=== PATIENT | female | born 1950 | race Caucasian/White ===

== ENCOUNTER 2018-01-14 14:40 | Inpatient (IN) | payer MEDICARE ==
[~2018-01-14] VITALS: Ht 160 cm; Wt 55.8 kg
[2018-01-14] MEDS ORDERED: SODIUM CHLORIDE 0.9% 500ML 500 ML IV STA (15:02)
[2018-01-14] MEDS ORDERED: VANCOMYCIN 1GM/NS 250 ML 250 ML IV SCH (15:15)
[2018-01-14 15:18] LABS: BASOPHILS % 0.1 % (0.0-1.0); EOSINOPHILS % 0.1 % (0.0-6.0); HEMATOCRIT 25.4 % (34.2-44.1); LYMPHOCYTES # (AUTO) 0.6 (1.0-3.2); LYMPHOCYTES % 3.8 % (18.0-39.1); MEAN CORPUSCULAR HEMOGLOBIN 31.8 pg (28-32); MEAN CORPUSCULAR HGB CONC 35.4 g/dL (31-35); MEAN CORPUSCULAR VOLUME 89.8 fL (81-99); MONOCYTES # (AUTO) 1.7 (0.2-0.8); MONOCYTES % 11.3 % (4.4-11.3); NEUTROPHILS # (AUTO) 12.7 (2.1-6.9); NEUTROPHILS % 83.8 % (38.7-80.0); PLATELET COUNT 251 x10e3/uL (140-360); RED BLOOD COUNT 2.83 x10e6/uL (3.6-5.1); RED CELL DISTRIBUTION WIDTH 24.2 % (11.7-14.4)
[2018-01-14 15:22] LABS: INR 1.2; PROTHROMBIN TIME 16.3 seconds (11.9-14.5)
[2018-01-14 15:23] LABS: PARTIAL THROMBOPLASTIN TIME 29.2 seconds (23.8-35.5)
--- NOTE | 2018-01-14 15:30 | NUR ---
PETE FROM LAB CALLED TO REPORT LACTIC ACID 27.3. INFORMED MARIO DAVISON PRIMARY NURSE WELL DR. LAM.
[2018-01-14 15:35] LABS: ALBUMIN 2.9 g/dL (3.5-5.0); ALBUMIN/GLOBULIN RATIO 0.8 (0.8-2.0); ANION GAP 20.7 mmol/L (8-16); CALCIUM 8.2 mg/dL (8.4-10.2); CREATINE KINASE MB 3.5 ng/mL (0-5.0); CREATININE, SERUM 1.27 mg/dL (0.57-1.11)
[2018-01-14 15:42] LABS: POTASSIUM 1.7 mmol/L (3.5-5.1)
--- NOTE | 2018-01-14 15:45 | NUR ---
EVA FROM LAB CALLED TO REPORT K+ 1.7. DR. LAM AND SAMAN, RN PRIMARY NURSE AWARE OF THIS.
[2018-01-14 15:51] LABS: ABG HCO3 27 mmol/L (23-28); ABG PCO2 31 mmHg (41-51); ABG PH 7.55 (7.31-7.41); ABG PO2 131 mmHg (80-105)
[2018-01-14] MEDS ORDERED: POTASSIUM CHLORIDE 20MEQ/100ML 200 ML IV ONE ×3 (16:00→19:30)
--- NOTE | 2018-01-14 16:23 | Diagnostic Imaging Report ---
A single frontal view of the chest. HISTORY: Chest tightness, no pain COMPARISON: None available. DISCUSSION: Portable technique, limits sensitivity of the exam. Overlying monitoring leads and tubes . Tubes/Lines: None Lungs and pleura: The lungs are hyperinflated. Mild bronchiectasis. No evidence of a consolidative pneumonia or pulmonary alveolar edema. No definite pleural effusion or pneumothorax is identified. Heart and mediastinum: The cardiomediastinal silhouette appears unremarkable. Bones: Diffusely decreased mineralization of the osseous structures limits bone detail. No acute displaced fracture. IMPRESSION: Findings compatible with obstructive lung disease, consider COPD. Signed by: Dr. Melvin Contreras D.O., M.M.M. on 01/14/2018 4:19 PM
[2018-01-14 16:34] LABS: CLARITY,URINE CLOUDY (CLEAR); COLOR,URINE YELLOW (YELLOW)
[2018-01-14 16:35] LABS: BILIRUBIN,URINE 2+ (NEGATIVE); KETONES,URINE TRACE (NEGATIVE); LEUKOCYTE ESTERASE ,URINE 2+ (NEGATIVE); NITRITE,URINE POSITIVE (NEGATIVE); PROTEIN,URINE DIPSTICK 1+ (NEGATIVE); URINE UROBILINOGEN 4 mg/dL (0.2 - 1)
--- OUTSIDE RECORDS SUMMARY | 2018-01-14 16:55 | XMS REPORT | Summary of Care ---
Author Organization Unknown Address Unknown Phone Unavailable Encounter [facility](LIS) [id number] Date(s): 07/25/14 - 07/29/14 [facility] [address] [place] [address]- Discharge Disposition: Home Physician Attending: Cezar Contreras MD Physician Admitting: Cezar Contreras MD Vital Signs 1 2 3 Most recent to oldest [Reference Range]: 160.02 cm (07/26/14 2:26 PM) 160.02 cm (07/25/14 8:06 PM) Height 98.0 DegF (07/29/14 11:00 AM) 97.8 DegF (07/29/14 7:00 AM) 98.0 DegF (07/29/14 3:55 AM) Temperature Oral [96.4-99.1 DegF] 143/84 mmHg *HI* (07/29/14 11:00 AM) 179/85 mmHg *HI* (07/29/14 7:00 AM) 173/85 mmHg *HI* (07/29/14 3:55 AM) Blood Pressure [90-140/60-90 mmHg] 18 BRMIN (07/29/14 11:00 AM) 17 BRMIN (07/29/14 7:00 AM) 16 BRMIN (07/29/14 3:55 AM) Respiratory Rate [14-20 BRMIN] 66 bpm (07/29/14 11:00 AM) 68 bpm (07/29/14 7:00 AM) 76 bpm (07/29/14 3:55 AM) Peripheral Pulse Rate [60-100 bpm] 39.091 kg (07/26/14 2:26 PM) 39.091 kg (07/25/14 8:06 PM) Weight 15.27 m2 (07/26/14 2:26 PM) 15.27 m2 (07/25/14 8:06 PM) Body Mass Index Problem List Condition Effective Dates Status Health Status Informant COPD(Confirmed) Active DVT(Confirmed) Active HTN - Active Hypertension(Confirm ed) Current Active smoker(Confirmed) Allergies, Adverse Reactions, Alerts Substance Reaction Severity Status NKDA Active Medications acetaminophen 650 mg, Route: PO, Drug form: TAB, ONCE, Dosing Weight 39.091, kg, Priority: STA T, Start date: 07/25/14 23:47:00, Stop date: 07/25/14 23:47:00 Start Date: 07/25/14 Stop Date: 07/25/14 Status: Completed amLODIPine 5 mg, 1 tab, Route: PO, Drug form: TAB, Daily, Dosing Weight 39.091, kg, Priorit y: STAT, Start date: 07/28/14 14:02:00, Duration: 30 day, Stop date: 08/27/14 9: 00:00 Notes: (Same as: Ernesto) Start Date: 07/28/14 Stop Date: 07/29/14 Status: Discontinued amLODIPine 5 mg, 1 tab, Route: PO, Drug form: TAB, BID, Dosing Weight 39.091, kg, Start judith e: 07/29/14 17:00:00, Duration: 30 day, Stop date: 08/28/14 9:00:00 Notes: (Same as: Ernesto) Start Date: 07/29/14 Stop Date: 07/29/14 Status: Discontinued amLODIPine 5 mg oral tablet 5 mg=1 tab, PO, BID, 0 Refill(s) Start Date: 07/29/14 Status: Ordered aspirin 81 mg tablet, enteric coated 81 mg, 1 tab, Route: PO, Drug form: ECTAB, Daily, Dosing Weight 39.091, kg, Star t date: 07/26/14 13:00:00, Duration: 30 day, Stop date: 08/25/14 9:00:00 Notes: Do not crush or chew.(Same As: Ecotrin) Start Date: 07/26/14 Stop Date: 07/29/14 Status: Discontinued atropine 0.5 mg, 5 mL, Route: IV, Drug form: INJ, ONCE, Dosing Weight 39.091, kg, PRN Bra dycardia, Start date: 07/26/14 19:28:00, symtomatic bradycardia with a HR less t de santiago 44bpm Start Date: 07/26/14 Stop Date: 07/29/14 Status: Discontinued carvedilol 12.5 mg oral tablet 12.5 mg=1 tab, PO, Q12H, 0 Refill(s) Start Date: 07/29/14 Status: Ordered cloNIDine 0.2 mg oral tablet 0.2 mg, 1 tab, Route: PO, Drug form: TAB, BID, Dosing Weight 39.091, kg, Start d ate: 07/26/14 13:00:00, Duration: 30 day, Stop date: 08/25/14 9:00:00 Notes: (Same As: Catapres) Start Date: 07/26/14 Stop Date: 07/29/14 Status: Discontinued Coreg 12.5 mg, 1 tab, Route: PO, Drug form: TAB, Q12H, Dosing Weight 39.091, kg, Start date: 07/28/14 9:00:00, Duration: 30 day, Stop date: 08/26/14 21:00:00 Notes: Give with food. (Same As: Coreg) Start Date: 07/28/14 Stop Date: 07/29/14 Status: Discontinued lisinopril 10 mg, 1 tab, Route: PO, Drug form: TAB, BID, Dosing Weight 39.091, kg, Start da te: 07/29/14 17:00:00, Duration: 30 day, Stop date: 08/28/14 9:00:00 Notes: (Same as: Prinivil, Zestril) Start Date: 07/29/14 Stop Date: 07/29/14 Status: Discontinued lisinopril 10 mg oral tablet 10 mg=1 tab, PO, BID, 0 Refill(s) Start Date: 07/29/14 Status: Ordered Lovenox 40 mg, 0.4 mL, Route: SUB-Q, Drug form: INJ, Daily, Dosing Weight 39.091, kg, St art date: 07/26/14 14:00:00, Stop date: 08/24/14 14:00:00 Notes: (Same as: Lovenox) Start Date: 07/26/14 Stop Date: 07/29/14 Status: Discontinued magnesium sulfate 2 gm, 50 mL, Route: IVPB, Drug form: INJ, ONCE, Dosing Weight 39.091, kg, Total dose=2 gm, Start date: 07/26/14 12:33:00, Duration: 1 doses or times, Stop date: 07/26/14 12:33:00 Start Date: 07/26/14 Stop Date: 07/26/14 Status: Completed magnesium sulfate 2 gm, 50 mL, Route: IVPB, Drug form: INJ, ONCE, Dosing Weight 39.091, kg, Total dose=2 gm, Start date: 07/28/14 8:55:00, Duration: 1 doses or times, Stop date: 07/28/14 8:55:00 Start Date: 07/28/14 Stop Date: 07/28/14 Status: Completed metoprolol tartrate 50 mg, 1 tab, Route: PO, Drug form: TAB, [id number], Dosing Weight 39.091, kg, Star t date: 07/26/14 18:00:00, Duration: 30 day, Stop date: 08/25/14 6:00:00 Notes: (Same as: Lopressor) Start Date: 07/26/14 Stop Date: 07/28/14 Status: Discontinued nitroglycerin 0.4 mg sublingual tablet 0.4 mg, 1 tab, Route: SL, Drug form: TAB, Q5Min, Dosing Weight 39.091, kg, PRN C hest Pain, Start date: 07/26/14 19:28:00, Duration: 30 day, Stop date: 08/25/14 19:27:00 Notes: (Same as:Nitroquick, Nitrostat)"Do Not Crush" Sublingual tablet Start Date: 07/26/14 Stop Date: 07/29/14 Status: Discontinued NS 1,000 mL 1,000 mL, Rate: 75 ml/hr, Infuse over: 13.3 hr, Route: IV, Dosing Weight 39.091 kg, Total Volume: 1,000, Start date: 07/26/14 0:47:00, Stop date: 08/25/14 0:46: 00 Start Date: 07/26/14 Stop Date: 07/26/14 Status: Discontinued potassium chloride 20 mEq, 100 mL, Route: IVPB, Drug form: INJ, Q2H, Dosing Weight 39.091, kg, Tota l dose=40 mEq, Start date: 07/26/14 2:00:00, Duration: 2 doses or times, Stop da te: 07/26/14 4:00:00 Notes: (Same as: KCL) Infuse no faster than 10 mEq/hr if given peripherally. Start Date: 07/26/14 Stop Date: 07/26/14 Status: Voided With Results potassium phosphate + Sodium Chloride 0.9% IV 240 mL 30 mmol, 10 mL, Route: IVPB, ONCE, Dosing Weight 39.091, kg, Start date: 5 13:00:00, Stop date: 07/27/14 13:00:00 Notes: (Same as: K Phosphate.) 1 mMol phoshate has 1.47 mEq potassium Infuse o cat 4 hours Start Date: 07/27/14 Stop Date: 07/27/14 Status: Completed Rocephin 1 gm, Route: IVPB, Drug form: PDR/INJ, ONCE, Dosing Weight 39.091, kg, Priority: STAT, Start date: 07/26/14 0:33:00, Stop date: 07/26/14 0:33:00 Start Date: 07/26/14 Stop Date: 07/26/14 Status: Completed Rocephin + Sodium Chloride 0.9% IV 100 mL 1 gm, Route: IVPB, [id number], Dosing Weight 39.091, kg, Start date: 07/27/14 0:00: 00, Duration: 30 day, Stop date: 08/25/14 0:00:00 Notes: Mix in NS 100ml ADV bag and infuse over 30 Minutes (Same As: Rocephin) Start Date: 07/27/14 Stop Date: 07/29/14 Status: Discontinued Saline Flush 0.9% 10 mL, Route: IVP, Drug Form: INJ, Dosing Weight 39.091, kg, PRN, PRN Line Flush , Start date: 07/25/14 22:00:00, Duration: 30 day, Stop date: 08/24/14 21:59:00 Notes: (Same as: BD Posiflush) Start Date: 07/25/14 Stop Date: 07/29/14 Status: Discontinued Sodium Chloride 0.9% IV 1000 mL 1,000 mL, Rate: 125 ml/hr, Infuse over: 8 hr, Route: IV, Dosing Weight 39.091 kg , Total Volume: 1,000, Priority: STAT, Start date: 07/25/14 22:00:00, Duration: 1 doses or times, Stop date: 07/26/14 5:59:00 Start Date: 07/25/14 Stop Date: 07/25/14 Status: Completed sodium phosphate + Dextrose 5% in Water IV 245 mL 15 mmol, 5 mL, Route: IVPB, PRN, Dosing Weight 39.091, kg, PRN Abnormal Lab Resu lt, Start date: 07/26/14 12:34:00, Duration: 30 day, Stop date: 08/25/14 12:33:0 0 Start Date: 07/26/14 Stop Date: 07/29/14 Status: Discontinued tramadol 50 mg, 1 tab, Route: PO, Drug form: TAB, Q12H, Dosing Weight 39.091, kg, Start d ate: 07/26/14 20:58:00, Stop date: 08/25/14 21:00:00 Notes: Not to exceed 400mg/day. (Same As: Ultram) Start Date: 07/26/14 Stop Date: 07/28/14 Status: Discontinued tramadol 50 mg, 1 tab, Route: PO, Drug form: TAB, Q12H, Dosing Weight 39.091, kg, PRN César n Score 1-3, Start date: 07/26/14 13:09:00, Duration: 30 day, Stop date: 5 13:08:00 Notes: Not to exceed 400mg/day. (Same As: Ultram) Start Date: 07/26/14 Stop Date: 07/26/14 Status: Discontinued tramadol 50 mg oral tablet 50 mg, 1 tab, Route: PO, Drug form: TAB, Q6H, Dosing Weight 39.091, kg, PRN Pain Score 1-3, Start date: 07/28/14 13:39:00, Duration: 30 day, Stop date: 08/27/14 13:38:00 Notes: Not to exceed 400mg/day. (Same As: Ultram) Start Date: 07/28/14 Stop Date: 07/29/14 Status: Discontinued Zofran 4 mg, Route: IVP, Drug form: INJ, ONCE, Dosing Weight 39.091, kg, Start date: 1:39:00, Stop date: 07/26/14 1:39:00 Start Date: 07/26/14 Stop Date: 07/26/14 Status: Completed Results ELECTROLYTES 1 2 3 Most recent to oldest [Reference Range]: 133 mEq/L *LOW* (07/29/14 3:34 AM) 130 mEq/L *LOW* (07/28/14 3:41 AM) 130 mEq/L *LOW* (07/27/14 11:08 AM) Sodium Lvl [135-145 mEq/L] 3.7 mEq/L (07/29/14 3:34 AM) 3.6 mEq/L (07/28/14 3:41 AM) 3.2 mEq/L *LOW* (07/27/14 11:08 AM) Potassium Lvl [3.5-5.1 mEq/L] 92 mEq/L *LOW* (07/29/14 3:34 AM) 92 mEq/L *LOW* (07/28/14 3:41 AM) 90 mEq/L *LOW* (07/27/14 11:08 AM) Chloride Lvl [95-109 mEq/L] 33 mEq/L *HI* (07/29/14 3:34 AM) 32 mEq/L (07/28/14 3:41 AM) 34 mEq/L *HI* (07/27/14 11:08 AM) CO2 [24-32 mEq/L] 11.7 mEq/L (07/29/14 3:34 AM) 9.6 mEq/L *LOW* (07/28/14 3:41 AM) 9.2 mEq/L *LOW* (07/27/14 11:08 AM) AGAP [10.0-20.0 mEq/L] CHEM PANEL 1 2 3 Most recent to oldest [Reference Range]: 0.7 mg/dL (07/29/14 3:34 AM) 0.9 mg/dL (07/28/14 3:41 AM) 1.4 mg/dL (07/27/14 11:08 AM) Creatinine Lvl [0.5-1.4 mg/dL] 92 mL/min/1.73m2 1 *NA* (07/29/14 3:34 AM) 68 mL/min/1.73m2 2 *NA* (07/28/14 3:41 AM) 40 mL/min/1.73m2 3 *NA* (07/27/14 11:08 AM) eGFR 11 mg/dL (07/29/14 3:34 AM) 16 mg/dL (07/28/14 3:41 AM) 18 mg/dL (07/27/14 11:08 AM) BUN [7-22 mg/dL] 25 (07/25/14 11:34 PM) 24 (07/25/14 10:37 PM) B/C Ratio [6-25] 89 mg/dL 4 (07/29/14 3:34 AM) 91 mg/dL 5 (07/28/14 3:41 AM) 84 mg/dL 6 (07/27/14 11:08 AM) Glucose Lvl [70-99 mg/dL] 7.2 g/dL (07/25/14 11:34 PM) 7.9 g/dL (07/25/14 10:37 PM) Total Protein [6.4-8.4 g/dL] 3.8 g/dL (07/25/14 11:34 PM) 4.1 g/dL (07/25/14 10:37 PM) Albumin Lvl [3.5-5.0 g/dL] 3.4 g/dL (07/25/14 11:34 PM) 3.8 g/dL (07/25/14 10:37 PM) Globulin [2.0-4.0 g/dL] 1.1 (07/25/14 11:34 PM) 1.1 (07/25/14 10:37 PM) A/G Ratio [0.7-1.6] 8.4 mg/dL *LOW* (07/29/14 3:34 AM) 7.6 mg/dL *LOW* (07/28/14 3:41 AM) 8.0 mg/dL *LOW* (07/27/14 11:08 AM) Calcium Lvl [8.5-10.5 mg/dL] 2.5 mg/dL (07/28/14 3:41 AM) 1.1 mg/dL 7 *CRIT* (07/27/14 11:08 AM) 1.6 mg/dL *LOW* (07/26/14 4:04 AM) Phosphorus [2.5-4.5 mg/dL] 1.5 mg/dL *LOW* (07/28/14 3:41 AM) 2.0 mg/dL (07/27/14 11:08 AM) 1.5 mg/dL *LOW* (07/26/14 4:04 AM) Magnesium Lvl [1.8-2.4 mg/dL] 27 unit/L (07/25/14 11:34 PM) 30 unit/L (07/25/14 10:37 PM) ALT [0-65 unit/L] 36 unit/L (07/25/14 11:34 PM) 41 unit/L *HI* (07/25/14 10:37 PM) AST [0-37 unit/L] 118 unit/L (07/25/14 11:34 PM) 133 unit/L (07/25/14 10:37 PM) Alk Phos [39-136 unit/L] 0.4 mg/dL (07/25/14 11:34 PM) 0.5 mg/dL (07/25/14 10:37 PM) Bili Total [0.2-1.3 mg/dL] 283 unit/L (07/25/14 10:37 PM) Lipase Lvl [73-393 unit/L] 1Result Comment: The eGFR is calculated using the CKD-EPI formula. In most young, healthy individuals the eGFR will be >90 mL/min/1.73m2. The eGFR declines with age. An eGFR of 60-89 may be normal in some populations, particularly the elderly, for whom the CKD-EPI formula has not been extensively validated. Use of the eGFR is not recommended in the following populations: Individuals with unstable creatinine concentrations, including patients and those with serious co-morbid conditions. Patients with extremes in muscle mass or diet. The data above are obtained from the National Kidney Disease Education Program ( NKDEP) which additionally recommends that when the eGFR is used in patients with extremes of body mass index for purposes of drug dosing, the eGFR should be mul tiplied by the estimated BMI. 2Result Comment: The eGFR is calculated using the CKD-EPI formula. In most young, healthy individuals the eGFR will be >90 mL/min/1.73m2. The eGFR declines with age. An eGFR of 60-89 may be normal in some populations, particularly the elderly, for whom the CKD-EPI formula has not been extensively validated. Use of the eGFR is not recommended in the following populations: Individuals with unstable creatinine concentrations, including patients and those with serious co-morbid conditions. Patients with extremes in muscle mass or diet. The data above are obtained from the National Kidney Disease Education Program ( NKDEP) which additionally recommends that when the eGFR is used in patients with extremes of body mass index for purposes of drug dosing, the eGFR should be mul tiplied by the estimated BMI. 3Result Comment: The eGFR is calculated using the CKD-EPI formula. In most young, healthy individuals the eGFR will be >90 mL/min/1.73m2. The eGFR declines with age. An eGFR of 60-89 may be normal in some populations, particularly the elderly, for whom the CKD-EPI formula has not been extensively validated. Use of the eGFR is not recommended in the following populations: Individuals with unstable creatinine concentrations, including patients and those with serious co-morbid conditions. Patients with extremes in muscle mass or diet. The data above are obtained from the National Kidney Disease Education Program ( NKDEP) which additionally recommends that when the eGFR is used in patients with extremes of body mass index for purposes of drug dosing, the eGFR should be mul tiplied by the estimated BMI. 4Interpretive Data: Adult reference range values reflect the clinical guidelines of the [place] [employer]. 5Interpretive Data: Adult reference range values reflect the clinical guidelines of the [place] [employer]. 6Interpretive Data: Adult reference range values reflect the clinical guidelines of the [place] [employer]. 7Result Comment: Critical Result(s) called to Jose Goldstein at 07/27/2014 12:40 by DANIELA. Read back OK. CARDIAC ENZYMES 1 2 3 Most recent to oldest [Reference Range]: 55 unit/L (07/25/14 10:37 PM) Total CK [12-191 unit/L] 1.5 ng/mL (07/25/14 10:37 PM) CK MB [0.5-3.6 ng/mL] 2.7 *HI* (07/25/14 10:37 PM) CK MB Index [0.0-2.5] <0.02 ng/mL (07/25/14 10:37 PM) Troponin-I [0.00-0.40 ng/mL] 152 pg/mL 8 *HI* (07/25/14 11:34 PM) BNP [<=100 pg/mL] 8Interpretive Data: Elevated results are in line with increasing severity of congestive heart failure. Minor elevations between 100 and 300 may be seen with Myocardial Ischemia, Sodium retaining drugs, and compensated/treated heart failure. THYROID PANEL 1 2 3 Most recent to oldest [Reference Range]: 0.890 uIU/mL (07/25/14 10:37 PM) TSH [0.360-3.740 uIU/mL] TOXICOLOGY 1 2 3 Most recent to oldest [Reference Range]: 0.1 ng/mL *LOW* (07/25/14 10:37 PM) Digoxin Lvl [0.8-2.0 ng/mL] URINE CHEM 1 2 3 Most recent to oldest [Reference Range]: 38.9 mg/dL 9 *NA* (07/26/14 12:39 AM) U Creatinine 26 mEq/L 10 *NA* (07/26/14 12:39 AM) U Sodium 9Interpretive Data: No established reference ranges. 10Interpretive Data: No established reference ranges. URINE AND STOOL 1 2 3 Most recent to oldest [Reference Range]: Marked *ABN* (07/25/14 10:37 PM) UA Turbidity [Clear] Yellow *NA* (07/25/14 10:37 PM) UA Color [Yellow] 5.0 (07/25/14 10:37 PM) UA pH [5.0-8.0] 1.006 (07/25/14 10:37 PM) UA Spec Grav [<=1.030] 150 mg/dL *ABN* (07/25/14 10:37 PM) UA Glucose [Negative mg/dL] Negative (07/25/14 10:37 PM) UA Blood [Negative] Negative mg/dL *NA* (07/25/14 10:37 PM) UA Ketones [Negative mg/dL] Negative mg/dL (07/25/14 10:37 PM) UA Protein [Negative mg/dL] <=1.0 mg/dL *NA* (07/25/14 10:37 PM) UA Urobilinogen [0.1-1.0 mg/dL] Negative *NA* (07/25/14 10:37 PM) UA Bili [Negative] Trace *ABN* (07/25/14 10:37 PM) UA Leuk Est [Negative] Negative (07/25/14 10:37 PM) UA Nitrite [Negative] 6 /HPF *HI* (07/25/14 10:37 PM) UA WBC [0-5 /HPF] 2 /HPF (07/25/14 10:37 PM) UA RBC [0-2 /HPF] Occasional /HPF *NA* (07/25/14 10:37 PM) UA Bacteria [None Seen /HPF] None Seen *NA* (07/25/14 10:37 PM) UA Sq Epi 2 /LPF (07/25/14 10:37 PM) UA Hyal Cast [0-2 /LPF] HEMATOLOGY 1 2 3 Most recent to oldest [Reference Range]: 7.4 K/CMM (07/25/14 11:34 PM) WBC [3.7-10.4 K/CMM] 4.42 M/CMM (07/25/14 11:34 PM) RBC [4.20-5.40 M/CMM] 15.8 g/dL (07/25/14 11:34 PM) Hgb [12.0-16.0 g/dL] 45.3 % (07/25/14 11:34 PM) Hct [36.0-48.0 %] 102.6 fL *HI* (07/25/14 11:34 PM) MCV [80.0-98.0 fL] 35.8 pg *HI* (07/25/14 11:34 PM) MCH [27.0-31.0 pg] 34.9 g/dL (07/25/14 11:34 PM) MCHC [32.0-36.0 g/dL] 13.8 % (07/25/14 11:34 PM) RDW [11.5-14.5 %] 236 K/CMM (07/25/14 11:34 PM) Platelet [133-450 K/CMM] 7.8 fL (07/25/14 11:34 PM) MPV [7.4-10.4 fL] 68.6 % (07/25/14 11:34 PM) Segs [45.0-75.0 %] 18.8 % *LOW* (07/25/14 11:34 PM) Lymphocytes [20.0-40.0 %] 11.2 % (07/25/14 11:34 PM) Monocytes [2.0-12.0 %] 0.9 % (07/25/14 11:34 PM) Eosinophils [0.0-4.0 %] 0.5 % (07/25/14 11:34 PM) Basophils [0.0-1.0 %] 5.1 K/CMM (07/25/14 11:34 PM) Segs-Bands # [1.5-8.1 K/CMM] 1.4 K/CMM (07/25/14 11:34 PM) Lymphocytes # [1.0-5.5 K/CMM] 0.8 K/CMM (07/25/14 11:34 PM) Monocytes # [0.0-0.8 K/CMM] 0.1 K/CMM (07/25/14 11:34 PM) Eosinophils # [0.0-0.5 K/CMM] 1+ *ABN* (07/25/14 11:34 PM) Macrocyte [None Seen] 12.3 seconds (07/25/14 11:34 PM) PT [12.0-14.7 seconds] 0.92 11 (07/25/14 11:34 PM) INR [0.85-1.17] 24.7 seconds 12 (07/25/14 11:34 PM) PTT [22.9-35.8 seconds] 11Interpretive Data: RECOMMENDED RANGES FOR PROTIME INR: 2.0-3.0 for most medical and surgical thromboembolic states. 2.5-3.5 for artificial heart valves and recurrent embolism. INR SHOULD BE USED ONLY FOR PATIENTS ON STABLE ANTICOAGULANT THERAPY. 12Interpretive Data: Heparin Therapeutic Range: 57 - 92 Seconds Immunizations No data available for this section Procedures Procedure Date Related Diagnosis Body Site Hysterectomy Social History Social History Type Response Alcohol Never Smoking Status Current every day smoker; Type: Cigarettes; Number of years: 40; Total pack years: 0.5; Exposure to Tobacco Smoke None; Cigarette Smoking Last 365 Days Yes; Reg Smoking Cessation Counseling Yes Assessment and Plan Extracted from: Title: Clinical Document Author: Wilberto Kong MD Date: 07/29/14 Progress Note - Daily [facility] Completed: Jul, 11:48 by Wilberto Kong MD RM: 307 - 1D, SE [id number], YULIYA [id number] (: 1950) F Attending: Cezar Contreras MDPhone: Service: Pulmonary Service Reason for Admission: FAILURE TO THRIVE, HYPONATREMIA, HYPOKALEMIA, UTI, CAD Working DRG: Signs & symptoms w/o [facility] [place] Code status: None Specified=FULL CODECurrent diet: Isolation: None Documented Allergies: NKDA SUBJECTIVE She feels better and wants to go home No SOB No CP No edema OBJECTIVE Gen: NAD, resting comfortably Heent: PERRLA, EOMI, NC/AT, MMM, OP clear Neck: NO JVD Chest: CTAB, good air entry CVS: RRR Abd: Soft, bs+, nt, nd+ Ext: No edema : No messina catheter Neuro: A+O x3 24hr Labs 07/29 0334 Glucose Lvl89 BUN11 Creatinine Lvl0.7 Sodium Rdj528 L Potassium Lvl3.7 Chloride Lvl92 L CO233 H AGAP11.7 Calcium Lvl8.4 L eGFR92 Messina still necessary (Yes/No): Line still necessary (Yes/No): VitalsTmp(F)[id number] 07/29 07:[id number]--- 07/29 03:5598.692895/8516------ 07/28 23:5398.805015/7614------ 07/28 19:4198.566281/9214------ 07/28 16:0097.679830/[id number]--- 24 Hr Tmax: 98.8F (37.11c) at 07/28 19:41Vital Signs are the last 5 in the past 48 hours. DateWt(kg)Wt(lb)Ht(cm)Ht(in)Method 07/26 39.09 86.85880.02 63.00Measured 07/25 (initial) 39.09 86.00Estimated 07/25160.02 63.00Stated I&ORecordInOutBal 4hr Tot 0 0 0 1224hr Tot 150 0 150 Medications (11) Active Scheduled Meds (6): 07/29/14 amLODIPine 5 mg PO BID 07/26/14 aspirin (aspirin 81 mg tablet, enteric coated) 81 mg PO Daily 07/28/14 carvedilol (Coreg) 12.5 mg PO Q12H 07/27/14 cefTRIAXone + Sodium Chloride 0.9% IV 100 mL (Rocephin + Sodium Chloride 0.9% IV 100 mL) 1 gm IVPB [id number] 200 ml/hr 07/26/14 cloNIDine (cloNIDine 0.2 mg oral tablet) 0.2 mg PO BID 07/26/14 enoxaparin (Lovenox) 40 mg SUB-Q Daily Unscheduled Meds: None PRN Meds (4): 07/26/14 nitroglycerin (nitroglycerin 0.4 mg sublingual tablet) 0.4 mg SL Q5Min 07/25/14 sodium chloride (Saline Flush 0.9%) 10 mL IVP PRN 07/26/14 sodium phosphate + Dextrose 5% in Water IV 245 mL 15 mmol IVPB PRN 62.5 ml/hr 07/28/14 tramadol (tramadol 50 mg oral tablet) 50 mg PO Q6H One Time Meds (1): 07/28/14 (Completed) magnesium sulfate 2 gm IVPB ONCE 25 ml/hr Continuous Infusions: None ASSESSMENT & EXAM HYponatremia 2/2 HCTZ and mostly YUSEF YUSEF HTN Plan: Add hctz to allergies Add lisinopril Ok to d/c if Bps stable
--- OUTSIDE RECORDS SUMMARY | 2018-01-14 16:55 | XMS REPORT | Summary of Care ---
Author Organization Unknown Address Unknown Phone Unavailable Encounter [facility](LIS) [id number] Date(s): 05/28/14 - 06/01/14 [facility] [address] [place] [address]- [phone] Discharge Disposition: Home Physician Attending: Cezar Contreras MD Physician Admitting: Cezar Contreras MD Vital Signs 1 2 3 Most recent to oldest [Reference Range]: 160 cm (05/29/14 10:00 PM) 160.02 cm (05/28/14 11:08 PM) 160.02 cm (05/28/14 4:25 PM) Height 98.3 DegF (06/01/14 11:44 AM) 98.2 DegF (06/01/14 7:35 AM) 98.2 DegF (06/01/14 4:00 AM) Temperature Oral [96.4-99.1 DegF] 113/68 mmHg (06/01/14 11:44 AM) 166/79 mmHg *HI* (06/01/14 7:35 AM) 143/78 mmHg *HI* (06/01/14 4:00 AM) Blood Pressure [90-140/60-90 mmHg] 18 BRMIN (06/01/14 11:44 AM) 18 BRMIN (06/01/14 7:35 AM) 19 BRMIN (06/01/14 4:00 AM) Respiratory Rate [14-20 BRMIN] 78 bpm (06/01/14 11:44 AM) 74 bpm (06/01/14 7:35 AM) 74 bpm (06/01/14 4:00 AM) Peripheral Pulse Rate [60-100 bpm] 42.9 kg (05/29/14 10:00 PM) 39.091 kg (05/28/14 11:08 PM) 39.091 kg (05/28/14 4:25 PM) Weight 16.76 m2 (05/29/14 10:00 PM) 15.27 m2 (05/28/14 11:08 PM) 15.27 m2 (05/28/14 4:25 PM) Body Mass Index Problem List Condition Effective Dates Status Health Status Informant COPD(Confirmed) Active DVT(Confirmed) Active HTN - Active Hypertension(Confirm ed) Current Active smoker(Confirmed) Allergies, Adverse Reactions, Alerts Substance Reaction Severity Status NKDA Active Medications Ambien 5 mg, Route: PO, Bedtime, Dosing Weight 39.091, kg, PRN Insomnia, Start date: 0:21:00, Duration: 30 day, Stop date: 06/28/14 0:20:00 Start Date: 05/29/14 Stop Date: 05/29/14 Status: Deleted aspirin 325 mg tablet, enteric coated 325 mg, 1 tab, Route: PO, Drug form: ECTAB, Daily, Dosing Weight 39.091, kg, Sta rt date: 05/29/14 9:00:00, Duration: 30 day, Stop date: 06/27/14 9:00:00 Notes: (Do Not Crush) Do not crush or chew. Start Date: 05/29/14 Stop Date: 05/29/14 Status: Discontinued aspirin 81 mg tablet, enteric coated 81 mg, 1 tab, Route: PO, Drug form: ECTAB, Daily, Dosing Weight 39.091, kg, Star t date: 05/30/14 9:00:00, Duration: 30 day, Stop date: 06/28/14 9:00:00 Notes: Do not crush or chew.(Same As: Ecotrin) Start Date: 05/30/14 Stop Date: 06/01/14 Status: Discontinued aspirin 81 mg tablet, enteric coated 81 mg=1 tab, PO, Daily, 0 Refill(s) Start Date: 06/01/14 Status: Ordered atropine 0.5 mg, 5 mL, Route: IVP, Drug form: INJ, PRN, PRN Bradycardia, Start date: 05/17 06/30 17:41:00, Duration: 30 day, Stop date: 06/30/14 17:40:00 Start Date: 05/31/14 Stop Date: 06/01/14 Status: Discontinued azithromycin 500 mg, 250 mL, Route: IVPB, Drug form: PDR/INJ, ONCE, Dosing Weight 39.091, kg, Priority: STAT, Start date: 05/28/14 20:19:00, Stop date: 05/28/14 20:19:00 Notes: Same as: Zithromax Start Date: 05/28/14 Stop Date: 05/28/14 Status: Completed carvedilol 25 mg, 2 tab, Route: PO, Drug form: TAB, Q12H, Dosing Weight 39.091, kg, Start d ate: 05/29/14 9:00:00, Duration: 30 day, Stop date: 06/27/14 21:00:00 Notes: Give with food. (Same As: Coreg) Start Date: 05/29/14 Stop Date: 06/01/14 Status: Discontinued carvedilol 12.5 mg oral tablet 25 mg=2 tab, PO, Q12H, 0 Refill(s) Start Date: 06/01/14 Status: Ordered cefTRIAXone + Sodium Chloride 0.9% IV 100 mL 1 gm, Route: IVPB, ONCE, Dosing Weight 39.091, kg, Priority: STAT, Start date: 0 05/28/14 19:08:00, Stop date: 05/28/14 19:08:00 Notes: (Same As: Rocephin).Use with 100ml NS mini-bag PLUS and infuse over 30 mi n MEDICATION WASTE Product Size: 1000 mgProduct Wasted: ___ mg Start Date: 05/28/14 Stop Date: 05/28/14 Status: Completed cloNIDine 0.1 mg, 1 tab, Route: PO, Drug form: TAB, Q6H, Dosing Weight 39.091, kg, PRN Hyp ertension, Start date: 05/28/14 21:40:00, Duration: 30 day, Stop date: 06/27/14 21:39:00 Notes: (Same As: Catapres) Start Date: 05/28/14 Stop Date: 05/29/14 Status: Discontinued cloNIDine 0.1 mg, 1 tab, Route: PO, Drug form: TAB, Q8H, Dosing Weight 42.9, kg, Start judith e: 05/31/14 0:00:00, Duration: 30 day, Stop date: 06/29/14 16:00:00 Notes: (Same As: Randell) Start Date: 05/31/14 Stop Date: 05/31/14 Status: Discontinued cloNIDine 0.1 mg, 1 tab, Route: PO, Drug form: TAB, Q6H, Dosing Weight 42.9, kg, Priority: NOW, Start date: 05/31/14 6:26:00, Duration: 30 day, Stop date: 06/30/14 6:00:00 Notes: (Same As: Awildaaprroddy) Start Date: 05/31/14 Stop Date: 05/31/14 Status: Discontinued cloNIDine 0.1 mg oral tablet 0.1 mg, Route: PO, Drug form: TAB, ONCE, Dosing Weight 39.091, kg, Priority: STA T, Start date: 05/28/14 17:52:00, Stop date: 05/28/14 17:52:00 Start Date: 05/28/14 Stop Date: 05/28/14 Status: Completed cloNIDine 0.1 mg oral tablet 0.1 mg, 1 tab, Route: PO, Drug form: TAB, BID, Dosing Weight 42.9, kg, Start judith e: 05/30/14 17:00:00, Duration: 30 day, Stop date: 06/29/14 9:00:00 Notes: (Same As: Randell) Start Date: 05/30/14 Stop Date: 05/30/14 Status: Canceled cloNIDine 0.1 mg oral tablet 0.2 mg, 2 tab, Route: PO, Drug form: TAB, QID, Dosing Weight 39.091, kg, Start d ate: 05/29/14 12:00:00, Stop date: 06/28/14 6:00:00 Notes: (Same As: Awildaaprroddy) Start Date: 05/29/14 Stop Date: 05/30/14 Status: Discontinued cloNIDine 0.2 mg oral tablet 0.2 mg, PO, BID, # 60 tab, 0 Refill(s) Start Date: 06/01/14 Status: Ordered cloNIDine 0.3 mg oral tablet 0.3 mg, 1 tab, Route: PO, Drug form: TAB, Q12H, Dosing Weight 39.091, kg, Start date: 05/29/14 9:00:00, Duration: 30 day, Stop date: 06/27/14 21:00:00 Notes: (Same As: Catapres) Start Date: 05/29/14 Stop Date: 05/29/14 Status: Canceled cloNIDine 0.3 mg oral tablet 0.3 mg, 1 tab, Route: PO, Drug form: TAB, BID, Dosing Weight 42.9, kg, Priority: NOW, Start date: 05/31/14 9:58:00, Duration: 30 day, Stop date: 06/30/14 9:00:00 Notes: (Same As: Catapres) Start Date: 05/31/14 Stop Date: 06/01/14 Status: Discontinued digoxin 500 microgram, 2 tab, Route: PO, Drug form: TAB, ONCE, Dosing Weight 42.9, kg, P riority: NOW, Start date: 05/30/14 16:43:00, Stop date: 05/30/14 16:43:00 Notes: Take on an Empty Stomach (Same as: Lanoxin) Start Date: 05/30/14 Stop Date: 05/30/14 Status: Completed diltiazem 12 hour extended release 180 mg, 3 cap, Route: PO, Drug form: ERCAP, Q12H, Dosing Weight 42.9, kg, Start date: 05/30/14 21:00:00, Stop date: 06/29/14 9:00:00 Notes: (Same as: Cardizem SR) Before meals. DO NOT CRUSH. Give twice daily. Start Date: 05/30/14 Stop Date: 06/01/14 Status: Discontinued hydrALAZINE 50 mg, 1 tab, Route: PO, Drug form: TAB, TID, Dosing Weight 39.091, kg, Start da te: 05/29/14 17:00:00, Duration: 30 day, Stop date: 06/28/14 13:00:00 Notes: (Same as: Apresoline) May interfere w/enteral feedings Take With Food Start Date: 05/29/14 Stop Date: 05/30/14 Status: Discontinued hydrALAZINE 10 mg oral tablet 10 mg, 1 tab, Route: PO, Drug form: TAB, Q6H, Dosing Weight 39.091, kg, Start da te: 05/29/14 0:00:00, Duration: 30 day, Stop date: 06/27/14 18:00:00 Notes: (Same as: Apresoline) May interfere w/enteral feedings.Take With Food Start Date: 05/29/14 Stop Date: 05/29/14 Status: Discontinued hydrALAZINE 25 mg oral tablet 25 mg, 1 tab, Route: PO, Drug form: TAB, BID, Dosing Weight 42.9, kg, Start date : 05/30/14 17:00:00, Duration: 30 day, Stop date: 06/29/14 9:00:00 Notes: (Same as: Apresoline) May interfere w/enteral feedings Take With Food. Start Date: 05/30/14 Stop Date: 05/30/14 Status: Canceled hydrochlorothiazide 25 mg, 1 tab, Route: PO, Drug form: TAB, Daily, Dosing Weight 42.9, kg, Start da te: 05/31/14 9:00:00, Duration: 30 day, Stop date: 06/29/14 9:00:00 Notes: (Same as: Hydrodiuril) With food. Start Date: 05/31/14 Stop Date: 06/01/14 Status: Discontinued hydrochlorothiazide 25 mg oral tablet 25 mg=1 tab, PO, Daily, # 30 tab, 0 Refill(s) Start Date: 06/01/14 Status: Ordered labetalol 20 mg, 4 mL, Route: IVP, Drug form: INJ, ONCE, Dosing Weight 39.091, kg, Priorit y: STAT, Start date: 05/28/14 23:21:00, Stop date: 05/28/14 23:21:00 Notes: (Same as: Normodyne, Trandate)Push over 2 minutes Give bolus over 2-3 mi nutes. Start Date: 05/28/14 Stop Date: 05/28/14 Status: Completed labetalol 40 mg, Route: IVP, Drug form: INJ, ONCE, Dosing Weight 39.091, kg, Priority: STA T, Start date: 05/28/14 17:52:00, Stop date: 05/28/14 17:52:00 Start Date: 05/28/14 Stop Date: 05/28/14 Status: Completed labetalol 20 mg, Route: IVP, ONCE, Dosing Weight 39.091, kg, Priority: STAT, Start date: 0 05/28/14 16:47:00, Stop date: 05/28/14 16:47:00 Start Date: 05/28/14 Stop Date: 05/28/14 Status: Completed lisinopril 20 mg, Route: PO, ONCE, Dosing Weight 39.091, kg, Priority: STAT, Start date: 17:52:00, Stop date: 05/28/14 17:52:00 Start Date: 05/28/14 Stop Date: 05/28/14 Status: Completed losartan 50 mg, 1 tab, Route: PO, Drug form: TAB, Q12H, Dosing Weight 42.9, kg, Start judith e: 05/30/14 21:00:00, Duration: 30 day, Stop date: 06/29/14 9:00:00 Notes: (Same as: Scooter) Start Date: 05/30/14 Stop Date: 06/01/14 Status: Discontinued losartan 50 mg, 1 tab, Route: PO, Drug form: TAB, BID, Dosing Weight 39.091, kg, Start da te: 05/29/14 9:00:00, Duration: 30 day, Stop date: 06/27/14 21:00:00 Notes: (Same as: Scooter) Start Date: 05/29/14 Stop Date: 05/30/14 Status: Discontinued Lovenox 40 mg, 0.4 mL, Route: SUB-Q, Drug form: INJ, [id number], Dosing Weight 39.091, kg, Start date: 05/29/14 21:00:00, Duration: 30 day, Stop date: 06/27/14 21:00:00 Notes: (Same as: Lovenox) Start Date: 05/29/14 Stop Date: 06/01/14 Status: Discontinued magnesium oxide base 500 mg oral tablet 500 mg, 2 tab, Route: PO, Drug form: TAB, BID, Dosing Weight 42.9, kg, Start judith e: 06/01/14 17:00:00, Duration: 1 day, Stop date: 06/02/14 9:00:00 Start Date: 06/01/14 Stop Date: 06/01/14 Status: Canceled magnesium sulfate 2 gm, 50 mL, Route: IVPB, Drug form: INJ, Q2H, Dosing Weight 42.9, kg, Total dos e=4 gm, Start date: 05/30/14 9:15:00, Duration: 2 doses or times, Stop date: 11:30:00 Start Date: 05/30/14 Stop Date: 05/30/14 Status: Completed magnesium sulfate 2 gm, 50 mL, Route: IVPB, Drug form: INJ, Q2H, Dosing Weight 42.9, kg, Total dos e=4 gm, Start date: 06/01/14 8:00:00, Duration: 2 doses or times, Stop date: 10:00:00 Start Date: 06/01/14 Stop Date: 06/01/14 Status: Completed magnesium sulfate 2 gm in Water 50 ml 2 gm, 50 mL, Route: IVPB, Drug form: INJ, ONCE, Dosing Weight 42.9, kg, Start da te: 05/30/14 6:08:00, Duration: 2 hr, Stop date: 05/30/14 6:08:00 Start Date: 05/30/14 Stop Date: 05/30/14 Status: Deleted magnesium sulfate 2 gm in Water 50 ml + Dextrose 5% in Water IV 96 mL 2 gm, 4 mL, Route: IVPB, Drug form: INJ, ONCE, Dosing Weight 42.9, kg, Start judith e: 05/30/14 6:14:00, Duration: 2 hr, Stop date: 05/30/14 6:14:00 Notes: (Same as: MgSO4) MEDICATION WASTE Product Size: 1000 mgProduct W asted: ___ mg Start Date: 05/30/14 Stop Date: 05/30/14 Status: Completed magnesium sulfate 6gm in NS 100ml 2 gm, Route: IVPB, ONCE, Dosing Weight 42.9, kg, Start date: 05/30/14 6:07:00, S top date: 05/30/14 6:07:00 Start Date: 05/30/14 Stop Date: 05/30/14 Status: Discontinued morphine Sulfate 2 mg, 1 mL, Route: IVP, Drug form: INJ, Q4H, Dosing Weight 39.091, kg, PRN Pain Score 7-10, Start date: 05/29/14 18:28:00, Duration: 30 day, Stop date: 06/28/14 18:27:00 Notes: (Same as:MORPhine Sulfate) Start Date: 05/29/14 Stop Date: 06/01/14 Status: Discontinued Nifedical XL 60 mg, 1 tab, Route: PO, Drug form: ERTAB, Q24H, Dosing Weight 39.091, kg, Prior ity: NOW, Start date: 05/29/14 13:05:00, Duration: 30 day, Stop date: 06/27/14 1 3:05:00 Notes: (Same as:Procardia XL) DO NOT CRUSH/ CHEW TAB ..SWALLOW WHOLE; "Avoid gr apefruit and grapefruit juice" Start Date: 05/29/14 Stop Date: 05/29/14 Status: Discontinued nitroglycerin 0.4 mg sublingual tablet 0.4 mg, 1 tab, Route: SL, Drug form: TAB, Q5Min, PRN Chest Pain, Start date: 17:41:00, Duration: 30 day, Stop date: 06/30/14 17:40:00 Notes: (Same as:Nitroquick, Nitrostat)"Do Not Crush" Sublingual tablet Start Date: 05/31/14 Stop Date: 06/01/14 Status: Discontinued potassium chloride 40 mEq, 2 tab, Route: PO, Drug form: ERTAB, ONCE, Dosing Weight 42.9, kg, Start date: 05/31/14 6:28:00, Stop date: 05/31/14 6:28:00 Notes: (Same as: K-Dur 20)"Do Not Crush" With food and full glass of water Start Date: 05/31/14 Stop Date: 05/31/14 Status: Completed potassium chloride 20 mEq, 1 tab, Route: PO, Drug form: ERTAB, Q6H, Dosing Weight 39.091, kg, Start date: 05/29/14 0:26:00, Duration: 4 doses or times, Stop date: 05/29/14 18:00:00 Notes: (Same as: K-Dur 20)"Do Not Crush" With food and full glass of water Start Date: 05/29/14 Stop Date: 05/29/14 Status: Completed Proventil HFA 90 mcg/inh inhalation aerosol with adapter 2 puff, INHALATION, Q4H, PRN for wheezing Start Date: 05/28/14 Stop Date: 06/01/14 Status: Discontinued Reglan 10 mg, 2 mL, Route: IVP, Drug form: INJ, ONCE, Dosing Weight 39.091, kg, Priorit y: STAT, Start date: 05/28/14 20:43:00, Stop date: 05/28/14 20:43:00 Notes: (Same as: Reglan) Start Date: 05/28/14 Stop Date: 05/28/14 Status: Completed Restoril 15 mg, 1 cap, Route: PO, Drug form: CAP, Bedtime, PRN Insomnia, Start date: 05/17 04/30 0:24:00, Duration: 30 day, Stop date: 06/28/14 0:23:00 Notes: (Same As: Restoril) Start Date: 05/29/14 Stop Date: 06/01/14 Status: Discontinued Saline Flush 0.9% 10 ml, Route: IVP, Drug Form: INJ, Dosing Weight 39.091, kg, PRN, PRN Line Flush , Start date: 05/28/14 21:40:00, Duration: 30 day, Stop date: 06/27/14 21:39:00 Notes: (Same as: BD Posiflush) Start Date: 05/28/14 Stop Date: 06/01/14 Status: Discontinued Saline Flush 0.9% 10 ml, Route: IVP, Drug Form: INJ, Dosing Weight 39.091, kg, Q12H, Start date: 0 05/29/14 9:00:00, Duration: 30 day, Stop date: 06/27/14 21:00:00 Notes: (Same as: BD Posiflush) Start Date: 05/29/14 Stop Date: 06/01/14 Status: Discontinued Saline Flush 0.9% 10 mL, Route: IVP, Drug Form: INJ, Dosing Weight 39.091, kg, PRN, PRN Line Flush , Start date: 05/28/14 16:47:00, Duration: 30 day, Stop date: 06/27/14 16:46:00 Notes: Same as: BD Posiflush Sterile Start Date: 05/28/14 Stop Date: 05/31/14 Status: Discontinued Sodium Chloride 0.9% IV 1,000 mL 1,000 mL, Rate: 75 ml/hr, Infuse over: 13.3 hr, Route: IV, Dosing Weight 39.091 kg, Total Volume: 1,000, Start date: 05/28/14 20:48:00, Duration: 30 day, Stop d ate: 06/27/14 20:47:00 Start Date: 05/28/14 Stop Date: 05/31/14 Status: Discontinued Tylenol 650 mg, 2 tab, Route: PO, Drug form: TAB, ONCE, Dosing Weight 39.091, kg, Priori ty: STAT, Start date: 05/28/14 20:43:00, Stop date: 05/28/14 20:43:00 Notes: Do not exceed 4 gm/day. (Same as: Tylenol) Start Date: 05/28/14 Stop Date: 05/28/14 Status: Completed Vasotec 2.5 mg, 2 mL, Route: IVP, Drug form: INJ, Q4H, Dosing Weight 42.9, kg, PRN Other -See Comment, Start date: 05/31/14 6:20:00, Duration: 30 day, Stop date: 6:19:00, SBP >170 Notes: (Same as: Vasotec-IV) Start Date: 05/31/14 Stop Date: 06/01/14 Status: Discontinued Vasotec 2.5 mg, 2 mL, Route: IV, Drug form: INJ, Q4H, Dosing Weight 39.091, kg, Start da te: 05/29/14 12:00:00, Duration: 30 day, Stop date: 06/28/14 8:00:00 Notes: (Same as: Vasotec-IV) Start Date: 05/29/14 Stop Date: 05/30/14 Status: Discontinued Vasotec 2.5 mg, Route: IVP, ONCE, Dosing Weight 39.091, kg, Start date: 05/29/14 10:16:0 0, Stop date: 05/29/14 10:16:00 Start Date: 05/29/14 Stop Date: 05/29/14 Status: Completed verapamil 5 mg, 2 mL, Route: IVP, Drug form: INJ, Q4H, Dosing Weight 39.091, kg, Priority: NOW, Start date: 05/29/14 19:59:00, Duration: 30 day, Stop date: 06/28/14 16:00 :00 Notes: (Same As: Faiza Staley) "Avoid grapefruit and grapefruit juice" Start Date: 05/29/14 Stop Date: 05/30/14 Status: Discontinued verapamil 80 mg, 1 tab, Route: PO, Drug form: TAB, TID, Dosing Weight 42.9, kg, Priority: NOW, Start date: 05/30/14 16:42:00, Duration: 30 day, Stop date: 06/29/14 9:00:0 0 Notes: (Same As: Faiza Staley) "Avoid grapefruit and grapefruit juice" Start Date: 05/30/14 Stop Date: 05/30/14 Status: Discontinued warfarin 2.5 mg oral tablet 2.5 mg=1 tab, PO, QPM Start Date: 05/28/14 Stop Date: 06/01/14 Status: Discontinued Zofran 4 mg, Route: IVP, Drug form: INJ, ONCE, Dosing Weight 39.091, kg, Priority: STAT , Start date: 05/28/14 18:24:00, Stop date: 05/28/14 18:24:00 Start Date: 05/28/14 Stop Date: 05/28/14 Status: Discontinued Zofran 4 mg, Route: IVP, Drug form: INJ, ONCE, Dosing Weight 39.091, kg, Priority: STAT , Start date: 05/28/14 18:23:00, Stop date: 05/28/14 18:23:00 Start Date: 05/28/14 Stop Date: 05/28/14 Status: Completed Results ELECTROLYTES 1 2 3 Most recent to oldest [Reference Range]: 140 mEq/L (05/31/14 5:09 AM) 140 mEq/L (05/30/14 4:28 AM) 139 mEq/L (05/29/14 5:40 AM) Sodium Lvl [135-145 mEq/L] 3.5 mEq/L (05/31/14 5:09 AM) 4.1 mEq/L (05/30/14 4:28 AM) 3.5 mEq/L (05/29/14 5:40 AM) Potassium Lvl [3.5-5.1 mEq/L] 104 mEq/L (05/31/14 5:09 AM) 103 mEq/L (05/30/14 4:28 AM) 100 mEq/L (05/29/14 5:40 AM) Chloride Lvl [95-109 mEq/L] 31 mEq/L (05/31/14 5:09 AM) 28 mEq/L (05/30/14 4:28 AM) 28 mEq/L (05/29/14 5:40 AM) CO2 [24-32 mEq/L] 8.5 mEq/L *LOW* (05/31/14 5:09 AM) 13.1 mEq/L (05/30/14 4:28 AM) 14.5 mEq/L (05/29/14 5:40 AM) AGAP [10.0-20.0 mEq/L] CHEM PANEL 1 2 3 Most recent to oldest [Reference Range]: 0.8 mg/dL (05/31/14 5:09 AM) 0.8 mg/dL (05/30/14 4:28 AM) 1.0 mg/dL (05/29/14 5:40 AM) Creatinine Lvl [0.5-1.4 mg/dL] 79 mL/min/1.73m2 1 *NA* (05/31/14 5:09 AM) 79 mL/min/1.73m2 2 *NA* (05/30/14 4:28 AM) 60 mL/min/1.73m2 3 *NA* (05/29/14 5:40 AM) eGFR 8 mg/dL (05/31/14 5:09 AM) 11 mg/dL (05/30/14 4:28 AM) 14 mg/dL (05/29/14 5:40 AM) BUN [7-22 mg/dL] 14 (05/30/14 4:28 AM) 12 (05/28/14 4:51 PM) B/C Ratio [6-25] 90 mg/dL 4 (05/31/14 5:09 AM) 95 mg/dL 5 (05/30/14 4:28 AM) 72 mg/dL 6 (05/29/14 5:40 AM) Glucose Lvl [70-99 mg/dL] 5.9 g/dL *LOW* (05/30/14 4:28 AM) 7.5 g/dL (05/28/14 4:51 PM) Total Protein [6.4-8.4 g/dL] 3.0 g/dL *LOW* (05/30/14 4:28 AM) 3.6 g/dL (05/28/14 4:51 PM) Albumin Lvl [3.5-5.0 g/dL] 2.9 g/dL (05/30/14 4:28 AM) 3.9 g/dL (05/28/14 4:51 PM) Globulin [2.0-4.0 g/dL] 1.0 (05/30/14 4:28 AM) 0.9 (05/28/14 4:51 PM) A/G Ratio [0.7-1.6] 7.5 mg/dL *LOW* (05/31/14 5:09 AM) 7.4 mg/dL *LOW* (05/30/14 4:28 AM) 8.0 mg/dL *LOW* (05/29/14 5:40 AM) Calcium Lvl [8.5-10.5 mg/dL] 1.6 mg/dL *LOW* (06/01/14 3:46 AM) 2.0 mg/dL (05/31/14 5:09 AM) 2.0 mg/dL (05/30/14 10:52 PM) Magnesium Lvl [1.8-2.4 mg/dL] 27 unit/L (05/30/14 4:28 AM) 41 unit/L (05/28/14 4:51 PM) ALT [0-65 unit/L] 33 unit/L (05/30/14 4:28 AM) 76 unit/L *HI* (05/28/14 4:51 PM) AST [0-37 unit/L] 104 unit/L (05/30/14 4:28 AM) 129 unit/L (05/28/14 4:51 PM) Alk Phos [39-136 unit/L] 0.9 mg/dL (05/30/14 4:28 AM) 0.3 mg/dL (05/28/14 4:51 PM) Bili Total [0.2-1.3 mg/dL] 297 unit/L (05/28/14 4:51 PM) Lipase Lvl [73-393 unit/L] 3.2 mMol/L *HI* (05/28/14 7:26 PM) Lactic Acid Lvl [0.5-2.2 mMol/L] 1Result Comment: The eGFR is calculated using [...] values reflect the clinical guidelines of the [employer]. 5Interpretive Data: Adult reference range values reflect the clinical guidelines of the [employer] [employer]. 6Interpretive Data: Adult reference range values reflect the clinical guidelines of the [place] [employer]. CARDIAC ENZYMES 1 2 3 Most recent to oldest [Reference Range]: 61 unit/L (05/30/14 4:28 AM) 70 unit/L (05/28/14 4:51 PM) Total CK [12-191 unit/L] 1.8 ng/mL (05/30/14 4:28 AM) 1.1 ng/mL (05/28/14 4:51 PM) CK MB [0.5-3.6 ng/mL] 3.0 *HI* (05/30/14 4:28 AM) 1.6 (05/28/14 4:51 PM) CK MB Index [0.0-2.5] 0.02 ng/mL (05/30/14 4:28 AM) 0.02 ng/mL (05/28/14 4:51 PM) Troponin-I [0.00-0.40 ng/mL] 233 pg/mL 7 *HI* (05/30/14 4:28 AM) 683 pg/mL 8 *HI* (05/28/14 4:51 PM) BNP [<=100 pg/mL] 7Interpretive Data: Elevated results are in line with increasing severity of congestive heart failure. Minor elevations between 100 and 300 may be seen with Myocardial Ischemia, Sodium retaining drugs, and compensated/treated heart failure. 8Interpretive Data: Elevated results are in line with increasing severity of congestive heart failure. Minor elevations between 100 and 300 may be seen with Myocardial Ischemia, Sodium retaining drugs, and compensated/treated heart failure. LIPIDS 1 2 3 Most recent to oldest [Reference Range]: 1.73 *LOW* (05/30/14 4:28 AM) CHD Risk [3.90-5.80] 175 mg/dL (05/30/14 4:28 AM) Chol [<=199 mg/dL] 91 mg/dL (05/30/14 4:28 AM) Trig [<=149 mg/dL] 101 mg/dL (05/30/14 4:28 AM) HDL [>=61 mg/dL] 56 mg/dL (05/30/14 4:28 AM) LDL (Calculated) [<=99 mg/dL] 18 *NA* (05/30/14 4:28 AM) VLDL THYROID PANEL 1 2 3 Most recent to oldest [Reference Range]: 1.870 uIU/mL (05/31/14 10:50 AM) 3.050 uIU/mL (05/30/14 4:28 AM) TSH [0.360-3.740 uIU/mL] ENDOCRINOLOGY 1 2 3 Most recent to oldest [Reference Range]: 13.9 ug/dl 9 (05/31/14 10:50 AM) Cortisol [3.0-23.0 ug/dl] 9Interpretive Data: CORD BLOOD: 5 - 17 ug/dL PREMATURE INFANTS: 26-28 weeks, day 4 1 - 11 ug/dL 31-35 weeks, day 4 2.5 - 9.1 ug/dL FULL TERM INFANTS: 3 days 1.7 - 14 ug/dL 1-7 days 2 - 11 ug/dL 1-12 months 2.8 - 23 ug/dL CHILDREN (1 - 16 years) 3 - 21 ug/dL ADULT RANGE: 8AM 6.0 - 23.0 ug/dL 4PM 3.0 - 16.0 ug/dL URINE AND STOOL 1 2 3 Most recent to oldest [Reference Range]: Clear (05/28/14 5:40 PM) UA Turbidity [Clear] Ltyellow *NA* (05/28/14 5:40 PM) UA Color 7.0 (05/28/14 5:40 PM) UA pH [5.0-8.0] 1.009 (05/28/14 5:40 PM) UA Spec Grav [<=1.030] 50 mg/dL *ABN* (05/28/14 5:40 PM) UA Glucose [Negative mg/dL] Small *ABN* (05/28/14 5:40 PM) UA Blood [Negative] Negative mg/dL *NA* (05/28/14 5:40 PM) UA Ketones [Negative mg/dL] 100 mg/dL *ABN* (05/28/14 5:40 PM) UA Protein [Negative mg/dL] <=1.0 mg/dL *NA* (05/28/14 5:40 PM) UA Urobilinogen [0.1-1.0 mg/dL] Negative *NA* (05/28/14 5:40 PM) UA Bili [Negative] Negative (05/28/14 5:40 PM) UA Leuk Est [Negative] Positive *ABN* (05/28/14 5:40 PM) UA Nitrite [Negative] 4 /HPF (05/28/14 5:40 PM) UA WBC [0-5 /HPF] 2 /HPF (05/28/14 5:40 PM) UA RBC [0-2 /HPF] Many /HPF *ABN* (05/28/14 5:40 PM) UA Bacteria [None Seen /HPF] Occasional /LPF *NA* (05/28/14 5:40 PM) UA Sq Epi [Few /LPF] HEMATOLOGY 1 2 3 Most recent to oldest [Reference Range]: 5.0 K/CMM (05/31/14 5:09 AM) 6.1 K/CMM (05/30/14 4:28 AM) 6.8 K/CMM (05/28/14 4:51 PM) WBC [3.7-10.4 K/CMM] 3.83 M/CMM *LOW* (05/31/14 5:09 AM) 4.04 M/CMM *LOW* (05/30/14 4:28 AM) 4.21 M/CMM (05/28/14 4:51 PM) RBC [4.20-5.40 M/CMM] 13.8 g/dL (05/31/14 5:09 AM) 14.5 g/dL (05/30/14 4:28 AM) 15.2 g/dL (05/28/14 4:51 PM) Hgb [12.0-16.0 g/dL] 41.9 % (05/31/14 5:09 AM) 43.2 % (05/30/14 4:28 AM) 45.6 % (05/28/14 4:51 PM) Hct [36.0-48.0 %] 109.4 fL *HI* (05/31/14 5:09 AM) 107.0 fL *HI* (05/30/14 4:28 AM) 108.2 fL *HI* (05/28/14 4:51 PM) MCV [80.0-98.0 fL] 35.9 pg *HI* (05/31/14 5:09 AM) 36.0 pg *HI* (05/30/14 4:28 AM) 36.1 pg *HI* (05/28/14 4:51 PM) MCH [27.0-31.0 pg] 32.8 g/dL (05/31/14 5:09 AM) 33.6 g/dL (05/30/14 4:28 AM) 33.4 g/dL (05/28/14 4:51 PM) MCHC [32.0-36.0 g/dL] 15.4 % *HI* (05/31/14 5:09 AM) 15.4 % *HI* (05/30/14 4:28 AM) 15.8 % *HI* (05/28/14 4:51 PM) RDW [11.5-14.5 %] 130 K/CMM *LOW* (05/31/14:09 AM) 148 K/CMM (05/30/14 4:28 AM) 174 K/CMM (05/28/14 4:51 PM) Platelet [133-450 K/CMM] 9.2 fL (05/31/14 5:09 AM) 9.1 fL (05/30/14 4:28 AM) 9.2 fL (05/28/14 4:51 PM) MPV [7.4-10.4 fL] 62.3 % (05/31/14 5:09 AM) 66.6 % (05/30/14 4:28 AM) 64.0 % (05/28/14 4:51 PM) Segs [45.0-75.0 %] 23.1 % (05/31/14 5:09 AM) 21.4 % (05/30/14 4:28 AM) 25.4 % (05/28/14 4:51 PM) Lymphocytes [20.0-40.0 %] 10.2 % (05/31/14 5:09 AM) 10.2 % (05/30/14 4:28 AM) 8.4 % (05/28/14 4:51 PM) Monocytes [2.0-12.0 %] 3.8 % (05/31/14 5:09 AM) 1.3 % (05/30/14 4:28 AM) 1.7 % (05/28/14 4:51 PM) Eosinophils [0.0-4.0 %] 0.6 % (05/31/14 5:09 AM) 0.5 % (05/30/14 4:28 AM) 0.5 % (05/28/14 4:51 PM) Basophils [0.0-1.0 %] 3.1 K/CMM (05/31/14 5:09 AM) 4.1 K/CMM (05/30/14 4:28 AM) 4.4 K/CMM (05/28/14 4:51 PM) Segs-Bands # [1.5-8.1 K/CMM] 1.2 K/CMM (05/31/14 5:09 AM) 1.3 K/CMM (05/30/14 4:28 AM) 1.7 K/CMM (05/28/14 4:51 PM) Lymphocytes # [1.0-5.5 K/CMM] 0.5 K/CMM (05/31/14 5:09 AM) 0.6 K/CMM (05/30/14 4:28 AM) 0.6 K/CMM (05/28/14 4:51 PM) Monocytes # [0.0-0.8 K/CMM] 0.2 K/CMM (05/31/14 5:09 AM) 0.1 K/CMM (05/30/14 4:28 AM) 0.1 K/CMM (05/28/14 4:51 PM) Eosinophils # [0.0-0.5 K/CMM] See Note (05/31/14 5:09 AM) RBC Morph 3+ *NA* (05/31/14 5:09 AM) 2+ *ABN* (4/14/15 4:28 AM) 2+ *ABN* (05/28/14 4:51 PM) Macrocyte [None Seen] Normal (05/31/14 5:09 AM) Plt Morph 17.2 seconds *HI* (05/28/14 11:34 PM) PT [12.0-14.7 seconds] 1.38 10 *HI* (05/28/14 11:34 PM) INR [0.85-1.17] 27.5 seconds 11 (05/28/14 11:34 PM) PTT [22.9-35.8 seconds] 10Interpretive Data: RECOMMENDED RANGES FOR PROTIME INR: 2.0-3.0 for most medical and surgical thromboembolic states. 2.5-3.5 for artificial heart valves and recurrent embolism. INR SHOULD BE USED ONLY FOR PATIENTS ON STABLE ANTICOAGULANT THERAPY. 11Interpretive Data: Heparin Therapeutic Range: 57 - 92 Seconds Immunizations No data available for this section Procedures No data available for this section Social History Social History Type Response Smoking Status Current every day smoker; Type: Cigarettes; Number of years: 40; Total pack years: 0.5; Exposure to Tobacco Smoke None; Cigarette Smoking Last 365 Days Yes; Reg Smoking Cessation Counseling Yes Assessment and Plan Extracted from: Title: Clinical Document Author: Georges Treviño MD Date: 06/01/14 Progress Note Nephrology [facility] SUBJECTIVE Patient feeling better, asymptomatic today OBJECTIVE Vital Signs (last 24 hrs) Last Charted Minimum Maximum Temp98.3 (JUN 01 11:44)98.1 (JUN 01 00:00)98.5 (MAY 31 20:00) Heart Rate78 (JUN 01 11:44)64 (JUN 01 00:00)78 (JUN 01 11:44) Resp Rate 18 (JUN 01 11:44)15 (MAY 31 14:00)19 (JUN 01 04:00) UKQ088 (JUN 01 11:44)104 (MAY 31 14:00)H 166 (JUN 01 07:35) DBP68 (JUN 01 11:44)60 (MAY 31 15:00)81 (MAY 31 20:00) Input/Output RecordInOutBal 04/1624hr Tot 111 0 111 04/1524hr Tot 22 563 -931 Scheduled Meds (9):aspirin (aspirin 81 mg tablet, enteric coated), carvedilol, cloNIDine (cloNIDine 0.3 mg oral tablet), diltiazem (diltiazem 12 hour extended release), enoxaparin (Lovenox), hydrochlorothiazide, losartan, magnesium oxide (magnesium oxide base 500 mg oral tablet), sodium chloride (Saline Flush 0.9%) Unscheduled Meds: None PRN Meds (6):atropine, enalapril (Vasotec), morphine Sulfate, nitroglycerin (nitroglycerin 0.4 mg sublingual tablet), sodium chloride (Saline Flush 0.9%), temazepam (Restoril) One Time Meds (1):(Completed) potassium chloride Continuous Infusions: None Physical Exam: Gen: NAD, AAOx3 HEENT: MMM, anicteric Neck: supple, no JVD CVS: RRR no m/r/g Lungs: CTA bilaterally, no rales or rhonchi Abd: soft, nontender, nondistended Extremities: no clubbing/cyanosis or edema bilateral LE or upper extremities Skin: no rash or petechiae Labs (Last four charted values) WBC 5.0(MAY 31)6.1(MAY 30)6.8(MAY 28) Hgb 13.8(MAY 31)14.5(MAY 30)15.2(MAY 28) Hct 41.9(MAY 31)43.2(MAY 30)45.6(MAY 12) Plt L 130(MAY 15)148(MAY 14)174(MAY 12) Na 140(MAY 31)140(MAY 14)139(MAY 13)143(MAY 12) K 3.5(MAY 15)4.1(MAY 14)3.5(MAY 13)L 3.2(MAY 12) CO2 31(MAY 15)28(MAY 14)28(MAY 13)32(MAY 12) Cl 104(MAY 15)103(MAY 14)100(MAY 13)103(MAY 12) Cr 0.8(MAY 15)0.8(MAY 14)1.0(MAY 29)1.1(MAY 12) BUN 8(MAY 15)11(MAY 14)14(MAY 13)13(MAY 12) Glucose Random 90(MAY 15)95(MAY 14)72(MAY 13)92(MAY 12) Mg L 1.6(MAY 16)2.0(MAY 31)2.0(MAY 30)C 0.8(MAY 30) Ca L 7.5(MAY 31)L 7.4(MAY 30)L 8.0(MAY 29)L 8.4(MAY 28) PT H 17.2(MAY 28) INR H 1.38(MAY 28) PTT 27.5(MAY 28) Troponin 0.02(MAY 30)0.02(MAY 28) CK MB 1.8(MAY 30)1.1(MAY 28) Total CK 61(MAY 30)70(MAY 28) IMPRESSION: 1. Accelerated HTN 2. Hypomagnesemia 3. UTI PLAN: 1. BP better today with current antihypertensives. Secondary hypertension workup pending. 2. Replace magnesium 3. Renal US done although renal doppler ordered. Nevertheless, unremarkable study and BP better now.
--- OUTSIDE RECORDS SUMMARY | 2018-01-14 16:55 | XMS REPORT | Continuity of Care Document ---
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 Longer Active 04/29/2016 [facility] aspirin 81 mg tablet, enteric coated 81 mg, 1 tab, Route: PO, Drug form: ECTAB, Daily, Dosing Weight 40.909, kg, Start date: 04/29/16 9:00:00 CDT, Duration: 30 day, Stop date: 05/28/16 9:00:00 CDTNotes: Do not crush or chew. (Same As: Ecotrin) No Longer Active 04/29/2016 [facility] Eliquis 5 mg, 1 tab, Route: PO, Drug form: TAB, BID, Dosing Weight 40.909, kg, Start date: 04/29/16 9:00:00 CDT, Duration: 30 day, Stop date: 05/28/16 17:00:00 CDTNotes: Same as: Eliquis Inactive 04/29/2016 [facility] potassium chloride 40 mEq, 2 tab, Route: PO, Drug form: ERTAB, Q4H, Dosing Weight 40.909, kg, Start date: 04/29/16 8:00:00 CDT, Duration: 2 doses or times, Stop date: 04/29/16 12:00:00 CDTNotes: (Same as: K- Dur 20) "Do Not Crush" With food and full glass of water Inactive 04/29/2016 [facility] metoprolol tartrate 100 mg, 1 tab, Route: PO, Drug form: ERTAB, Q8H, Dosing Weight 40.909, kg, Start date: 04/29/16 8:00:00 CDT, Duration: 30 day, Stop date: 05/29/16 0:00:00 CDTNotes: (Same as: Toprol XL) May split tab, but do not crush. No Longer Active 04/29/2016 [facility] albuterol 2 puff, Route: INHALER, Drug Form: AERO/A, Q4H, PRN Wheezing, Start date: 04/29/16 3:37:00 CDT, Duration: 30 day, Stop date: 05/29/16 3:36:00 CDTNotes: Albuterol 90 microgram/inh 8gm HFA WASTE: Aerosol - Return to Pharmacy Same as: Ventolin, Proventil No Longer Active 04/29/2016 [facility] Cipro 400 mg, 200 mL, Route: IVPB, Drug form: INJ, [id number], Dosing Weight 40.909, kg, Start date: 04/29/16 3:00:00 CDT, Duration: 30 day, Stop date: 05/28/16 11:30:00 CDTNotes: Do not refrigerate No Longer Active 04/29/2016 [facility] Flagyl 500 mg, 100 mL, Route: IVPB, Drug form: INJ, [id number], Dosing Weight 40.909, kg, Start date: 04/29/16 3:00:00 CDT, Duration: 30 day, Stop date: 05/28/16 16:00:00 CDTNotes: (Same as: Flagyl) Avoid alcohol. No Longer Active 04/29/2016 [facility] 200 ACTUAT Albuterol 0.09 MG/ACTUAT Metered Dose Inhaler [ProAir HFA] 1 puff, Route: PO, Drug Form: AERO/A, Dosing Weight 40.909, kg, Q4H, PRN as needed for wheezing, Start date: 04/29/16 2:50:00 CDT, Duration: 30 day, Stop date: 05/29/16 2:49:00 CDTNotes: Albuterol 90 microgram/inh 8gm HFA WASTE: Aerosol - Return to Pharmacy Same as: Ventolin, Proventil Inactive 04/29/2016 [facility] Magnesium Sulfate 2 gm, 50 mL, Route: IVPB, Drug form: INJ, ONCE, Dosing Weight 40.909, kg, Total dose=2 gm, Start date: 04/29/16 2:42:00 CDT, Duration: 1 doses or times, Stop date: 04/29/16 2:42:00 CDTNotes: WASTE: F/P - Sink; E - Municipal Trash Bin Inactive 04/29/2016 [facility] Sodium Chloride 0.154 MEQ/ML Injectable Solution 1,000 mL, Rate: 75 ml/hr, Infuse over: 13.3 hr, Route: IV, Dosing Weight 40.909 kg, Total Volume: 1,000, Start date: 04/29/16 2:42:00 CDT, Duration: 30 day, Stop date: 05/29/16 2:41:00 CDT Inactive 04/29/2016 [facility] Saline Flush 0.9% 10 ml, Route: IVP, Drug Form: INJ, Dosing Weight 40.909, kg, PRN, PRN Line Flush, Start date: 04/29/16 2:42:00 CDT, Duration: 30 day, Stop date: 05/29/16 2:41:00 CDTNotes: (Same as: BD Posiflush) No Longer Active 04/29/2016 [facility] Ondansetron 4 mg, 2 mL, Route: IVP, Drug form: INJ, Q6H, Dosing Weight 40.909, kg, PRN Nausea & Vomiting, Start date: 04/29/16 2:42:00 CDT, Duration: 30 day, Stop date: 05/29/16 2:41:00 CDTNotes: (Same as: Zofran) MEDICATION WASTE Product Size: 4 mg Product Wasted: ___ mg No Longer Active 04/29/2016 [facility] Morphine 2 mg, 0.5 mL, Route: IVP, Drug form: SOLN, Q4H, Dosing Weight 40.909, kg, PRN Pain Score 7-10, Start date: 04/29/16 2:42:00 CDT, Duration: 30 day, Stop date: 05/29/16 2:41:00 CDTNotes: (Same as:MORPhine Sulfate) No Longer Active 04/29/2016 [facility] Acetaminophen 325 mg, 1 tab, Route: PO, Drug form: TAB, Q4H, Dosing Weight 40.909, kg, PRN Pain 1-3/Temp > 100.4 F, Start date: 04/29/16 2:42:00 CDT, Duration: 30 day, Stop date: 05/29/16 2:41:00 CDTNotes: Do not exceed 4 gm/day. (Same as: Tylenol) No Longer Active 04/29/2016 [facility] Morphine 1 mg, 0.25 mL, Route: IV, Drug form: SOLN, ONCE, Dosing Weight 40.909, kg, Start date: 04/29/16 2:04:00 CDT, Stop date: 04/29/16 2:04:00 CDTNotes: (Same as:MORPhine Sulfate) Inactive 04/29/2016 [facility] metoprolol tartrate 50 mg, 1 tab, Route: PO, Drug form: TAB, ONCE, Dosing Weight 40.909, kg, Start date: 04/28/16 23:55:00 CDT, Stop date: 04/28/16 23:55:00 CDTNotes: (Same as: Lopressor) No Longer Active 04/29/2016 [facility] Cipro 400 mg, 200 mL, Route: IVPB, Drug form: INJ, ONCE, Dosing Weight 40.909, kg, Priority: STAT, Start date: 04/28/16 23:26:00 CDT, Stop date: 04/28/16 23:26:00 CDTNotes: Do not refrigerate Inactive 04/29/2016 [facility] Flagyl 500 mg, 100 mL, Route: IVPB, Drug form: INJ, ONCE, Dosing Weight 40.909, kg, Priority: STAT, Start date: 04/28/16 23:25:00 CDT, Stop date: 04/28/16 23:25:00 CDTNotes: (Same as: Flagyl) Avoid alcohol. Inactive 04/29/2016 [facility] Magnesium Sulfate 1 gm, 100 mL, Route: IV, Drug form: INJ, ONCE, Dosing Weight 40.909, kg, Priority: STAT, Start date: 04/28/16 21:40:00 CDT, Stop date: 04/28/16 21:40:00 CDTNotes: WASTE: F/P - Sink; E - Municipal Tra sh Bin Inactive 04/29/2016 [facility] Eliquis 5 mg, 2 tab, Route: PO, Drug form: TAB, ONCE, Dosing Weight 40.909, kg, Start date: 04/28/16 20:41:00 CDT, Stop date: 04/28/16 20:41:00 CDTNotes: Same as: Eliquis Inactive 04/29/2016 [facility] Saline Flush 0.9% 10 mL, Route: IVP, Drug Form: INJ, Dosing Weight 40.909, kg, PRN, PRN Line Flush, Start date: 04/28/16 14:29:00 CDT, Duration: 30 day, Stop date: 05/28/16 14:28:00 CDTNotes: (Same as: BD Posiflush) No Longer Active 04/28/2016 [facility] Sodium Chloride 0.154 MEQ/ML Injectable Solution 1,000 mL, 2,000 ml/hr, Infuse Over: 30 minutes, Route: IV, 1,000, Drug form: INJ, ONCE, Priority: STAT, Dosing Weight 40.909 kg, Start date: 04/28/16 14:29:00 CDT, Duration: 1 doses or times, Stop date: 04/28/16 14:29:00 CDT Inactive 04/28/2016 [facility] apixaban 5 MG Oral Tablet [Eliquis] 5 mg=1 tab, PO, BID, has dvt and PE and will need nursing home therapy., # 60 tab, 0 Refill(s), Pharmacy: [facility]/pharmacy #[id number] Active 04/17/2016 [facility] Acetaminophen 300 MG / Codeine Phosphate 60 MG Oral Tablet [Tylenol with Codeine #4] 1 tab, PO, Q4H, PRN Pain, X 7 day, # 42 tab, 0 Refill(s) Active 04/17/2016 [facility] Ciprofloxacin 500 MG Oral Tablet [Cipro] 500 mg=1 tab, PO, Q12H, X 10 day, # 20 tab, 0 Refill(s), Pharmacy: [facility]/pharmacy #[id number] Active 04/17/2016 [facility] Rocephin 1 gm, Route: IV, Q24H, Dosing Weight 40.3, kg, Start date: 04/15/16 9:00:00 [employer]OCIATE BROKER, Duration: 30 day, Stop date: 05/14/16 9:00:00 CDTNotes: (Same As: Rocephin). Use with 100 mL NS and infuse over 30 min MEDICATION WASTE Product Size: 1000 mg Product Wasted: ___ mg No Longer Active 04/15/2016 [facility] Streptococcus pneumoniae serotype 1 capsular antigen diphtheria [id number] protein conjugate vaccine / Streptococcus pneumoniae serotype 14 capsular antigen diphtheria [id number] protein conjugate vaccine / Streptococcus pneumoniae serotype 18C capsular antigen d 0.5 mL, Route: IM, Daily, Start date: 04/14/16 9:00:00 [employer]OCIATE BR[employer]ER, Duration: 1 doses or times, Stop date: 04/14/16 9:00:00 [employer]OC[employer]ATE BR[employer]ER No Longer Active 04/14/2016 [facility] Lisinopril 40 mg, 2 tab, Route: PO, Drug form: TAB, Daily, Dosing Weight 40.3, kg, Start date: 04/14/16 9:00:00 [employer]OCIATE BR[employer]ER, Duration: 30 day, Stop date: 05/13/16 9:00:00 CDTNotes: (Same as: Prinivil, Zestril) No Longer Active 04/14/2016 [facility] aspirin 81 mg tablet, enteric coated 81 mg, 1 tab, Route: PO, Drug form: ECTAB, Daily, Dosing Weight 40.3, kg, Start date: 04/14/16 9:00:00 [employer]OCIATE BR[employer]ER, Duration: 30 day, Stop date: 05/13/16 9:00:00 CDTNotes: Do not crush or chew. (Same As: Ecotrin) No Longer Active 04/14/2016 [facility] Magnesium Sulfate 2 gm, 50 mL, Route: IVPB, Drug form: INJ, ONCE, Dosing Weight 40.3, kg, Total dose=2 gm, Start date: 04/14/16 8:00:00 [employer]OCIATE BR[employer]ER, Duration: 1 doses or times, Stop date: 04/14/16 8:00:00 CSTNotes: WASTE: F/P - Sink; E - Municipal Trash Bin Inactive 04/14/2016 [facility] Eliquis 5 mg, 1 tab, Route: PO, Drug form: TAB, BID, Dosing Weight 40.3, kg, Start date: 04/13/16 22:43:00 ASSOCIATE BR[employer]ER, Duration: 30 day, Stop date: 05/13/16 21:00:00 CDTNotes: Same as: Eliquis No Longer Active 04/14/2016 [facility] Rocephin 1 gm, Route: IVPB, [id number], Dosing Weight 40.3, kg, Start date: 04/13/16 21:00:00 ASSOCIATE BR[employer]ER, Duration: 30 day, Stop date: 05/12/16 21:00:00 CDTNotes: (Same As: Rocephin). Use with 100 mL NS and infuse over 30 min MEDICATION WASTE Product Size: 1000 mg Product Wasted: ___ mg No Longer Active 04/14/2016 [facility] Metronidazole 500 mg, 100 mL, Route: IVPB, Drug form: INJ, [id number], Dosing Weight 40.909, kg, Priority: Routine, Start date: 04/13/16 21:00:00 ASSOCIATE BR[employer]ER, Duration: 30 day, Stop date: 05/13/16 13:00:00 CDTNotes: (Same as: Flagyl) Avoid alcohol. No Longer Active 04/14/2016 [facility] Lopressor 50 mg, 1 tab, Route: PO, Drug form: TAB, Q12H, Dosing Weight 40.3, kg, Start date: 04/13/16 21:00:00 ASSOCIATE BR[employer]ER, Duration: 30 day, Stop date: 05/13/16 9:00:00 CDTNotes: (Same as: Lopressor) No Longer Active 04/14/2016 [facility] Saline Flush 0.9% 10 ml, Route: IVP, Drug Form: INJ, Dosing Weight 40.3, kg, PRN, PRN Line Flush, Start date: 04/13/16 20:25:00 ASSOCIATE BR[employer]ER, Duration: 30 day, Stop date: 05/13/16 21:24:00 CDTNotes: (Same as: BD Posiflush) No Longer Active 04/14/2016 [facility] Sodium Chloride 0.154 MEQ/ML Injectable Solution 1,000 mL, Rate: 50 ml/hr, Infuse over: 20 hr, Route: IV, Dosing Weight 40.3 kg, Total Volume: 1,000, Start date: 04/13/16 20:25:00 ASSOCIATE BR[employer]ER, Duration: 30 day, Stop date: 05/13/16 20:24:00 CDT No Longer Active 04/14/2016 [facility] Acetaminophen 325 MG / Hydrocodone Bitartrate 5 MG Oral Tablet 2 tab, Route: PO, Drug Form: TAB, Dosing Weight 40.3, kg, Q4H, PRN Pain Score 7-10, Start date: 04/13/16 20:25:00 [employer]OCIATE BR[employer]ER, Duration: 30 day, Stop date: 05/13/16 20:24:00 CDTNotes: (Same as: [place] 325/5) Do not exceed 4gm/day of acetaminophen. No Longer Active 04/14/2016 [facility] Morphine 2 mg, 1 mL, Route: IVP, Drug form: INJ, Q4H, Dosing Weight 40.3, kg, PRN Pain Score 7-10, Start date: 04/13/16 20:25:00 ASSOCIATE BROKER, Stop date: 05/13/16 20:24:00 CDTNotes: (Same as:MORPhine Sulfate) No Longer Active 04/14/2016 [facility] Ondansetron 4 mg, 2 mL, Route: IVP, Drug form: INJ, Q6H, Dosing Weight 40.3, kg, PRN Nausea & Vomiting, Start date: 04/13/16 20:25:00 ASSOCIATE BROKER, Duration: 30 day, Stop date: 05/13/16 20:24:00 CDTNotes: (Same as: Osbaldo) MEDICATION WASTE Product Size: 4 mg Product Wasted: ___ mg No Longer Active 04/14/2016 [facility] Albuterol 0.833 MG/ML / Ipratropium [place] 0.167 MG/ML Inhalant Solution 3 mL, Route: NEB, Drug Form: SOLN, Dosing Weight 40.909, kg, Q6H, STAT, Start date: 04/13/16 20:20:00 ASSOCIATE BROKER, Duration: 30 day, Stop date: 05/13/16 18:00:00 CDTNotes: (Same as: Duoneb) No Longer Active 04/14/2016 [facility] metoprolol 100 mg oral tablet, extended release 100 mg=1 tab, PO, TID, 0 Refill(s) Active 04/14/2016 [facility] Ciprofloxacin 400 mg, 200 mL, Route: IVPB, Drug form: INJ, ONCE, Dosing Weight 40.909, kg, Priority: STAT, Start date: 04/13/16 19:32:00 ASSOCIATE BROKER, Stop date: 04/13/16 19:32:00 CSTNotes: Do not refrigerate Inactive 04/14/2016 [facility] Acetaminophen 650 mg, 2 tab, Route: PO, Drug form: TAB, ONCE, Dosing Weight 40.909, kg, Priority: STAT, Start date: 04/13/16 19:31:00 ASSOCIATE BROKER, Stop date: 04/13/16 19:31:00 CSTNotes: Do not exceed 4 gm/day. (Same as: Tylenol) Inactive 04/14/2016 [facility] Metronidazole 500 mg, 100 mL, Route: IVPB, Drug form: INJ, ONCE, Dosing Weight 40.909, kg, Priority: STAT, Start date: 04/13/16 19:31:00 ASSOCIATE BROKER, Stop date: 04/13/16 19:31:00 CSTNotes: (Same as: Flagyl) Avoid alcohol. Inactive 04/14/2016 [facility] methylPREDNISolone SODium SUCCinate 125 mg, 2 mL, Route: IVP, Drug form: INJ, ONCE, Dosing Weight 40.909, kg, Priority: STAT, Start date: 04/13/16 17:55:00 ASSOCIATE BROKER, Stop date: 04/13/16 17:55:00 CSTNotes: (Same as:Solu-MEDROL, A-Methapred) Inactive 04/13/2016 [facility] Albuterol 0.833 MG/ML / Ipratropium [place] 0.167 MG/ML Inhalant Solution 9 mL, Route: NEB, Drug Form: SOLN, Dosing Weight 40.909, kg, ONCE, STAT, Start date: 04/13/16 15:51:00 ASSOCIATE BROKER, Stop date: 04/13/16 15:51:00 CSTNotes: (Same as: Duoneb) Inactive 04/13/2016 [facility] Albuterol 0.833 MG/ML / Ipratropium [place] 0.167 MG/ML Inhalant Solution 3 mL, Route: NEB, Drug Form: SOLN, Dosing Weight 40.909, kg, RQID, STAT, Start date: 04/13/16 15:21:00 ASSOCIATE BROKER, Duration: 30 day, Stop date: 05/13/16 15:00:00 CDTNotes: (Same as: Duoneb) Inactive 04/13/2016 [facility] Eliquis 5 mg, 1 tab, Route: PO, Drug form: TAB, Q12H, Dosing Weight 43.324, kg, Start date: 03/04/16 21:00:00 ASSOCIATE BROKER, Duration: 30 day, Stop date: 04/03/16 9:00:00 CSTNotes: Same as: Eliquis Inactive 03/05/2016 [facility] metoprolol tartrate 100 mg, 2 tab, Route: PO, Drug form: TAB, Q8H, Dosing Weight 43.324, kg, Start date: 03/04/16 16:00:00 ASSOCIATE BROKER, Duration: 30 day, Stop date: 04/03/16 8:00:00 CSTNotes: (Same as: Lopressor) Inactive 03/04/2016 [facility] Cephalexin 500 MG Oral Capsule [Keflex] 500 mg=1 cap, PO, BID, X 7 day, # 14 cap, 0 Refill(s) Active 03/04/2016 [facility] Silver Sulfadiazine 10 MG/ML Topical Cream [Silvadene] 1 appl, TOP, BID, # 30 gm, 0 Refill(s) Active 03/04/2016 [facility] apixaban 5 MG Oral Tablet [Eliquis] 5 mg=1 tab, PO, BID, has dvt and PE and will need nursing home therapy., # 60 tab, 0 Refill(s) Active 03/04/2016 [facility] metoprolol tartrate 75 mg, 3 tab, Route: PO, Drug form: TAB, Q8H, Dosing Weight 43.324, kg, Start date: 03/03/16 16:00:00 ASSOCIATE BROKER, Duration: 30 day, Stop date: 04/02/16 8:00:00 CSTNotes: (Same as: Lopressor) No Longer Active 03/03/2016 [facility] Zinc Sulfate 220 mg, 1 cap, Route: PO, Drug form: CAP, Daily, Dosing Weight 43.324, kg, 14 days, Start date: 03/02/16 9:00:00 ASSOCIATE BROKER, Stop date: 03/15/16 9:00:00 CSTNotes: (Zinc sulfate capsule) - 220 mg Zinc sulfat e=50 mg elemental zinc Same as Zinc Sulfate No Longer Active 03/02/2016 [facility] Vitamin C 500 mg, 1 tab, Route: PO, Drug form: TAB, BID, Dosing Weight 43.324, kg, 14 days, Start date: 03/01/16 17:00:00 ASSOCIATE BROKER, Stop date: 03/15/16 9:00:00 CSTNotes: (Same as: Vitamin C) No Longer Active 03/01/2016 [facility] metoprolol tartrate 50 mg, 1 tab, Route: PO, Drug form: TAB, Q8H, Dosing Weight 43.324, kg, Start date: 03/01/16 17:00:00 ASSOCIATE BROKER, Duration: 30 day, Stop date: 03/31/16 16:00:00 CSTNotes: (Same as: Lopressor) Inactive 03/01/2016 [facility] potassium chloride 40 mEq, 2 tab, Route: PO, Drug form: ERTAB, ONCE, Dosing Weight 43.324, kg, Start date: 03/01/16 13:34:00 ASSOCIATE BROKER, Stop date: 03/01/16 13:34:00 CSTNotes: (Same as: K-Dur 20) "Do Not Crush" With food and full glass of water Inactive 03/01/2016 [facility] Lisinopril 10 mg, 0.5 tab, Route: PO, Drug form: TAB, Daily, Dosing Weight 43.324, kg, Start date: 03/01/16 9:00:00 ASSOCIATE BROKER, Duration: 30 day, Stop date: 03/30/16 9:00:00 CSTNotes: (Same as: Prinivil, Zestril) No Longer Active 03/01/2016 [facility] metoprolol tartrate 50 mg, 1 tab, Route: PO, Drug form: TAB, Q8H, Dosing Weight 43.324, kg, Priority: NOW, Start date: 03/01/16 5:46:00 ASSOCIATE BROKER, Duration: 30 day, Stop date: 03/31/16 0:00:00 CSTNotes: (Same as: Lopressor) No Longer Active 03/01/2016 [facility] Rocephin 1 gm, Route: IVPB, [id number], Dosing Weight 43.324, kg, Start date: 02/28/16 18:00:00 ASSOCIATE BROKER, Duration: 30 day, Stop date: 03/28/16 18:00:00 CSTNotes: (Same As: Rocephin). Use with 100 mL NS and infuse over 30 min MEDICATION WASTE Product Size: 1000 mg Product Wasted: ___ mg No Longer Active 02/29/2016 [facility] Silver Sulfadiazine 10 MG/ML Topical Cream [Silvadene] 1 appl, Route: TOP, BID, Drug form: CRM, right side scalp, Start date: 02/28/16 17:00:00 ASSOCIATE BROKER, Duration: 30 day, Stop date: 03/29/16 9:00:00 CSTNotes: (Same as: Silvadene) WASTE: F/P - Black; E - Municipal Trash Bin No Longer Active 02/28/2016 [facility] Santyl 1 appl, Route: TOP, Daily, Drug form: OINT, Start date: 02/28/16 13:00:00 ASSOCIATE BROKER, Duration: 30 day, Stop date: 03/29/16 9:00:00 CSTNotes: (Same As: Santyl) No Longer Active 02/28/2016 [facility] Lisinopril 10 mg, 2 tab, Route: PO, Drug form: TAB, Daily, Dosing Weight 43.324, kg, Start date: 02/28/16 9:00:00 ASSOCIATE BROKER, Duration: 30 day, Stop date: 03/28/16 9:00:00 CSTNotes: (Same as: Prinivil, Zestril) No Longer Active 02/28/2016 [facility] metoprolol extended release 25 mg, Route: PO, Drug form: ERTAB, Daily, Start date: 02/28/16 9:00:00 ASSOCIATE BROKER, Duration: 30 day, Stop date: 03/28/16 9:00:00 ASSOCIATE BROKER Inactive 02/28/2016 [facility] aspirin 81 mg tablet, enteric coated 81 mg, 1 tab, Route: PO, Drug form: ECTAB, Daily, Dosing Weight 43.324, kg, Start date: 02/28/16 9:00:00 ASSOCIATE BROKER, Duration: 30 day, Stop date: 03/28/16 9:00:00 CSTNotes: Do not crush or chew. (Same As: Ecotrin) No Longer Active 02/28/2016 [facility] Protonix 40 mg, 1 tab, Route: PO, Drug form: ECTAB, Daily, Dosing Weight 43.324, kg, Patient is NPO, Start date: 02/28/16 9:00:00 ASSOCIATE BROKER, Stop date: 03/28/16 9:00:00 CSTNotes: Tablet should not be chewed or crushed. (Same as: Protonix) No Longer Active 02/28/2016 [facility] Streptococcus pneumoniae serotype 1 capsular antigen diphtheria [id number] protein conjugate vaccine / Streptococcus pneumoniae serotype 14 capsular antigen diphtheria [id number] protein conjugate vaccine / Streptococcus pneumoniae serotype 18C capsular antigen d 0.5 mL, Route: IM, Drug Form: INJ, Daily, Start date: 02/28/16 9:00:00 ASSOCIATE BROKER, Duration: 1 doses or times, Stop date: 02/28/16 9:00:00 CSTNotes: Lightly roll vial (DO NOT SHAKE) before administration. (Same as: Prevnar 13) Inactive 02/28/2016 [facility] 200 ACTUAT Albuterol 0.09 MG/ACTUAT Metered Dose Inhaler Route: PO, Drug Form: AERO/A, Dosing Weight 43.324, kg, Q4H, PRN as needed for wheezing, Start date: 02/28/16 1:49:00 ASSOCIATE BROKER, Duration: 30 day, Stop date: 03/29/16 1:48:00 CSTNotes: Albuterol 90 microgram/inh 8gm HFA WASTE: Aerosol - Return to Pharmacy Same as: [facility] No Longer Active 02/28/2016 [facility] metoprolol tartrate 50 mg, 1 tab, Route: PO, Drug form: TAB, Q12H, Dosing Weight 43.324, kg, Priority: STAT, Start date: 02/27/16 23:49:00 ASSOCIATE BROKER, Duration: 30 day, Stop date: 03/28/16 21:00:00 CSTNotes: (Same as: Lopressor) No Longer Active 02/28/2016 [facility] Lovenox 40 mg, 0.4 mL, Route: SUB-Q, Drug form: INJ, [id number], Dosing Weight 43.324, kg, Priority: STAT, Start date: 02/27/16 23:47:00 ASSOCIATE BROKER, Duration: 30 day, Stop date: 03/28/16 11:47:00 CSTNotes: (Same as: Lovenox) No Longer Active 02/28/2016 [facility] lisinopril 20 mg oral tablet 40 mg=2 tab, PO, Daily, # 30 tab, 0 Refill(s) Active 02/28/2016 [facility] ProAir HFA 1 - 2 puffs, PO, Q4H, PRN Wheezing / cough / shortness of breath, # 1 ea, 0 Refill(s) Active 02/28/2016 [facility] metoprolol tartrate 100 mg, PO, BID, 0 Refill(s) Active 02/28/2016 [facility] Morphine 2 mg, 1 mL, Route: IVP, Drug form: INJ, Q4H, Dosing Weight 40.909, kg, PRN Pain Score 7-10, Start date: 02/27/16 20:34:00 ASSOCIATE BROKER, Duration: 30 day, Stop date: 03/28/16 20:33:00 CSTNotes: (Same as:MORPhine Sulfate) No Longer Active 02/28/2016 [facility] Acetaminophen 650 mg, 2 tab, Route: PO, Drug form: TAB, Q4H, Dosing Weight 40.909, kg, PRN Pain 1-3/Temp > 100.4 F, Start date: 02/27/16 20:34:00 ASSOCIATE BROKER, Duration: 30 day, Stop date: 03/28/16 20:33:00 CSTNotes: Do not exceed 4 gm/day. (Same as: Tylenol) No Longer Active 02/28/2016 [facility] Lasix 20 mg, 2 mL, Route: IV, Drug form: INJ, ONCE, Dosing Weight 40.909, kg, Start date: 02/27/16 19:16:00 ASSOCIATE BROKER, Stop date: 02/27/16 19:16:00 CSTNotes: (Same as: Lasix) MEDICATION WASTE Product Size: 40 mg Product Wasted: ___ mg Inactive 02/28/2016 [facility] Ceftriaxone 1 gm, Route: IV, ONCE, Dosing Weight 40.909, kg, Start date: 02/27/16 18:42:00 [employer], Stop date: 02/27/16 18:42:00 CSTNotes: (Same As: Rocephin). Use with 100 mL NS and infuse over 30 min MEDICATION WASTE Product Size: 1000 mg Product Wasted: ___ mg Inactive 02/28/2016 [facility] Aspirin 324 mg, Route: CHEW, Drug form: CHEWTAB, ONCE, Dosing Weight 40.909, kg, Priority: STAT, Start date: 02/27/16 18:18:00 [employer], Stop date: 02/27/16 18:18:00 [employer] Inactive 02/28/2016 [facility] tramadol hydrochloride 50 MG Oral Tablet 50 mg, Route: PO, Drug form: TAB, ONCE, Dosing Weight 40.909, kg, Priority: STAT, Start date: 02/27/16 17:58:00 [employer], Stop date: 02/27/16 17:58:00 [employer] Inactive 02/27/2016 [facility] Albuterol 0.833 MG/ML / Ipratropium [place] 0.167 MG/ML Inhalant Solution [DuoNeb] 3 ml, Route: NEB, Drug Form: SOLN, Dosing Weight 40.909, kg, ONCE, STAT, Start date: 02/27/16 15:30:00 [employer], Stop date: 02/27/16 15:30:00 CSTNotes: (Same as: Duoneb) Inactive 02/27/2016 [facility] Albuterol 0.83 MG/ML Inhalant Solution 2.49 mg, 3 mL, Route: NEB, Drug form: SOLN, ONCE, Dosing Weight 40.909, kg, Priority: STAT, Start date: 02/27/16 15:30:00 [employer], Stop date: 02/27/16 15:30:00 CSTNotes: SEE RT DOCUMENTATION (Same as: Proventil) Inactive 02/27/2016 [facility] Saline Flush 0.9% 10 mL, Route: IVP, Drug Form: INJ, Dosing Weight 40.909, kg, PRN, PRN Line Flush, Start date: 02/27/16 13:30:00 [employer], Duration: 30 day, Stop date: 03/28/16 13:29:00 CSTNotes: (Same as: BD Posiflush) Inactive 02/27/2016 [facility] Prednisone 60 mg, 3 tab, Route: PO, Drug form: TAB, ONCE, Dosing Weight 40.909, kg, Priority: STAT, Start date: 02/17/16 2:56:00 [employer], Stop date: 02/17/16 2:56:00 CSTNotes: Take with food. Inactive 02/17/2016 [facility] Morphine 4 mg, Route: IVP, ONCE, Dosing Weight 40.909, kg, Priority: STAT, Start date: 02/17/16 2:29:00 [employer]ATE [employer]ER, Stop date: 02/17/16 2:29:00 [employer]ATE [employer]ER Inactive 02/17/2016 [facility] Sodium Chloride 0.154 MEQ/ML Injectable Solution 1,000 mL, 1,000 ml/hr, Infuse Over: 1 hr, Route: IV, ONCE, Priority: STAT, Dosing Weight 40.909 kg, Start date: 02/17/16 1:17:00 [employer]IATE BR[employer]ER, Duration: 1 doses or times, Stop date: 02/17/16 1:17:00 [employer]ATE [employer]ER Inactive 02/17/2016 [facility] tramadol hydrochloride 50 MG Oral Tablet 50 mg=1 tab, PO, Q4H, PRN as needed for pain, X 7 day, # 24 tab, 0 Refill(s) Active 02/17/2016 [facility] Bacitracin 0.5 UNT/MG / Neomycin 0.0035 MG/MG / Polymyxin B 10 UNT/MG / Pramoxine hydrochloride 0.01 MG/MG Topical Ointment [Neosporin Plus Maximum Strength] 1 appl, TOP, BID, X 10 day, # 15 gm, 0 Refill(s) Active 02/17/2016 [facility] Ondansetron 4 mg, Route: IVP, Drug form: INJ, ONCE, Dosing Weight 40.909, kg, Priority: STAT, Start date: 02/16/16 22:53:00 [employer], Stop date: 02/16/16 22:53:00 [employer]ATE [employer]ER Inactive 02/17/2016 [facility] Morphine 4 mg, Route: IVP, ONCE, Dosing Weight 40.909, kg, Priority: STAT, Start date: 02/16/16 22:53:00 [employer]ATE BR[employer]ER, Stop date: 02/16/16 22:53:00 [employer]ER Inactive 02/17/2016 [facility] Albuterol 0.833 MG/ML / Ipratropium Bartlett 0.167 MG/ML Inhalant Solution 9 mL, Route: NEB, Drug Form: SOLN, Dosing Weight 40.909, kg, ONCE, STAT, Start date: 02/16/16 21:19:00 [employer]ATE [employer], Stop date: 02/16/16 21:19:00 CSTNotes: (Same as: Eb) Inactive 02/17/2016 [facility] tramadol hydrochloride 50 MG Oral Tablet [Ultram] 50 mg=1 tab, PO, Q4H, PRN pain, X 3 day, # 20 tab, 0 Refill(s) Active 10/16/2014 [facility] Morphine 2 mg, Route: IVP, Drug form: INJ, ONCE, Dosing Weight 40.909, kg, Priority: STAT, Start date: 10/16/14 16:40:00, Stop date: 10/16/14 16:40:00 Inactive 10/16/2014 [facility] Aspirin 325 mg, Route: PO, Drug form: TAB, ONCE, Dosing Weight 40.909, kg, Priority: STAT, Start date: 10/16/14 15:50:00, Stop date: 10/16/14 15:50:00 Inactive 10/16/2014 [facility] Magnesium Sulfate 2 gm, 50 mL, Route: IV, Drug form: INJ, ONCE, Dosing Weight 40.909, kg, Priority: STAT, Start date: 10/16/14 15:47:00, Stop date: 10/16/14 15:47:00 Inactive 10/16/2014 [facility] Saline Flush 0.9% 10 mL, Route: IVP, Drug Form: INJ, Dosing Weight 40.909, kg, PRN, PRN Line Flush, Start date: 10/16/14 15:41:00, Duration: 30 day, Stop date: 11/15/14 15:40:00Notes: (Same as: BD Posiflush) No Longer Active 10/16/2014 [facility] Sodium Chloride 0.154 MEQ/ML Injectable Solution 1,000 mL, 1000 ml/hr, Infuse Over: 1 hr, Route: IV, 1,000, Drug form: INJ, ONCE, Priority: STAT, Dosing Weight 40.909 kg, Start date: 10/16/14 15:41:00, Duration: 1 doses or times, Stop date: 10/16/14 15:41:00 Inactive 10/16/2014 [facility] Amlodipine 5 mg, 1 tab, Route: PO, Drug form: TAB, BID, Dosing Weight 39.091, kg, Start date: 07/29/14 17:00:00, Duration: 30 day, Stop date: 08/28/14 9:00:00Notes: (Same as: Norvasc) Inactive 07/29/2014 [facility] Lisinopril 10 mg, 1 tab, Route: PO, Drug form: TAB, BID, Dosing Weight 39.091, kg, Start date: 07/29/14 17:00:00, Duration: 30 day, Stop date: 08/28/14 9:00:00Notes: (Same as: Prinivil, Zestril) Inactive 07/29/2014 [facility] carvedilol 12.5 mg oral tablet 12.5 mg=1 tab, PO, Q12H, 0 Refill(s) Active 07/29/2014 [facility] amLODIPine 5 mg oral tablet 5 mg=1 tab, PO, BID, 0 Refill(s) Active 07/29/2014 [facility] lisinopril 10 mg oral tablet 10 mg=1 tab, PO, BID, 0 Refill(s) Active 07/29/2014 [facility] Amlodipine 5 mg, 1 tab, Route: PO, Drug form: TAB, Daily, Dosing Weight 39.091, kg, Priority: STAT, Start date: 07/28/14 14:02:00, Duration: 30 day, Stop date: 08/27/14 9:00:00Notes: (Same as: Norvasc) No Longer Active 07/28/2014 [facility] tramadol hydrochloride 50 MG Oral Tablet 50 mg, 1 tab, Route: PO, Drug form: TAB, Q6H, Dosing Weight 39.091, kg, PRN Pain Score 1-3, Start date: 07/28/14 13:39:00, Duration: 30 day, Stop date: 08/27/14 13:38:00Notes: Not to exceed 400mg/day. (Same As: Ultram) No Longer Active 07/28/2014 [facility] Coreg 12.5 mg, 1 tab, Route: PO, Drug form: TAB, Q12H, Dosing Weight 39.091, kg, Start date: 07/28/14 9:00:00, Duration: 30 day, Stop date: 08/26/14 21:00:00Notes: Give with food. (Same As: Coreg) No Longer Active 07/28/2014 [facility] Magnesium Sulfate 2 gm, 50 mL, Route: IVPB, Drug form: INJ, ONCE, Dosing Weight 39.091, kg, Total dose=2 gm, Start date: 07/28/14 8:55:00, Duration: 1 doses or times, Stop date: 07/28/14 8:55:00 Inactive 07/28/2014 [facility] potassium phosphate + Sodium Chloride 0.9% IV 240 mL 30 mmol, 10 mL, Route: IVPB, ONCE, Dosing Weight 39.091, kg, Start date: 07/27/14 13:00:00, Stop date: 07/27/14 13:00:00Notes: (Same as: K Phosphate.) 1 mMol phoshate has 1.47 mEq potassium Infuse over 4 hours Inactive 07/27/2014 [facility] Rocephin 1 gm, Route: IVPB, [id number], Dosing Weight 39.091, kg, Start date: 07/27/14 0:00:00, Duration: 30 day, Stop date: 08/25/14 0:00:00Notes: Mix in NS 100ml ADV bag and infuse over 30 Minutes (Same As: R ocephin) No Longer Active 07/27/2014 [facility] Tramadol 50 mg, 1 tab, Route: PO, Drug form: TAB, Q12H, Dosing Weight 39.091, kg, Start date: 07/26/14 20:58:00, Stop date: 08/25/14 21:00:00Notes: Not to exceed 400mg/day. (Same As: Ultram) No Longer Active 07/27/2014 [facility] Nitroglycerin 0.4 MG Sublingual Tablet 0.4 mg, 1 tab, Route: SL, Drug form: TAB, Q5Min, Dosing Weight 39.091, kg, PRN Chest Pain, Start date: 07/26/14 19:28:00, Duration: 30 day, Stop date: 08/25/14 19:27:00Notes: (Same as:Nitroquick, Nitrostat) "Do Not Crush" Sublingual tablet No Longer Active 07/27/2014 [facility] Atropine 0.5 mg, 5 mL, Route: IV, Drug form: INJ, ONCE, Dosing Weight 39.091, kg, PRN Bradycardia, Start date: 07/26/14 19:28:00, symtomatic bradycardia with a HR less than 44bpm No Longer Active 07/27/2014 [facility] metoprolol tartrate 50 mg, 1 tab, Route: PO, Drug form: TAB, [id number], Dosing Weight 39.091, kg, Start date: 07/26/14 18:00:00, Duration: 30 day, Stop date: 08/25/14 6:00:00Notes: (Same as: Lopressor) No Longer Active 07/26/2014 [facility] Lovenox 40 mg, 0.4 mL, Route: SUB-Q, Drug form: INJ, Daily, Dosing Weight 39.091, kg, Start date: 07/26/14 14:00:00, Stop date: 08/24/14 14:00:00Notes: (Same as: Lovenox) No Longer Active 07/26/2014 [facility] Tramadol 50 mg, 1 tab, Route: PO, Drug form: TAB, Q12H, Dosing Weight 39.091, kg, PRN Pain Score 1-3, Start date: 07/26/14 13:09:00, Duration: 30 day, Stop date: 08/25/14 13:08:00Notes: Not to exceed 400mg/day. (Same As: Ultram) Inactive 07/26/2014 [facility] Clonidine Hydrochloride 0.2 MG Oral Tablet 0.2 mg, 1 tab, Route: PO, Drug form: TAB, BID, Dosing Weight 39.091, kg, Start date: 07/26/14 13:00:00, Duration: 30 day, Stop date: 08/25/14 9:00:00Notes: (Same As: Catapres) No Longer Active 07/26/2014 [facility] Aspirin 81 MG Enteric Coated Tablet 81 mg, 1 tab, Route: PO, Drug form: ECTAB, Daily, Dosing Weight 39.091, kg, Start date: 07/26/14 13:00:00, Duration: 30 day, Stop date: 08/25/14 9:00:00Notes: Do not crush or chew. (Same As: Ecotrin) No Longer Active 07/26/2014 [facility] sodium phosphate + Dextrose 5% in Water IV 245 mL 15 mmol, 5 mL, Route: IVPB, PRN, Dosing Weight 39.091, kg, PRN Abnormal Lab Result, Start date: 07/26/14 12:34:00, Duration: 30 day, Stop date: 08/25/14 12:33:00 No Longer Active 07/26/2014 [facility] Magnesium Sulfate 2 gm, 50 mL, Route: IVPB, Drug form: INJ, ONCE, Dosing Weight 39.091, kg, Total dose=2 gm, Start date: 07/26/14 12:33:00, Duration: 1 doses or times, Stop date: 07/26/14 12:33:00 Inactive 07/26/2014 [facility] potassium chloride 20 mEq, 100 mL, Route: IVPB, Drug form: INJ, Q2H, Dosing Weight 39.091, kg, Total dose=40 mEq, Start date: 07/26/14 2:00:00, Duration: 2 doses or times, Stop date: 07/26/14 4:00:00Notes: (Same as: KCL) Infuse no faster than 10 mEq/hr if given peripherally. Inactive 07/26/2014 [facility] Zofran 4 mg, Route: IVP, Drug form: INJ, ONCE, Dosing Weight 39.091, kg, Start date: 07/26/14 1:39:00, Stop date: 07/26/14 1:39:00 Inactive 07/26/2014 [facility] NS 1,000 mL 1,000 mL, Rate: 75 ml/hr, Infuse over: 13.3 hr, Route: IV, Dosing Weight 39.091 kg, Total Volume: 1,000, Start date: 07/26/14 0:47:00, Stop date: 08/25/14 0:46:00 Inactive 07/26/2014 [facility] Rocephin 1 gm, Route: IVPB, Drug form: PDR/INJ, ONCE, Dosing Weight 39.091, kg, Priority: STAT, Start date: 07/26/14 0:33:00, Stop date: 07/26/14 0:33:00 Inactive 07/26/2014 [facility] Acetaminophen 650 mg, Route: PO, Drug form: TAB, ONCE, Dosing Weight 39.091, kg, Priority: STAT, Start date: 07/25/14 23:47:00, Stop date: 07/25/14 23:47:00 Inactive 07/26/2014 [facility] Sodium Chloride 0.154 MEQ/ML Injectable Solution 1,000 mL, Rate: 125 ml/hr, Infuse over: 8 hr, Route: IV, Dosing Weight 39.091 kg, Total Volume: 1,000, Priority: STAT, Start date: 07/25/14 22:00:00, Duration: 1 doses or times, Stop date: 07/26/14 5:59:00 Inactive 07/26/2014 [facility] Saline Flush 0.9% 10 mL, Route: IVP, Drug Form: INJ, Dosing Weight 39.091, kg, PRN, PRN Line Flush, Start date: 07/25/14 22:00:00, Duration: 30 day, Stop date: 08/24/14 21:59:00Notes: (Same as: BD Posiflush) No Longer Active 07/26/2014 [facility] Magnesium Oxide 500 MG Oral Tablet 500 mg, 2 tab, Route: PO, Drug form: TAB, BID, Dosing Weight 42.9, kg, Start date: 06/01/14 17:00:00, Duration: 1 day, Stop date: 06/02/14 9:00:00 Inactive 06/01/2014 [facility] Hydrochlorothiazide 25 MG Oral Tablet 25 mg=1 tab, PO, Daily, # 30 tab, 0 Refill(s) Active 06/01/2014 [facility] Clonidine Hydrochloride 0.2 MG Oral Tablet 0.2 mg, PO, BID, # 60 tab, 0 Refill(s) Active 06/01/2014 [facility] carvedilol 12.5 mg oral tablet 25 mg=2 tab, PO, Q12H, 0 Refill(s) Active 06/01/2014 [facility] Aspirin 81 MG Enteric Coated Tablet 81 mg=1 tab, PO, Daily, 0 Refill(s) Active 06/01/2014 [facility] Magnesium Sulfate 2 gm, 50 mL, Route: IVPB, Drug form: INJ, Q2H, Dosing Weight 42.9, kg, Total dose=4 gm, Start date: 06/01/14 8:00:00, Duration: 2 doses or times, Stop date: 06/01/14 10:00:00 Inactive 06/01/2014 [facility] nitroglycerin 0.4 mg sublingual tablet 0.4 mg, 1 tab, Route: SL, Drug form: TAB, Q5Min, PRN Chest Pain, Start date: 05/31/14 17:41:00, Duration: 30 day, Stop date: 06/30/14 17:40:00Notes: (Same as:Nitroquick, Nitrostat) "Do Not Crush" Sublingual tablet No Longer Active 05/31/2014 [facility] atropine 0.5 mg, 5 mL, Route: IVP, Drug form: INJ, PRN, PRN Bradycardia, Start date: 05/31/14 17:41:00, Duration: 30 day, Stop date: 06/30/14 17:40:00 No Longer Active 05/31/2014 [facility] Clonidine Hydrochloride 0.3 MG Oral Tablet 0.3 mg, 1 tab, Route: PO, Drug form: TAB, BID, Dosing Weight 42.9, kg, Priority: NOW, Start date: 05/31/14 9:58:00, Duration: 30 day, Stop date: 06/30/14 9:00:00Notes: (Same As: Catapres) No Longer Active 05/31/2014 [facility] Hydrochlorothiazide 25 mg, 1 tab, Route: PO, Drug form: TAB, Daily, Dosing Weight 42.9, kg, Start date: 05/31/14 9:00:00, Duration: 30 day, Stop date: 06/29/14 9:00:00Notes: (Same as: Hydrodiuril) With food. No Longer Active 05/31/2014 [facility] potassium chloride 40 mEq, 2 tab, Route: PO, Drug form: ERTAB, ONCE, Dosing Weight 42.9, kg, Start date: 05/31/14 6:28:00, Stop date: 05/31/14 6:28:00Notes: (Same as: K-Dur 20) "Do Not Crush" With food and full glass of water Inactive 05/31/2014 [facility] Clonidine 0.1 mg, 1 tab, Route: PO, Drug form: TAB, Q6H, Dosing Weight 42.9, kg, Priority: NOW, Start date: 05/31/14 6:26:00, Duration: 30 day, Stop date: 06/30/14 6:00:00Notes: (Same As: Catapres) Inactive 05/31/2014 [facility] Vasotec 2.5 mg, 2 mL, Route: IVP, Drug form: INJ, Q4H, Dosing Weight 42.9, kg, PRN Other -See Comment, Start date: 05/31/14 6:20:00, Duration: 30 day, Stop date: 06/30/14 6:19:00, SBP >170Notes: (Same as: Vasotec- IV) No Longer Active 05/31/2014 [facility] Clonidine 0.1 mg, 1 tab, Route: PO, Drug form: TAB, Q8H, Dosing Weight 42.9, kg, Start date: 05/31/14 0:00:00, Duration: 30 day, Stop date: 06/29/14 16:00:00Notes: (Same As: Catapres) Inactive 05/31/2014 [facility] Losartan 50 mg, 1 tab, Route: PO, Drug form: TAB, Q12H, Dosing Weight 42.9, kg, Start date: 05/30/14 21:00:00, Duration: 30 day, Stop date: 06/29/14 9:00:00Notes: (Same as: Cozaar) No Longer Active 05/31/2014 [facility] diltiazem 12 hour extended release 180 mg, 3 cap, Route: PO, Drug form: ERCAP, Q12H, Dosing Weight 42.9, kg, Start date: 05/30/14 21:00:00, Stop date: 06/29/14 9:00:00Notes: (Same as: Cardizem SR) Before meals. DO NOT CRUSH. Give twice daily. No Longer Active 05/31/2014 [facility] Hydralazine Hydrochloride 25 MG Oral Tablet 25 mg, 1 tab, Route: PO, Drug form: TAB, BID, Dosing Weight 42.9, kg, Start date: 05/30/14 17:00:00, Duration: 30 day, Stop date: 06/29/14 9:00:00Notes: (Same as: Apresoline) May interfere w/enteral feedings Take With Food. Inactive 05/30/2014 [facility] Clonidine Hydrochloride 0.1 MG Oral Tablet 0.1 mg, 1 tab, Route: PO, Drug form: TAB, BID, Dosing Weight 42.9, kg, Start date: 05/30/14 17:00:00, Duration: 30 day, Stop date: 06/29/14 9:00:00Notes: (Same As: Catapres) Inactive 05/30/2014 [facility] Digoxin 500 microgram, 2 tab, Route: PO, Drug form: TAB, ONCE, Dosing Weight 42.9, kg, Priority: NOW, Start date: 05/30/14 16:43:00, Stop date: 05/30/14 16:43:00Notes: Take on an Empty Stomach (Same as: Lanoxin) Inactive 05/30/2014 [facility] Verapamil 80 mg, 1 tab, Route: PO, Drug form: TAB, TID, Dosing Weight 42.9, kg, Priority: NOW, Start date: 05/30/14 16:42:00, Duration: 30 day, Stop date: 06/29/14 9:00:00Notes: (Same As: Faiza Staley) "Avoid grapefruit and grapefruit juice" Inactive 05/30/2014 [facility] Magnesium Sulfate 2 gm, 50 mL, Route: IVPB, Drug form: INJ, Q2H, Dosing Weight 42.9, kg, Total dose=4 gm, Start date: 05/30/14 9:15:00, Duration: 2 doses or times, Stop date: 05/30/14 11:30:00 Inactive 05/30/2014 [facility] Aspirin 81 MG Enteric Coated Tablet 81 mg, 1 tab, Route: PO, Drug form: ECTAB, Daily, Dosing Weight 39.091, kg, Start date: 05/30/14 9:00:00, Duration: 30 day, Stop date: 06/28/14 9:00:00Notes: Do not crush or chew. (Same As: Ecotrin) No Longer Active 05/30/2014 [facility] magnesium sulfate 2 gm in Water 50 ml + Dextrose 5% in Water IV 96 mL 2 gm, 4 mL, Route: IVPB, Drug form: INJ, ONCE, Dosing Weight 42.9, kg, Start date: 05/30/14 6:14:00, Duration: 2 hr, Stop date: 05/30/14 6:14:00Notes: (Same as: MgSO4) MEDICATION WASTE Product Size: 1000 mg Product Wasted: ___ mg Inactive 05/30/2014 [facility] Magnesium Sulfate 2 gm, 50 mL, Route: IVPB, Drug form: INJ, ONCE, Dosing Weight 42.9, kg, Start date: 05/30/14 6:08:00, Duration: 2 hr, Stop date: 05/30/14 6:08:00 Inactive 05/30/2014 [facility] magnesium sulfate 6gm in NS 100ml 2 gm, Route: IVPB, ONCE, Dosing Weight 42.9, kg, Start date: 05/30/14 6:07:00, Stop date: 05/30/14 6:07:00 Inactive 05/30/2014 [facility] Lovenox 40 mg, 0.4 mL, Route: SUB-Q, Drug form: INJ, [id number], Dosing Weight 39.091, kg, Start date: 05/29/14 21:00:00, Duration: 30 day, Stop date: 06/27/14 21:00:00Notes: (Same as: Lovenox) No Longer Active 05/30/2014 [facility] Verapamil 5 mg, 2 mL, Route: IVP, Drug form: INJ, Q4H, Dosing Weight 39.091, kg, Priority: NOW, Start date: 05/29/14 19:59:00, Duration: 30 day, Stop date: 06/28/14 16:00:00Notes: (Same As: Calan, Isoptin) "Avoid grapefruit and grapefruit juice" No Longer Active 05/30/2014 [facility] Morphine 2 mg, 1 mL, Route: IVP, Drug form: INJ, Q4H, Dosing Weight 39.091, kg, PRN Pain Score 7-10, Start date: 05/29/14 18:28:00, Duration: 30 day, Stop date: 06/28/14 18:27:00Notes: (Same as:MORPhine Sulfate) No Longer Active 05/29/2014 [facility] Hydralazine 50 mg, 1 tab, Route: PO, Drug form: TAB, TID, Dosing Weight 39.091, kg, Start date: 05/29/14 17:00:00, Duration: 30 day, Stop date: 06/28/14 13:00:00Notes: (Same as: Apresoline) May interfere w/enteral feedings Take With Food No Longer Active 05/29/2014 [facility] Nifedical XL 60 mg, 1 tab, Route: PO, Drug form: ERTAB, Q24H, Dosing Weight 39.091, kg, Priority: NOW, Start date: 05/29/14 13:05:00, Duration: 30 day, Stop date: 06/27/14 13:05:00Notes: (Same as:Procardia XL) DO NOT CRUSH/ CHEW TAB ..SWALLOW WHOLE; "Avoid grapefruit and grapefruit juice" Inactive 05/29/2014 [facility] Clonidine Hydrochloride 0.1 MG Oral Tablet 0.2 mg, 2 tab, Route: PO, Drug form: TAB, QID, Dosing Weight 39.091, kg, Start date: 05/29/14 12:00:00, Stop date: 06/28/14 6:00:00Notes: (Same As: Catapres) No Longer Active 05/29/2014 [facility] Vasotec 2.5 mg, 2 mL, Route: IV, Drug form: INJ, Q4H, Dosing Weight 39.091, kg, Start date: 05/29/14 12:00:00, Duration: 30 day, Stop date: 06/28/14 8:00:00Notes: (Same as: Vasotec-IV) No Longer Active 05/29/2014 [facility] Vasotec 2.5 mg, Route: IVP, ONCE, Dosing Weight 39.091, kg, Start date: 05/29/14 10:16:00, Stop date: 05/29/14 10:16:00 Inactive 05/29/2014 [facility] Clonidine Hydrochloride 0.3 MG Oral Tablet 0.3 mg, 1 tab, Route: PO, Drug form: TAB, Q12H, Dosing Weight 39.091, kg, Start date: 05/29/14 9:00:00, Duration: 30 day, Stop date: 06/27/14 21:00:00Notes: (Same As: Catapres) Inactive 05/29/2014 [facility] Aspirin 325 MG Enteric Coated Tablet 325 mg, 1 tab, Route: PO, Drug form: ECTAB, Daily, Dosing Weight 39.091, kg, Start date: 05/29/14 9:00:00, Duration: 30 day, Stop date: 06/27/14 9:00:00Notes: (Do Not Crush) Do not crush or chew. Inactive 05/29/2014 [facility] Saline Flush 0.9% 10 ml, Route: IVP, Drug Form: INJ, Dosing Weight 39.091, kg, Q12H, Start date: 05/29/14 9:00:00, Duration: 30 day, Stop date: 06/27/14 21:00:00Notes: (Same as: BD Posiflush) No Longer Active 05/29/2014 [facility] Losartan 50 mg, 1 tab, Route: PO, Drug form: TAB, BID, Dosing Weight 39.091, kg, Start date: 05/29/14 9:00:00, Duration: 30 day, Stop date: 06/27/14 21:00:00Notes: (Same as: Cozaar) No Longer Active 05/29/2014 [facility] carvedilol 25 mg, 2 tab, Route: PO, Drug form: TAB, Q12H, Dosing Weight 39.091, kg, Start date: 05/29/14 9:00:00, Duration: 30 day, Stop date: 06/27/14 21:00:00Notes: Give with food. (Same As: Coreg) No Longer Active 05/29/2014 [facility] potassium chloride 20 mEq, 1 tab, Route: PO, Drug form: ERTAB, Q6H, Dosing Weight 39.091, kg, Start date: 05/29/14 0:26:00, Duration: 4 doses or times, Stop date: 05/29/14 18:00:00Notes: (Same as: K-Dur 20) "Do Not Crush" With food and full glass of water Inactive 05/29/2014 [facility] Restoril 15 mg, 1 cap, Route: PO, Drug form: CAP, Bedtime, PRN Insomnia, Start date: 05/29/14 0:24:00, Duration: 30 day, Stop date: 06/28/14 0:23:00Notes: (Same As: Restoril) No Longer Active 05/29/2014 [facility] Ambien 5 mg, Route: PO, Bedtime, Dosing Weight 39.091, kg, PRN Insomnia, Start date: 05/29/14 0:21:00, Duration: 30 day, Stop date: 06/28/14 0:20:00 Inactive 05/29/2014 [facility] Hydralazine Hydrochloride 10 MG Oral Tablet 10 mg, 1 tab, Route: PO, Drug form: TAB, Q6H, Dosing Weight 39.091, kg, Start date: 05/29/14 0:00:00, Duration: 30 day, Stop date: 06/27/14 18:00:00Notes: (Same as: Apresoline) May interfere w/enteral feedings. Take With Food Inactive 05/29/2014 [facility] Labetalol 20 mg, 4 mL, Route: IVP, Drug form: INJ, ONCE, Dosing Weight 39.091, kg, Priority: STAT, Start date: 05/28/14 23:21:00, Stop date: 05/28/14 23:21:00Notes: (Same as: Normodyne, Trandate) Push over 2 minutes Give bolus over 2-3 minutes. Inactive 05/29/2014 [facility] Clonidine 0.1 mg, 1 tab, Route: PO, Drug form: TAB, Q6H, Dosing Weight 39.091, kg, PRN Hypertension, Start date: 05/28/14 21:40:00, Duration: 30 day, Stop date: 06/27/14 21:39:00Notes: (Same As: Catapres) No Longer Active 05/29/2014 [facility] Saline Flush 0.9% 10 ml, Route: IVP, Drug Form: INJ, Dosing Weight 39.091, kg, PRN, PRN Line Flush, Start date: 05/28/14 21:40:00, Duration: 30 day, Stop date: 06/27/14 21:39:00Notes: (Same as: BD Posiflush) No Longer Active 05/29/2014 [facility] warfarin 2.5 mg oral tablet 2.5 mg=1 tab, PO, QPM No Longer Active 05/29/2014 [facility] 200 ACTUAT Albuterol 0.09 MG/ACTUAT Metered Dose Inhaler [Proventil] 2 puff, INHALATION, Q4H, PRN for wheezing No Longer Active 05/29/2014 [facility] Sodium Chloride 0.154 MEQ/ML Injectable Solution 1,000 mL, Rate: 75 ml/hr, Infuse over: 13.3 hr, Route: IV, Dosing Weight 39.091 kg, Total Volume: 1,000, Start date: 05/28/14 20:48:00, Duration: 30 day, Stop date: 06/27/14 20:47:00 No Longer Active 05/29/2014 [facility] Tylenol 650 mg, 2 tab, Route: PO, Drug form: TAB, ONCE, Dosing Weight 39.091, kg, Priority: STAT, Start date: 05/28/14 20:43:00, Stop date: 05/28/14 20:43:00Notes: Do not exceed 4 gm/day. (Same as: Tylenol) Inactive 05/29/2014 [facility] Reglan 10 mg, 2 mL, Route: IVP, Drug form: INJ, ONCE, Dosing Weight 39.091, kg, Priority: STAT, Start date: 05/28/14 20:43:00, Stop date: 05/28/14 20:43:00Notes: (Same as: Reglan) Inactive 05/29/2014 [facility] Azithromycin 500 mg, 250 mL, Route: IVPB, Drug form: PDR/INJ, ONCE, Dosing Weight 39.091, kg, Priority: STAT, Start date: 05/28/14 20:19:00, Stop date: 05/28/14 20:19:00Notes: Same as: Zithromax Inactive 05/29/2014 [facility] Ceftriaxone 1 gm, Route: IVPB, ONCE, Dosing Weight 39.091, kg, Priority: STAT, Start date: 05/28/14 19:08:00, Stop date: 05/28/14 19:08:00Notes: (Same As: Rocephin). Use with 100ml NS mini-bag PLUS and infuse over 30 min MEDICATION WASTE Product Size: 1000 mg Product Wasted: ___ mg Inactive 05/29/2014 [facility] Zofran 4 mg, Route: IVP, Drug form: INJ, ONCE, Dosing Weight 39.091, kg, Priority: STAT, Start date: 05/28/14 18:24:00, Stop date: 05/28/14 18:24:00 Inactive 05/28/2014 [facility] Zofran 4 mg, Route: IVP, Drug form: INJ, ONCE, Dosing Weight 39.091, kg, Priority: STAT, Start date: 05/28/14 18:23:00, Stop date: 05/28/14 18:23:00 Inactive 05/28/2014 [facility] Lisinopril 20 mg, Route: PO, ONCE, Dosing Weight 39.091, kg, Priority: STAT, Start date: 05/28/14 17:52:00, Stop date: 05/28/14 17:52:00 Inactive 05/28/2014 [facility] Clonidine Hydrochloride 0.1 MG Oral Tablet 0.1 mg, Route: PO, Drug form: TAB, ONCE, Dosing Weight 39.091, kg, Priority: STAT, Start date: 05/28/14 17:52:00, Stop date: 05/28/14 17:52:00 Inactive 05/28/2014 [facility] Labetalol 40 mg, Route: IVP, Drug form: INJ, ONCE, Dosing Weight 39.091, kg, Priority: STAT, Start date: 05/28/14 17:52:00, Stop date: 05/28/14 17:52:00 Inactive 05/28/2014 [facility] Labetalol 20 mg, Route: IVP, ONCE, Dosing Weight 39.091, kg, Priority: STAT, Start date: 05/28/14 16:47:00, Stop date: 05/28/14 16:47:00 Inactive 05/28/2014 [facility] Saline Flush 0.9% 10 mL, Route: IVP, Drug Form: INJ, Dosing Weight 39.091, kg, PRN, PRN Line Flush, Start date: 05/28/14 16:47:00, Duration: 30 day, Stop date: 06/27/14 16:46:00Notes: Same as: BD Posiflush Sterile No Longer Active 05/28/2014 [facility] Allergies, Adverse Reactions, Alerts Substance Category Reaction Severity Reaction type Status Date Reported Comments Source Immunizations Immunization Date Given Site Status Last Updated Comments Source pneumococcal 23-valent vaccine 07/28/2016 Left deltoid completed Bao [facility] pneumococcal 13-valent vaccine 02/28/2016 Left deltoid completed Angie [facility] diphtheria/pertussis, acel/tetanus adult 02/17/2016 Right Deltoid completed Ben [facility] Results Order Name Results Value Reference Range Date Interpretation Comments Source Chest Pulmonary Embolism CTA Chest Pulmonary Embolism CTA Patient Name: YULIYA BEAUCHAMP : 1950; Age: 66 years y/o Female MR: [id number] Study: Chest Pulmonary Embolism CTA 10/20/2017 9:46 AM CDT Ordering Physician: Neeraj Mcmillan MD Comparison: None CT Radiation Dose DLP 215 mGy-cm Clinical Indication: - sob, tachycardia; Multiple computerized axial tomograms of the chest at 2 mm slice thickness were obtained during administration of 100 cc Omnipaque 350 IV contrast administration with the field of view centered on the pulmonary arterial tree. 3-D volume rendering reconstruction images of the pulmonary arterial tree were obtained.Subsequently, standard computed tomography scan of the chest with 5 mm slice thickness was obtained with IV contrast administration.Sagittal and coronal 2-D reconstruction images were obtained. There is no pulmonary embolus noted. The caliber of the thoracic aorta is normal. There is no thoracic aortic dissection. Vascular calcification at the carotid bifurcations bilaterally. Vascular calcification at the great vessels, thoracic aorta and coronary arteries. Physiologic fluid at the mediastinal pericardial recesses. Mild cardiomegaly. No pericardial fluid collection. No mediastinal or hilar adenopathy. Nonspecific, nonenlarged hilar lymph nodes are present bilaterally. There is air noted within the esophageal lumen which may indicate esophageal dysmotility. Bilateral small pleural fluid collections. Passive atelectasis is noted at the lower lobes subjacent to the pleural fluid collections. Centrilobular emphysema is present bilaterally. Dependent volume loss at the dorsal right upper lobe and the dorsal lingula is noted. No acute pulmonary parenchymal infiltrate is noted. Accentuation of the cervicothoracic kyphosis is noted. Thoracic vertebral body heights are maintained. Mild thoracic spondylosis. Diffuse fatty infiltration of the visualized liver. Reflux of contrast from the right heart into the intrahepatic IVC is noted. IMPRESSION: 1. No acute pulmonary embolus is noted. 2. Bilateral small pleural fluid collections with passive atelectasis noted at the lower lobes subjacent to the pleural fluid collections. 3. Mild cardiomegaly with coronary artery calcifications. There is reflux of contrast from the right heart into the intrahepatic IVC suggesting chronic right heart failure. 4. Centrilobular emphysema. 5. Diffuse fatty infiltration of the liver. SL: [id number] 10/20/2017 - - Read by: Diogo Zamora MD Dictated Date/time: 10/20/17 11:25 Electronically Signed by: Diogo Zamora MD 10/20/17 11:37 FINAL REPORT [facility] Chest 1view DX Chest 1view DX CHEST RADIOGRAPH SINGLE VIEW INDICATION: Shortness of breath COMPARISON: Chest radiograph 03/17/2017 IMPRESSION: Cardiac silhouette is grossly normal in size. There is mild pulmonary vascular congestion and mild interstitial pulmonary edema. There is mild left pleural effusion. The right lung is grossly clear. No pneumothorax is visible. SL:16 10/20/2017 - - Read by: Priyank Garcia MD Dictated Date/time: 10/20/17 05:55 Electronically Signed by: Priyank Garcia MD 10/20/17 05:55 FINAL REPORT [facility] CHEM PANEL eGFR 89 mL/min/1.73m2 03/25/2017 Result Comment: The eGFR is calculated using the [...] from the National Kidney Disease Education Program (NKDEP) which additionally recommends that when the eGFR is used in patients with extremes of body mass index for purposes of drug dosing, the eGFR should be multiplied by the estimated BMI. [facility] CHEM PANEL Sodium Lvl 139 meq/L 135 - 145 03/25/2017 [facility] CHEM PANEL Creatinine Lvl 0.71 mg/dL 0.50 - 1.40 03/25/2017 [facility] CHEM PANEL Chloride Lvl 101 meq/L 95 - 109 03/25/2017 [facility] CHEM PANEL Potassium Lvl 3.3 meq/L 3.5 - 5.1 03/25/2017 [facility] CHEM PANEL CO2 31 meq/L 24 - 32 03/25/2017 [facility] CHEM PANEL Calcium Lvl 8.1 mg/dL 8.5 - 10.5 03/25/2017 [facility] CHEM PANEL Glucose Lvl 74 mg/dL 70 - 99 03/25/2017 [facility] CHEM PANEL BUN 12 mg/dL 7 - 22 03/25/2017 [facility] CHEM PANEL AGAP 10.3 meq/L 10.0 - 20.0 03/25/2017 [facility] HEMATOLOGY PT 15.5 s 12.0 - 14.7 03/25/2017 [facility] HEMATOLOGY INR 1.22 0.85 - 1.17 03/25/2017 [facility] HEMATOLOGY Hgb 11.5 g/dL 12.0 - 16.0 03/25/2017 [facility] RBC 3.69 M/CMM 4.20 - 5.40 03/25/2017 [facility] WBC 10.6 K/CMM 3.7 - 10.4 03/25/2017 [facility] Hct 34.2 % 36.0 - 48.0 03/25/2017 [facility] MCH 31.1 pg 27.0 - 31.0 03/25/2017 [facility] MCV 92.7 fL 80.0 - 98.0 03/25/2017 [facility] RDW 17.2 % 11.5 - 14.5 03/25/2017 [facility] MCHC 33.6 g/dL 32.0 - 36.0 03/25/2017 [facility] MPV 9.2 fL 7.4 - 10.4 03/25/2017 [facility] Platelet 238 K/CMM 133 - 450 03/25/2017 [facility] AGAP 9.2 meq/L 10.0 - 20.0 03/24/2017 [facility] eGFR 91 mL/min/1.73m2 03/24/2017 Result Comment: The eGFR is calculated using the [...] from the National Kidney Disease Education Program (NKDEP) which additionally recommends that when the eGFR is used in patients with extremes of body mass index for purposes of drug dosing, the eGFR should be multiplied by the estimated BMI. [facility] ELECTROLYTES BUN 13 mg/dL 7 - 22 03/24/2017 [facility] ELECTROLYTES Creatinine Lvl 0.69 mg/dL 0.50 - 1.40 03/24/2017 [facility] ELECTROLYTES Sodium Lvl 139 meq/L 135 - 145 03/24/2017 [facility] ELECTROLYTES Potassium Lvl 3.2 meq/L 3.5 - 5.1 03/24/2017 [facility] ELECTROLYTES Chloride Lvl 102 meq/L 95 - 109 03/24/2017 [facility] ELECTROLYTES Calcium Lvl 7.9 mg/dL 8.5 - 10.5 03/24/2017 [facility] ELECTROLYTES CO2 31 meq/L 24 - 32 03/24/2017 [facility] Glucose Lvl 61 mg/dL 70 - 99 03/24/2017 [facility] MPV 9.6 fL 7.4 - 10.4 03/24/2017 [facility] Hgb 11.1 g/dL 12.0 - 16.0 03/24/2017 [facility] RBC 3.58 M/CMM 4.20 - 5.40 03/24/2017 [facility] Hct 33.3 % 36.0 - 48.0 03/24/2017 [facility] MCV 93.0 fL 80.0 - 98.0 03/24/2017 [facility] WBC 7.6 K/CMM 3.7 - 10.4 03/24/2017 [facility] Platelet 212 K/CMM 133 - 450 03/24/2017 [facility] MCHC 33.4 g/dL 32.0 - 36.0 03/24/2017 [facility] RDW 17.7 % 11.5 - 14.5 03/24/2017 [facility] MCH 31.0 pg 27.0 - 31.0 03/24/2017 [facility] INR 1.17 0.85 - 1.17 03/24/2017 [facility] PT 15.0 s 12.0 - 14.7 03/24/2017 [facility] INR 1.02 0.85 - 1.17 03/23/2017 [facility] PT 13.4 s 12.0 - 14.7 03/23/2017 [facility] ELECTROLYTES CO2 30 meq/L 24 - 32 03/22/2017 [facility] ELECTROLYTES Chloride Lvl 101 meq/L 95 - 109 03/22/2017 [facility] ELECTROLYTES AGAP 12.7 meq/L 10.0 - 20.0 03/22/2017 [facility] ELECTROLYTES Calcium Lvl 7.5 mg/dL 8.5 - 10.5 03/22/2017 [facility] ELECTROLYTES eGFR 91 mL/min/1.73m2 03/22/2017 Result Comment: The eGFR is calculated using the [...] from the National Kidney Disease Education Program (NKDEP) which additionally recommends that when the eGFR is used in patients with extremes of body mass index for purposes of drug dosing, the eGFR should be multiplied by the estimated BMI. [facility] ELECTROLYTES Creatinine Lvl 0.69 mg/dL 0.50 - 1.40 03/22/2017 [facility] ELECTROLYTES Potassium Lvl 3.7 meq/L 3.5 - 5.1 03/22/2017 [facility] ELECTROLYTES BUN 12 mg/dL 7 - 22 03/22/2017 [facility] ELECTROLYTES Sodium Lvl 140 meq/L 135 - 145 03/22/2017 [facility] ELECTROLYTES Glucose Lvl 104 mg/dL 70 - 99 03/22/2017 [facility] MCH 31.0 pg 27.0 - 31.0 03/22/2017 [facility] MCHC 33.4 g/dL 32.0 - 36.0 03/22/2017 [facility] RDW 17.1 % 11.5 - 14.5 03/22/2017 [facility] Platelet 191 K/CMM 133 - 450 03/22/2017 [facility] MPV 9.0 fL 7.4 - 10.4 03/22/2017 [facility] Hct 34.3 % 36.0 - 48.0 03/22/2017 [facility] MCV 92.6 fL 80.0 - 98.0 03/22/2017 [facility] WBC 7.5 K/CMM 3.7 - 10.4 03/22/2017 [facility] RBC 3.71 M/CMM 4.20 - 5.40 03/22/2017 [facility] Hgb 11.5 g/dL 12.0 - 16.0 03/22/2017 [facility] Lymphocytes 14.9 % 20.0 - 40.0 03/22/2017 [facility] Segs-Bands # 5.4 K/CMM 1.5 - 8.1 03/22/2017 [facility] HEMATOLOGY Eosinophils 0.1 % 0.0 - 4.0 03/22/2017 [facility] Monocytes 12.5 % 2.0 - 12.0 03/22/2017 [facility] Basophils 0.1 % 0.0 - 1.0 03/22/2017 [facility] Monocytes # 0.9 K/CMM 0.0 - 0.8 03/22/2017 [facility] Lymphocytes # 1.1 K/CMM 1.0 - 5.5 03/22/2017 [facility] HEMATOLOGY Segs 72.4 % 45.0 - 75.0 03/22/2017 [facility] ANEMIA STUDY Vitamin B12 Lvl 495 pg/mL 254 - 1320 03/21/2017 [facility] ANEMIA STUDY Folate Lvl 22.0 ng/mL >=3.0 ng/mL 03/21/2017 [facility] ANEMIA STUDY Ferritin Lvl 30 ng/mL 5 - 204 03/21/2017 [facility] ANEMIA STUDY % Satur Fe 8 % 12 - 57 03/21/2017 [facility] ANEMIA STUDY UIBC 383 ug/dl 110 - 370 03/21/2017 [facility] ANEMIA STUDY Iron 32 ug/dl 30 - 160 03/21/2017 [facility] ANEMIA STUDY TIBC 415 ug/dl 228 - 428 03/21/2017 [facility] HEMATOLOGY Retic Auto 2.7 % 0.5 - 1.5 03/20/2017 [facility] URINE AND STOOL Occult Bld Stl Positive *ABN* (03/19/17 3:23 PM) Negative 03/19/2017 [facility] BLOOD BANK RESULTS RBC product Product available 2 (03/19/17 6:29 AM) 03/19/2017 Result Comment: 03/19/2017 07:51 [id number] notified ALYSIA MARTIN that blood is ready for pick out hand [facility] BLOOD BANK RESULTS Antibody Scrn Negative (03/18/17 1:10 PM) 03/18/2017 [facility] BLOOD BANK RESULTS ABO/Rh A POS 03/18/2017 [facility] BLOOD BANK RESULTS FFP product Product available 1 (03/18/17 12:52 PM) 03/18/2017 Result Comment: 03/18/2017 14:30 [id number] notified lindsay martin [facility] CARDIAC ENZYMES BNP 283 pg/mL <=100 pg/mL 03/18/2017 [facility] CARDIAC ENZYMES Troponin-I null 0.00 - 0.40 03/18/2017 [facility] CARDIAC ENZYMES CK MB null 0.5 - 3.6 03/18/2017 [facility] CARDIAC ENZYMES Total CK 55 unit/L 12 - 191 03/18/2017 [facility] CARDIAC ENZYMES CK MB Index null 0.0 - 2.5 03/18/2017 [facility] CHEM PANEL Globulin 4.3 g/dL 2.7 - 4.2 03/18/2017 [facility] CHEM PANEL A/G Ratio 0.7 0.7 - 1.6 03/18/2017 [facility] CHEM PANEL Total Protein 7.2 g/dL 6.4 - 8.4 03/18/2017 [facility] CHEM PANEL B/C Ratio 18 6 - 25 03/18/2017 [facility] CHEM PANEL Bili Total 0.2 mg/dL 0.2 - 1.3 03/18/2017 [facility] CHEM PANEL AST 87 unit/L 0 - 37 03/18/2017 [facility] CHEM PANEL Alk Phos 127 unit/L 39 - 136 03/18/2017 [facility] CHEM PANEL Albumin Lvl 2.9 g/dL 3.5 - 5.0 03/18/2017 [facility] CHEM PANEL ALT 36 unit/L 0 - 65 03/18/2017 [facility] HEMATOLOGY Eosinophils 2.1 % 0.0 - 4.0 03/18/2017 [facility] HEMATOLOGY Monocytes 10.7 % 2.0 - 12.0 03/18/2017 [facility] HEMATOLOGY Lymphocytes 21.7 % 20.0 - 40.0 03/18/2017 [facility] HEMATOLOGY Segs 65.0 % 45.0 - 75.0 03/18/2017 [facility] Segs-Bands # 4.1 K/CMM 1.5 - 8.1 03/18/2017 [facility] HEMATOLOGY Basophils 0.5 % 0.0 - 1.0 03/18/2017 [facility] HEMATOLOGY Eosinophils # 0.1 K/CMM 0.0 - 0.5 03/18/2017 [facility] HEMATOLOGY Monocytes # 0.7 K/CMM 0.0 - 0.8 03/18/2017 [facility] Lymphocytes # 1.4 K/CMM 1.0 - 5.5 03/18/2017 [facility] Chest 2 views DX Chest 2 views DX Clinical Indication: Chest pain.. Comparison: 07/27/[address] from 04/29/2016 FINDINGS: PA and lateral views of the chest have been provided. Slightly limited exam secondary to positioning. Well expanded lungs are clear. Heart size is normal. Central pulmonary vasculature appears normal. Aorta is ectatic. Ovoid hyperdense region in the AP window not confirmed on the lateral view, possibly related to aortic tortuosity accentuated by positioning. No effusion. No pneumothorax. No radiographically apparent acute osseous abnormality. IMPRESSION: 1. No radiographically apparent acute cardiopulmonary process. SL: [id number] 03/17/2017 - - Read by: Ange Cisneros MD Dictated Date/time: 03/17/17 20:15 Electronically Signed by: Ange Cisneros MD 03/17/17 20:18 FINAL REPORT [facility] Ankle 3 views DX Ankle 3 views DX Portable right ankle radiographs 3 views INDICATION: Fall one week ago. Pain. COMPARISON: None IMPRESSION: There is a mildly displaced oblique fracture through the distal fibula. The ankle mortise is intact. No other fracture is evident. Small ankle joint effusion. Mild soft tissue swelling along lateral aspect of ankle. Mild to moderate degenerative changes. SL: MICHAEL 09/01/2016 - - Read by: Virginia Orellana MD Dictated Date/time: 09/01/16 03:51 Electronically Signed by: Virginia Orellana MD 09/01/16 03:56 FINAL REPORT [facility] Tibia fibula series DX Tibia fibula series DX Portable tibia and fibula 2 views INDICATION: Pain after fall one week ago COMPARISON: 10/16/2014 IMPRESSION: Mildly displaced oblique fracture through the distal fibula. No other fracture is evident. Mild soft tissue swelling along lateral aspect of the ankle. SL: MICHAEL 09/01/2016 - - Read by: Virginia Orellana MD Dictated Date/time: 09/01/16 03:56 Electronically Signed by: Virginia Orellana MD 09/01/16 04:00 FINAL REPORT [facility] HEMATOLOGY INR 2.99 0.85 - 1.17 07/28/2016 [facility] HEMATOLOGY PT 31.5 s 12.0 - 14.7 07/28/2016 [facility] CARDIAC ENZYMES Total CK 36 unit/L 12 - 191 07/28/2016 [facility] CARDIAC ENZYMES Troponin-I null 0.00 - 0.40 07/28/2016 [facility] ELECTROLYTES AGAP 10.0 meq/L 10.0 - 20.0 07/28/2016 [facility] ELECTROLYTES eGFR 79 mL/min/1.73m2 07/28/2016 Result Comment: The eGFR is calculated using the [...] from the National Kidney Disease Education Program (NKDEP) which additionally recommends that when the eGFR is used in patients with extremes of body mass index for purposes of drug dosing, the eGFR should be multiplied by the estimated BMI. [facility] ELECTROLYTES Calcium Lvl 8.7 mg/dL 8.5 - 10.5 07/28/2016 [facility] ELECTROLYTES CO2 31 meq/L 24 - 32 07/28/2016 [facility] ELECTROLYTES BUN 28 mg/dL 7 - 22 07/28/2016 [facility] ELECTROLYTES Creatinine Lvl 0.79 mg/dL 0.50 - 1.40 07/28/2016 [facility] ELECTROLYTES Chloride Lvl 103 meq/L 95 - 109 07/28/2016 [facility] ELECTROLYTES Sodium Lvl 140 meq/L 135 - 145 07/28/2016 [facility] ELECTROLYTES Potassium Lvl 4.0 meq/L 3.5 - 5.1 07/28/2016 [facility] ELECTROLYTES Glucose Lvl 93 mg/dL 70 - 99 07/28/2016 [facility] Monocytes 15.8 % 2.0 - 12.0 07/28/2016 [facility] Lymphocytes 21.1 % 20.0 - 40.0 07/28/2016 [facility] HEMATOLOGY Segs 58.9 % 45.0 - 75.0 07/28/2016 [facility] Segs-Bands # 4.7 K/CMM 1.5 - 8.1 07/28/2016 [facility] Monocytes # 1.3 K/CMM 0.0 - 0.8 07/28/2016 [facility] Basophils 0.4 % 0.0 - 1.0 07/28/2016 [facility] HEMATOLOGY Eosinophils 3.8 % 0.0 - 4.0 07/28/2016 [facility] Lymphocytes # 1.7 K/CMM 1.0 - 5.5 07/28/2016 [facility] Eosinophils # 0.3 K/CMM 0.0 - 0.5 07/28/2016 [facility] MPV 7.1 fL 7.4 - 10.4 07/28/2016 [facility] RBC 3.56 M/CMM 4.20 - 5.40 07/28/2016 [facility] Hct 32.4 % 36.0 - 48.0 07/28/2016 [facility] WBC 8.0 K/CMM 3.7 - 10.4 07/28/2016 [facility] Hgb 10.8 g/dL 12.0 - 16.0 07/28/2016 [facility] MCV 91.1 fL 80.0 - 98.0 07/28/2016 [facility] RDW 20.7 % 11.5 - 14.5 07/28/2016 [facility] MCHC 33.2 g/dL 32.0 - 36.0 07/28/2016 [facility] MCH 30.2 pg 27.0 - 31.0 07/28/2016 [facility] Platelet 244 K/CMM 133 - 450 07/28/2016 [facility] INR 3.36 0.85 - 1.17 07/28/2016 [facility] PT 34.5 s 12.0 - 14.7 07/28/2016 [facility] CARDIAC ENZYMES Troponin-I null 0.00 - 0.40 07/28/2016 [facility] CARDIAC ENZYMES Total CK 42 unit/L - 07/28/2016 [facility] CARDIAC ENZYMES CK MB Index 2.5 0.0 - 2.5 07/27/2016 [facility] CARDIAC ENZYMES BNP 406 pg/mL <=100 pg/mL 07/27/2016 [facility] CARDIAC ENZYMES Troponin-I null 0.00 - 0.40 07/27/2016 [facility] CARDIAC ENZYMES CK MB 1.3 ng/mL 0.5 - 3.6 07/27/2016 [facility] CARDIAC ENZYMES Total CK 52 unit/L - 07/27/2016 [facility] CHEM PANEL eGFR 70 mL/min/1.73m2 07/27/2016 Result Comment: The eGFR is calculated using the [...] from the National Kidney Disease Education Program (NKDEP) which additionally recommends that when the eGFR is used in patients with extremes of body mass index for purposes of drug dosing, the eGFR should be multiplied by the estimated BMI. [facility] CHEM PANEL Globulin 4.2 g/dL 2.7 - 4.2 07/27/2016 [facility] CHEM PANEL A/G Ratio 0.8 0.7 - 1.6 07/27/2016 [facility] CHEM PANEL Bili Total 0.3 mg/dL 0.2 - 1.3 07/27/2016 [facility] CHEM PANEL Alk Phos 111 unit/L 39 - 136 07/27/2016 [facility] CHEM PANEL B/C Ratio 30 6 - 25 07/27/2016 [facility] CHEM PANEL AGAP 7.7 meq/L 10.0 - 20.0 07/27/2016 [facility] CHEM PANEL AST 16 unit/L 0 - 37 07/27/2016 [facility] CHEM PANEL Total Protein 7.7 g/dL 6.4 - 8.4 07/27/2016 [facility] CHEM PANEL ALT 12 unit/L 0 - 65 07/27/2016 [facility] CHEM PANEL Albumin Lvl 3.5 g/dL 3.5 - 5.0 07/27/2016 [facility] CHEM PANEL CO2 31 meq/L 24 - 32 07/27/2016 [facility] CHEM PANEL Chloride Lvl 105 meq/L 95 - 109 07/27/2016 [facility] CHEM PANEL Potassium Lvl 3.7 meq/L 3.5 - 5.1 07/27/2016 [facility] CHEM PANEL BUN 26 mg/dL 7 - 22 07/27/2016 [facility] CHEM PANEL Glucose Lvl 90 mg/dL 70 - 99 07/27/2016 [facility] CHEM PANEL Calcium Lvl 8.9 mg/dL 8.5 - 10.5 07/27/2016 [facility] CHEM PANEL Sodium Lvl 140 meq/L 135 - 145 07/27/2016 [facility] CHEM PANEL Creatinine Lvl 0.87 mg/dL 0.50 - 1.40 07/27/2016 [facility] HEMATOLOGY Monocytes 9.8 % 2.0 - 12.0 07/27/2016 [facility] HEMATOLOGY Eosinophils 3.5 % 0.0 - 4.0 07/27/2016 [facility] HEMATOLOGY Lymphocytes # 2.0 K/CMM 1.0 - 5.5 07/27/2016 [facility] HEMATOLOGY Segs-Bands # 5.2 K/CMM 1.5 - 8.1 07/27/2016 [facility] HEMATOLOGY Basophils 1.0 % 0.0 - 1.0 07/27/2016 [facility] HEMATOLOGY Eosinophils # 0.3 K/CMM 0.0 - 0.5 07/27/2016 [facility] Monocytes # 0.8 K/CMM 0.0 - 0.8 07/27/2016 [facility] Basophils # 0.1 K/CMM 0.0 - 0.2 07/27/2016 [facility] Segs 62.1 % 45.0 - 75.0 07/27/2016 [facility] Lymphocytes 23.6 % 20.0 - 40.0 07/27/2016 [facility] MPV 7.9 fL 7.4 - 10.4 07/27/2016 [facility] RDW 21.0 % 11.5 - 14.5 07/27/2016 [facility] Platelet 290 K/CMM 133 - 450 07/27/2016 [facility] MCH 30.2 pg 27.0 - 31.0 07/27/2016 [facility] MCHC 32.8 g/dL 32.0 - 36.0 07/27/2016 [facility] WBC 8.4 K/CMM 3.7 - 10.4 07/27/2016 [facility] RBC 3.98 M/CMM 4.20 - 5.40 07/27/2016 [facility] Hgb 12.0 g/dL 12.0 - 16.0 07/27/2016 [facility] Hct 36.6 % 36.0 - 48.0 07/27/2016 [facility] MCV 91.9 fL 80.0 - 98.0 07/27/2016 [facility] Chest 1view DX Chest 1view DX Portable chest: The cardiomediastinal silhouette and pulmonary vasculature are within normal limits. The lungs and pleural spaces are clear. There are no acute osseous abnormalities. There is no significant change compared to 05/02/2016. IMPRESSION: No acute radiographic abnormality in the chest. SL DLAWRENCE- 07/27/2016 - - Read by: Asad Grimes MD Dictated Date/time: 07/27/16 14:30 Electronically Signed by: Asad Grimes MD 07/27/16 14:30 FINAL REPORT [facility] Chest 1view DX Chest 1view DX Patient Name: YULIYA BEAUCHAMP : 1950; Age: 65 years y/o Female MR: [id number] Study: Chest 1view DX 05/02/2016 3:47 PM CDT Ordering Physician: Clinical Indication: PICC Line Placement - STAT portable Chest X-ray post successful insertion. Indication: Correct Line Placement.; Comparison: 04/30/2015 1 view chest Right arm PICC terminates at the SVC. Lungs are hyperinflated, without new or acute infiltrate. There is no pleural effusion or pneumothorax. Heart size normal. IMPRESSION: PICC line satisfactory. Appearance of the chest is otherwise unchanged from prior study of 04/29/2016. SL: PB-ANGELO 05/02/2016 - - Read by: Figueroa Frank MD Dictated Date/time: 05/02/16 16:19 Electronically Signed by: Figueroa Frank MD 05/02/16 16:20 FINAL REPORT [facility] HEMATOLOGY PT 15.8 s 12.0 - 14.7 05/02/2016 [facility] HEMATOLOGY INR 1.23 0.85 - 1.17 05/02/2016 [facility] HEMATOLOGY PT 16.2 s 12.0 - 14.7 05/02/2016 [facility] HEMATOLOGY INR 1.27 0.85 - 1.17 05/02/2016 [facility] HEMATOLOGY INR 1.16 0.85 - 1.17 04/30/2016 [facility] HEMATOLOGY PT 15.0 s 12.0 - 14.7 04/30/2016 [facility] ELECTROLYTES AGAP 12.5 meq/L 10.0 - 20.0 04/30/2016 [facility] ELECTROLYTES eGFR 96 mL/min/1.73m2 04/30/2016 Result Comment: The eGFR is calculated using the [...] from the National Kidney Disease Education Program (NKDEP) which additionally recommends that when the eGFR is used in patients with extremes of body mass index for purposes of drug dosing, the eGFR should be multiplied by the estimated BMI. [facility] ELECTROLYTES Glucose Lvl 85 mg/dL 70 - 99 04/30/2016 [facility] ELECTROLYTES Chloride Lvl 101 meq/L 95 - 109 04/30/2016 [facility] ELECTROLYTES CO2 26 meq/L 24 - 32 04/30/2016 [facility] ELECTROLYTES Calcium Lvl 7.8 mg/dL 8.5 - 10.5 04/30/2016 [facility] ELECTROLYTES Potassium Lvl 3.5 meq/L 3.5 - 5.1 04/30/2016 [facility] ELECTROLYTES Creatinine Lvl 0.60 mg/dL 0.50 - 1.40 04/30/2016 [facility] ELECTROLYTES Sodium Lvl 136 meq/L 135 - 145 04/30/2016 [facility] ELECTROLYTES BUN 3 mg/dL 7 - 22 04/30/2016 [facility] HEMATOLOGY Platelet 284 K/CMM 133 - 450 04/30/2016 [facility] MCHC 32.7 g/dL 32.0 - 36.0 04/30/2016 [facility] HEMATOLOGY RDW 16.0 % 11.5 - 14.5 04/30/2016 [facility] MCH 31.1 pg 27.0 - 31.0 04/30/2016 [facility] HEMATOLOGY Hct 34.9 % 36.0 - 48.0 04/30/2016 [facility] MCV 95.0 fL 80.0 - 98.0 04/30/2016 [facility] HEMATOLOGY MPV 8.0 fL 7.4 - 10.4 04/30/2016 [facility] HEMATOLOGY WBC 5.8 K/CMM 3.7 - 10.4 04/30/2016 [facility] HEMATOLOGY RBC 3.68 M/CMM 4.20 - 5.40 04/30/2016 [facility] Hgb 11.4 g/dL 12.0 - 16.0 04/30/2016 [facility] Lymphocytes 18.2 % 20.0 - 40.0 04/30/2016 [facility] HEMATOLOGY Monocytes 9.1 % 2.0 - 12.0 04/30/2016 [facility] HEMATOLOGY Eosinophils 3.9 % 0.0 - 4.0 04/30/2016 [facility] HEMATOLOGY Basophils 0.9 % 0.0 - 1.0 04/30/2016 [facility] HEMATOLOGY Segs 67.9 % 45.0 - 75.0 04/30/2016 [facility] HEMATOLOGY Segs-Bands # 3.9 K/CMM 1.5 - 8.1 04/30/2016 [facility] HEMATOLOGY Monocytes # 0.5 K/CMM 0.0 - 0.8 04/30/2016 [facility] HEMATOLOGY Basophils # 0.1 K/CMM 0.0 - 0.2 04/30/2016 [facility] HEMATOLOGY Lymphocytes # 1.0 K/CMM 1.0 - 5.5 04/30/2016 [facility] HEMATOLOGY Eosinophils # 0.2 K/CMM 0.0 - 0.5 04/30/2016 [facility] Chest Pulmonary Embolism CTA Chest Pulmonary Embolism CTA Clinical Indication: Shortness of Breath; chest pain Comparison: Chest CT 02/29/2016 TECHNIQUE: Sequential trans-axial images were obtained thru the chest and upper abdomen after administration of iodinated contrast. Coronal and sagittal reconstructions were obtained. 100 cc of Omnipaque 350 was used for the exam. Postprocessing 3-D reformations of the pulmonary arteries were created and interpreted. Dose: HOD=689 mGy-cm FINDINGS: LUNG PARENCHYMA AND PLEURA: A few patchy groundglass opacities in the right middle lobe. Emphysematous changes of the lungs. There are no lung nodules. There is no significant interstitial lung disease. There are no pleural effusions. There is no pneumothorax. AIRWAY: The central airway is normal. MEDIASTINUM: No significant mediastinal lymphadenopathy. HEART: There is no evidence of RV strain. The cardiac chambers are otherwise unremarkable. There is no pericardial effusion. VASCULAR STRUCTURES: There are no segmental pulmonary emboli noted. The main pulmonary artery diameter is normal. The great vessels are unremarkable. The thoracic aorta is is free of aneurysm or dissection.. The superior vena cava is unremarkable. MUSCULOSKELETAL: No acute osseous abnormalities. VISUALIZED UPPER ABDOMEN: No acute abnormalities of the visualized upper abdomen. Multifocal irregular enhancement in the right lobe the liver. Nonspecific mild bilateral perinephric stranding. Gastric wall appears thickened, which may be due to underdistention. IMPRESSION: 1. No new pulmonary emboli. The multiple bilateral emboli seen on the CT 02/29/2016 have nearly completely resolved. No evidence of right heart strain 2. Emphysematous changes of the lungs. A few patchy right middle lobe groundglass opacities are nonspecific but may be due to pneumonia or pneumonitis. 3. Patchy nonmass-like arterial enhancement in the right lobe the liver, not seen on CT abdomen and pelvis 04/13/2016 and likely due to variations in vascular perfusion. SL: ROSA 04/29/2016 - - Read by: Asad Woods MD Dictated Date/time: 04/29/16 17:43 Electronically Signed by: Asad Woods MD 04/29/16 17:52 FINAL REPORT [facility] MCHC 33.4 g/dL 32.0 - 36.0 04/29/2016 [facility] MCH 31.1 pg 27.0 - 31.0 04/29/2016 [facility] Hgb 10.7 g/dL 12.0 - 16.0 04/29/2016 [facility] Hct 32.0 % 36.0 - 48.0 04/29/2016 [facility] MPV 8.0 fL 7.4 - 10.4 04/29/2016 [facility] Platelet 291 K/CMM 133 - 450 04/29/2016 [facility] RDW 15.8 % 11.5 - 14.5 04/29/2016 [facility] WBC 6.5 K/CMM 3.7 - 10.4 04/29/2016 [facility] RBC 3.44 M/CMM 4.20 - 5.40 04/29/2016 [facility] MCV 93.1 fL 80.0 - 98.0 04/29/2016 [facility] Eosinophils # 0.1 K/CMM 0.0 - 0.5 04/29/2016 [facility] Monocytes # 0.5 K/CMM 0.0 - 0.8 04/29/2016 [facility] Monocytes 7.2 % 2.0 - 12.0 04/29/2016 [facility] Eosinophils 1.1 % 0.0 - 4.0 04/29/2016 [facility] Segs-Bands # 5.2 K/CMM 1.5 - 8.1 04/29/2016 [facility] Basophils 0.7 % 0.0 - 1.0 04/29/2016 [facility] Lymphocytes # 0.7 K/CMM 1.0 - 5.5 04/29/2016 [facility] Segs 79.5 % 45.0 - 75.0 04/29/2016 [facility] Lymphocytes 11.5 % 20.0 - 40.0 04/29/2016 [facility] Chest 1view DX Chest 1view DX Patient Name: YULIYA BEAUCHAMP : 1950; Age: 65 years Female MR: [id number] Study: Chest 1view DX Order Time: 04/29/2016 11:21 AM CDT CLINICAL INDICATION: Abnormal chest sounds COMPARISON: Chest radiograph on 04/13/2016 FINDINGS: Lines: None. Lungs: Hyperinflated lungs compatible with emphysema. No focal consolidation, effusion, or pneumothorax. Mediastinum: The cardiac silhouette is within normal limits of size. Midline trachea. Bones and soft tissues: No acute abnormalities. IMPRESSION: No acute cardiopulmonary abnormalities. SL: [id number] 04/29/2016 - - Read by: Khushbu Simon MD Dictated Date/time: 04/29/16 11:44 Electronically Signed by: Khushbu Simon MD 04/29/16 11:45 FINAL REPORT [facility] CARDIAC ENZYMES BNP 686 pg/mL <=100 pg/mL 04/29/2016 [facility] CARDIAC ENZYMES Troponin-I null 0.00 - 0.40 04/29/2016 [facility] CARDIAC ENZYMES Total CK 29 unit/L 12 - 191 04/29/2016 [facility] CHEM PANEL BUN 5 mg/dL 7 - 22 04/29/2016 [facility] CHEM PANEL Glucose Lvl 60 mg/dL 70 - 99 04/29/2016 [facility] CHEM PANEL Sodium Lvl 135 meq/L 135 - 145 04/29/2016 [facility] CHEM PANEL Creatinine Lvl 0.40 mg/dL 0.50 - 1.40 04/29/2016 [facility] CHEM PANEL Potassium Lvl 2.9 meq/L 3.5 - 5.1 04/29/2016 Result Comment: Critical Result(s) called to danika stover at 04/29/2016 06:54 by lila. Read back OK. [facility] CHEM PANEL Chloride Lvl 97 meq/L 95 - 109 04/29/2016 [facility] CHEM PANEL AGAP 16.9 meq/L 10.0 - 20.0 04/29/2016 [facility] CHEM PANEL ALT 12 unit/L 0 - 65 04/29/2016 [facility] CHEM PANEL CO2 24 meq/L 24 - 32 04/29/2016 [facility] CHEM PANEL B/C Ratio 12 6 - 25 04/29/2016 [facility] CHEM PANEL Calcium Lvl 7.5 mg/dL 8.5 - 10.5 04/29/2016 [facility] CHEM PANEL Alk Phos 115 unit/L 39 - 136 04/29/2016 [facility] CHEM PANEL AST 28 unit/L 0 - 37 04/29/2016 [facility] CHEM PANEL Bili Total 0.5 mg/dL 0.2 - 1.3 04/29/2016 [facility] CHEM PANEL Albumin Lvl 2.6 g/dL 3.5 - 5.0 04/29/2016 [facility] CHEM PANEL Total Protein 5.7 g/dL 6.4 - 8.4 04/29/2016 [facility] CHEM PANEL A/G Ratio 0.8 0.7 - 1.6 04/29/2016 [facility] CHEM PANEL Globulin 3.1 g/dL 2.7 - 4.2 04/29/2016 [facility] CHEM PANEL eGFR 110 mL/min/1.73m2 04/29/2016 Result Comment: The eGFR is calculated using the [...] from the National Kidney Disease Education Program (NKDEP) which additionally recommends that when the eGFR is used in patients with extremes of body mass index for purposes of drug dosing, the eGFR should be multiplied by the estimated BMI. [facility] CHEM PANEL Magnesium Lvl 2.3 mg/dL 1.8 - 2.4 04/29/2016 [facility] CHEM PANEL Phosphorus 2.6 mg/dL 2.5 - 4.5 04/29/2016 [facility] HEMATOLOGY PTT 30.7 s 22.9 - 35.8 04/29/2016 [facility] MOLECULAR DIAGNOSTIC C difficile DNA Negative (04/29/16 1:05 AM) Negative 04/29/2016 [facility] URINE AND STOOL UA Urobilinogen <=1.0 mg/dL 0.1 - 1.0 04/29/2016 [facility] URINE AND STOOL UA Sq Epi None Seen 04/29/2016 [facility] URINE AND STOOL UA Blood Small *ABN* (04/28/16 9:45 PM) Negative 04/29/2016 [facility] URINE AND STOOL UA Bili Negative *NA* (04/28/16 9:45 PM) Negative 04/29/2016 [facility] URINE AND STOOL UA Nitrite Positive *ABN* (04/28/16 9:45 PM) Negative 04/29/2016 [facility] URINE AND STOOL UA Leuk Est Large *ABN* (04/28/16 9:45 PM) Negative 04/29/2016 [facility] URINE AND STOOL UA Ketones 20 mg/dL Negative mg/dL 04/29/2016 [facility] URINE AND STOOL UA RBC 1 /HPF 0 - 2 04/29/2016 [facility] URINE AND STOOL UA WBC 175 /HPF 0 - 5 04/29/2016 [facility] URINE AND STOOL UA Hyal Cast 1 /LPF 0 - 2 04/29/2016 [facility] URINE AND STOOL UA Bacteria Many /HPF None Seen /HPF 04/29/2016 [facility] URINE AND STOOL UA Color Yellow *NA* (04/28/16 9:45 PM) Yellow 04/29/2016 [facility] URINE AND STOOL UA pH 6.0 5.0 - 8.0 04/29/2016 [facility] URINE AND STOOL UA Spec Grav 1.010 <=1.030 04/29/2016 [facility] URINE AND STOOL UA Glucose Negative mg/dL Negative mg/dL 04/29/2016 [facility] URINE AND STOOL UA Protein Negative mg/dL Negative mg/dL 04/29/2016 [facility] URINE AND STOOL UA Turbidity Marked *ABN* (04/28/16 9:45 PM) Clear 04/29/2016 [facility] CHEM PANEL Lipase Lvl 368 unit/L 73 - 393 04/28/2016 [facility] CHEM PANEL Magnesium Lvl 1.0 mg/dL 1.8 - 2.4 04/28/2016 Result Comment: Critical Result(s) called to Nena Sanderson at 04/28/2016 18:27 by melania. Read back OK. [facility] CHEM PANEL A/G Ratio 0.8 0.7 - 1.6 04/28/2016 [facility] CHEM PANEL Globulin 3.8 g/dL 2.7 - 4.2 04/28/2016 [facility] CHEM PANEL B/C Ratio 8 6 - 25 04/28/2016 [facility] CHEM PANEL AGAP 15.5 meq/L 10.0 - 20.0 04/28/2016 [facility] CHEM PANEL eGFR 100 mL/min/1.73m2 04/28/2016 Result Comment: The eGFR is calculated using the [...] from the National Kidney Disease Education Program (NKDEP) which additionally recommends that when the eGFR is used in patients with extremes of body mass index for purposes of drug dosing, the eGFR should be multiplied by the estimated BMI. [facility] CHEM PANEL CO2 25 meq/L 24 - 32 04/28/2016 [facility] CHEM PANEL Calcium Lvl 8.0 mg/dL 8.5 - 10.5 04/28/2016 [facility] CHEM PANEL Total Protein 6.9 g/dL 6.4 - 8.4 04/28/2016 [facility] CHEM PANEL Albumin Lvl 3.1 g/dL 3.5 - 5.0 04/28/2016 [facility] CHEM PANEL BUN 4 mg/dL 7 - 22 04/28/2016 [facility] CHEM PANEL Creatinine Lvl 0.53 mg/dL 0.50 - 1.40 04/28/2016 [facility] CHEM PANEL Sodium Lvl 130 meq/L 135 - 145 04/28/2016 [facility] CHEM PANEL Potassium Lvl 3.5 meq/L 3.5 - 5.1 04/28/2016 [facility] CHEM PANEL Glucose Lvl 71 mg/dL 70 - 99 04/28/2016 [facility] CHEM PANEL Bili Total 0.6 mg/dL 0.2 - 1.3 04/28/2016 [facility] CHEM PANEL ALT 19 unit/L 0 - 65 04/28/2016 [facility] CHEM PANEL AST 43 unit/L 0 - 37 04/28/2016 [facility] CHEM PANEL Alk Phos 140 unit/L 39 - 136 04/28/2016 [facility] CHEM PANEL Chloride Lvl 93 meq/L 95 - 109 04/28/2016 [facility] HEMATOLOGY Monocytes # 0.6 K/CMM 0.0 - 0.8 04/28/2016 [facility] HEMATOLOGY Basophils # 0.1 K/CMM 0.0 - 0.2 04/28/2016 [facility] HEMATOLOGY Eosinophils # 0.1 K/CMM 0.0 - 0.5 04/28/2016 [facility] HEMATOLOGY Eosinophils 1.0 % 0.0 - 4.0 04/28/2016 [facility] HEMATOLOGY Basophils 0.8 % 0.0 - 1.0 04/28/2016 [facility] Lymphocytes # 1.7 K/CMM 1.0 - 5.5 04/28/2016 [facility] Segs-Bands # 10.0 K/CMM 1.5 - 8.1 04/28/2016 [facility] Segs 79.7 % 45.0 - 75.0 04/28/2016 [facility] Lymphocytes 13.6 % 20.0 - 40.0 04/28/2016 [facility] Monocytes 4.9 % 2.0 - 12.0 04/28/2016 [facility] PTT 24.2 s 22.9 - 35.8 04/28/2016 [facility] MCHC 32.7 g/dL 32.0 - 36.0 04/28/2016 [facility] MCH 30.6 pg 27.0 - 31.0 04/28/2016 [facility] MPV 7.9 fL 7.4 - 10.4 04/28/2016 [facility] Platelet 363 K/CMM 133 - 450 04/28/2016 [facility] RDW 16.0 % 11.5 - 14.5 04/28/2016 [facility] Hgb 12.1 g/dL 12.0 - 16.0 04/28/2016 [facility] WBC 12.5 K/CMM 3.7 - 10.4 04/28/2016 [facility] RBC 3.94 M/CMM 4.20 - 5.40 04/28/2016 [facility] MCV 93.6 fL 80.0 - 98.0 04/28/2016 [facility] Hct 36.9 % 36.0 - 48.0 04/28/2016 [facility] Hct 32.8 % 36.0 - 48.0 04/14/2016 [facility] Hgb 10.9 g/dL 12.0 - 16.0 04/14/2016 [facility] MOLECULAR DIAGNOSTIC C difficile DNA Negative (04/14/16 10:38 AM) Negative 04/14/2016 [facility] Hct 34.2 % 36.0 - 48.0 04/14/2016 [facility] Hgb 11.4 g/dL 12.0 - 16.0 04/14/2016 [facility] CARDIAC ENZYMES Troponin-I null 0.00 - 0.40 04/14/2016 [facility] CHEM PANEL eGFR 93 mL/min/1.73m2 04/14/2016 Result Comment: The eGFR is calculated using the [...] from the National Kidney Disease Education Program (NKDEP) which additionally recommends that when the eGFR is used in patients with extremes of body mass index for purposes of drug dosing, the eGFR should be multiplied by the estimated BMI. [facility] CHEM PANEL B/C Ratio 12 6 - 25 04/14/2016 [facility] CHEM PANEL Total Protein 6.7 g/dL 6.4 - 8.4 04/14/2016 [facility] CHEM PANEL Calcium Lvl 8.0 mg/dL 8.5 - 10.5 04/14/2016 [facility] CHEM PANEL Creatinine Lvl 0.67 mg/dL 0.50 - 1.40 04/14/2016 [facility] CHEM PANEL Sodium Lvl 128 meq/L 135 - 145 04/14/2016 [facility] CHEM PANEL Chloride Lvl 88 meq/L 95 - 109 04/14/2016 [facility] CHEM PANEL CO2 28 meq/L 24 - 32 04/14/2016 [facility] CHEM PANEL Potassium Lvl 3.9 meq/L 3.5 - 5.1 04/14/2016 [facility] CHEM PANEL AGAP 15.9 meq/L 10.0 - 20.0 04/14/2016 [facility] CHEM PANEL Glucose Lvl 140 mg/dL 70 - 99 04/14/2016 [facility] CHEM PANEL BUN 8 mg/dL 7 - 22 04/14/2016 [facility] CHEM PANEL AST 22 unit/L 0 - 37 04/14/2016 [facility] CHEM PANEL Alk Phos 113 unit/L 39 - 136 04/14/2016 [facility] CHEM PANEL Bili Total 0.5 mg/dL 0.2 - 1.3 04/14/2016 [facility] CHEM PANEL Albumin Lvl 2.9 g/dL 3.5 - 5.0 04/14/2016 [facility] CHEM PANEL ALT 10 unit/L 0 - 65 04/14/2016 [facility] CHEM PANEL Globulin 3.8 g/dL 2.7 - 4.2 04/14/2016 [facility] CHEM PANEL A/G Ratio 0.8 0.7 - 1.6 04/14/2016 [facility] CHEM PANEL Magnesium Lvl 1.0 mg/dL 1.8 - 2.4 04/14/2016 Result Comment: Critical Result(s) called to Faiza cotton 04/14/2016 07:01 byHA. Read back OK. [facility] CHEM PANEL Phosphorus 3.5 mg/dL 2.5 - 4.5 04/14/2016 [facility] HEMATOLOGY Lymphocytes # 0.3 K/CMM 1.0 - 5.5 04/14/2016 [facility] HEMATOLOGY Segs 89.1 % 45.0 - 75.0 04/14/2016 [facility] Lymphocytes 9.6 % 20.0 - 40.0 04/14/2016 [facility] HEMATOLOGY Monocytes 1.3 % 2.0 - 12.0 04/14/2016 [facility] HEMATOLOGY Segs-Bands # 2.8 K/CMM 1.5 - 8.1 04/14/2016 [facility] HEMATOLOGY Hct 34.6 % 36.0 - 48.0 04/14/2016 [facility] HEMATOLOGY RBC 3.67 M/CMM 4.20 - 5.40 04/14/2016 [facility] HEMATOLOGY MCV 94.4 fL 80.0 - 98.0 04/14/2016 [facility] HEMATOLOGY Hgb 11.4 g/dL 12.0 - 16.0 04/14/2016 [facility] MCH 31.2 pg 27.0 - 31.0 04/14/2016 [facility] MCHC 33.1 g/dL 32.0 - 36.0 04/14/2016 [facility] HEMATOLOGY RDW 15.2 % 11.5 - 14.5 04/14/2016 [facility] HEMATOLOGY MPV 8.6 fL 7.4 - 10.4 04/14/2016 [facility] HEMATOLOGY Platelet 271 K/CMM 133 - 450 04/14/2016 [facility] HEMATOLOGY WBC 3.2 K/CMM 3.7 - 10.4 04/14/2016 [facility] CARDIAC ENZYMES Troponin-I null 0.00 - 0.40 04/14/2016 [facility] HEMATOLOGY INR 1.06 0.85 - 1.17 04/14/2016 [facility] HEMATOLOGY PT 14.0 s 12.0 - 14.7 04/14/2016 [facility] Ext Lower Venous Doppler Bilat US Ext Lower Venous Doppler Bilat US Patient Name: YULIYA BEAUCHAMP : 1950; Age: 65 years y/o Female MR: [id number] Study: Ext Lower Venous Doppler Bilat US 04/13/2016 10:36 PM [facility] Ordering Physician: Rochelle Hammond MD Comparison: None Clinical Indication: Bilateral lower extremity pain; There is good augmentation, compression and respiratory phasicity of the deep venous structures of the lower extremities bilaterally. IMPRESSION: No deep venous thrombosis noted at the lower extremities bilaterally. SL: [id number] 04/14/2016 - - Read by: Diogo Zamora MD Dictated Date/time: 04/14/16 04:43 Electronically Signed by: Diogo Zamora MD 04/14/16 04:43 FINAL REPORT [facility] URINE AND STOOL UA Mucus Few /LPF None Seen /LPF 04/13/2016 [facility] URINE AND STOOL UA Bacteria Many /HPF None Seen /HPF 04/13/2016 [facility] URINE AND STOOL UA WBC 31 /HPF 0 - 5 04/13/2016 [facility] URINE AND STOOL UA Leuk Est Moderate *ABN* (04/13/16 4:18 PM) Negative 04/13/2016 [facility] URINE AND STOOL UA Nitrite Positive *ABN* (04/13/16 4:18 PM) Negative 04/13/2016 [facility] URINE AND STOOL UA Blood Small *ABN* (04/13/16 4:18 PM) Negative 04/13/2016 [facility] URINE AND STOOL UA Bili Negative *NA* (04/13/16 4:18 PM) Negative 04/13/2016 [facility] URINE AND STOOL UA Ketones Trace mg/dL Negative mg/dL 04/13/2016 [facility] URINE AND STOOL UA Protein Negative mg/dL Negative mg/dL 04/13/2016 [facility] URINE AND STOOL UA Glucose Negative mg/dL Negative mg/dL 04/13/2016 [facility] URINE AND STOOL UA pH 6.0 5.0 - 8.0 04/13/2016 [facility] URINE AND STOOL UA Spec Grav 1.010 <=1.030 04/13/2016 [facility] URINE AND STOOL UA Turbidity Slight *ABN* (04/13/16 4:18 PM) Clear 04/13/2016 [facility] URINE AND STOOL UA Color Yellow *NA* (04/13/16 4:18 PM) Yellow 04/13/2016 [facility] URINE AND STOOL UA Sq Epi None Seen 04/13/2016 [facility] URINE AND STOOL UA Urobilinogen <=1.0 mg/dL 0.1 - 1.0 04/13/2016 [facility] URINE AND STOOL UA Hyal Cast 4 /LPF 0 - 2 04/13/2016 [facility] URINE AND STOOL UA RBC 1 /HPF 0 - 2 04/13/2016 [facility] CARDIAC ENZYMES Troponin-I null 0.00 - 0.40 04/13/2016 [facility] CHEM PANEL Lactic Acid Lvl 1.2 mMol/L 0.5 - 2.2 04/13/2016 [facility] CHEM PANEL Lipase Lvl 241 unit/L 73 - 393 04/13/2016 [facility] CHEM PANEL eGFR 93 mL/min/1.73m2 04/13/2016 Result Comment: The eGFR is calculated using the [...] from the National Kidney Disease Education Program (NKDEP) which additionally recommends that when the eGFR is used in patients with extremes of body mass index for purposes of drug dosing, the eGFR should be multiplied by the estimated BMI. [facility] CHEM PANEL ALT 12 unit/L 0 - 65 04/13/2016 [facility] CHEM PANEL Albumin Lvl 3.2 g/dL 3.5 - 5.0 04/13/2016 [facility] CHEM PANEL AST 37 unit/L 0 - 37 04/13/2016 [facility] CHEM PANEL Bili Total 0.5 mg/dL 0.2 - 1.3 04/13/2016 [facility] CHEM PANEL Alk Phos 133 unit/L 39 - 136 04/13/2016 [facility] CHEM PANEL Potassium Lvl 3.8 meq/L 3.5 - 5.1 04/13/2016 [facility] CHEM PANEL Sodium Lvl 125 meq/L 135 - 145 04/13/2016 [facility] CHEM PANEL CO2 27 meq/L 24 - 32 04/13/2016 [facility] CHEM PANEL Chloride Lvl 87 meq/L 95 - 109 04/13/2016 [facility] CHEM PANEL Calcium Lvl 8.6 mg/dL 8.5 - 10.5 04/13/2016 [facility] CHEM PANEL Total Protein 7.5 g/dL 6.4 - 8.4 04/13/2016 [facility] CHEM PANEL Creatinine Lvl 0.67 mg/dL 0.50 - 1.40 04/13/2016 [facility] CHEM PANEL Glucose Lvl 87 mg/dL 70 - 99 04/13/2016 [facility] CHEM PANEL BUN 5 mg/dL 7 - 22 04/13/2016 [facility] CHEM PANEL AGAP 14.8 meq/L 10.0 - 20.0 04/13/2016 [facility] CHEM PANEL A/G Ratio 0.7 0.7 - 1.6 04/13/2016 [facility] CHEM PANEL Globulin 4.3 g/dL 2.7 - 4.2 04/13/2016 [facility] CHEM PANEL B/C Ratio 7 6 - 25 04/13/2016 [facility] HEMATOLOGY Monocytes # 0.5 K/CMM 0.0 - 0.8 04/13/2016 [facility] HEMATOLOGY Lymphocytes # 1.2 K/CMM 1.0 - 5.5 04/13/2016 [facility] HEMATOLOGY Segs-Bands # 5.3 K/CMM 1.5 - 8.1 04/13/2016 [facility] HEMATOLOGY Basophils 0.5 % 0.0 - 1.0 04/13/2016 [facility] HEMATOLOGY Eosinophils 0.6 % 0.0 - 4.0 04/13/2016 [facility] HEMATOLOGY Monocytes 7.1 % 2.0 - 12.0 04/13/2016 [facility] HEMATOLOGY Lymphocytes 16.7 % 20.0 - 40.0 04/13/2016 [facility] HEMATOLOGY Segs 75.1 % 45.0 - 75.0 04/13/2016 [facility] HEMATOLOGY WBC 7.0 K/CMM 3.7 - 10.4 04/13/2016 [facility] HEMATOLOGY RBC 4.08 M/CMM 4.20 - 5.40 04/13/2016 [facility] HEMATOLOGY MCV 94.7 fL 80.0 - 98.0 04/13/2016 [facility] HEMATOLOGY MCHC 32.7 g/dL 32.0 - 36.0 04/13/2016 [facility] HEMATOLOGY MCH 31.0 pg 27.0 - 31.0 04/13/2016 [facility] MPV 8.5 fL 7.4 - 10.4 04/13/2016 [facility] Platelet 304 K/CMM 133 - 450 04/13/2016 [facility] RDW 15.3 % 11.5 - 14.5 04/13/2016 [facility] ED Abdomen/Pelvis IV contrast only CT ED Abdomen/Pelvis IV contrast only CT Patient Name: YULIYA BEAUCHAMP : 1950; Age: 65 years y/o Female MR: [id number] Study: ED Abdomen/Pelvis IV contrast only CT 04/13/2016 3:45 PM [facility] Ordering Physician:Zia Thompson DO Clinical Indication: Nausea and diarrhea for 3 to 4 days; patient also reporting palpitations, denies CP \\T\\ SOB Comparison: 05/28/[address] scan of the abdomen and pelvis TECHNIQUE: Helical imaging was performed from the diaphragms through the symphysis with multiplanar reformations obtained. IV CONTRAST: 100 cc Omnipaque GI CONTRAST: None DOSE: Total DLP 529.56 mGy-cm FINDINGS: SOLID ORGANS: Stable mild dilatation of several left intrahepatic biliary radicles. No abnormalities identified in the liver, spleen, gallbladder, extrahepatic biliary system, pancreas, kidneys, or adrenal glands. PERITONEUM AND RETROPERITONEUM: No free intraperitoneal fluid or air. No adenopathy. The aorta is normal in caliber. BOWEL: Diverticula scattered throughout the colon and most pronounced in the sigmoid region. Eccentric thickening of the sanchez of the rectum. Generalized gaseous distention of large and small bowel without dilatation. Normal appendix. PELVIS: Absent uterus. No bladder abnormalities. 4.6 x 6.5 x 8.5 cm (AP by transverse by height) well marginated collection of greater than water attenuation immediately beneath the anterior abdominal wall in the right hemipelvis. Its sanchez are mildly thickened and exhibit some enhancement. LOWER CHEST: There is now a subpleural tubular opacity containing some air bronchograms in the inferior aspect of the right middle lobe, and there is some reticulation of the adjacent parenchyma. MUSCULOSKELETAL AND SOFT TISSUE: Degenerative changes in the spine. There is thickening and infiltration of the posterior midline soft tissues at the level of the distal sacrum and coccyx. There is a thin defect in the posterior cortex of the distal sacrum without callus formation. IMPRESSION: 1. 8.5 cm maximal diameter complex collection immediately beneath the anterior abdominal wall in the right pelvis most suspicious for liquefying hematoma. Abscess would be the major differential consideration. 2. Colonic diverticulosis. 3. Eccentric rectal wall thickening most consistent with a nonspecific colitis. 4. Stable mild intrahepatic biliary dilatation. 5. Focal right middle lobe changes most likely postinfectious or postinflammatory in nature. 6. Focal soft tissue changes in the posterior midline of the pelvis suspicious for a healing or healed decubitus ulcer. 7. Subtle defect in the posterior cortex of the distal sacrum suspicious for fracture. SL: [id number] 04/13/2016 - - Read by: Patric Mora MD Dictated Date/time: 04/13/16 18:01 Electronically Signed by: Patric Mora MD 04/13/16 18:23 FINAL REPORT [facility] Chest 1view DX Chest 1view DX EXAM: Chest 1view DX DATE: 04/13/2016 3:21 PM [facility] INDICATION: Chest pain COMPARISON: 02/27/2016. IMPRESSION: Stable cardiac silhouette and mediastinum. Atherosclerotic thoracic aorta. The lungs are hyperexpanded and emphysematous. Small calcified granuloma is present within the right lower lobe. No focal consolidation, significant pleural effusion or pneumothorax. SL: [id number] 04/13/2016 - - Read by: Marcos Ren MD Dictated Date/time: 04/13/16 16:29 Electronically Signed by: Marcos Ren MD 04/13/16 16:30 FINAL REPORT [facility] Hct 39.2 % 36.0 - 48.0 03/04/2016 [facility] MCV 102.9 fL 80.0 - 98.0 03/04/2016 [facility] MCH 35.2 pg 27.0 - 31.0 03/04/2016 [facility] MCHC 34.2 g/dL 32.0 - 36.0 03/04/2016 [facility] RDW 13.9 % 11.5 - 14.5 03/04/2016 [facility] WBC 4.8 K/CMM 3.7 - 10.4 03/04/2016 [facility] Hgb 13.4 g/dL 12.0 - 16.0 03/04/2016 [facility] RBC 3.81 M/CMM 4.20 - 5.40 03/04/2016 [facility] HEMATOLOGY Platelet 255 K/CMM 133 - 450 03/04/2016 [facility] MPV 8.8 fL 7.4 - 10.4 03/04/2016 [facility] Eosinophils 2.3 % 0.0 - 4.0 03/04/2016 [facility] Lymphocytes 15.0 % 20.0 - 40.0 03/04/2016 [facility] Monocytes 22.1 % 2.0 - 12.0 03/04/2016 [facility] Basophils 0.6 % 0.0 - 1.0 03/04/2016 [facility] Plt Morph Normal (03/04/16 4:51 AM) 03/04/2016 [facility] Segs 60.0 % 45.0 - 75.0 03/04/2016 [facility] Macrocyte 1+ *ABN* (03/04/16 4:51 AM) None Seen 03/04/2016 [facility] Monocytes # 1.1 K/CMM 0.0 - 0.8 03/04/2016 [facility] Lymphocytes # 0.7 K/CMM 1.0 - 5.5 03/04/2016 [facility] Segs-Bands # 2.9 K/CMM 1.5 - 8.1 03/04/2016 [facility] Eosinophils # 0.1 K/CMM 0.0 - 0.5 03/04/2016 [facility] MCV 104.1 fL 80.0 - 98.0 03/03/2016 [facility] MCH 34.9 pg 27.0 - 31.0 03/03/2016 [facility] Platelet 192 K/CMM 133 - 450 03/03/2016 [facility] RDW 13.9 % 11.5 - 14.5 03/03/2016 [facility] MCHC 33.6 g/dL 32.0 - 36.0 03/03/2016 [facility] WBC 5.0 K/CMM 3.7 - 10.4 03/03/2016 [facility] Hct 38.3 % 36.0 - 48.0 03/03/2016 [facility] Hgb 12.8 g/dL 12.0 - 16.0 03/03/2016 [facility] RBC 3.67 M/CMM 4.20 - 5.40 03/03/2016 [facility] MPV 9.3 fL 7.4 - 10.4 03/03/2016 [facility] HEMATOLOGY Segs 60.8 % 45.0 - 75.0 03/03/2016 [facility] Lymphocytes 14.8 % 20.0 - 40.0 03/03/2016 [facility] Basophils 0.5 % 0.0 - 1.0 03/03/2016 [facility] Segs-Bands # 3.1 K/CMM 1.5 - 8.1 03/03/2016 [facility] Lymphocytes # 0.7 K/CMM 1.0 - 5.5 03/03/2016 [facility] Macrocyte 2+ *ABN* (03/03/16 4:25 AM) None Seen 03/03/2016 [facility] Monocytes # 1.1 K/CMM 0.0 - 0.8 03/03/2016 [facility] Eosinophils # 0.1 K/CMM 0.0 - 0.5 03/03/2016 [facility] Monocytes 21.1 % 2.0 - 12.0 03/03/2016 [facility] Eosinophils 2.8 % 0.0 - 4.0 03/03/2016 [facility] CHEM PANEL Glucose Lvl 90 mg/dL 70 - 99 03/02/2016 [facility] CHEM PANEL Potassium Lvl 4.5 meq/L 3.5 - 5.1 03/02/2016 [facility] CHEM PANEL Chloride Lvl 92 meq/L 95 - 109 03/02/2016 [facility] CHEM PANEL Creatinine Lvl 0.50 mg/dL 0.50 - 1.40 03/02/2016 [facility] CHEM PANEL Sodium Lvl 134 meq/L 135 - 145 03/02/2016 [facility] CHEM PANEL BUN 6 mg/dL 7 - 22 03/02/2016 [facility] CHEM PANEL Alk Phos 128 unit/L 39 - 136 03/02/2016 [facility] CHEM PANEL AST 73 unit/L 0 - 37 03/02/2016 [facility] CHEM PANEL Bili Total 0.3 mg/dL 0.2 - 1.3 03/02/2016 [facility] CHEM PANEL eGFR 102 mL/min/1.73m2 03/02/2016 Result Comment: The eGFR is calculated using the [...] from the National Kidney Disease Education Program (NKDEP) which additionally recommends that when the eGFR is used in patients with extremes of body mass index for purposes of drug dosing, the eGFR should be multiplied by the estimated BMI. [facility] CHEM PANEL B/C Ratio 12 6 - 25 03/02/2016 [facility] CHEM PANEL AGAP 13.5 meq/L 10.0 - 20.0 03/02/2016 [facility] CHEM PANEL CO2 33 meq/L 24 - 32 03/02/2016 [facility] CHEM PANEL Total Protein 5.7 g/dL 6.4 - 8.4 03/02/2016 [facility] CHEM PANEL Calcium Lvl 7.4 mg/dL 8.5 - 10.5 03/02/2016 [facility] CHEM PANEL ALT 44 unit/L 0 - 65 03/02/2016 [facility] CHEM PANEL Albumin Lvl 2.0 g/dL 3.5 - 5.0 03/02/2016 [facility] CHEM PANEL Globulin 3.7 g/dL 2.7 - 4.2 03/02/2016 [facility] CHEM PANEL A/G Ratio 0.5 0.7 - 1.6 03/02/2016 [facility] Platelet 138 K/CMM 133 - 450 03/02/2016 [facility] MPV 9.1 fL 7.4 - 10.4 03/02/2016 [facility] MCHC 32.9 g/dL 32.0 - 36.0 03/02/2016 [facility] RDW 14.2 % 11.5 - 14.5 03/02/2016 [facility] MCV 106.2 fL 80.0 - 98.0 03/02/2016 [facility] MCH 35.0 pg 27.0 - 31.0 03/02/2016 [facility] Hct 42.7 % 36.0 - 48.0 03/02/2016 [facility] RBC 4.02 M/CMM 4.20 - 5.40 03/02/2016 [facility] Hgb 14.1 g/dL 12.0 - 16.0 03/02/2016 [facility] WBC 5.5 K/CMM 3.7 - 10.4 03/02/2016 [facility] HEMATOLOGY Macrocyte 2+ *ABN* (03/02/16 5:51 AM) None Seen 03/02/2016 [facility] HEMATOLOGY Basophils 0.5 % 0.0 - 1.0 03/02/2016 [facility] HEMATOLOGY Eosinophils # 0.1 K/CMM 0.0 - 0.5 03/02/2016 [facility] HEMATOLOGY Lymphocytes # 0.7 K/CMM 1.0 - 5.5 03/02/2016 [facility] HEMATOLOGY Segs-Bands # 3.5 K/CMM 1.5 - 8.1 03/02/2016 [facility] HEMATOLOGY Monocytes # 1.1 K/CMM 0.0 - 0.8 03/02/2016 [facility] HEMATOLOGY Eosinophils 2.4 % 0.0 - 4.0 03/02/2016 [facility] HEMATOLOGY Lymphocytes 13.7 % 20.0 - 40.0 03/02/2016 [facility] HEMATOLOGY Segs 63.9 % 45.0 - 75.0 03/02/2016 [facility] HEMATOLOGY Monocytes 19.5 % 2.0 - 12.0 03/02/2016 [facility] HEMATOLOGY Plt Morph Normal (03/02/16 5:51 AM) 03/02/2016 [facility] CHEM PANEL Calcium Lvl 7.4 mg/dL 8.5 - 10.5 03/01/2016 [facility] CHEM PANEL Total Protein 5.6 g/dL 6.4 - 8.4 03/01/2016 [facility] CHEM PANEL Alk Phos 129 unit/L 39 - 136 03/01/2016 [facility] CHEM PANEL Albumin Lvl 2.2 g/dL 3.5 - 5.0 03/01/2016 [facility] CHEM PANEL AST 77 unit/L 0 - 37 03/01/2016 [facility] CHEM PANEL ALT 46 unit/L 0 - 65 03/01/2016 [facility] CHEM PANEL AGAP 14.2 meq/L 10.0 - 20.0 03/01/2016 [facility] CHEM PANEL Bili Total 0.2 mg/dL 0.2 - 1.3 03/01/2016 [facility] CHEM PANEL B/C Ratio 11 6 - 25 03/01/2016 [facility] CHEM PANEL A/G Ratio 0.6 0.7 - 1.6 03/01/2016 [facility] CHEM PANEL Globulin 3.4 g/dL 2.7 - 4.2 03/01/2016 [facility] CHEM PANEL eGFR 98 mL/min/1.73m2 03/01/2016 Result Comment: The eGFR is calculated using the [...] from the National Kidney Disease Education Program (NKDEP) which additionally recommends that when the eGFR is used in patients with extremes of body mass index for purposes of drug dosing, the eGFR should be multiplied by the estimated BMI. [facility] CHEM PANEL Glucose Lvl 91 mg/dL 70 - 99 03/01/2016 [facility] CHEM PANEL BUN 6 mg/dL 7 - 22 03/01/2016 [facility] CHEM PANEL Creatinine Lvl 0.56 mg/dL 0.50 - 1.40 03/01/2016 [facility] CHEM PANEL Chloride Lvl 91 meq/L 95 - 109 03/01/2016 [facility] CHEM PANEL CO2 34 meq/L 24 - 32 03/01/2016 [facility] CHEM PANEL Sodium Lvl 136 meq/L 135 - 145 03/01/2016 [facility] CHEM PANEL Potassium Lvl 3.2 meq/L 3.5 - 5.1 03/01/2016 [facility] ANEMIA STUDY Vitamin B12 Lvl 897 pg/mL 254 - 1320 02/29/2016 [facility] HEMATOLOGY Fibrinogen Lvl 313 mg/dL 230 - 510 02/29/2016 [facility] IMMUNOLOGY LAURA Negative (02/29/16 4:50 PM) Negative 02/29/2016 [facility] Chest CTA Chest CTA CTA PULMONARY ARTERIES: HISTORY: Deep vein thrombosis, chest pain and shortness of breath. TECHNIQUE: Multislice helical images targeted to the pulmonary arteries were done during IV contrast bolus. This was followed by a complete study of the chest with IV contrast. 3-D volume rendered images of the pulmonary arteries were done. ANGIOGRAPHIC FINDINGS: There is a nonocclusive embolus at the right pulmonary artery bifurcation extending into the right lower lobe and upper lobe pulmonary arteries. There is another small nonocclusive embolus in the basilar segmental branches in the right lower lobe. There is a small embolus in the medial basilar segmental branch of the left lower lobe without other definite left pulmonary emboli. The central pulmonary arteries are normal caliber. The main pulmonary artery measures 2.7 cm in diameter. No significant right heart chamber enlargement is seen. The ascending aorta measures 3.3 cm in diameter. There are no other significant pulmonary or systemic vascular abnormalities. NON-ANGIOGRAPHIC FINDINGS: There is mild subsegmental atelectasis with a small effusion in the left posterior costophrenic angle. There are no other significant pulmonary or pleural abnormalities. There is no mediastinal mass or significant lymph node enlargement. IMPRESSION: 1. Bilateral pulmonary emboli. 2. Mild left basilar subsegmental atelectasis and effusion. ADDENDUM: Findings were communicated to Dr. Lau via [employer]. [id number] 02/29/2016 - - Read by: Asad Grimes MD Dictated Date/time: 02/29/16 11:07 Electronically Signed by: Asad Grimes MD 02/29/16 11:19 FINAL REPORT [facility] CHEM PANEL eGFR 99 mL/min/1.73m2 02/29/2016 Result Comment: The eGFR is calculated using the [...] from the National Kidney Disease Education Program (NKDEP) which additionally recommends that when the eGFR is used in patients with extremes of body mass index for purposes of drug dosing, the eGFR should be multiplied by the estimated BMI. [facility] CHEM PANEL Albumin Lvl 2.2 g/dL 3.5 - 5.0 02/29/2016 [facility] CHEM PANEL Alk Phos 132 unit/L 39 - 136 02/29/2016 [facility] CHEM PANEL Bili Total 0.4 mg/dL 0.2 - 1.3 02/29/2016 [facility] CHEM PANEL AST 89 unit/L 0 - 37 02/29/2016 [facility] CHEM PANEL ALT 47 unit/L 0 - 65 02/29/2016 [facility] CHEM PANEL A/G Ratio 0.7 0.7 - 1.6 02/29/2016 [facility] CHEM PANEL Globulin 3.1 g/dL 2.7 - 4.2 02/29/2016 [facility] CHEM PANEL Creatinine Lvl 0.54 mg/dL 0.50 - 1.40 02/29/2016 [facility] CHEM PANEL Potassium Lvl 3.4 meq/L 3.5 - 5.1 02/29/2016 [facility] CHEM PANEL BUN 6 mg/dL 7 - 22 02/29/2016 [facility] CHEM PANEL Sodium Lvl 135 meq/L 135 - 145 02/29/2016 [facility] CHEM PANEL Chloride Lvl 91 meq/L 95 - 109 02/29/2016 [facility] CHEM PANEL CO2 30 meq/L 24 - 32 02/29/2016 [facility] CHEM PANEL AGAP 17.4 meq/L 10.0 - 20.0 02/29/2016 [facility] CHEM PANEL Calcium Lvl 7.2 mg/dL 8.5 - 10.5 02/29/2016 [facility] CHEM PANEL B/C Ratio 11 6 - 25 02/29/2016 [facility] CHEM PANEL Total Protein 5.3 g/dL 6.4 - 8.4 02/29/2016 [facility] CHEM PANEL Glucose Lvl 75 mg/dL 70 - 99 02/29/2016 [facility] IMMUNOLOGY Prealbumin 5.6 mg/dL 18.0 - 45.0 02/29/2016 [facility] LIPIDS VLDL 18 02/29/2016 [facility] LIPIDS Chol 134 mg/dL <=199 mg/dL 02/29/2016 [facility] LIPIDS Trig 91 mg/dL <=149 mg/dL 02/29/2016 [facility] LIPIDS CHD Risk 1.65 3.90 - 5.80 02/29/2016 [facility] LIPIDS HDL 81 mg/dL >=61 mg/dL 02/29/2016 [facility] LIPIDS LDL (Calculated) 35 mg/dL <=99 mg/dL 02/29/2016 [facility] CARDIAC ENZYMES CK MB 4.5 ng/mL 0.5 - 3.6 02/28/2016 [facility] CARDIAC ENZYMES CK MB Index 2.7 0.0 - 2.5 02/28/2016 [facility] CARDIAC ENZYMES Total CK 165 unit/L 12 - 191 02/28/2016 [facility] CARDIAC ENZYMES Troponin-I 0.88 ng/mL 0.00 - 0.40 02/28/2016 Result Comment: Critical Result(s) called to melissa nieves at 02/28/2016 05:29 by tl. Read back OK. [facility] CARDIAC ENZYMES CK MB Index 2.7 0.0 - 2.5 02/28/2016 [facility] CARDIAC ENZYMES CK MB 6.0 ng/mL 0.5 - 3.6 02/28/2016 [facility] CARDIAC ENZYMES Total CK 224 unit/L 12 - 191 02/28/2016 [facility] CARDIAC ENZYMES Troponin-I 1.20 ng/mL 0.00 - 0.40 02/28/2016 Result Comment: Critical Result(s) called to Lucy Sherwood at 02/27/2016 22:33 by jonathan. Read back OK. [facility] URINE AND STOOL UA Sq Epi None Seen 02/28/2016 [facility] URINE AND STOOL UA Urobilinogen <=1.0 mg/dL 0.1 - 1.0 02/28/2016 [facility] URINE AND STOOL UA Bacteria Many /HPF None Seen /HPF 02/28/2016 [facility] URINE AND STOOL UA Blood Moderate *ABN* (02/27/16 6:01 PM) Negative 02/28/2016 [facility] URINE AND STOOL UA Nitrite Positive *ABN* (02/27/16 6:01 PM) Negative 02/28/2016 [facility] URINE AND STOOL UA Leuk Est Large *ABN* (02/27/16 6:01 PM) Negative 02/28/2016 [facility] URINE AND STOOL UA WBC null 0 - 5 02/28/2016 [facility] URINE AND STOOL UA Glucose Negative mg/dL Negative mg/dL 02/28/2016 [facility] URINE AND STOOL UA Ketones Trace mg/dL Negative mg/dL 02/28/2016 [facility] URINE AND STOOL UA RBC 6 /HPF 0 - 2 02/28/2016 [facility] URINE AND STOOL UA Color Yellow *NA* (02/27/16 6:01 PM) Yellow 02/28/2016 [facility] URINE AND STOOL UA Turbidity Marked *ABN* (02/27/16 6:01 PM) Clear 02/28/2016 [facility] URINE AND STOOL UA Spec Grav 1.006 <=1.030 02/28/2016 [facility] URINE AND STOOL UA Bili Negative *NA* (02/27/16 6:01 PM) Negative 02/28/2016 [facility] URINE AND STOOL UA pH 5.0 5.0 - 8.0 02/28/2016 [facility] URINE AND STOOL UA Protein Negative mg/dL Negative mg/dL 02/28/2016 [facility] Ext Lower Venous Doppler Bilat US Ext Lower Venous Doppler Bilat US Study: Ext Lower Venous Doppler Bilat US 02/27/2016 8:18 PM [facility] Ordering Physician: Mis Berg MD Clinical Indication: Pain, Limb Comparison: None TECHNIQUE: Sonographic evaluation of the bilateral lower extremity veins is performed using high resolution B-mode imaging, along with pulse and color Doppler imaging. FINDINGS: The right common femoral vein Normal, spontaneous, phasic flow with normal augmentation and compression is identified in the right common femoral vein. Thrombus is present in the proximal, mid and distal portions of the right superficial femoral vein and in the right popliteal vein. Thrombus is present in the left common femoral vein, common femoral/greater saphenous vein junction, proximal mid and distal portions of the greater saphenous vein, proximal and distal superficial femoral vein and left popliteal vein. The midportion of the left superficial femoral vein is compressible. Thrombus within the left common femoral vein is nearly occlusive. There is probably incompletely occlusive thrombus in the left profunda femoris vein. Tibioperoneal trunks are patent bilaterally. Bilateral lower extremity soft tissue edema is seen. IMPRESSION: There is extensive thrombus throughout the veins of the lower extremities bilaterally, more extensive on the left than the right as described. Please see above for further details. There is bilateral lower extremity soft tissue edema. Findings have been communicated by telephone to Dr. Justice Lau at 11:22 PM on 02/27/2016. SL: [id number] 02/27/2016 - - Read by: Almaz Benjamin MD Dictated Date/time: 02/27/16 22:59 Electronically Signed by: Almaz Benjamin MD 02/27/16 23:23 FINAL REPORT [facility] CARDIAC ENZYMES Troponin-I 0.10 ng/mL 0.00 - 0.40 02/27/2016 [facility] CARDIAC ENZYMES BNP 186 pg/mL <=100 pg/mL 02/27/2016 [facility] CARDIAC ENZYMES Total CK 296 unit/L 12 - 191 02/27/2016 [facility] CARDIAC ENZYMES CK MB 5.2 ng/mL 0.5 - 3.6 02/27/2016 [facility] CARDIAC ENZYMES CK MB Index 1.8 0.0 - 2.5 02/27/2016 [facility] Chest 1view DX Chest 1view DX Patient Name: YULIYA BEAUCHAMP : 1950; Age: 65 years Female MR: [id number] Study: Chest 1view DX Order Time: 02/27/2016 1:30 PM [facility] CLINICAL INDICATION: Chest pain ADDITIONAL HISTORY: None COMPARISON: Chest radiograph on 02/16/2016 FINDINGS: Lines: None. Lungs: Hyperinflated lungs. No focal consolidation, effusion, or pneumothorax. Mediastinum: The cardiac silhouette is mildly enlarged. Patient is rotated to the left. Bones and soft tissues: Unremarkable. IMPRESSION: No acute cardiopulmonary abnormalities. SL: [id number] 02/27/2016 - - Read by: Khushbu Simon MD Dictated Date/time: 02/27/16 14:33 Electronically Signed by: Khushbu Simon MD 02/27/16 14:33 FINAL REPORT [facility] CARDIAC ENZYMES Total CK 45 unit/L 12 - 191 02/17/2016 [facility] CHEM PANEL A/G Ratio 0.7 0.7 - 1.6 02/17/2016 [facility] CHEM PANEL Globulin 4.2 g/dL 2.7 - 4.2 02/17/2016 [facility] CHEM PANEL B/C Ratio 5 6 - 25 02/17/2016 [facility] CHEM PANEL AGAP 17.5 meq/L 10.0 - 20.0 02/17/2016 [facility] PANEL eGFR 80 mL/min/1.73m2 02/17/2016 Result Comment: The eGFR is calculated using the [...] from the National Kidney Disease Education Program (NKDEP) which additionally recommends that when the eGFR is used in patients with extremes of body mass index for purposes of drug dosing, the eGFR should be multiplied by the estimated BMI. [facility] CHEM PANEL Glucose Lvl 96 mg/dL 70 - 99 02/17/2016 [facility] CHEM PANEL Albumin Lvl 2.8 g/dL 3.5 - 5.0 02/17/2016 [facility] CHEM PANEL Total Protein 7.0 g/dL 6.4 - 8.4 02/17/2016 [facility] CHEM PANEL Creatinine Lvl 0.78 mg/dL 0.50 - 1.40 02/17/2016 [facility] CHEM PANEL BUN 4 mg/dL 7 - 22 02/17/2016 [facility] CHEM PANEL Chloride Lvl 96 meq/L 95 - 109 02/17/2016 [facility] CHEM PANEL CO2 26 meq/L 24 - 32 02/17/2016 [facility] CHEM PANEL Calcium Lvl 8.0 mg/dL 8.5 - 10.5 02/17/2016 [facility] CHEM PANEL Potassium Lvl 3.5 meq/L 3.5 - 5.1 02/17/2016 [facility] CHEM PANEL Sodium Lvl 136 meq/L 135 - 145 02/17/2016 [facility] CHEM PANEL AST 62 unit/L 0 - 37 02/17/2016 [facility] CHEM PANEL Bili Total 0.4 mg/dL 0.2 - 1.3 02/17/2016 [facility] CHEM PANEL ALT 41 unit/L 0 - 65 02/17/2016 [facility] CHEM PANEL Alk Phos 195 unit/L 39 - 136 02/17/2016 [facility] HEMATOLOGY PTT 25.8 s 22.9 - 35.8 02/17/2016 [facility] HEMATOLOGY PT 14.1 s 12.0 - 14.7 02/17/2016 [facility] HEMATOLOGY INR 1.07 0.85 - 1.17 02/17/2016 [facility] HEMATOLOGY MPV 8.6 fL 7.4 - 10.4 02/17/2016 [facility] HEMATOLOGY Hgb 14.5 g/dL 12.0 - 16.0 02/17/2016 [facility] HEMATOLOGY Hct 43.2 % 36.0 - 48.0 02/17/2016 [facility] HEMATOLOGY WBC 7.6 K/CMM 3.7 - 10.4 02/17/2016 [facility] HEMATOLOGY RBC 4.08 M/CMM 4.20 - 5.40 02/17/2016 [facility] HEMATOLOGY RDW 13.7 % 11.5 - 14.5 02/17/2016 [facility] HEMATOLOGY Platelet 182 K/CMM 133 - 450 02/17/2016 [facility] HEMATOLOGY MCHC 33.5 g/dL 32.0 - 36.0 02/17/2016 [facility] MCV 105.9 fL 80.0 - 98.0 02/17/2016 [facility] MCH 35.5 pg 27.0 - 31.0 02/17/2016 [facility] Segs-Bands # 5.0 K/CMM 1.5 - 8.1 02/17/2016 [facility] Monocytes # 0.8 K/CMM 0.0 - 0.8 02/17/2016 [facility] Lymphocytes # 1.7 K/CMM 1.0 - 5.5 02/17/2016 [facility] Basophils # 0.1 K/CMM 0.0 - 0.2 02/17/2016 [facility] Eosinophils # 0.1 K/CMM 0.0 - 0.5 02/17/2016 [facility] Macrocyte 2+ *ABN* (02/16/16 9:38 PM) None Seen 02/17/2016 [facility] Segs 65.3 % 45.0 - 75.0 02/17/2016 [facility] Lymphocytes 22.8 % 20.0 - 40.0 02/17/2016 [facility] Monocytes 10.3 % 2.0 - 12.0 02/17/2016 [facility] Basophils 0.7 % 0.0 - 1.0 02/17/2016 [facility] Eosinophils 0.9 % 0.0 - 4.0 02/17/2016 [facility] Chest 1view DX Chest 1view DX EXAM: XR CHEST 1 VIEW DATE: 02/16/2016 9:19 PM [facility] INDICATION: Chest pain. COMPARISON: 10/16/2014. TECHNIQUE: A single AP view of the chest was obtained. FINDINGS: The lungs are hyperinflated and emphysematous, with a few scattered areas of scarring visualized. No focal consolidation or pneumothorax is identified. The cardiomediastinal silhouette is within normal limits. There is atherosclerotic calcification of the aortic arch. The costophrenic recesses are sharp and without effusion. No acute osseous abnormality is identified. IMPRESSION: Emphysematous changes without evidence for acute cardiopulmonary abnormality. SL: [id number] 02/16/2016 - - Read by: Jay Guthrie MD Dictated Date/time: 02/16/16 21:42 Electronically Signed by: Jay Guthrie MD 02/16/16 21:43 FINAL REPORT [facility] URINE AND STOOL UA Urobilinogen <=1.0 mg/dL 0.1 - 1.0 10/16/2014 [facility] URINE AND STOOL UA Color Ltyellow 10/16/2014 [facility] URINE AND STOOL UA Sq Epi Occasional /LPF Few /LPF 10/16/2014 [facility] URINE AND STOOL UA RBC null 0 - 2 10/16/2014 [facility] URINE AND STOOL UA Hyal Cast 7 /LPF 0 - 2 10/16/2014 [facility] URINE AND STOOL UA Protein Negative mg/dL Negative mg/dL 10/16/2014 [facility] URINE AND STOOL UA Leuk Est Negative (10/16/14 4:31 PM) Negative 10/16/2014 [facility] URINE AND STOOL UA WBC null 0 - 5 10/16/2014 [facility] URINE AND STOOL UA Nitrite Negative (10/16/14 4:31 PM) Negative 10/16/2014 [facility] URINE AND STOOL UA Glucose 150 mg/dL Negative mg/dL 10/16/2014 [facility] URINE AND STOOL UA Bili Negative *NA* (10/16/14 4:31 PM) Negative 10/16/2014 [facility] URINE AND STOOL UA Ketones Trace mg/dL Negative mg/dL 10/16/2014 [facility] URINE AND STOOL UA Blood Small *ABN* (10/16/14 4:31 PM) Negative 10/16/2014 [facility] URINE AND STOOL UA Spec Grav 1.008 <=1.030 10/16/2014 [facility] URINE AND STOOL UA Turbidity Clear (10/16/14 4:31 PM) Clear 10/16/2014 [facility] URINE AND STOOL UA pH 6.0 5.0 - 8.0 10/16/2014 [facility] CARDIAC ENZYMES Total CK 60 unit/L 12 - 191 10/16/2014 [facility] CARDIAC ENZYMES CK MB 0.8 ng/mL 0.5 - 3.6 10/16/2014 [facility] CARDIAC ENZYMES BNP 148 pg/mL <=100 pg/mL 10/16/2014 [facility] CARDIAC ENZYMES Troponin-I null 0.00 - 0.40 10/16/2014 [facility] CARDIAC ENZYMES CK MB Index 1.3 0.0 - 2.5 10/16/2014 [facility] CHEM PANEL eGFR 68 mL/min/1.73m2 10/16/2014 Result Comment: The eGFR is calculated using the [...] from the National Kidney Disease Education Program (NKDEP) which additionally recommends that when the eGFR is used in patients with extremes of body mass index for purposes of drug dosing, the eGFR should be multiplied by the estimated BMI. [facility] CHEM PANEL Bili Total 0.7 mg/dL 0.2 - 1.3 10/16/2014 [facility] CHEM PANEL Alk Phos 182 unit/L 39 - 136 10/16/2014 [facility] CHEM PANEL ALT 112 unit/L 0 - 65 10/16/2014 [facility] CHEM PANEL AST 337 unit/L 0 - 37 10/16/2014 [facility] CHEM PANEL Total Protein 7.3 g/dL 6.4 - 8.4 10/16/2014 [facility] CHEM PANEL Calcium Lvl 8.4 mg/dL 8.5 - 10.5 10/16/2014 [facility] CHEM PANEL Albumin Lvl 3.4 g/dL 3.5 - 5.0 10/16/2014 [facility] CHEM PANEL Glucose Lvl 249 mg/dL 70 - 99 10/16/2014 [facility] CHEM PANEL BUN 18 mg/dL 7 - 22 10/16/2014 [facility] CHEM PANEL Creatinine Lvl 0.9 mg/dL 0.5 - 1.4 10/16/2014 [facility] CHEM PANEL CO2 26 meq/L 24 - 32 10/16/2014 [facility] CHEM PANEL Chloride Lvl 96 meq/L 95 - 109 10/16/2014 [facility] CHEM PANEL Potassium Lvl 3.7 meq/L 3.5 - 5.1 10/16/2014 [facility] CHEM PANEL Sodium Lvl 133 meq/L 135 - 145 10/16/2014 [facility] CHEM PANEL A/G Ratio 0.9 0.7 - 1.6 10/16/2014 [facility] CHEM PANEL AGAP 14.7 meq/L 10.0 - 20.0 10/16/2014 [facility] CHEM PANEL Globulin 3.9 g/dL 2.0 - 4.0 10/16/2014 [facility] CHEM PANEL B/C Ratio 20 6 - 25 10/16/2014 [facility] CHEM PANEL Phosphorus 3.5 mg/dL 2.5 - 4.5 10/16/2014 [facility] CHEM PANEL Lipase Lvl 468 unit/L 73 - 393 10/16/2014 [facility] CHEM PANEL Amylase Lvl 31 unit/L 25 - 115 10/16/2014 [facility] CHEM PANEL Magnesium Lvl 1.1 mg/dL 1.8 - 2.4 10/16/2014 [facility] HEMATOLOGY WBC 5.4 K/CMM 3.7 - 10.4 10/16/2014 [facility] HEMATOLOGY MCV 108.5 fL 80.0 - 98.0 10/16/2014 [facility] Hct 52.5 % 36.0 - 48.0 10/16/2014 [facility] Hgb 17.2 g/dL 12.0 - 16.0 10/16/2014 [facility] RBC 4.84 M/CMM 4.20 - 5.40 10/16/2014 [facility] RDW 15.6 % 11.5 - 14.5 10/16/2014 [facility] MCHC 32.7 g/dL 32.0 - 36.0 10/16/2014 [facility] MPV 10.0 fL 7.4 - 10.4 10/16/2014 [facility] Platelet 135 K/CMM 133 - 450 10/16/2014 [facility] MCH 35.5 pg 27.0 - 31.0 10/16/2014 [facility] Macrocyte 2+ *ABN* (10/16/14 2:24 PM) None Seen 10/16/2014 [facility] Monocytes # 0.4 K/CMM 0.0 - 0.8 10/16/2014 [facility] Monocytes 6.7 % 2.0 - 12.0 10/16/2014 [facility] HEMATOLOGY Eosinophils 0.5 % 0.0 - 4.0 10/16/2014 [facility] Lymphocytes 12.4 % 20.0 - 40.0 10/16/2014 [facility] HEMATOLOGY Segs 80.3 % 45.0 - 75.0 10/16/2014 [facility] Basophils 0.1 % 0.0 - 1.0 10/16/2014 [facility] Segs-Bands # 4.3 K/CMM 1.5 - 8.1 10/16/2014 [facility] Lymphocytes # 0.7 K/CMM 1.0 - 5.5 10/16/2014 [facility] HEMATOLOGY PTT 36.2 s 22.9 - 35.8 10/16/2014 [facility] HEMATOLOGY PT 23.9 s 12.0 - 14.7 10/16/2014 [facility] HEMATOLOGY INR 2.10 0.85 - 1.17 10/16/2014 [facility] Gallbladder US Gallbladder US GALLBLADDER ULTRASOUND CLINICAL INDICATION: Abnormal liver function tests COMPARISON: None DISCUSSION: The liver is normal in in size and echogenicity. No focal hepatic masses are seen. There is nonspecific mild diffuse gallbladder wall thickening. A 2 mm gallbladder polyp is noted. No cholelithiasis is visible. There is no pericholecystic fluid. There is no intrahepatic biliary dilatation. The common duct is normal in caliber and measures 3 mm in diameter. The pancreas is insufficiently visualized for comment. The right kidney measures 9.0 cm in length. There is normal renal cortical echogenicity and no hydronephrosis, mass, or shadowing calculi. No free fluid is seen. IMPRESSION: 1. Unremarkable sonographic appearance of the liver. 2. Mild nonspecific diffuse gallbladder wall thickening and a small gallbladder polyp. Six month follow-up gallbladder ultrasound may be beneficial to demonstrate stability. SL: 16 10/16/2014 - - Read by: Priyank Garcia MD Dictated Date/time: 10/16/14 18:03 Electronically Signed by: Priyank Garcia MD 10/16/14 18:06 FINAL REPORT [facility] Tibia fibula series DX Tibia fibula series DX Right tib-fib series 2 views FINDINGS: There is no evidence for fracture or dislocation. Mild soft tissue swelling is visualized in the lower third of the right leg. The visualized bones demonstrate normal radiodensity. SL:13 10/16/2014 - - Read by: Bacilio Meza MD Dictated Date/time: 10/16/14 16:13 Electronically Signed by: Bacilio Meza MD 10/16/14 16:15 FINAL REPORT [facility] Chest 1view DX Chest 1view DX Chest one view: COMPARISON: 07/25/2014 FINDINGS: Limited AP portable study. Pulmonary hyperinflation suggesting emphysema. Linear scarring left midlung zone, unchanged. No consolidation or any significant effusion. Stable cardiomediastinum. Prominent aortic arch calcification. No significant bony abnormality is noted. IMPRESSION: Mild to moderate emphysema. No acute abnormality noted. SL:13 10/16/2014 - - Read by: Bacilio Meza MD Dictated Date/time: 10/16/14 16:11 Electronically Signed by: Bacilio Meza MD 10/16/14 16:13 FINAL REPORT [facility] ELECTROLYTES Potassium Lvl 3.7 meq/L 3.5 - 5.1 07/29/2014 [facility] ELECTROLYTES Chloride Lvl 92 meq/L 95 - 109 07/29/2014 [facility] ELECTROLYTES Sodium Lvl 133 meq/L 135 - 145 07/29/2014 [facility] ELECTROLYTES eGFR 92 mL/min/1.73m2 07/29/2014 1Result Comment: The eGFR is calculated using [...] from the National Kidney Disease Education Program (NKDEP) which additionally recommends that when the eGFR is used in patients with extremes of body mass index for purposes of drug dosing, the eGFR should be multiplied by the estimated BMI. [facility] ELECTROLYTES Creatinine Lvl 0.7 mg/dL 0.5 - 1.4 07/29/2014 [facility] ELECTROLYTES CO2 33 meq/L 24 - 32 07/29/2014 [facility] ELECTROLYTES Glucose Lvl 89 mg/dL 70 - 99 07/29/2014 4Interpretive Data: Adult reference range values reflect the clinical guidelines of the [employer]. [facility] ELECTROLYTES BUN 11 mg/dL 7 - 22 07/29/2014 [facility] ELECTROLYTES Calcium Lvl 8.4 mg/dL 8.5 - 10.5 07/29/2014 [facility] ELECTROLYTES AGAP 11.7 meq/L 10.0 - 20.0 07/29/2014 [facility] CHEM PANEL Phosphorus 2.5 mg/dL 2.5 - 4.5 07/28/2014 [facility] CHEM PANEL Magnesium Lvl 1.5 mg/dL 1.8 - 2.4 07/28/2014 [facility] ELECTROLYTES Sodium Lvl 130 meq/L 135 - 145 07/28/2014 [facility] ELECTROLYTES Potassium Lvl 3.6 meq/L 3.5 - 5.1 07/28/2014 [facility] ELECTROLYTES Chloride Lvl 92 meq/L 95 - 109 07/28/2014 [facility] ELECTROLYTES eGFR 68 mL/min/1.73m2 07/28/2014 2Result Comment: The eGFR is calculated using [...] from the National Kidney Disease Education Program (NKDEP) which additionally recommends that when the eGFR is used in patients with extremes of body mass index for purposes of drug dosing, the eGFR should be multiplied by the estimated BMI. [facility] ELECTROLYTES Glucose Lvl 91 mg/dL 70 - 99 07/28/2014 5Interpretive Data: Adult reference range values reflect the clinical guidelines of the [employer]. [facility] ELECTROLYTES CO2 32 meq/L 24 - 32 07/28/2014 [facility] ELECTROLYTES Creatinine Lvl 0.9 mg/dL 0.5 - 1.4 07/28/2014 [facility] ELECTROLYTES BUN 16 mg/dL 7 - 07/28/2014 [facility] ELECTROLYTES Calcium Lvl 7.6 mg/dL 8.5 - 10.5 07/28/2014 [facility] ELECTROLYTES AGAP 9.6 meq/L 10.0 - 20.0 07/28/2014 [facility] CHEM PANEL Phosphorus 1.1 mg/dL 2.5 - 4.5 07/27/2014 7Result Comment: Critical Result(s) called to Jose Goldstein at 07/27/2014 12:40 by DANIELA. Read back OK. [facility] CHEM PANEL Magnesium Lvl 2.0 mg/dL 1.8 - 2.4 07/27/2014 [facility] ELECTROLYTES AGAP 9.2 meq/L 10.0 - 20.0 07/27/2014 [facility] ELECTROLYTES BUN 18 mg/dL 7 - 07/27/2014 [facility] ELECTROLYTES CO2 34 meq/L 24 - 07/27/2014 [facility] ELECTROLYTES eGFR 40 mL/min/1.73m2 07/27/2014 3Result Comment: The eGFR is calculated using [...] from the National Kidney Disease Education Program (NKDEP) which additionally recommends that when the eGFR is used in patients with extremes of body mass index for purposes of drug dosing, the eGFR should be multiplied by the estimated BMI. [facility] ELECTROLYTES Sodium Lvl 130 meq/L 135 - 145 07/27/2014 [facility] ELECTROLYTES Potassium Lvl 3.2 meq/L 3.5 - 5.1 07/27/2014 [facility] ELECTROLYTES Chloride Lvl 90 meq/L 95 - 109 07/27/2014 [facility] ELECTROLYTES Calcium Lvl 8.0 mg/dL 8.5 - 10.5 07/27/2014 [facility] ELECTROLYTES Creatinine Lvl 1.4 mg/dL 0.5 - 1.4 07/27/2014 [facility] ELECTROLYTES Glucose Lvl 84 mg/dL 70 - 99 07/27/2014 6Interpretive Data: Adult reference range values reflect the clinical guidelines of the [employer]. [facility] CHEM PANEL Phosphorus 1.6 mg/dL 2.5 - 4.5 07/26/2014 [facility] CHEM PANEL Magnesium Lvl 1.5 mg/dL 1.8 - 2.4 07/26/2014 [facility] URINE CHEM U Creatinine 38.9 mg/dL 07/26/2014 9Interpretive Data: No established reference ranges. [facility] URINE CHEM U Sodium 26 meq/L 07/26/2014 10Interpretive Data: No established reference ranges. [facility] CARDIAC ENZYMES BNP 152 pg/mL <=100 pg/mL 07/26/2014 8Interpretive Data: Elevated results are in line with increasing severity of congestive heart failure. Minor elevations between 100 and 300 may be seen with Myocardial Ischemia, Sodium retaining drugs, and compensated/treated heart failure. [facility] CHEM PANEL Globulin 3.4 g/dL 2.0 - 4.0 07/26/2014 [facility] CHEM PANEL Bili Total 0.4 mg/dL 0.2 - 1.3 07/26/2014 [facility] CHEM PANEL Alk Phos 118 unit/L 39 - 136 07/26/2014 [facility] CHEM PANEL A/G Ratio 1.1 0.7 - 1.6 07/26/2014 [facility] CHEM PANEL B/C Ratio 25 6 - 25 07/26/2014 [facility] CHEM PANEL AST 36 unit/L 0 - 37 07/26/2014 [facility] CHEM PANEL Albumin Lvl 3.8 g/dL 3.5 - 5.0 07/26/2014 [facility] CHEM PANEL ALT 27 unit/L 0 - 65 07/26/2014 [facility] CHEM PANEL Total Protein 7.2 g/dL 6.4 - 8.4 07/26/2014 [facility] HEMATOLOGY PTT 24.7 s 22.9 - 35.8 07/26/2014 12Interpretive Data: Heparin Therapeutic Range: 57 - 92 Seconds [facility] HEMATOLOGY PT 12.3 s 12.0 - 14.7 07/26/2014 [facility] INR 0.92 0.85 - 1.17 07/26/2014 11Interpretive Data: RECOMMENDED RANGES FOR PROTIME INR: 2.0-3.0 for most medical and surgical thromboembolic states. 2.5-3.5 for artificial heart valves and recurrent embolism. INR SHOULD BE USED ONLY FOR PATIENTS ON STABLE ANTICOAGULANT THERAPY. [facility] Macrocyte 1+ *ABN* (07/25/14 11:34 PM) None Seen 07/26/2014 [facility] HEMATOLOGY Monocytes # 0.8 K/CMM 0.0 - 0.8 07/26/2014 [facility] HEMATOLOGY Eosinophils # 0.1 K/CMM 0.0 - 0.5 07/26/2014 [facility] HEMATOLOGY Lymphocytes # 1.4 K/CMM 1.0 - 5.5 07/26/2014 [facility] HEMATOLOGY Segs-Bands # 5.1 K/CMM 1.5 - 8.1 07/26/2014 [facility] HEMATOLOGY Basophils 0.5 % 0.0 - 1.0 07/26/2014 [facility] HEMATOLOGY Eosinophils 0.9 % 0.0 - 4.0 07/26/2014 [facility] HEMATOLOGY Monocytes 11.2 % 2.0 - 12.0 07/26/2014 [facility] HEMATOLOGY Segs 68.6 % 45.0 - 75.0 07/26/2014 [facility] HEMATOLOGY Lymphocytes 18.8 % 20.0 - 40.0 07/26/2014 [facility] HEMATOLOGY MPV 7.8 fL 7.4 - 10.4 07/26/2014 [facility] HEMATOLOGY Platelet 236 K/CMM 133 - 450 07/26/2014 [facility] HEMATOLOGY RDW 13.8 % 11.5 - 14.5 07/26/2014 [facility] HEMATOLOGY MCH 35.8 pg 27.0 - 31.0 07/26/2014 [facility] HEMATOLOGY MCHC 34.9 g/dL 32.0 - 36.0 07/26/2014 [facility] HEMATOLOGY MCV 102.6 fL 80.0 - 98.0 07/26/2014 [facility] HEMATOLOGY Hct 45.3 % 36.0 - 48.0 07/26/2014 [facility] HEMATOLOGY RBC 4.42 M/CMM 4.20 - 5.40 07/26/2014 [facility] HEMATOLOGY Hgb 15.8 g/dL 12.0 - 16.0 07/26/2014 [facility] WBC 7.4 K/CMM 3.7 - 10.4 07/26/2014 [facility] CARDIAC ENZYMES Total CK 55 unit/L 12 - 191 07/26/2014 [facility] CARDIAC ENZYMES CK MB 1.5 ng/mL 0.5 - 3.6 07/26/2014 [facility] CARDIAC ENZYMES Troponin-I null 0.00 - 0.40 07/26/2014 [facility] CARDIAC ENZYMES CK MB Index 2.7 0.0 - 2.5 07/26/2014 [facility] CHEM PANEL Lipase Lvl 283 unit/L 73 - 393 07/26/2014 [facility] CHEM PANEL Bili Total 0.5 mg/dL 0.2 - 1.3 07/26/2014 [facility] CHEM PANEL Alk Phos 133 unit/L 39 - 136 07/26/2014 [facility] CHEM PANEL AST 41 unit/L 0 - 37 07/26/2014 [facility] CHEM PANEL B/C Ratio 24 6 - 25 07/26/2014 [facility] CHEM PANEL A/G Ratio 1.1 0.7 - 1.6 07/26/2014 [facility] CHEM PANEL Globulin 3.8 g/dL 2.0 - 4.0 07/26/2014 [facility] CHEM PANEL ALT 30 unit/L 0 - 65 07/26/2014 [facility] CHEM PANEL Albumin Lvl 4.1 g/dL 3.5 - 5.0 07/26/2014 [facility] CHEM PANEL Total Protein 7.9 g/dL 6.4 - 8.4 07/26/2014 [facility] THYROID PANEL TSH 0.890 uIU/mL 0.360 - 3.740 07/26/2014 [facility] TOXICOLOGY Digoxin Lvl 0.1 ng/mL 0.8 - 2.0 07/26/2014 [facility] URINE AND STOOL UA Urobilinogen <=1.0 mg/dL 0.1 - 1.0 07/26/2014 [facility] URINE AND STOOL UA Nitrite Negative (07/25/14 10:37 PM) Negative 07/26/2014 [facility] URINE AND STOOL UA Blood Negative (07/25/14 10:37 PM) Negative 07/26/2014 [facility] URINE AND STOOL UA Leuk Est Trace *ABN* (07/25/14 10:37 PM) Negative 07/26/2014 [facility] URINE AND STOOL UA Bili Negative *NA* (07/25/14 10:37 PM) Negative 07/26/2014 [facility] URINE AND STOOL UA Ketones Negative mg/dL Negative mg/dL 07/26/2014 [facility] URINE AND STOOL UA Glucose 150 mg/dL Negative mg/dL 07/26/2014 [facility] URINE AND STOOL UA pH 5.0 5.0 - 8.0 07/26/2014 [facility] URINE AND STOOL UA Protein Negative mg/dL Negative mg/dL 07/26/2014 [facility] URINE AND STOOL UA WBC 6 /HPF 0 - 5 07/26/2014 [facility] URINE AND STOOL UA Bacteria Occasional /HPF None Seen /HPF 07/26/2014 [facility] URINE AND STOOL UA RBC 2 /HPF 0 - 2 07/26/2014 [facility] URINE AND STOOL UA Hyal Cast 2 /LPF 0 - 2 07/26/2014 [facility] URINE AND STOOL UA Turbidity Marked *ABN* (07/25/14 10:37 PM) Clear 07/26/2014 [facility] URINE AND STOOL UA Spec Grav 1.006 <=1.030 07/26/2014 [facility] URINE AND STOOL UA Sq Epi None Seen 07/26/2014 [facility] URINE AND STOOL UA Color Yellow *NA* (07/25/14 10:37 PM) Yellow 07/26/2014 [facility] CHEM PANEL Magnesium Lvl 1.6 mg/dL 1.8 - 2.4 06/01/2014 [facility] ENDOCRINOLOGY Cortisol 13.9 ug/dl 3.0 - 23.0 05/31/2014 9Interpretive Data: CORD BLOOD: 5 - 17 [...] 23.0 ug/dL 4PM 3.0 - 16.0 ug/dL [facility] THYROID PANEL TSH 1.870 uIU/mL 0.360 - 3.740 05/31/2014 [facility] CHEM PANEL eGFR 79 mL/min/1.73m2 05/31/2014 1Result Comment: The eGFR is calculated using [...] from the National Kidney Disease Education Program (NKDEP) which additionally recommends that when the eGFR is used in patients with extremes of body mass index for purposes of drug dosing, the eGFR should be multiplied by the estimated BMI. [facility] CHEM PANEL Chloride Lvl 104 meq/L 95 - 109 05/31/2014 [facility] CHEM PANEL Calcium Lvl 7.5 mg/dL 8.5 - 10.5 05/31/2014 [facility] CHEM PANEL CO2 31 meq/L 24 - 32 05/31/2014 [facility] CHEM PANEL BUN 8 mg/dL 7 - 22 05/31/2014 [facility] CHEM PANEL Glucose Lvl 90 mg/dL 70 - 99 05/31/2014 4Interpretive Data: Adult reference range values reflect the clinical guidelines of the [employer]. [facility] CHEM PANEL Sodium Lvl 140 meq/L 135 - 145 05/31/2014 [facility] CHEM PANEL Creatinine Lvl 0.8 mg/dL 0.5 - 1.4 05/31/2014 [facility] CHEM PANEL Potassium Lvl 3.5 meq/L 3.5 - 5.1 05/31/2014 [facility] CHEM PANEL AGAP 8.5 meq/L 10.0 - 20.0 05/31/2014 [facility] CHEM PANEL Magnesium Lvl 2.0 mg/dL 1.8 - 2.4 05/31/2014 [facility] HEMATOLOGY Plt Morph Normal (05/31/14 5:09 AM) 05/31/2014 [facility] RBC Morph See Note (05/31/14 5:09 AM) 05/31/2014 [facility] Lymphocytes # 1.2 K/CMM 1.0 - 5.5 05/31/2014 [facility] Monocytes # 0.5 K/CMM 0.0 - 0.8 05/31/2014 [facility] Eosinophils # 0.2 K/CMM 0.0 - 0.5 05/31/2014 [facility] Eosinophils 3.8 % 0.0 - 4.0 05/31/2014 [facility] Basophils 0.6 % 0.0 - 1.0 05/31/2014 [facility] Segs-Bands # 3.1 K/CMM 1.5 - 8.1 05/31/2014 [facility] Monocytes 10.2 % 2.0 - 12.0 05/31/2014 [facility] Lymphocytes 23.1 % 20.0 - 40.0 05/31/2014 [facility] Segs 62.3 % 45.0 - 75.0 05/31/2014 [facility] Macrocyte 3+ *NA* (05/31/14 5:09 AM) None Seen 05/31/2014 [facility] MCHC 32.8 g/dL 32.0 - 36.0 05/31/2014 [facility] MCH 35.9 pg 27.0 - 31.0 05/31/2014 [facility] WBC 5.0 K/CMM 3.7 - 10.4 05/31/2014 [facility] Hct 41.9 % 36.0 - 48.0 05/31/2014 [facility] Hgb 13.8 g/dL 12.0 - 16.0 05/31/2014 [facility] RBC 3.83 M/CMM 4.20 - 5.40 05/31/2014 [facility] MCV 109.4 fL 80.0 - 98.0 05/31/2014 [facility] HEMATOLOGY MPV 9.2 fL 7.4 - 10.4 05/31/2014 [facility] HEMATOLOGY Platelet 130 K/CMM 133 - 450 05/31/2014 [facility] HEMATOLOGY RDW 15.4 % 11.5 - 14.5 05/31/2014 [facility] CHEM PANEL Magnesium Lvl 2.0 mg/dL 1.8 - 2.4 05/31/2014 [facility] CARDIAC ENZYMES BNP 233 pg/mL <=100 pg/mL 05/30/2014 7Interpretive Data: Elevated results are in line with increasing severity of congestive heart failure. Minor elevations between 100 and 300 may be seen with Myocardial Ischemia, Sodium retaining drugs, and compensated/treated heart failure. [facility] CARDIAC ENZYMES Troponin-I 0.02 ng/mL 0.00 - 0.40 05/30/2014 [facility] CARDIAC ENZYMES CK MB 1.8 ng/mL 0.5 - 3.6 05/30/2014 [facility] CARDIAC ENZYMES Total CK 61 unit/L 12 - 191 05/30/2014 [facility] CARDIAC ENZYMES CK MB Index 3.0 0.0 - 2.5 05/30/2014 [facility] CHEM PANEL Total Protein 5.9 g/dL 6.4 - 8.4 05/30/2014 [facility] CHEM PANEL B/C Ratio 14 6 - 25 05/30/2014 [facility] CHEM PANEL Calcium Lvl 7.4 mg/dL 8.5 - 10.5 05/30/2014 [facility] CHEM PANEL AGAP 13.1 meq/L 10.0 - 20.0 05/30/2014 [facility] CHEM PANEL A/G Ratio 1.0 0.7 - 1.6 05/30/2014 [facility] CHEM PANEL CO2 28 meq/L 24 - 32 05/30/2014 [facility] CHEM PANEL Globulin 2.9 g/dL 2.0 - 4.0 05/30/2014 [facility] CHEM PANEL Albumin Lvl 3.0 g/dL 3.5 - 5.0 05/30/2014 [facility] CHEM PANEL Creatinine Lvl 0.8 mg/dL 0.5 - 1.4 05/30/2014 [facility] CHEM PANEL BUN 11 mg/dL 7 - 22 05/30/2014 [facility] CHEM PANEL Glucose Lvl 95 mg/dL 70 - 99 05/30/2014 5Interpretive Data: Adult reference range values reflect the clinical guidelines of the [employer]. [facility] CHEM PANEL Bili Total 0.9 mg/dL 0.2 - 1.3 05/30/2014 [facility] CHEM PANEL Alk Phos 104 unit/L 39 - 136 05/30/2014 [facility] CHEM PANEL AST 33 unit/L 0 - 37 05/30/2014 [facility] CHEM PANEL ALT 27 unit/L 0 - 65 05/30/2014 [facility] CHEM PANEL Sodium Lvl 140 meq/L 135 - 145 05/30/2014 [facility] CHEM PANEL Potassium Lvl 4.1 meq/L 3.5 - 5.1 05/30/2014 [facility] CHEM PANEL Chloride Lvl 103 meq/L 95 - 109 05/30/2014 [facility] CHEM PANEL eGFR 79 mL/min/1.73m2 05/30/2014 2Result Comment: The eGFR is calculated using [...] from the National Kidney Disease Education Program (NKDEP) which additionally recommends that when the eGFR is used in patients with extremes of body mass index for purposes of drug dosing, the eGFR should be multiplied by the estimated BMI. [facility] Platelet 148 K/CMM 133 - 450 05/30/2014 [facility] HEMATOLOGY MPV 9.1 fL 7.4 - 10.4 05/30/2014 [facility] MCHC 33.6 g/dL 32.0 - 36.0 05/30/2014 [facility] MCH 36.0 pg 27.0 - 31.0 05/30/2014 [facility] RDW 15.4 % 11.5 - 14.5 05/30/2014 [facility] MCV 107.0 fL 80.0 - 98.0 05/30/2014 [facility] WBC 6.1 K/CMM 3.7 - 10.4 05/30/2014 [facility] RBC 4.04 M/CMM 4.20 - 5.40 05/30/2014 [facility] Hct 43.2 % 36.0 - 48.0 05/30/2014 [facility] HEMATOLOGY Hgb 14.5 g/dL 12.0 - 16.0 05/30/2014 [facility] HEMATOLOGY Monocytes 10.2 % 2.0 - 12.0 05/30/2014 [facility] HEMATOLOGY Eosinophils 1.3 % 0.0 - 4.0 05/30/2014 [facility] HEMATOLOGY Lymphocytes 21.4 % 20.0 - 40.0 05/30/2014 [facility] HEMATOLOGY Segs 66.6 % 45.0 - 75.0 05/30/2014 [facility] HEMATOLOGY Segs-Bands # 4.1 K/CMM 1.5 - 8.1 05/30/2014 [facility] HEMATOLOGY Lymphocytes # 1.3 K/CMM 1.0 - 5.5 05/30/2014 [facility] HEMATOLOGY Basophils 0.5 % 0.0 - 1.0 05/30/2014 [facility] Eosinophils # 0.1 K/CMM 0.0 - 0.5 05/30/2014 [facility] Macrocyte 2+ *ABN* (05/30/14 4:28 AM) None Seen 05/30/2014 [facility] Monocytes # 0.6 K/CMM 0.0 - 0.8 05/30/2014 [facility] LIPIDS VLDL 18 05/30/2014 [facility] LIPIDS LDL (Calculated) 56 mg/dL <=99 mg/dL 05/30/2014 [facility] LIPIDS HDL 101 mg/dL >=61 mg/dL 05/30/2014 [facility] LIPIDS CHD Risk 1.73 3.90 - 5.80 05/30/2014 [facility] LIPIDS Trig 91 mg/dL <=149 mg/dL 05/30/2014 [facility] LIPIDS Chol 175 mg/dL <=199 mg/dL 05/30/2014 [facility] THYROID PANEL TSH 3.050 uIU/mL 0.360 - 3.740 05/30/2014 [facility] ELECTROLYTES Chloride Lvl 100 meq/L 95 - 109 05/29/2014 [facility] ELECTROLYTES Potassium Lvl 3.5 meq/L 3.5 - 5.1 05/29/2014 [facility] ELECTROLYTES Sodium Lvl 139 meq/L 135 - 145 05/29/2014 [facility] ELECTROLYTES eGFR 60 mL/min/1.73m2 05/29/2014 3Result Comment: The eGFR is calculated using [...] from the National Kid[employer] Education Program (NKDEP) which additionally recommends that when the eGFR is used in patients with extremes of body mass index for purposes of drug dosing, the eGFR should be multiplied by the estimated BMI. [facility] ELECTROLYTES Calcium Lvl 8.0 mg/dL 8.5 - 10.5 05/29/2014 [facility] ELECTROLYTES AGAP 14.5 meq/L 10.0 - 20.0 05/29/2014 [facility] ELECTROLYTES Glucose Lvl 72 mg/dL 70 - 99 05/29/2014 6Interpretive Data: Adult reference range values reflect the clinical guidelines of the [employer]. [facility] ELECTROLYTES BUN 14 mg/dL 7 - 22 05/29/2014 [facility] ELECTROLYTES Creatinine Lvl 1.0 mg/dL 0.5 - 1.4 05/29/2014 [facility] ELECTROLYTES CO2 28 meq/L 24 - 32 05/29/2014 [facility] HEMATOLOGY PTT 27.5 s 22.9 - 35.8 05/29/2014 11Interpretive Data: Heparin Therapeutic Range: 57 - 92 Seconds [facility] HEMATOLOGY PT 17.2 s 12.0 - 14.7 05/29/2014 [facility] HEMATOLOGY INR 1.38 0.85 - 1.17 05/29/2014 10Interpretive Data: RECOMMENDED RANGES FOR PROTIME INR: 2.0-3.0 for most medical and surgical thromboembolic states. 2.5-3.5 for artificial heart valves and recurrent embolism. INR SHOULD BE USED ONLY FOR PATIENTS ON STABLE ANTICOAGULANT THERAPY. [facility] CHEM PANEL Lactic Acid Lvl 3.2 mMol/L 0.5 - 2.2 05/29/2014 [facility] URINE AND STOOL UA Urobilinogen <=1.0 mg/dL 0.1 - 1.0 05/28/2014 [facility] URINE AND STOOL UA Color Ltyellow 05/28/2014 [facility] URINE AND STOOL UA Bacteria Many /HPF None Seen /HPF 05/28/2014 [facility] URINE AND STOOL UA Sq Epi Occasional /LPF Few /LPF 05/28/2014 [facility] URINE AND STOOL UA Leuk Est Negative (05/28/14 5:40 PM) Negative 05/28/2014 [facility] URINE AND STOOL UA RBC 2 /HPF 0 - 2 05/28/2014 [facility] URINE AND STOOL UA WBC 4 /HPF 0 - 5 05/28/2014 [facility] URINE AND STOOL UA Spec Grav 1.009 <=1.030 05/28/2014 [facility] URINE AND STOOL UA Turbidity Clear (05/28/14 5:40 PM) Clear 05/28/2014 [facility] URINE AND STOOL UA Protein 100 mg/dL Negative mg/dL 05/28/2014 [facility] URINE AND STOOL UA pH 7.0 5.0 - 8.0 05/28/2014 [facility] URINE AND STOOL UA Nitrite Positive *ABN* (05/28/14 5:40 PM) Negative 05/28/2014 [facility] URINE AND STOOL UA Blood Small *ABN* (05/28/14 5:40 PM) Negative 05/28/2014 [facility] URINE AND STOOL UA Glucose 50 mg/dL Negative mg/dL 05/28/2014 [facility] URINE AND STOOL UA Bili Negative *NA* (05/28/14 5:40 PM) Negative 05/28/2014 [facility] URINE AND STOOL UA Ketones Negative mg/dL Negative mg/dL 05/28/2014 [facility] CARDIAC ENZYMES BNP 683 pg/mL <=100 pg/mL 05/28/2014 8Interpretive Data: Elevated results are in line with increasing severity of congestive heart failure. Minor elevations between 100 and 300 may be seen with Myocardial Ischemia, Sodium retaining drugs, and compensated/treated heart failure. [facility] CARDIAC ENZYMES CK MB 1.1 ng/mL 0.5 - 3.6 05/28/2014 [facility] CARDIAC ENZYMES Troponin-I 0.02 ng/mL 0.00 - 0.40 05/28/2014 [facility] CARDIAC ENZYMES Total CK 70 unit/L 12 - 191 05/28/2014 [facility] CARDIAC ENZYMES CK MB Index 1.6 0.0 - 2.5 05/28/2014 [facility] CHEM PANEL Lipase Lvl 297 unit/L 73 - 393 05/28/2014 [facility] CHEM PANEL AST 76 unit/L 0 - 37 05/28/2014 [facility] CHEM PANEL Albumin Lvl 3.6 g/dL 3.5 - 5.0 05/28/2014 [facility] CHEM PANEL ALT 41 unit/L 0 - 65 05/28/2014 [facility] CHEM PANEL Globulin 3.9 g/dL 2.0 - 4.0 05/28/2014 [facility] CHEM PANEL B/C Ratio 12 6 - 25 05/28/2014 [facility] CHEM PANEL Alk Phos 129 unit/L 39 - 136 05/28/2014 [facility] CHEM PANEL Bili Total 0.3 mg/dL 0.2 - 1.3 05/28/2014 [facility] CHEM PANEL A/G Ratio 0.9 0.7 - 1.6 05/28/2014 [facility] CHEM PANEL Total Protein 7.5 g/dL 6.4 - 8.4 05/28/2014 [facility] HEMATOLOGY MPV 9.2 fL 7.4 - 10.4 05/28/2014 [facility] RDW 15.8 % 11.5 - 14.5 05/28/2014 [facility] Platelet 174 K/CMM 133 - 450 05/28/2014 [facility] MCH 36.1 pg 27.0 - 31.0 05/28/2014 [facility] MCHC 33.4 g/dL 32.0 - 36.0 05/28/2014 [facility] RBC 4.21 M/CMM 4.20 - 5.40 05/28/2014 [facility] Hgb 15.2 g/dL 12.0 - 16.0 05/28/2014 [facility] WBC 6.8 K/CMM 3.7 - 10.4 05/28/2014 [facility] MCV 108.2 fL 80.0 - 98.0 05/28/2014 [facility] Hct 45.6 % 36.0 - 48.0 05/28/2014 [facility] Macrocyte 2+ *ABN* (05/28/14 4:51 PM) None Seen 05/28/2014 [facility] Eosinophils # 0.1 K/CMM 0.0 - 0.5 05/28/2014 [facility] Eosinophils 1.7 % 0.0 - 4.0 05/28/2014 [facility] Monocytes 8.4 % 2.0 - 12.0 05/28/2014 [facility] Lymphocytes 25.4 % 20.0 - 40.0 05/28/2014 [facility] HEMATOLOGY Segs 64.0 % 45.0 - 75.0 05/28/2014 [facility] HEMATOLOGY Monocytes # 0.6 K/CMM 0.0 - 0.8 05/28/2014 [facility] HEMATOLOGY Basophils 0.5 % 0.0 - 1.0 05/28/2014 [facility] HEMATOLOGY Segs-Bands # 4.4 K/CMM 1.5 - 8.1 05/28/2014 [facility] HEMATOLOGY Lymphocytes # 1.7 K/CMM 1.0 - 5.5 05/28/2014 [facility] Vital Signs Vital Sign Value Date Comments Source Temperature Oral (F) 98.6 F 03/25/2017 [facility] Systolic (mm Hg) 154 03/25/2017 [facility] Diastolic (mm Hg) 81 03/25/2017 [facility] Heart Rate 68 03/25/2017 [facility] Respitory Rate 18 03/25/2017 [facility] Systolic (mm Hg) 137 03/25/2017 [facility] Diastolic (mm Hg) 69 03/25/2017 [facility] Heart Rate 67 03/25/2017 [facility] Respitory Rate 16 03/25/2017 [facility] Heart Rate 68 03/25/2017 [facility] Respitory Rate 16 03/25/2017 [facility] Systolic (mm Hg) 160 03/25/2017 [facility] Diastolic (mm Hg) 82 03/25/2017 [facility] Temperature Oral (F) 98.5 F 03/24/2017 [facility] Temperature Oral (F) 98.6 F 03/24/2017 [facility] Height 160.02 cm 03/18/2017 [facility] Weight 44.773 03/18/2017 [facility] BMI Calculated 17.49 03/18/2017 [facility] Weight 40.909 03/18/2017 [facility] Height 160.02 cm 03/18/2017 [facility] BMI Calculated 15.98 03/18/2017 [facility] Systolic (mm Hg) 140 09/01/2016 [facility] Diastolic (mm Hg) 78 09/01/2016 [facility] Respitory Rate 16 09/01/2016 [facility] Temperature Oral (F) 98.1 F 09/01/2016 [facility] Systolic (mm Hg) 145 09/01/2016 [facility] Diastolic (mm Hg) 81 09/01/2016 [facility] Respitory Rate 16 09/01/2016 [facility] Temperature Oral (F) 98.3 F 09/01/2016 [facility] Temperature Oral (F) 98.2 F 09/01/2016 [facility] Respitory Rate 17 09/01/2016 [facility] Systolic (mm Hg) 148 09/01/2016 [facility] Diastolic (mm Hg) 80 09/01/2016 [facility] BMI Calculated 15.98 09/01/2016 [facility] Weight 40.909 09/01/2016 [facility] Height 160.02 cm 09/01/2016 [facility] Heart Rate 87 09/01/2016 [facility] Temperature Oral (F) 98.2 F 07/28/2016 [facility] Heart Rate 78 07/28/2016 [facility] Systolic (mm Hg) 148 07/28/2016 [facility] Diastolic (mm Hg) 84 07/28/2016 [facility] Respitory Rate 17 07/28/2016 [facility] Systolic (mm Hg) 154 07/28/2016 [facility] Diastolic (mm Hg) 83 07/28/2016 [facility] Temperature Oral (F) 98.7 F 07/28/2016 [facility] Heart Rate 81 07/28/2016 [facility] Respitory Rate 17 07/28/2016 [facility] Temperature Oral (F) 98.5 F 07/28/2016 [facility] Systolic (mm Hg) 125 07/28/2016 [facility] Diastolic (mm Hg) 63 07/28/2016 [facility] Respitory Rate 18 07/28/2016 [facility] Heart Rate 77 07/28/2016 [facility] Height 160.02 cm 07/27/2016 [facility] BMI Calculated 15.98 07/27/2016 [facility] Weight 40.909 07/27/2016 [facility] Respitory Rate 16 05/02/2016 [facility] Systolic (mm Hg) 145 05/02/2016 [facility] Diastolic (mm Hg) 85 05/02/2016 [facility] Temperature Oral (F) 98.2 F 05/02/2016 [facility] Heart Rate 78 05/02/2016 [facility] Temperature Oral (F) 98.2 F 05/02/2016 [facility] Heart Rate 74 05/02/2016 [facility] Respitory Rate 16 05/02/2016 [facility] Systolic (mm Hg) 152 05/02/2016 [facility] Diastolic (mm Hg) 87 05/02/2016 [facility] Heart Rate 71 05/02/2016 [facility] Respitory Rate 16 05/02/2016 [facility] Systolic (mm Hg) 152 05/02/2016 [facility] Diastolic (mm Hg) 91 05/02/2016 [facility] Temperature Oral (F) 98.9 F 05/02/2016 [facility] Weight 39.631 05/01/2016 [facility] BMI Calculated 15.98 04/29/2016 [facility] Weight 40.909 04/29/2016 [facility] Height 160.02 cm 04/29/2016 [facility] Weight 40.909 04/28/2016 [facility] Height 160.02 cm 04/28/2016 [facility] BMI Calculated 15.98 04/28/2016 [facility] Systolic (mm Hg) 173 04/17/2016 [facility] Diastolic (mm Hg) 93 04/17/2016 [facility] Heart Rate 103 04/17/2016 [facility] Respitory Rate 16 04/17/2016 [facility] Temperature Oral (F) 98.2 F 04/17/2016 [facility] Temperature Oral (F) 98.1 F 04/17/2016 [facility] Systolic (mm Hg) 160 04/17/2016 [facility] Diastolic (mm Hg) 94 04/17/2016 [facility] Respitory Rate 16 04/17/2016 [facility] Heart Rate 111 04/17/2016 [facility] Systolic (mm Hg) 164 04/17/2016 [facility] Diastolic (mm Hg) 91 04/17/2016 [facility] Heart Rate 111 04/17/2016 [facility] Temperature Oral (F) 98.3 F 04/17/2016 [facility] Respitory Rate 16 04/17/2016 [facility] Height 160.02 cm 04/14/2016 [facility] Weight 40.3 04/14/2016 [facility] BMI Calculated 15.74 04/14/2016 [facility] Weight 40.909 04/13/2016 [facility] Heart Rate 99 03/04/2016 [facility] Temperature Oral (F) 98.1 F 03/04/2016 [facility] Systolic (mm Hg) 150 03/04/2016 [facility] Diastolic (mm Hg) 97 03/04/2016 [facility] Heart Rate 99 03/04/2016 [facility] Systolic (mm Hg) 150 03/04/2016 [facility] Diastolic (mm Hg) 97 03/04/2016 [facility] Temperature Oral (F) 98.1 F 03/04/2016 [facility] Respitory Rate 12 03/04/2016 [facility] Systolic (mm Hg) 159 03/04/2016 [facility] Diastolic (mm Hg) 88 03/04/2016 [facility] Temperature Oral (F) 98.7 F 03/04/2016 [facility] Heart Rate 107 03/04/2016 [facility] Respitory Rate 16 03/04/2016 [facility] Respitory Rate 16 03/04/2016 [facility] Weight 43.324 02/28/2016 [facility] Height 160.02 cm 02/28/2016 [facility] BMI Calculated 16.92 02/28/2016 [facility] BMI Calculated 15.98 02/27/2016 [facility] Height 160.02 cm 02/27/2016 [facility] Weight 40.909 02/27/2016 [facility] Respitory Rate 18 02/17/2016 [facility] Systolic (mm Hg) 151 02/17/2016 [facility] Diastolic (mm Hg) 95 02/17/2016 [facility] Respitory Rate 18 02/17/2016 [facility] Systolic (mm Hg) 141 02/17/2016 [facility] Diastolic (mm Hg) 91 02/17/2016 [facility] Systolic (mm Hg) 159 02/17/2016 [facility] Diastolic (mm Hg) 105 02/17/2016 [facility] Respitory Rate 17 02/17/2016 [facility] Temperature Oral (F) 98.6 F 02/17/2016 [facility] Heart Rate 114 02/17/2016 [facility] Temperature Oral (F) 98.6 F 02/17/2016 [facility] Height 160.02 cm 02/17/2016 [facility] BMI Calculated 15.98 02/17/2016 [facility] Weight 40.909 02/17/2016 [facility] Respitory Rate 18 10/17/2014 [facility] Temperature Oral (F) 98.2 F 10/17/2014 [facility] Heart Rate 81 10/17/2014 [facility] Systolic (mm Hg) 155 10/17/2014 [facility] Diastolic (mm Hg) 78 10/17/2014 [facility] Temperature Oral (F) 98.3 F 10/16/2014 [facility] Heart Rate 89 10/16/2014 [facility] Respitory Rate 19 10/16/2014 [facility] Systolic (mm Hg) 168 10/16/2014 [facility] Diastolic (mm Hg) 85 10/16/2014 [facility] Temperature Oral (F) 98.1 F 10/16/2014 [facility] Systolic (mm Hg) 160 10/16/2014 [facility] Diastolic (mm Hg) 90 10/16/2014 [facility] Respitory Rate 17 10/16/2014 [facility] Heart Rate 89 10/16/2014 [facility] Height 160.02 cm 10/16/2014 [facility] Weight 40.909 10/16/2014 [facility] BMI Calculated 15.98 10/16/2014 [facility] Temperature Oral (F) 98.0 F 07/29/2014 [facility] Respitory Rate 18 07/29/2014 [facility] Systolic (mm Hg) 143 07/29/2014 [facility] Diastolic (mm Hg) 84 07/29/2014 [facility] Heart Rate 66 07/29/2014 [facility] Systolic (mm Hg) 179 07/29/2014 [facility] Diastolic (mm Hg) 85 07/29/2014 [facility] Respitory Rate 17 07/29/2014 [facility] Temperature Oral (F) 97.8 F 07/29/2014 [facility] Heart Rate 68 07/29/2014 [facility] Respitory Rate 16 07/29/2014 [facility] Heart Rate 76 07/29/2014 [facility] Systolic (mm Hg) 173 07/29/2014 [facility] Diastolic (mm Hg) 85 07/29/2014 [facility] Temperature Oral (F) 98.0 F 07/29/2014 [facility] Height 160.02 cm 07/26/2014 [facility] BMI Calculated 15.27 07/26/2014 [facility] Weight 39.091 07/26/2014 [facility] BMI Calculated 15.27 07/26/2014 [facility] Weight 39.091 07/26/2014 [facility] Height 160.02 cm 07/26/2014 [facility] Temperature Oral (F) 98.3 F 06/01/2014 [facility] Systolic (mm Hg) 113 06/01/2014 [facility] Diastolic (mm Hg) 68 06/01/2014 [facility] Heart Rate 78 06/01/2014 [facility] Respitory Rate 18 06/01/2014 [facility] Temperature Oral (F) 98.2 F 06/01/2014 [facility] Systolic (mm Hg) 166 06/01/2014 [facility] Diastolic (mm Hg) 79 06/01/2014 [facility] Heart Rate 74 06/01/2014 [facility] Respitory Rate 18 06/01/2014 [facility] Respitory Rate 19 06/01/2014 [facility] Systolic (mm Hg) 143 06/01/2014 [facility] Diastolic (mm Hg) 78 06/01/2014 [facility] Temperature Oral (F) 98.2 F 06/01/2014 [facility] Heart Rate 74 06/01/2014 [facility] BMI Calculated 16.76 05/30/2014 [facility] Weight 42.9 05/30/2014 [facility] Height 160 cm 05/30/2014 [facility] BMI Calculated 15.27 05/29/2014 [facility] Weight 39.091 05/29/2014 [facility] Height 160.02 cm 05/29/2014 [facility] BMI Calculated 15.27 05/28/2014 [facility] Weight 39.091 05/28/2014 [facility] Height 160.02 cm 05/28/2014 [facility] Encounters Location Location Details Encounter Type Encounter Number Reason For Visit Attending Provider ADM Date DC Date Status Source [facility] Inpatient [id number] Cezar Contreras 05/28/2014 06/01/2014 [facility] Inpatient [id number] Cezar Cadethar 07/26/2014 07/29/2014 [facility] [id number] Mis Spencerowole 10/16/2014 10/17/2014 [facility] Emergency [id number] Liu Clancysuf 02/17/2016 02/17/2016 [facility] Inpatient [id number] Justice Lau 02/27/2016 03/04/2016 [facility] Inpatient [id number] Ryne Cristian 04/13/2016 04/17/2016 [facility] Inpatient [id number] Ryne Cristian 04/28/2016 05/02/2016 [facility] Observation [id number] Adnan Jonathan 07/27/2016 07/28/2016 [facility] Emergency [id number] Bran Pradhan 09/01/2016 09/01/2016 [facility] Inpatient [id number] Amir Ghebranious 03/18/2017 03/25/2017 [facility] Procedures Procedure Code Date Perfomer Comments Source Hysterectomy [id number] [facility] Tonsillectomy [id number] [facility]
[2018-01-14 16:56] LABS: BACTERIA,URINE MANY /HPF; EPITHELIAL CELLS,URINE RARE /LPF; WBC,URINE (MAN) >50 /HPF (0-5)
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
--- OUTSIDE RECORDS SUMMARY | 2018-01-14 16:56 | XMS REPORT | Summary of Care ---
Author Author [facility] Organization [facility] Address Unknown Phone Unavailable Encounter [facility](LIS) [id number] Date(s): 04/28/16 - 05/02/16 [facility] [address] [place] [address]- Discharge Disposition: Group Home Facility Attending Physician: Ryne Foster MD Admitting Physician: Ryne Foster MD Vital Signs 1 2 3 Most recent to oldest [Reference Range]: 160.02 cm (04/29/16 1:18 AM) 160.02 cm (04/28/16 2:21 PM) Height 45.114 kg (05/02/16 6:38 AM) 45.5 kg (05/02/16 4:17 AM) 40.114 kg (05/01/16 6:38 AM) Current Weight 98.2 DegF (05/02/16 4:00 PM) 98.2 DegF (05/02/16 12:00 PM) 98.9 DegF (05/02/16 8:00 AM) Temperature Oral [96.4-99.1 DegF] 145/85 mmHg *HI* (05/02/16 4:00 PM) 152/87 mmHg *HI* (05/02/16 12:00 PM) 152/91 mmHg *HI* (05/02/16 8:00 AM) Blood Pressure [90-140/60-90 mmHg] 16 BRMIN (05/02/16 4:00 PM) 16 BRMIN (05/02/16 12:00 PM) 16 BRMIN (05/02/16 8:00 AM) Respiratory Rate [14-20 BRMIN] 78 bpm (05/02/16 4:00 PM) 74 bpm (05/02/16 12:00 PM) 71 bpm (05/02/16 8:00 AM) Peripheral Pulse Rate [60-100 bpm] 39.631 kg (05/01/16 5:42 PM) 40.909 kg (04/29/16 1:18 AM) 40.909 kg (04/28/16 2:21 PM) Weight 15.98 m2 (04/29/16 1:18 AM) 15.98 m2 (04/28/16 2:21 PM) Body Mass Index Problem List Condition Effective Dates Status Health Status Informant COPD(Confirmed) Active DVT(Confirmed) Active Escherichia 04/28/16 Active coli(Confirmed)1, 2 HTN - Active Hypertension(Confirm ed) Asthma(Confirmed) Resolved Current Active smoker(Confirmed) 1urine 04/28/2016 2Problem added by Discern Expert. Allergies, Adverse Reactions, Alerts Substance Reaction Severity Status NKDA Active Medications acetaminophen 325 mg, 1 tab, Route: PO, Drug form: TAB, Q4H, Dosing Weight 40.909, kg, PRN César n 1-3/Temp > 100.4 F, Start date: 04/29/16 2:42:00 CDT, Duration: 30 day, Stop date: 05/29/16 2:41:00 CDT Notes: Do not exceed 4 gm/day. (Same as: Tylenol) Start Date: 04/29/16 Stop Date: 05/02/16 Status: Discontinued acetaminophen 325 mg oral tablet 325 mg=1 tab, PO, Q4H, PRN Pain 1-3/Temp > 100.4 F, 0 Refill(s) Start Date: 05/02/16 Status: Ordered albuterol 2 puff, Route: INHALER, Drug Form: AERO/A, Q4H, PRN Wheezing, Start date: 3:37:00 CDT, Duration: 30 day, Stop date: 05/29/16 3:36:00 CDT Notes: Albuterol 90 microgram/inh 8gm HFAWASTE: Aerosol - Return to Pharmacy [facility] as: Princess Landis Start Date: 04/29/16 Stop Date: 05/02/16 Status: Discontinued aspirin 81 mg tablet, enteric coated 81 mg, 1 tab, Route: PO, Drug form: ECTAB, Daily, Dosing Weight 40.909, kg, Star t date: 04/29/16 9:00:00 CDT, Duration: 30 day, Stop date: 05/28/16 9:00:00 CDT Notes: Do not crush or chew.(Same As: Ecotrin) Start Date: 04/29/16 Stop Date: 05/02/16 Status: Discontinued atropine 0.5 mg, 5 mL, Route: IVP, Drug form: INJ, ONCE, Dosing Weight 40.909, kg, PRN Br adycardia, symptomatic bradycardia; HR less than 40/minute, Start date: 05/01/16 2:24:00 CDT Start Date: 05/01/16 Stop Date: 05/02/16 Status: Discontinued Cipro 400 mg, 200 mL, Route: IVPB, Drug form: INJ, ONCE, Dosing Weight 40.909, kg, Laura ority: STAT, Start date: 04/28/16 23:26:00 CDT, Stop date: 04/28/16 23:26:00 CDT Notes: Do not refrigerate Start Date: 04/28/16 Stop Date: 04/28/16 Status: Completed Cipro 400 mg, 200 mL, Route: IVPB, Drug form: INJ, [id number], Dosing Weight 40.909, kg, Start date: 04/29/16 3:00:00 CDT, Duration: 30 day, Stop date: 05/28/16 11:30:00 CDT Notes: Do not refrigerate Start Date: 04/29/16 Stop Date: 05/01/16 Status: Discontinued cloNIDine 0.1 mg oral tablet 0.1 mg, 1 tab, Route: PO, Drug form: TAB, TID, Dosing Weight 40.909, kg, PRN Hyp ertension, Start date: 04/30/16 10:20:00 CDT, Duration: 30 day, Stop date: 05/30 10:19:00 CDT Notes: (Same As: Catapres) Start Date: 04/30/16 Stop Date: 04/30/16 Status: Discontinued Coumadin 5 mg, 1 tab, Route: PO, Drug form: TAB, Q5PM, Dosing Weight 40.909, kg, start to kwon, Start date: 04/30/16 17:00:00 CDT, Duration: 1 doses or times, Stop date : 04/30/16 17:00:00 CDT Notes: Nurse to ensure documentation of patient education per anticoagulation po licy.Avoid large intake of vitamin-K containing foods diet.WASTE: F/P - P Waste Black; E - P Waste Black(Same As: Coumadin) Start Date: 04/30/16 Stop Date: 04/30/16 Status: Completed Coumadin 5 mg, 1 tab, Route: PO, Drug form: TAB, Q5PM, Dosing Weight 39.631, kg, Start da te: 05/01/16 19:45:00 CDT, Duration: 5 day, Stop date: 05/06/16 17:00:00 CDT Notes: Nurse to ensure documentation of patient education per anticoagulation po licy.Avoid large intake of vitamin-K containing foods diet.WASTE: F/P - P Waste Black; E - P Waste Black(Same As: Coumadin) Start Date: 05/01/16 Stop Date: 05/02/16 Status: Discontinued Eliquis 5 mg, 1 tab, Route: PO, Drug form: TAB, BID, Dosing Weight 40.909, kg, Start judith e: 04/29/16 9:00:00 CDT, Duration: 30 day, Stop date: 05/28/16 17:00:00 CDT Notes: Same as: Eliquis Start Date: 04/29/16 Stop Date: 04/29/16 Status: Discontinued Eliquis 5 mg, 2 tab, Route: PO, Drug form: TAB, ONCE, Dosing Weight 40.909, kg, Start da te: 04/28/16 20:41:00 CDT, Stop date: 04/28/16 20:41:00 CDT Notes: Same as: Eliquis Start Date: 04/28/16 Stop Date: 04/28/16 Status: Completed enoxaparin 40 mg/0.4 mL subcutaneous solution 40 mg=0.4 mL, SUB-Q, [id number], 0 Refill(s) Start Date: 05/02/16 Status: Ordered Flagyl 500 mg, 100 mL, Route: IVPB, Drug form: INJ, ONCE, Dosing Weight 40.909, kg, Laura ority: STAT, Start date: 04/28/16 23:25:00 CDT, Stop date: 04/28/16 23:25:00 CDT Notes: (Same as: Flagyl) Avoid alcohol. Start Date: 04/28/16 Stop Date: 04/28/16 Status: Completed Flagyl 500 mg, 100 mL, Route: IVPB, Drug form: INJ, [id number], Dosing Weight 40.909, kg, S tart date: 04/29/16 3:00:00 CDT, Duration: 30 day, Stop date: 05/28/16 16:00:00 CDT Notes: (Same as: Flagyl) Avoid alcohol. Start Date: 04/29/16 Stop Date: 05/02/16 Status: Discontinued hydrALAZINE 10 mg, 0.5 mL, Route: IVP, Drug form: INJ, Q6H, Dosing Weight 40.909, kg, PRN Ot her -See Comment, Start date: 04/30/16 16:24:00 CDT, Duration: 30 day, Stop date : 05/30/16 16:23:00 CDT, give if SBP greater than 170mmg Notes: (Same as: Apresoline)Push over 5 minutes Start Date: 04/30/16 Stop Date: 05/02/16 Status: Discontinued Lasix 20 mg oral tablet 20 mg, 1 tab, Route: PO, Drug form: TAB, Daily, Dosing Weight 40.909, kg, Start date: 05/01/16 9:00:00 CDT, Duration: 30 day, Stop date: 05/30/16 9:00:00 CDT Notes: (Same as: Lasix) May cause GI upset. Give with food or milk. Start Date: 05/01/16 Stop Date: 05/02/16 Status: Discontinued Lasix 20 mg oral tablet 20 mg=1 tab, PO, Daily, 0 Refill(s) Start Date: 05/02/16 Status: Ordered lisinopril 40 mg, 2 tab, Route: PO, Drug form: TAB, Daily, Dosing Weight 40.909, kg, Start date: 04/29/16 9:00:00 CDT, Duration: 30 day, Stop date: 05/28/16 9:00:00 CDT Notes: (Same as: Prinivil, Zestril) Start Date: 04/29/16 Stop Date: 05/02/16 Status: Discontinued Lovenox 40 mg, 0.4 mL, Route: SUB-Q, Drug form: INJ, [id number], Dosing Weight 40.909, kg, Start date: 04/30/16 11:30:00 CDT, Duration: 30 day, Stop date: 05/29/16 23:30: 00 CDT Notes: (Same as: Lovenox) wanted 1mg/kg per RN Start Date: 04/30/16 Stop Date: 05/02/16 Status: Discontinued magnesium sulfate 1 gm, 100 mL, Route: IV, Drug form: INJ, ONCE, Dosing Weight 40.909, kg, Priorit y: STAT, Start date: 04/28/16 21:40:00 CDT, Stop date: 04/28/16 21:40:00 CDT Notes: WASTE: F/P - Sink; E - Municipal Trash Bin Start Date: 04/28/16 Stop Date: 04/28/16 Status: Completed magnesium sulfate 2 gm, 50 mL, Route: IVPB, Drug form: INJ, ONCE, Dosing Weight 40.909, kg, Total dose=2 gm, Start date: 04/29/16 2:42:00 CDT, Duration: 1 doses or times, Stop da te: 04/29/16 2:42:00 CDT Notes: WASTE: F/P - Sink; E - Municipal Trash Bin Start Date: 04/29/16 Stop Date: 04/29/16 Status: Completed meropenem + sodium chloride 0.9% INJ 100 mL 500 mg, Route: IVPB, ABXQ8H, Dosing Weight 40.909, kg, CrCL=10 -25 ml/min, Exte nded infusion, infuse over 3 hours, Start date: 05/01/16 15:00:00 CDT, Duration: 30 day, Stop date: 05/31/16 9:00:00 CDT Notes: Same as Merrem MEDICATION WASTE Product Size: 500 mgProduct Wast ed: ___ mg Start Date: 05/01/16 Stop Date: 05/02/16 Status: Discontinued metoprolol tartrate 100 mg, 1 tab, Route: PO, Drug form: ERTAB, Q8H, Dosing Weight 40.909, kg, Start date: 04/29/16 8:00:00 CDT, Duration: 30 day, Stop date: 05/29/16 0:00:00 CDT Notes: (Same as: Toprol XL) May split tab, but do not crush. Start Date: 04/29/16 Stop Date: 05/02/16 Status: Discontinued metoprolol tartrate 50 mg, 1 tab, Route: PO, Drug form: TAB, ONCE, Dosing Weight 40.909, kg, Start d ate: 04/28/16 23:55:00 CDT, Stop date: 04/28/16 23:55:00 CDT Notes: (Same as: Lopressor) Start Date: 04/28/16 Stop Date: 04/29/16 Status: Completed morphine Sulfate 1 mg, 0.25 mL, Route: IV, Drug form: SOLN, ONCE, Dosing Weight 40.909, kg, Start date: 04/29/16 2:04:00 CDT, Stop date: 04/29/16 2:04:00 CDT Notes: (Same as:MORPhine Sulfate) Start Date: 04/29/16 Stop Date: 04/29/16 Status: Completed morphine Sulfate 2 mg, 0.5 mL, Route: IVP, Drug form: SOLN, Q4H, Dosing Weight 40.909, kg, PRN Pa in Score 7-10, Start date: 04/29/16 2:42:00 CDT, Duration: 30 day, Stop date: 2:41:00 CDT Notes: (Same as:MORPhine Sulfate) Start Date: 04/29/16 Stop Date: 04/30/16 Status: Discontinued nitroglycerin 0.4 mg sublingual tablet 0.4 mg, 1 tab, Route: SL, Drug form: TAB, Q5Min, Dosing Weight 40.909, kg, PRN a s needed for chest pain, Repeat Q5 minutes for total of 3 doses, Start date: 2:24:00 CDT, Duration: 30 day, Stop date: 05/31/16 2:23:00 CDT Notes: (Same as:Nitroquick, Nitrostat)"Do Not Crush" Sublingual tablet Start Date: 05/01/16 Stop Date: 05/02/16 Status: Discontinued Norvasc 5 mg, 1 tab, Route: PO, Drug form: TAB, Daily, Dosing Weight 40.909, kg, Start d ate: 05/01/16 9:00:00 CDT, Duration: 30 day, Stop date: 05/30/16 9:00:00 CDT Notes: (Same as: Ernesto) Start Date: 05/01/16 Stop Date: 05/01/16 Status: Discontinued ondansetron 4 mg, 2 mL, Route: IVP, Drug form: INJ, Q6H, Dosing Weight 40.909, kg, PRN Nause a & Vomiting, Start date: 04/29/16 2:42:00 CDT, Duration: 30 day, Stop date: 05/29/16 2:41:00 CDT Notes: (Same as: Osbaldo) MEDICATION WASTE Product Size: 4 mgProduct Was aurelia: ___ mg Start Date: 04/29/16 Stop Date: 05/02/16 Status: Discontinued potassium chloride 40 mEq, 2 tab, Route: PO, Drug form: ERTAB, Q4H, Dosing Weight 40.909, kg, Start date: 04/29/16 8:00:00 CDT, Duration: 2 doses or times, Stop date: 04/29/16 12: 00:00 CDT Notes: (Same as: Milad-Daphnie 20)"Do Not Crush" With food and full glass of water Start Date: 04/29/16 Stop Date: 04/29/16 Status: Completed ProAir HFA 90 mcg/inh inhalation aerosol with adapter 1 puff, Route: PO, Drug Form: AERO/A, Dosing Weight 40.909, kg, Q4H, PRN as need ed for wheezing, Start date: 04/29/16 2:50:00 CDT, Duration: 30 day, Stop date: 05/29/16 2:49:00 CDT Notes: Albuterol 90 microgram/inh 8gm HFAWASTE: Aerosol - Return to Pharmacy [facility] as: Princess Landis Start Date: 04/29/16 Stop Date: 04/29/16 Status: Deleted Saline Flush 0.9% 10 ml, Route: IVP, Drug Form: INJ, Dosing Weight 40.909, kg, PRN, PRN Line Flush , Start date: 04/29/16 2:42:00 CDT, Duration: 30 day, Stop date: 05/29/16 2:41:0 0 CDT Notes: (Same as: BD Posiflush) Start Date: 04/29/16 Stop Date: 05/02/16 Status: Discontinued Saline Flush 0.9% 10 mL, Route: IVP, Drug Form: INJ, Dosing Weight 40.909, kg, PRN, PRN Line Flush , Start date: 04/28/16 14:29:00 CDT, Duration: 30 day, Stop date: 05/28/16 14:28 :00 CDT Notes: (Same as: BD Posiflush) Start Date: 04/28/16 Stop Date: 05/01/16 Status: Discontinued Sodium Chloride 0.9% (Bolus) IV 1,000 mL, 2,000 ml/hr, Infuse Over: 30 minutes, Route: IV, 1,000, Drug form: INJ , ONCE, Priority: STAT, Dosing Weight 40.909 kg, Start date: 04/28/16 14:29:00 C DT, Duration: 1 doses or times, Stop date: 04/28/16 14:29:00 CDT Start Date: 04/28/16 Stop Date: 04/28/16 Status: Completed sodium chloride 0.9% 1000 ml INJ 1,000 mL 1,000 mL, Rate: 75 ml/hr, Infuse over: 13.3 hr, Route: IV, Dosing Weight 40.909 kg, Total Volume: 1,000, Start date: 04/29/16 2:42:00 CDT, Duration: 30 day, Sto p date: 05/29/16 2:41:00 CDT Start Date: 04/29/16 Stop Date: 04/29/16 Status: Discontinued Tylenol with Codeine #4 oral tablet 1 tab, Route: PO, Drug Form: TAB, Dosing Weight 40.909, kg, Q6H, PRN Pain Score 4-6, Start date: 04/30/16 11:00:00 CDT, Duration: 30 day, Stop date: 05/30/16 10 :59:00 CDT Notes: Do not exceed 4gm/day of acetaminophen. (Same as: Tylenol with Codeine # 4) Start Date: 04/30/16 Stop Date: 05/02/16 Status: Discontinued Tylenol with Codeine #4 oral tablet 1 tab, PO, Q6H, PRN Pain Score 4-6, 0 Refill(s) Start Date: 05/02/16 Status: Ordered warfarin 5 mg oral tablet 5 mg=1 tab, PO, Q5PM, 0 Refill(s) Start Date: 05/02/16 Status: Ordered zolpidem 5 mg, 1 tab, Route: PO, Drug form: TAB, Bedtime, Dosing Weight 40.909, kg, PRN I nsomnia, Start date: 04/29/16 23:49:00 CDT, Duration: 30 day, Stop date: 7 23:48:00 CDT Notes: (Same As: Jatin) Start Date: 04/29/16 Stop Date: 05/02/16 Status: Discontinued zolpidem 5 mg=1 tab, PO, Bedtime, PRN Insomnia, 0 Refill(s) Start Date: 05/02/16 Status: Ordered Results ELECTROLYTES 1 2 3 Most recent to oldest [Reference Range]: 136 mEq/L (04/30/16 6:24 AM) 135 mEq/L (04/29/16 5:53 AM) 130 mEq/L *LOW* (04/28/16 5:23 PM) Sodium Lvl [135-145 mEq/L] 3.5 mEq/L (04/30/16 6:24 AM) 2.9 mEq/L 1 *CRIT* (04/29/16 5:53 AM) 3.5 mEq/L (04/28/16 5:23 PM) Potassium Lvl [3.5-5.1 mEq/L] 101 mEq/L (04/30/16 6:24 AM) 97 mEq/L (04/29/16 5:53 AM) 93 mEq/L *LOW* (04/28/16 5:23 PM) Chloride Lvl [95-109 mEq/L] 26 mEq/L (04/30/16 6:24 AM) 24 mEq/L (04/29/16 5:53 AM) 25 mEq/L (04/28/16 5:23 PM) CO2 [24-32 mEq/L] 12.5 mEq/L (04/30/16 6:24 AM) 16.9 mEq/L (04/29/16 5:53 AM) 15.5 mEq/L (04/28/16 5:23 PM) AGAP [10.0-20.0 mEq/L] 1Result Comment: Critical Result(s) called to danika stover at 04/29/2016 06:54 by lila. Read back OK. CHEM PANEL 1 2 3 Most recent to oldest [Reference Range]: 0.60 mg/dL (04/30/16 6:24 AM) 0.40 mg/dL *LOW* (04/29/16 5:53 AM) 0.53 mg/dL (04/28/16 5:23 PM) Creatinine Lvl [0.50-1.40 mg/dL] 96 mL/min/1.73m2 1 *NA* (04/30/16 6:24 AM) 110 mL/min/1.73m2 2 *NA* (04/29/16 5:53 AM) 100 mL/min/1.73m2 3 *NA* (04/28/16 5:23 PM) eGFR 3 mg/dL *LOW* (04/30/16 6:24 AM) 5 mg/dL *LOW* (04/29/16 5:53 AM) 4 mg/dL *LOW* (04/28/16 5:23 PM) BUN [7-22 mg/dL] 12 (04/29/16 5:53 AM) 8 (04/28/16 5:23 PM) B/C Ratio [6-25] 85 mg/dL (04/30/16 6:24 AM) 60 mg/dL *LOW* (04/29/16 5:53 AM) 71 mg/dL (04/28/16 5:23 PM) Glucose Lvl [70-99 mg/dL] 5.7 g/dL *LOW* (04/29/16 5:53 AM) 6.9 g/dL (04/28/16 5:23 PM) Total Protein [6.4-8.4 g/dL] 2.6 g/dL *LOW* (04/29/16 5:53 AM) 3.1 g/dL *LOW* (04/28/16 5:23 PM) Albumin Lvl [3.5-5.0 g/dL] 3.1 g/dL (04/29/16 5:53 AM) 3.8 g/dL (04/28/16 5:23 PM) Globulin [2.7-4.2 g/dL] 0.8 (04/29/16 5:53 AM) 0.8 (04/28/16 5:23 PM) A/G Ratio [0.7-1.6] 7.8 mg/dL *LOW* (04/30/16 6:24 AM) 7.5 mg/dL *LOW* (04/29/16 5:53 AM) 8.0 mg/dL *LOW* (04/28/16:23 PM) Calcium Lvl [8.5-10.5 mg/dL] 2.6 mg/dL (04/29/16 5:53 AM) Phosphorus [2.5-4.5 mg/dL] 2.3 mg/dL (04/29/16 5:53 AM) 1.0 mg/dL 4 *CRIT* (04/28/16:23 PM) Magnesium Lvl [1.8-2.4 mg/dL] 12 unit/L (04/29/16 5:53 AM) 19 unit/L (04/28/16 5:23 PM) ALT [0-65 unit/L] 28 unit/L (04/29/16 5:53 AM) 43 unit/L *HI* (04/28/16 5:23 PM) AST [0-37 unit/L] 115 unit/L (04/29/16 5:53 AM) 140 unit/L *HI* (04/28/16:23 PM) Alk Phos [39-136 unit/L] 0.5 mg/dL (04/29/16 5:53 AM) 0.6 mg/dL (04/28/16 5:23 PM) Bili Total [0.2-1.3 mg/dL] 368 unit/L (04/28/16 5:23 PM) Lipase Lvl [73-393 unit/L] 1Result Comment: [...] be mul tiplied by the estimated BMI. 4Result Comment: Critical Result(s) called to Nena Sanderson at 04/28/2016 18:27 by melania. Read back OK. CARDIAC ENZYMES 1 2 3 Most recent to oldest [Reference Range]: 29 unit/L (04/29/16 5:53 AM) Total CK [12-191 unit/L] <0.02 ng/mL (04/29/16 5:53 AM) Troponin-I [0.00-0.40 ng/mL] 686 pg/mL *HI* (04/29/16 5:53 AM) BNP [<=100 pg/mL] URINE AND STOOL 1 2 3 Most recent to oldest [Reference Range]: Marked *ABN* (04/28/16 9:45 PM) UA Turbidity [Clear] Yellow *NA* (04/28/16 9:45 PM) UA Color [Yellow] 6.0 (04/28/16 9:45 PM) UA pH [5.0-8.0] 1.010 (04/28/16 9:45 PM) UA Spec Grav [<=1.030] Negative mg/dL *NA* (04/28/16 9:45 PM) UA Glucose [Negative mg/dL] Small *ABN* (04/28/16 9:45 PM) UA Blood [Negative] 20 mg/dL *ABN* (04/28/16 9:45 PM) UA Ketones [Negative mg/dL] Negative mg/dL (04/28/16 9:45 PM) UA Protein [Negative mg/dL] <=1.0 mg/dL *NA* (04/28/16 9:45 PM) UA Urobilinogen [0.1-1.0 mg/dL] Negative *NA* (04/28/16 9:45 PM) UA Bili [Negative] Large *ABN* (04/28/16 9:45 PM) UA Leuk Est [Negative] Positive *ABN* (04/28/16 9:45 PM) UA Nitrite [Negative] 175 /HPF *HI* (04/28/16 9:45 PM) UA WBC [0-5 /HPF] 1 /HPF (04/28/16 9:45 PM) UA RBC [0-2 /HPF] Many /HPF *ABN* (04/28/16 9:45 PM) UA Bacteria [None Seen /HPF] None Seen *NA* (04/28/16 9:45 PM) UA Sq Epi 1 /LPF (04/28/16 9:45 PM) UA Hyal Cast [0-2 /LPF] HEMATOLOGY 1 2 3 Most recent to oldest [Reference Range]: 5.8 K/CMM (04/30/16 6:24 AM) 6.5 K/CMM (04/29/16 11:16 AM) 12.5 K/CMM *HI* (04/28/16 5:23 PM) WBC [3.7-10.4 K/CMM] 3.68 M/CMM *LOW* (04/30/16 6:24 AM) 3.44 M/CMM *LOW* (04/29/16 11:16 AM) 3.94 M/CMM *LOW* (04/28/16 5:23 PM) RBC [4.20-5.40 M/CMM] 11.4 g/dL *LOW* (04/30/16 6:24 AM) 10.7 g/dL *LOW* (04/29/16 11:16 AM) 12.1 g/dL (04/28/16 5:23 PM) Hgb [12.0-16.0 g/dL] 34.9 % *LOW* (04/30/16 6:24 AM) 32.0 % *LOW* (04/29/16 11:16 AM) 36.9 % (04/28/16 5:23 PM) Hct [36.0-48.0 %] 95.0 fL (04/30/16 6:24 AM) 93.1 fL (04/29/16 11:16 AM) 93.6 fL (04/28/16 5:23 PM) MCV [80.0-98.0 fL] 31.1 pg *HI* (04/30/16 6:24 AM) 31.1 pg *HI* (04/29/16 11:16 AM) 30.6 pg (04/28/16 5:23 PM) MCH [27.0-31.0 pg] 32.7 g/dL (04/30/16 6:24 AM) 33.4 g/dL (04/29/16 11:16 AM) 32.7 g/dL (04/28/16 5:23 PM) MCHC [32.0-36.0 g/dL] 16.0 % *HI* (04/30/16 6:24 AM) 15.8 % *HI* (04/29/16 11:16 AM) 16.0 % *HI* (04/28/16 5:23 PM) RDW [11.5-14.5 %] 284 K/CMM (04/30/16 6:24 AM) 291 K/CMM (04/29/16 11:16 AM) 363 K/CMM (04/28/16 5:23 PM) Platelet [133-450 K/CMM] 8.0 fL (04/30/16 6:24 AM) 8.0 fL (04/29/16 11:16 AM) 7.9 fL (04/28/16 5:23 PM) MPV [7.4-10.4 fL] 67.9 % (04/30/16 6:24 AM) 79.5 % *HI* (04/29/16 11:16 AM) 79.7 % *HI* (04/28/16 5:23 PM) Segs [45.0-75.0 %] 18.2 % *LOW* (04/30/16 6:24 AM) 11.5 % *LOW* (04/29/16 11:16 AM) 13.6 % *LOW* (04/28/16 5:23 PM) Lymphocytes [20.0-40.0 %] 9.1 % (04/30/16 6:24 AM) 7.2 % (04/29/16 11:16 AM) 4.9 % (04/28/16 5:23 PM) Monocytes [2.0-12.0 %] 3.9 % (04/30/16 6:24 AM) 1.1 % (04/29/16 11:16 AM) 1.0 % (04/28/16 5:23 PM) Eosinophils [0.0-4.0 %] 0.9 % (04/30/16 6:24 AM) 0.7 % (04/29/16 11:16 AM) 0.8 % (04/28/16 5:23 PM) Basophils [0.0-1.0 %] 3.9 K/CMM (04/30/16 6:24 AM) 5.2 K/CMM (04/29/16 11:16 AM) 10.0 K/CMM *HI* (04/28/16 5:23 PM) Segs-Bands # [1.5-8.1 K/CMM] 1.0 K/CMM (04/30/16 6:24 AM) 0.7 K/CMM *LOW* (04/29/16 11:16 AM) 1.7 K/CMM (04/28/16 5:23 PM) Lymphocytes # [1.0-5.5 K/CMM] 0.5 K/CMM (04/30/16 6:24 AM) 0.5 K/CMM (04/29/16 11:16 AM) 0.6 K/CMM (04/28/16 5:23 PM) Monocytes # [0.0-0.8 K/CMM] 0.2 K/CMM (04/30/16 6:24 AM) 0.1 K/CMM (04/29/16 11:16 AM) 0.1 K/CMM (04/28/16 5:23 PM) Eosinophils # [0.0-0.5 K/CMM] 0.1 K/CMM (04/30/16 6:24 AM) 0.1 K/CMM (04/28/16 5:23 PM) Basophils # [0.0-0.2 K/CMM] 15.8 seconds *HI* (05/02/16 4:54 AM) 16.2 seconds *HI* (05/01/16 7:01 PM) 15.0 seconds *HI* (04/30/16 10:00 AM) PT [12.0-14.7 seconds] 1.23 *HI* (05/02/16 4:54 AM) 1.27 *HI* (05/01/16 7:01 PM) 1.16 (04/30/16 10:00 AM) INR [0.85-1.17] 30.7 seconds (04/29/16 5:53 AM) 24.2 seconds (04/28/16 5:23 PM) PTT [22.9-35.8 seconds] MOLECULAR DIAGNOSTIC 1 2 3 Most recent to oldest [Reference Range]: Negative (04/29/16 1:05 AM) C difficile DNA [Negative] Immunizations Given and Recorded Vaccine Date Status Refusal Reason diphtheria/pertussis, acel/tetanus adult 02/16/16 Given pneumococcal 13-valent vaccine 02/28/16 Given Procedures Procedure Date Related Diagnosis Body Site Hysterectomy Social History Social History Type Response Alcohol Never Smoking Status Current every day smoker; Type: Cigarettes; Tobacco use per day: 15; Number of years: 40; Total pack years: 0.5; Ready to change: No; Exposure to Tobacco Smoke None; Cigarette Smoking Last 365 Days Yes; Reg Smoking Cessation Counseling Yes Assessment and Plan Extracted from: Title: Clinical Document Author: Neeraj Mcmillan MD Date: 05/02/16 Progress Note Cardiology [facility] Impression: Shortness of breath Chronic diastolic heart failure, G1DD history of bilateral PEs not on Eliquis due to insurance reasons. PE nearly resolved on repeat CT COPD hypertension asthma Diarrhea Plan: Cont current cardiac medications going to her facility today euvolemic anticoagulation per the primary will sign off, please call with questions Subjective: Patient seen and examined. no cp or sob. resitng in bed Objective: Telemetry VitalsTmp(F)[id number] 05/02 12:[id number]--- 05/02 08:[id number]--- 05/02 04:[id number]--- 05/01 23:[id number]--- 05/01 20:[id number]--- 24 Hr Tmax: 98.9F (37.17c) at 05/02 08:00Vital Signs are the last 5 in the past 48 hours. Gen: Alert, no apparent distress Neck: No carotid bruits, No JVD Lungs: mild decreased breath sounds b/l Heart: Regular, normal s1 s2, no murmurs Abd: Soft, nt, nd, +bs Ext: no edema Neuro: No focal deficits Skin: warm, moist Labs (Last four charted values) WBC 5.8(APR 30)6.5(APR 29)H 12.5(APR 28) Hgb L 11.4(APR 30)L 10.7(APR 29)12.1(APR 28) Hct L 34.9(APR 30)L 32.0(APR 29)36.9(APR 28) Plt 284(APR 30)291(APR 29)363(APR 28) Na 136(APR 30)135(APR 29)L 130(APR 28) K 3.5(APR 30)C 2.9(APR 29)3.5(APR 28) CO2 26(APR 30)24(APR 29)25(APR 28) Cl 101(APR 15)97(APR 29)L 93(APR 28) Cr 0.60(APR 30)L 0.40(APR 29)0.53(APR 28) BUN L 3(APR 30)L 5(APR 29)L 4(APR 28) Glucose Random 85(APR 30)L 60(APR 14)71(APR 28) Mg 2.3(APR 29)C 1.0(APR 28) Phos 2.6(APR 29) Ca L 7.8(APR 30)L 7.5(APR 29)L 8.0(APR 28) PT H 15.8(MAY 02)H 16.2(MAY 01)H 15.0(APR 30)H 15.2(APR 30) INR H 1.23(MAY 02)H 1.27(MAY 01)1.16(APR 30)H 1.18(APR 30) PTT 30.7(APR 29)24.2(APR 28) Troponin <0.02(APR 29) Total CK 29(APR 29) Scheduled Meds (8): 04/29/16 aspirin (aspirin 81 mg tablet, enteric coated) 81 mg PO Daily 04/30/16 enoxaparin (Lovenox) 40 mg SUB-Q [id number] 05/01/16 furosemide (Lasix 20 mg oral tablet) 20 mg PO Daily 04/29/16 lisinopril 40 mg PO Daily 05/01/16 meropenem + sodium chloride 0.9% INJ 100 mL 500 mg IVPB ABXQ8H 33.33 ml/hr 04/29/16 metoprolol (metoprolol tartrate) 100 mg PO Q8H 04/29/16 metroNIDAZOLE (Flagyl) 500 mg IVPB ABXQ8H 200 ml/hr 05/01/16 warfarin (Coumadin) 5 mg PO Q5PM Continuous Infusions: None Extracted from: Title: Clinical Document Author: Neeraj Mcmillan MD Date: 04/29/16 [facility] Initial Cardiology Consultation Note Reason for Consult: sob, history of pe, anticoagulation recommendations Chief Complaint: Diarrhea HPI: 65-year-old female with history of bilateral PEs not on Eliquis due to insurance reasons, COPD, hypertension, asthma, frequent UTIs, who presents to the hospital with 4 day history of fever, chills, and watery diarrhea. Her BNP in the ER was in the 600s,. She had an echocardiogram done recently in February 2016. She was found to be hyponatremic in the ER and started on IV fluids due to possible dehydration from her diarrhea. Her hyponatremia is improved to 135. In regards to her anticoagulation, she had a lower extremity Doppler in late March which did not show any DVT. She was continued on Eliquis at that time. Pulmonary was consulted to see her at that time for shortness of breath. Shortness of breath was likely due to COPD and the possibility of some pulmonary embolism bilaterally. That is why pulmonary continued the anticoagulation. When she was initially diagnosed with her PE in February, she was discharged to [facility]. She continued to get Eliquis at that facility. However when she got discharged from this in the facility, she did not take the medication anymore because of cost issues. When she was seen again here in late March, she was discharged on a lower dose of Eliquis. She has not taken the medication because of cost issues. The patient does have a cough and some shortness of breath. REVIEW OF SYSTEMS: CONSTITUTIONAL: No fever. No chills. No dizziness. No weakness. EYES: No pain, erythema, or discharge. No blurring of vision. EAR, NOSE AND THROAT: No sore throat, URI symptoms. No epistaxis. No tinnitus. CARDIOVASCULAR: No chest pain. No palpitations. No lower extremity edema. RESPIRATORY: + shortness of breath, + cough, no pain with respiration, or pleuritic chest pain. No hemoptysis. No dyspnea. No paroxysmal nocturnal dyspnea. GASTROINTESTINAL: Normal appetite. No nausea, vomiting, + diarrhea. No pain. No bloating. No melena. GENITOURINARY: No frequency, urgency, nocturia. No hematuria or dysuria. MUSCULOSKELETAL: No arthralgias or myalgias. INTEGUMENTARY: No swelling. No bruising. No contusions. No abrasions. No lymphangitis. NEUROLOGIC: No headache. No neck pain. No numbness or tingling of the extremities. No weakness. PSYCHIATRIC: No confusion. METABOLIC: No fatigue. No weakness. No history of thyroid, diabetes or adrenal problems. HEMATOLOGICAL: No bleeding. No petechiae. No bruising. ALLERGY: No asthma. No urticaria. PAST MEDICAL HISTORY: Asthma PAST SURGICAL HISTORY: Hysterectomy FAMILY HISTORY: Father: Lymphoma Mother: Heart failure Sister: Heart attack; Stroke SOCIAL HISTORY: No tobacco, alcohol, or drug abuse MEDICATIONS: See inpatient medications below Allergies: NKDA VitalsTmp(F)[id number] 04/29 [id number]--- 04/29 [id number]--- 04/29 06:[id number]--- 04/29 [id number]--- 04/29 00:07----[id number]--- 24 Hr Tmax: 98.7F (37.06c) at 04/28 19:26Vital Signs are the last 5 in the past 48 hours. Gen: Alert, no apparent distress Neck: No carotid bruits, No JVD Lungs: Decreased breath sounds bilaterally Heart: Regular, normal s1 s2, no murmurs Abd: Soft, nt, nd, +bs Ext: 1+ edema Neuro: No focal deficits Skin: warm, moist Labs (Last four charted values) WBC H 12.5(APR 28) Hgb 12.1(APR 28) Hct 36.9(APR 28) Plt 363(APR 28) Na 135(APR 29)L 130(APR 28) K C 2.9(APR 29)3.5(APR 28) CO2 24(APR 29)25(APR 28) Cl 97(APR 29)L 93(APR 28) Cr L 0.40(APR 29)0.53(APR 28) BUN L 5(APR 29)L 4(APR 28) Glucose Random L 60(APR 29)71(APR 28) Mg 2.3(APR 29)C 1.0(APR 28) Phos 2.6(APR 29) Ca L 7.5(APR 29)L 8.0(APR 28) PT H 16.5(APR 29)13.0(APR 28) INR H 1.31(APR 29)0.96(APR 28) PTT 30.7(APR 29)24.2(APR 28) Troponin <0.02(APR 29) Total CK 29(APR 29) Impression: Shortness of breath Chronic diastolic heart failure history of bilateral PEs not on Eliquis due to insurance reasons COPD hypertension asthma Plan: The patient is currently being treated in hospital for diarrhea. However she does have complaints of shortness of breath and cough. As result, I will also order a chest x-ray. In addition I will get a CT PE to see if there is any pulmonary embolism. If there is no PE on the CT, she will not likely to be on any blood thinners. She had a a Doppler performed in late March which did not show any lower extremity DVT. In regards to her diarrhea, she was started on IV fluids because she was hyponatremic which was thought to be due to dehydration. Her sodium is improved and I would stop the IV fluids now. She no longer has any episodes of diarrhea and she does have some edema in her lower extremities. Continue aspirin, lisinopril, and metoprolol. This plan was explained in detail to the patient. The patient is in agreement with the plan. Over 55 minutes was spent in care of this patient. Continuous Infusions (1): 04/29/16 sodium chloride 0.9% 1000 ml INJ 1,000 mL 1,000 mL 75 ml/hr Scheduled Meds (7): 04/29/16 apixaban (Eliquis) 5 mg PO BID 04/29/16 aspirin (aspirin 81 mg tablet, enteric coated) 81 mg PO Daily 04/29/16 ciprofloxacin (Cipro) 400 mg IVPB [id number] 200 ml/hr 04/29/16 lisinopril 40 mg PO Daily 04/29/16 metoprolol (metoprolol tartrate) 100 mg PO Q8H 04/29/16 metroNIDAZOLE (Flagyl) 500 mg IVPB [id number] 200 ml/hr 04/29/16 potassium chloride 40 mEq PO Q4H Extracted from: Title: Clinical Document Author: Meet Lees MD Date: 04/29/16 full h&p dictated #[id number]
--- OUTSIDE RECORDS SUMMARY | 2018-01-14 16:56 | XMS REPORT | Summary of Care ---
Author Author [facility] Organization [facility] Address Unknown Phone Unavailable Encounter AMAURI Lovett(LIS) [id number] Date(s): 10/16/14 - 10/16/14 [facility] [address] [place] [address]- Discharge Diagnosis: Generalized weakness Discharge Diagnosis: Gallbladder sludge Discharge Diagnosis: Elevated liver enzymes Discharge Diagnosis: Lower extremity pain Discharge Disposition: Home Attending Physician: Mis Berg MD Vital Signs 1 2 3 Most recent to oldest [Reference Range]: 160.02 cm (10/16/14 12:59 PM) Height 1 2 3 Most recent to oldest [Reference Range]: 98.2 DegF (10/16/14 7:00 PM) 98.3 DegF (10/16/14 6:46 PM) 98.1 DegF (10/16/14 4:37 PM) Temperature Oral [96.4-99.1 DegF] 1 2 3 Most recent to oldest [Reference Range]: 155/78 mmHg *HI* (10/16/14 7:00 PM) 168/85 mmHg *HI* (10/16/14 6:46 PM) 160/90 mmHg *HI* (10/16/14 4:37 PM) Blood Pressure [90-140/60-90 mmHg] 1 2 3 Most recent to oldest [Reference Range]: 18 BRMIN (10/16/14 7:00 PM) 19 BRMIN (10/16/14 6:46 PM) 17 BRMIN (10/16/14 4:37 PM) Respiratory Rate [14-20 BRMIN] 1 2 3 Most recent to oldest [Reference Range]: 81 bpm (10/16/14 7:00 PM) 89 bpm (10/16/14 6:46 PM) 89 bpm (10/16/14 4:37 PM) Peripheral Pulse Rate [60-100 bpm] 1 2 3 Most recent to oldest [Reference Range]: 40.909 kg (10/16/14 12:59 PM) Weight 1 2 3 Most recent to oldest [Reference Range]: 15.98 m2 (10/16/14 12:59 PM) Body Mass Index Problem List Condition Effective Dates Status Health Status Informant COPD(Confirmed) Active DVT(Confirmed) Active HTN - Active Hypertension(Confirm ed) Current Active smoker(Confirmed) Allergies, Adverse Reactions, Alerts Substance Reaction Severity Status NKDA Active Medications aspirin 325 mg, Route: PO, Drug form: TAB, ONCE, Dosing Weight 40.909, kg, Priority: STA T, Start date: 10/16/14 15:50:00, Stop date: 10/16/14 15:50:00 Start Date: 10/16/14 Stop Date: 10/16/14 Status: Discontinued magnesium sulfate 2 gm, 50 mL, Route: IV, Drug form: INJ, ONCE, Dosing Weight 40.909, kg, Priority : STAT, Start date: 10/16/14 15:47:00, Stop date: 10/16/14 15:47:00 Start Date: 10/16/14 Stop Date: 10/16/14 Status: Completed morphine Sulfate 2 mg, Route: IVP, Drug form: INJ, ONCE, Dosing Weight 40.909, kg, Priority: STAT , Start date: 10/16/14 16:40:00, Stop date: 10/16/14 16:40:00 Start Date: 10/16/14 Stop Date: 10/16/14 Status: Completed Saline Flush 0.9% 10 mL, Route: IVP, Drug Form: INJ, Dosing Weight 40.909, kg, PRN, PRN Line Flush , Start date: 10/16/14 15:41:00, Duration: 30 day, Stop date: 11/15/14 15:40:00 Notes: (Same as: BD Posiflush) Start Date: 10/16/14 Stop Date: 10/17/14 Status: Discontinued Sodium Chloride 0.9% (Bolus) IV 1,000 mL, 1000 ml/hr, Infuse Over: 1 hr, Route: IV, 1,000, Drug form: INJ, ONCE, Priority: STAT, Dosing Weight 40.909 kg, Start date: 10/16/14 15:41:00, Mendeztio n: 1 doses or times, Stop date: 10/16/14 15:41:00 Start Date: 10/16/14 Stop Date: 10/16/14 Status: Completed Ultram 50 mg oral tablet 50 mg=1 tab, PO, Q4H, PRN pain, X 3 day, # 20 tab, 0 Refill(s) Start Date: 10/16/14 Stop Date: 10/19/14 Status: Ordered Results ELECTROLYTES Most recent to 1 oldest [Reference Range]: Sodium Lvl [135-145 133 mEq/L mEq/L] *LOW* (10/16/14 2:24 PM) Potassium Lvl 3.7 mEq/L [3.5-5.1 mEq/L] (10/16/14 2:24 PM) Chloride Lvl [95-109 96 mEq/L mEq/L] (10/16/14 2:24 PM) CO2 [24-32 mEq/L] 26 mEq/L (10/16/14 2:24 PM) AGAP [10.0-20.0 14.7 mEq/L mEq/L] (10/16/14 2:24 PM) CHEM PANEL Most recent to 1 oldest [Reference Range]: Creatinine Lvl 0.9 mg/dL [0.5-1.4 mg/dL] (10/16/14 2:24 PM) eGFR 68 mL/min/1.73m2 1 *NA* (10/16/14 2:24 PM) BUN [7-22 mg/dL] 18 mg/dL (10/16/14 2:24 PM) B/C Ratio [6-25] 20 (10/16/14 2:24 PM) Glucose Lvl [70-99 249 mg/dL mg/dL] *HI* (10/16/14 2:24 PM) Total Protein 7.3 g/dL [6.4-8.4 g/dL] (10/16/14 2:24 PM) Albumin Lvl [3.5-5.0 3.4 g/dL g/dL] *LOW* (10/16/14 2:24 PM) Globulin [2.0-4.0 3.9 g/dL g/dL] (10/16/14 2:24 PM) A/G Ratio [0.7-1.6] 0.9 (10/16/14 2:24 PM) Calcium Lvl 8.4 mg/dL [8.5-10.5 mg/dL] *LOW* (10/16/14 2:24 PM) Phosphorus [2.5-4.5 3.5 mg/dL mg/dL] (10/16/14 2:24 PM) Magnesium Lvl 1.1 mg/dL [1.8-2.4 mg/dL] *LOW* (10/16/14 2:24 PM) ALT [0-65 unit/L] 112 unit/L *HI* (10/16/14 2:24 PM) AST [0-37 unit/L] 337 unit/L *HI* (10/16/14 2:24 PM) Alk Phos [39-136 182 unit/L unit/L] *HI* (10/16/14 2:24 PM) Bili Total [0.2-1.3 0.7 mg/dL mg/dL] (10/16/14 2:24 PM) Amylase Lvl [25-115 31 unit/L unit/L] (10/16/14 2:24 PM) Lipase Lvl [73-393 468 unit/L unit/L] *HI* (10/16/14 2:24 PM) 1Result Comment: The eGFR is calculated [...] 1 oldest [Reference Range]: Total CK [12-191 60 unit/L unit/L] (10/16/14 2:24 PM) CK MB [0.5-3.6 0.8 ng/mL ng/mL] (10/16/14 2:24 PM) CK MB Index 1.3 [0.0-2.5] (10/16/14 2:24 PM) Troponin-I <0.02 ng/mL [0.00-0.40 ng/mL] (10/16/14 2:24 PM) BNP [<=100 pg/mL] 148 pg/mL *HI* (10/16/14 2:24 PM) URINE AND STOOL Most recent to 1 oldest [Reference Range]: UA Turbidity [Clear] Clear (10/16/14 4:31 PM) UA Color Ltyellow *NA* (10/16/14 4:31 PM) UA pH [5.0-8.0] 6.0 (10/16/14 4:31 PM) UA Spec Grav 1.008 [<=1.030] (10/16/14 4:31 PM) UA Glucose [Negative 150 mg/dL mg/dL] *ABN* (10/16/14 4:31 PM) UA Blood [Negative] Small *ABN* (10/16/14 4:31 PM) UA Ketones [Negative Trace mg/dL mg/dL] *ABN* (10/16/14 4:31 PM) UA Protein [Negative Negative mg/dL mg/dL] (10/16/14 4:31 PM) UA Urobilinogen <=1.0 mg/dL [0.1-1.0 mg/dL] *NA* (10/16/14 4:31 PM) UA Bili [Negative] Negative *NA* (10/16/14 4:31 PM) UA Leuk Est Negative [Negative] (10/16/14 4:31 PM) UA Nitrite Negative [Negative] (10/16/14 4:31 PM) UA WBC [0-5 /HPF] <1 /HPF (10/16/14 4:31 PM) UA RBC [0-2 /HPF] <1 /HPF (10/16/14 4:31 PM) UA Sq Epi [Few /LPF] Occasional /LPF *NA* (10/16/14 4:31 PM) UA Hyal Cast [0-2 7 /LPF /LPF] *HI* (10/16/14 4:31 PM) HEMATOLOGY Most recent to 1 oldest [Reference Range]: WBC [3.7-10.4 K/CMM] 5.4 K/CMM (10/16/14 2:24 PM) RBC [4.20-5.40 4.84 M/CMM M/CMM] (10/16/14 2:24 PM) Hgb [12.0-16.0 g/dL] 17.2 g/dL *HI* (10/16/14 2:24 PM) Hct [36.0-48.0 %] 52.5 % *HI* (10/16/14 2:24 PM) MCV [80.0-98.0 fL] 108.5 fL *HI* (10/16/14 2:24 PM) MCH [27.0-31.0 pg] 35.5 pg *HI* (10/16/14 2:24 PM) MCHC [32.0-36.0 32.7 g/dL g/dL] (10/16/14 2:24 PM) RDW [11.5-14.5 %] 15.6 % *HI* (10/16/14 2:24 PM) Platelet [133-450 135 K/CMM K/CMM] (10/16/14 2:24 PM) MPV [7.4-10.4 fL] 10.0 fL (10/16/14 2:24 PM) Segs [45.0-75.0 %] 80.3 % *HI* (10/16/14 2:24 PM) Lymphocytes 12.4 % [20.0-40.0 %] *LOW* (10/16/14 2:24 PM) Monocytes [2.0-12.0 6.7 % %] (10/16/14 2:24 PM) Eosinophils [0.0-4.0 0.5 % %] (10/16/14 2:24 PM) Basophils [0.0-1.0 0.1 % %] (10/16/14 2:24 PM) Segs-Bands # 4.3 K/CMM [1.5-8.1 K/CMM] (10/16/14 2:24 PM) Lymphocytes # 0.7 K/CMM [1.0-5.5 K/CMM] *LOW* (10/16/14 2:24 PM) Monocytes # [0.0-0.8 0.4 K/CMM K/CMM] (10/16/14 2:24 PM) Macrocyte [None 2+ Seen] *ABN* (10/16/14 2:24 PM) PT [12.0-14.7 23.9 seconds seconds] *HI* (10/16/14 2:24 PM) INR [0.85-1.17] 2.10 *HI* (10/16/14 2:24 PM) PTT [22.9-35.8 36.2 seconds seconds] *HI* (10/16/14 2:24 PM) Immunizations No data available for this section [...]
--- OUTSIDE RECORDS SUMMARY | 2018-01-14 16:56 | XMS REPORT | Summary of Care ---
Author Author [facility] Organization [facility] Address Unknown Phone Unavailable Encounter HQ Rachell(LIS) [id number] Date(s): 04/13/16 - 04/17/16 [facility] [address] [place] [address]- Discharge Disposition: Home or Self Care Attending Physician: Ryne Foster MD Admitting Physician: Ryne Foster MD Vital Signs 1 2 3 Most recent to oldest [Reference Range]: 160.02 cm (04/13/16 7:54 PM) Height 98.2 DegF (04/17/16 7:58 AM) 98.1 DegF (04/17/16 4:00 AM) 98.3 DegF (04/17/16 12:06 AM) Temperature Oral [96.4-99.1 DegF] 173/93 mmHg *HI* (04/17/16 7:58 AM) 160/94 mmHg *HI* (04/17/16 4:00 AM) 164/91 mmHg *HI* (04/17/16 12:06 AM) Blood Pressure [90-140/60-90 mmHg] 16 BRMIN (04/17/16 7:58 AM) 16 BRMIN (04/17/16 4:00 AM) 16 BRMIN (04/17/16 12:06 AM) Respiratory Rate [14-20 BRMIN] 103 bpm *HI* (04/17/16 7:58 AM) 111 bpm *HI* (04/17/16 4:00 AM) 111 bpm *HI* (04/17/16 12:06 AM) Peripheral Pulse Rate [60-100 bpm] 40.3 kg (04/13/16 7:54 PM) 40.909 kg (04/13/16 2:24 PM) Weight 15.74 m2 (04/13/16 7:54 PM) Body Mass Index Problem List Condition Effective Dates Status Health Status Informant COPD(Confirmed) Active DVT(Confirmed) Active HTN - Active Hypertension(Confirm ed) Asthma(Confirmed) Resolved Current Active smoker(Confirmed) Allergies, Adverse Reactions, Alerts Substance Reaction Severity Status NKDA Active Medications acetaminophen 650 mg, 2 tab, Route: PO, Drug form: TAB, ONCE, Dosing Weight 40.909, kg, Priori ty: STAT, Start date: 04/13/16 19:31:00 KEG FILLER, Stop date: 04/13/16 19:31:00 KEG FILLER Notes: Do not exceed 4 gm/day. (Same as: Tylenol) Start Date: 04/13/16 Stop Date: 04/13/16 Status: Completed acetaminophen-hydrocodone 325 mg-5 mg oral tablet 2 tab, Route: PO, Drug Form: TAB, Dosing Weight 40.3, kg, Q4H, PRN Pain Score 7- 10, Start date: 04/13/16 20:25:00 KEG FILLER, Duration: 30 day, Stop date: 05/13/16 20: 24:00 CDT Notes: (Same as: Douglas 325/5) Do not exceed 4gm/day of acetaminophen. Start Date: 04/13/16 Stop Date: 04/17/16 Status: Discontinued albuterol-ipratropium 2.5-0.5 mg inhalation solution 9 mL, Route: NEB, Drug Form: SOLN, Dosing Weight 40.909, kg, ONCE, STAT, Start d ate: 04/13/16 15:51:00 KEG FILLER, Stop date: 04/13/16 15:51:00 KEG FILLER Notes: (Same as: Duoneb) Start Date: 04/13/16 Stop Date: 04/13/16 Status: Completed albuterol-ipratropium 2.5-0.5 mg inhalation solution 3 mL, Route: NEB, Drug Form: SOLN, Dosing Weight 40.909, kg, Q6H, STAT, Start da te: 04/13/16 20:20:00 KEG FILLER, Duration: 30 day, Stop date: 05/13/16 18:00:00 CDT Notes: (Same as: Duoneb) Start Date: 04/13/16 Stop Date: 04/17/16 Status: Discontinued albuterol-ipratropium 2.5-0.5 mg inhalation solution 3 mL, Route: NEB, Drug Form: SOLN, Dosing Weight 40.909, kg, RQID, STAT, Start d ate: 04/13/16 15:21:00 KEG FILLER, Duration: 30 day, Stop date: 05/13/16 15:00:00 CDT Notes: (Same as: Duoneb) Start Date: 04/13/16 Stop Date: 04/13/16 Status: Discontinued aspirin 81 mg tablet, enteric coated 81 mg, 1 tab, Route: PO, Drug form: ECTAB, Daily, Dosing Weight 40.3, kg, Start date: 04/14/16 9:00:00 KEG FILLER, Duration: 30 day, Stop date: 05/13/16 9:00:00 CDT Notes: Do not crush or chew.(Same As: Ecotrin) Start Date: 04/14/16 Stop Date: 04/17/16 Status: Discontinued Cipro 500 mg oral tablet 500 mg=1 tab, PO, Q12H, X 10 day, # 20 tab, 0 Refill(s), Pharmacy: [facility]/pharmacy #[id number] Start Date: 04/16/16 Stop Date: 04/26/16 Status: Ordered ciprofloxacin 400 mg, 200 mL, Route: IVPB, Drug form: INJ, ONCE, Dosing Weight 40.909, kg, Laura ority: STAT, Start date: 04/13/16 19:32:00 KEG FILLER, Stop date: 04/13/16 19:32:00 KEG FILLER Notes: Do not refrigerate Start Date: 04/13/16 Stop Date: 04/13/16 Status: Completed Eliquis 5 mg, 1 tab, Route: PO, Drug form: TAB, BID, Dosing Weight 40.3, kg, Start date: 04/13/16 22:43:00 KEG FILLER, Duration: 30 day, Stop date: 05/13/16 21:00:00 CDT Notes: Same as: Eliquis Start Date: 04/13/16 Stop Date: 04/17/16 Status: Discontinued Eliquis 5 mg oral tablet 5 mg=1 tab, PO, BID, has dvt and PE and will need halfway therapy., # 60 tab, 0 Refill(s), Pharmacy: [facility]/pharmacy #[id number] Start Date: 04/17/16 Stop Date: 05/22/16 Status: Ordered lisinopril 40 mg, 2 tab, Route: PO, Drug form: TAB, Daily, Dosing Weight 40.3, kg, Start da te: 04/14/16 9:00:00 KEG FILLER, Duration: 30 day, Stop date: 05/13/16 9:00:00 CDT Notes: (Same as: Prinivil, Zestril) Start Date: 04/14/16 Stop Date: 04/17/16 Status: Discontinued Lopressor 50 mg, 1 tab, Route: PO, Drug form: TAB, Q12H, Dosing Weight 40.3, kg, Start judith e: 04/13/16 21:00:00 KEG FILLER, Duration: 30 day, Stop date: 05/13/16 9:00:00 CDT Notes: (Same as: Lopressor) Start Date: 04/13/16 Stop Date: 04/17/16 Status: Discontinued magnesium sulfate 2 gm, 50 mL, Route: IVPB, Drug form: INJ, ONCE, Dosing Weight 40.3, kg, Total do se=2 gm, Start date: 04/14/16 8:00:00 KEG FILLER, Duration: 1 doses or times, Stop date : 04/14/16 8:00:00 KEG FILLER Notes: WASTE: F/P - Sink; E - Municipal Trash Bin Start Date: 04/14/16 Stop Date: 04/14/16 Status: Completed methylPREDNISolone SODium SUCCinate 125 mg, 2 mL, Route: IVP, Drug form: INJ, ONCE, Dosing Weight 40.909, kg, Priori ty: STAT, Start date: 04/13/16 17:55:00 KEG FILLER, Stop date: 04/13/16 17:55:00 KEG FILLER Notes: (Same as:Solu-MEDROL, A-Methapred) Start Date: 04/13/16 Stop Date: 04/13/16 Status: Completed metoprolol 100 mg oral tablet, extended release 100 mg=1 tab, PO, TID, 0 Refill(s) Start Date: 04/13/16 Status: Ordered metroNIDAZOLE 500 mg, 100 mL, Route: IVPB, Drug form: INJ, ABXQ8H, Dosing Weight 40.909, kg, P riority: Routine, Start date: 04/13/16 21:00:00 KEG FILLER, Duration: 30 day, Stop date : 05/13/16 13:00:00 CDT Notes: (Same as: Walter) Avoid alcohol. Start Date: 04/13/16 Stop Date: 04/17/16 Status: Discontinued metroNIDAZOLE 500 mg, 100 mL, Route: IVPB, Drug form: INJ, ONCE, Dosing Weight 40.909, kg, Laura ority: STAT, Start date: 04/13/16 19:31:00 KEG FILLER, Stop date: 04/13/16 19:31:00 KEG FILLER Notes: (Same as: Walter) Avoid alcohol. Start Date: 04/13/16 Stop Date: 04/13/16 Status: Completed morphine Sulfate 2 mg, 1 mL, Route: IVP, Drug form: INJ, Q4H, Dosing Weight 40.3, kg, PRN Pain Sc ore 7-10, Start date: 04/13/16 20:25:00 KEG FILLER, Stop date: 05/13/16 20:24:00 CDT Notes: (Same as:MORPhine Sulfate) Start Date: 04/13/16 Stop Date: 04/17/16 Status: Discontinued ondansetron 4 mg, 2 mL, Route: IVP, Drug form: INJ, Q6H, Dosing Weight 40.3, kg, PRN Nausea & Vomiting, Start date: 04/13/16 20:25:00 KEG FILLER, Duration: 30 day, Stop date: 05/13/16 20:24:00 CDT Notes: (Same as: Osbaldo) MEDICATION WASTE Product Size: 4 mgProduct Was aurelia: ___ mg Start Date: 04/13/16 Stop Date: 04/17/16 Status: Discontinued pneumococcal 13-valent vaccine 0.5 mL, Route: IM, Daily, Start date: 04/14/16 9:00:00 KEG FILLER, Duration: 1 doses or times, Stop date: 04/14/16 9:00:00 KEG FILLER Start Date: 04/14/16 Stop Date: 04/13/16 Status: Canceled Rocephin + sodium chloride 0.9% INJ 100 mL 1 gm, Route: IVPB, [id number], Dosing Weight 40.3, kg, Start date: 04/13/16 21:00:0 0 KEG FILLER, Duration: 30 day, Stop date: 05/12/16 21:00:00 CDT Notes: (Same As: Rocephin).Use with 100 mL NS and infuse over 30 min MEDICA TION WASTE Product Size: 1000 mgProduct Wasted: ___ mg Start Date: 04/13/16 Stop Date: 04/15/16 Status: Discontinued Rocephin + sodium chloride 0.9% INJ 100 mL 1 gm, Route: IV, Q24H, Dosing Weight 40.3, kg, Start date: 04/15/16 9:00:00 KEG FILLER, Duration: 30 day, Stop date: 05/14/16 9:00:00 CDT Notes: (Same As: Rocephin).Use with 100 mL NS and infuse over 30 min MEDICA TION WASTE Product Size: 1000 mgProduct Wasted: ___ mg Start Date: 04/15/16 Stop Date: 04/17/16 Status: Discontinued Saline Flush 0.9% 10 ml, Route: IVP, Drug Form: INJ, Dosing Weight 40.3, kg, PRN, PRN Line Flush, Start date: 04/13/16 20:25:00 KEG FILLER, Duration: 30 day, Stop date: 05/13/16 21:24:0 0 CDT Notes: (Same as: BD Posiflush) Start Date: 04/13/16 Stop Date: 04/15/16 Status: Discontinued sodium chloride 0.9% 1000 ml INJ 1,000 mL 1,000 mL, Rate: 50 ml/hr, Infuse over: 20 hr, Route: IV, Dosing Weight 40.3 kg, Total Volume: 1,000, Start date: 04/13/16 20:25:00 KEG FILLER, Duration: 30 day, Stop d ate: 05/13/16 20:24:00 CDT Start Date: 04/13/16 Stop Date: 04/15/16 Status: Discontinued Tylenol with Codeine #4 oral tablet 1 tab, PO, Q4H, PRN Pain, X 7 day, # 42 tab, 0 Refill(s) Start Date: 04/17/16 Stop Date: 04/24/16 Status: Ordered Results ELECTROLYTES 1 2 3 Most recent to oldest [Reference Range]: 128 mEq/L *LOW* (04/14/16 4:40 AM) 125 mEq/L *LOW* (04/13/16 3:43 PM) Sodium Lvl [135-145 mEq/L] 3.9 mEq/L (04/14/16 4:40 AM) 3.8 mEq/L (04/13/16 3:43 PM) Potassium Lvl [3.5-5.1 mEq/L] 88 mEq/L *LOW* (04/14/16 4:40 AM) 87 mEq/L *LOW* (04/13/16 3:43 PM) Chloride Lvl [95-109 mEq/L] 28 mEq/L (04/14/16 4:40 AM) 27 mEq/L (04/13/16 3:43 PM) CO2 [24-32 mEq/L] 15.9 mEq/L (04/14/16 4:40 AM) 14.8 mEq/L (04/13/16 3:43 PM) AGAP [10.0-20.0 mEq/L] CHEM PANEL 1 2 3 Most recent to oldest [Reference Range]: 0.67 mg/dL (04/14/16 4:40 AM) 0.67 mg/dL (04/13/16 3:43 PM) Creatinine Lvl [0.50-1.40 mg/dL] 93 mL/min/1.73m2 1 *NA* (04/14/16 4:40 AM) 93 mL/min/1.73m2 2 *NA* (04/13/16 3:43 PM) eGFR 8 mg/dL (04/14/16 4:40 AM) 5 mg/dL *LOW* (04/13/16 3:43 PM) BUN [7-22 mg/dL] 12 (04/14/16 4:40 AM) 7 (04/13/16 3:43 PM) B/C Ratio [6-25] 140 mg/dL *HI* (04/14/16 4:40 AM) 87 mg/dL (04/13/16 3:43 PM) Glucose Lvl [70-99 mg/dL] 6.7 g/dL (04/14/16 4:40 AM) 7.5 g/dL (04/13/16 3:43 PM) Total Protein [6.4-8.4 g/dL] 2.9 g/dL *LOW* (04/14/16 4:40 AM) 3.2 g/dL *LOW* (04/13/16 3:43 PM) Albumin Lvl [3.5-5.0 g/dL] 3.8 g/dL (04/14/16 4:40 AM) 4.3 g/dL *HI* (04/13/16 3:43 PM) Globulin [2.7-4.2 g/dL] 0.8 (04/14/16 4:40 AM) 0.7 (04/13/16 3:43 PM) A/G Ratio [0.7-1.6] 8.0 mg/dL *LOW* (04/14/16 4:40 AM) 8.6 mg/dL (04/13/16 3:43 PM) Calcium Lvl [8.5-10.5 mg/dL] 3.5 mg/dL (04/14/16 4:40 AM) Phosphorus [2.5-4.5 mg/dL] 1.0 mg/dL 3 *CRIT* (04/14/16 4:40 AM) Magnesium Lvl [1.8-2.4 mg/dL] 10 unit/L (04/14/16 4:40 AM) 12 unit/L (04/13/16 3:43 PM) ALT [0-65 unit/L] 22 unit/L (04/14/16 4:40 AM) 37 unit/L (04/13/16 3:43 PM) AST [0-37 unit/L] 113 unit/L (04/14/16 4:40 AM) 133 unit/L (04/13/16 3:43 PM) Alk Phos [39-136 unit/L] 0.5 mg/dL (04/14/16 4:40 AM) 0.5 mg/dL (04/13/16 3:43 PM) Bili Total [0.2-1.3 mg/dL] 241 unit/L (04/13/16 3:43 PM) Lipase Lvl [73-393 unit/L] 1.2 mMol/L (04/13/16 3:43 PM) Lactic Acid Lvl [0.5-2.2 mMol/L] 1Result [...] tiplied by the estimated BMI. 3Result Comment: Critical Result(s) called to Faiza cotton 04/14/2016 07:01 byHA. Read back OK. CARDIAC ENZYMES 1 2 3 Most recent to oldest [Reference Range]: <0.02 ng/mL (04/14/16 4:40 AM) <0.02 ng/mL (04/14/16 12:59 AM) <0.02 ng/mL (04/13/16 3:43 PM) Troponin-I [0.00-0.40 ng/mL] URINE AND STOOL 1 2 3 Most recent to oldest [Reference Range]: Slight *ABN* (04/13/16 4:18 PM) UA Turbidity [Clear] Yellow *NA* (04/13/16 4:18 PM) UA Color [Yellow] 6.0 (04/13/16 4:18 PM) UA pH [5.0-8.0] 1.010 (04/13/16 4:18 PM) UA Spec Grav [<=1.030] Negative mg/dL *NA* (04/13/16 4:18 PM) UA Glucose [Negative mg/dL] Small *ABN* (04/13/16 4:18 PM) UA Blood [Negative] Trace mg/dL *ABN* (04/13/16 4:18 PM) UA Ketones [Negative mg/dL] Negative mg/dL (04/13/16 4:18 PM) UA Protein [Negative mg/dL] <=1.0 mg/dL *NA* (04/13/16 4:18 PM) UA Urobilinogen [0.1-1.0 mg/dL] Negative *NA* (04/13/16 4:18 PM) UA Bili [Negative] Moderate *ABN* (04/13/16 4:18 PM) UA Leuk Est [Negative] Positive *ABN* (04/13/16 4:18 PM) UA Nitrite [Negative] 31 /HPF *HI* (04/13/16 4:18 PM) UA WBC [0-5 /HPF] 1 /HPF (04/13/16 4:18 PM) UA RBC [0-2 /HPF] Many /HPF *ABN* (04/13/16 4:18 PM) UA Bacteria [None Seen /HPF] None Seen *NA* (04/13/16 4:18 PM) UA Sq Epi 4 /LPF *HI* (04/13/16 4:18 PM) UA Hyal Cast [0-2 /LPF] Few /LPF *NA* (04/13/16 4:18 PM) UA Mucus [None Seen /LPF] HEMATOLOGY 1 2 3 Most recent to oldest [Reference Range]: 3.2 K/CMM *LOW* (04/14/16 4:40 AM) 7.0 K/CMM (04/13/16 3:43 PM) WBC [3.7-10.4 K/CMM] 3.67 M/CMM *LOW* (04/14/16 4:40 AM) 4.08 M/CMM *LOW* (04/13/16 3:43 PM) RBC [4.20-5.40 M/CMM] 10.9 g/dL *LOW* (04/14/16 5:06 PM) 11.4 g/dL *LOW* (04/14/16 9:06 AM) 11.4 g/dL *LOW* (04/14/16 4:40 AM) Hgb [12.0-16.0 g/dL] 32.8 % *LOW* (04/14/16 5:06 PM) 34.2 % *LOW* (04/14/16 9:06 AM) 34.6 % *LOW* (04/14/16 4:40 AM) Hct [36.0-48.0 %] 94.4 fL (04/14/16 4:40 AM) 94.7 fL (04/13/16 3:43 PM) MCV [80.0-98.0 fL] 31.2 pg *HI* (04/14/16 4:40 AM) 31.0 pg (04/13/16 3:43 PM) MCH [27.0-31.0 pg] 33.1 g/dL (04/14/16 4:40 AM) 32.7 g/dL (04/13/16 3:43 PM) MCHC [32.0-36.0 g/dL] 15.2 % *HI* (04/14/16 4:40 AM) 15.3 % *HI* (04/13/16 3:43 PM) RDW [11.5-14.5 %] 271 K/CMM (04/14/16 4:40 AM) 304 K/CMM (04/13/16 3:43 PM) Platelet [133-450 K/CMM] 8.6 fL (04/14/16 4:40 AM) 8.5 fL (04/13/16 3:43 PM) MPV [7.4-10.4 fL] 89.1 % *HI* (04/14/16 4:40 AM) 75.1 % *HI* (04/13/16 3:43 PM) Segs [45.0-75.0 %] 9.6 % *LOW* (04/14/16 4:40 AM) 16.7 % *LOW* (04/13/16 3:43 PM) Lymphocytes [20.0-40.0 %] 1.3 % *LOW* (04/14/16 4:40 AM) 7.1 % (04/13/16 3:43 PM) Monocytes [2.0-12.0 %] 0.6 % (04/13/16 3:43 PM) Eosinophils [0.0-4.0 %] 0.5 % (04/13/16 3:43 PM) Basophils [0.0-1.0 %] 2.8 K/CMM (04/14/16 4:40 AM) 5.3 K/CMM (04/13/16 3:43 PM) Segs-Bands # [1.5-8.1 K/CMM] 0.3 K/CMM *LOW* (04/14/16 4:40 AM) 1.2 K/CMM (04/13/16 3:43 PM) Lymphocytes # [1.0-5.5 K/CMM] 0.5 K/CMM (04/13/16 3:43 PM) Monocytes # [0.0-0.8 K/CMM] 14.0 seconds (04/13/16 11:54 PM) PT [12.0-14.7 seconds] 1.06 (04/13/16 11:54 PM) INR [0.85-1.17] MOLECULAR DIAGNOSTIC 1 2 3 Most recent to oldest [Reference Range]: Negative (04/14/16 10:38 AM) C difficile DNA [Negative] Immunizations Given [...]
--- OUTSIDE RECORDS SUMMARY | 2018-01-14 16:56 | XMS REPORT | Summary of Care ---
Author Author [facility] Organization [facility] Address Unknown Phone Unavailable Encounter HQ Rachell(FIN) [id number] Date(s): 09/01/16 - 09/01/16 [facility] [address] [place] [address]- Discharge Diagnosis: Traumatic closed fracture of distal fibula with minimal dis placement Discharge Disposition: Home or Self Care Attending Physician: Bran Pradhan MD Vital Signs 1 2 3 Most recent to oldest [Reference Range]: 160.02 cm (09/01/16 1:03 AM) Height 98.1 DegF (09/01/16 5:22 AM) 98.3 DegF (09/01/16 4:30 AM) 98.2 DegF (09/01/16 3:29 AM) Temperature Oral [96.4-99.1 DegF] 140/78 mmHg (09/01/16 5:22 AM) 145/81 mmHg *HI* (09/01/16 4:30 AM) 148/80 mmHg *HI* (09/01/16 3:29 AM) Blood Pressure [90-140/60-90 mmHg] 16 BRMIN (09/01/16 5:22 AM) 16 BRMIN (09/01/16 4:30 AM) 17 BRMIN (09/01/16 3:29 AM) Respiratory Rate [14-20 BRMIN] 87 bpm (09/01/16 1:03 AM) Peripheral Pulse Rate [60-100 bpm] 40.909 kg (09/01/16 1:03 AM) Weight 15.98 m2 (09/01/16 1:03 AM) Body Mass Index Problem List Condition Effective Dates Status Health Status Informant COPD(Confirmed) Active DVT(Confirmed) Active Escherichia 04/28/16 Active coli(Confirmed)1, 2 HTN - Active Hypertension(Confirm ed) Asthma(Confirmed) Resolved Acute pulmonary Resolved embolism(Confirmed) Current Active smoker(Confirmed) 1urine 04/28/2016 2Problem added by Discern Expert. Allergies, Adverse Reactions, Alerts Substance Reaction Severity Status NKDA Active Medications [place] 5/325 oral tablet 1 tab, Route: PO, Drug Form: TAB, Dosing Weight 40.909, kg, ONCE, STAT, Start da te: 09/01/16 3:10:00 CDT, Stop date: 09/01/16 3:10:00 CDT Start Date: 09/01/16 Stop Date: 09/01/16 Status: Completed tramadol 50 mg oral tablet 50 mg=1 tab, PO, Q8H, PRN Pain, X 10 day, # 30 tab, 0 Refill(s) Start Date: 09/01/16 Stop Date: 09/11/16 Status: Ordered tramadol 50 mg oral tablet 50 mg, Route: PO, Drug form: TAB, ONCE, Dosing Weight 40.909, kg, Priority: STAT , Start date: 09/01/16 5:16:00 CDT, Stop date: 09/01/16 5:16:00 CDT Start Date: 09/01/16 Stop Date: 09/01/16 Status: Completed Results No data available for this section Immunizations Given and Recorded Vaccine Date Status Refusal Reason diphtheria/pertussis, acel/tetanus adult 02/16/16 Given pneumococcal 13-valent vaccine 02/28/16 Given pneumococcal 23-valent vaccine 07/28/16 Given Procedures Procedure Date Related Diagnosis Body Site Hysterectomy Social History Social History Type Response Substance Abuse Use: None. Alcohol Current, Type Liquor. Frequency: 1-2 times per week. Previous treatment: None. Smoking Status Current every day smoker; Type: Cigarettes; Tobacco use per day: 15; Number of years: 40; Total pack years: 0.5; Ready to change: No; Exposure to Tobacco Smoke None; Cigarette Smoking Last 365 Days Yes; Reg Smoking Cessation Counseling Yes Assessment and Plan No data available for this section
--- OUTSIDE RECORDS SUMMARY | 2018-01-14 16:56 | XMS REPORT | Summary of Care ---
Author Author [facility] Organization [facility] Address Unknown Phone Unavailable Encounter [facility] Rachell(FIN) [id number] Date(s): 07/27/16 - 07/28/16 [facility] [address] [place] [address]- [phone] Discharge Disposition: Home or Self Care Attending Physician: Kit Castillo MD Admitting Physician: Kit Castillo MD Vital Signs 1 2 3 Most recent to oldest [Reference Range]: 160.02 cm (07/27/16 1:47 PM) Height 98.2 DegF (07/28/16 12:00 PM) 98.7 DegF (07/28/16 8:00 AM) 98.5 DegF (07/28/16 4:00 AM) Temperature Oral [96.4-99.1 DegF] 148/84 mmHg *HI* (07/28/16 12:00 PM) 154/83 mmHg *HI* (07/28/16 8:00 AM) 125/63 mmHg (07/28/16 4:00 AM) Blood Pressure [90-140/60-90 mmHg] 17 BRMIN (07/28/16 12:00 PM) 17 BRMIN (07/28/16 8:00 AM) 18 BRMIN (07/28/16 4:00 AM) Respiratory Rate [14-20 BRMIN] 78 bpm (07/28/16 12:00 PM) 81 bpm (07/28/16 8:00 AM) 77 bpm (07/28/16 4:00 AM) Peripheral Pulse Rate [60-100 bpm] 40.909 kg (07/27/16 1:47 PM) Weight 15.98 m2 (07/27/16 1:47 PM) Body Mass Index Problem List Condition Effective Dates Status Health Status Informant COPD(Confirmed) Active DVT(Confirmed) Active Escherichia 04/28/16 Active coli(Confirmed)1, 2 HTN - Active Hypertension(Confirm ed) Asthma(Confirmed) Resolved Acute pulmonary Resolved embolism(Confirmed) Current Active smoker(Confirmed) 1urine 04/28/2016 2Problem added by Discern Expert. Allergies, Adverse Reactions, Alerts Substance Reaction Severity Status NKDA Active Medications acetaminophen-hydrocodone 325 mg-5 mg oral tablet 1 tab, Route: PO, Drug Form: TAB, Dosing Weight 40.909, kg, Q4H, PRN Pain Score 4-6, Start date: 07/27/16 21:50:00 CDT, Duration: 30 day, Stop date: 08/26/16 21 :49:00 CDT Notes: (Same as: [place] 325/5) Do not exceed 4gm/day of acetaminophen. Start Date: 07/27/16 Stop Date: 07/28/16 Status: Discontinued aspirin 324 mg, Route: PO, ONCE, Dosing Weight 40.909, kg, Priority: STAT, Start date: 0 07/27/16 14:04:00 CDT, Stop date: 07/27/16 14:04:00 CDT Start Date: 07/27/16 Stop Date: 07/27/16 Status: Completed aspirin 81 mg tablet, enteric coated 81 mg, 1 tab, Route: PO, Drug form: ECTAB, Daily, Dosing Weight 40.909, kg, Star t date: 07/28/16 9:00:00 CDT, Duration: 30 day, Stop date: 08/26/16 9:00:00 CDT Notes: Do not crush or chew.(Same As: Ecotrin) Start Date: 07/28/16 Stop Date: 07/28/16 Status: Discontinued labetalol 20 mg, Route: IVP, Drug form: INJ, ONCE, Dosing Weight 40.909, kg, Priority: STA T, Start date: 07/27/16 15:18:00 CDT, Stop date: 07/27/16 15:18:00 CDT Start Date: 07/27/16 Stop Date: 07/27/16 Status: Completed lisinopril 40 mg, 2 tab, Route: PO, Drug form: TAB, Daily, Dosing Weight 40.909, kg, Start date: 07/28/16 9:00:00 CDT, Duration: 30 day, Stop date: 08/26/16 9:00:00 CDT Notes: (Same as: Alejo Galarzaril) Start Date: 07/28/16 Stop Date: 07/28/16 Status: Discontinued metoprolol tartrate 100 mg, 1 tab, Route: PO, Drug form: ERTAB, Q8H, Dosing Weight 40.909, kg, Start date: 07/28/16 0:00:00 CDT, Duration: 30 day, Stop date: 08/26/16 16:00:00 CDT Notes: (Same as: Toprol XL) May split tab, but do not crush. Start Date: 07/28/16 Stop Date: 07/28/16 Status: Discontinued morphine Sulfate 2 mg, 1 mL, Route: IVP, Drug form: INJ, Q4H, Dosing Weight 40.909, kg, PRN Pain Score 7-10, Start date: 07/27/16 21:50:00 CDT, Duration: 30 day, Stop date: 08/16 03/04 21:49:00 CDT Notes: (Same as:MORPhine Sulfate) Start Date: 07/27/16 Stop Date: 07/28/16 Status: Discontinued morphine Sulfate 2 mg, Route: IVP, ONCE, Dosing Weight 40.909, kg, Priority: STAT, Start date: 14:04:00 CDT, Stop date: 07/27/16 14:04:00 CDT Start Date: 07/27/16 Stop Date: 07/27/16 Status: Completed morphine Sulfate 2 mg, Route: IVP, ONCE, Dosing Weight 40.909, kg, Start date: 07/27/16 18:38:00 CDT, Stop date: 07/27/16 18:38:00 CDT Start Date: 07/27/16 Stop Date: 07/27/16 Status: Completed ondansetron 4 mg, 2 mL, Route: IVP, Drug form: INJ, Q6H, Dosing Weight 40.909, kg, PRN Nause a & Vomiting, Start date: 07/27/16 21:50:00 CDT, Duration: 30 day, Stop date: 08/26/16 21:49:00 CDT Notes: (Same as: Zofran) MEDICATION WASTE Product Size: 4 mgProduct Was aurelia: ___ mg Start Date: 07/27/16 Stop Date: 07/28/16 Status: Discontinued ondansetron 4 mg, Route: IVP, ONCE, Dosing Weight 40.909, kg, Priority: STAT, Start date: 14:04:00 CDT, Stop date: 07/27/16 14:04:00 CDT Start Date: 07/27/16 Stop Date: 07/27/16 Status: Completed pneumococcal 23-valent vaccine 0.5 mL, Route: IM, Drug Form: INJ, Daily, Start date: 07/28/16 9:00:00 CDT, Dura tion: 1 doses or times, Stop date: 07/28/16 9:00:00 CDT Notes: (Same as: Pneumovax 23) Refrigerate Start Date: 07/28/16 Stop Date: 07/28/16 Status: Deleted ProAir HFA 90 mcg/inh inhalation aerosol with adapter 2 puff, Route: PO, Drug Form: AERO/A, Dosing Weight 40.909, kg, Q4H, PRN as need ed for wheezing, Start date: 07/27/16 21:53:00 CDT, Duration: 30 day, Stop date: 08/26/16 21:52:00 CDT Notes: Same as: Ventolin HFAWASTE: Aerosol - Return to Pharmacy Start Date: 07/27/16 Stop Date: 07/28/16 Status: Discontinued Protonix 40 mg, Route: IV, Drug form: INJ, BID-Before Meals, Dosing Weight 40.909, kg, St art date: 07/28/16 7:30:00 CDT, Duration: 30 day, Stop date: 08/26/16 16:30:00 C DT Notes: For IV push reconstitute with 10 ml 0.9% sodium chloride and push over 2 minutes. (Same as: Protonix) Start Date: 07/28/16 Stop Date: 07/28/16 Status: Discontinued Saline Flush 0.9% 10 mL, Route: IVP, Drug Form: INJ, Dosing Weight 40.909, kg, PRN, PRN Line Flush , Start date: 07/27/16 14:04:00 CDT, Duration: 30 day, Stop date: 08/26/16 14:03 :00 CDT Notes: preservative free. Start Date: 07/27/16 Stop Date: 07/27/16 Status: Discontinued warfarin 3.5 mg, PO, Daily, 0 Refill(s) Start Date: 07/27/16 Status: Ordered warfarin 3.5 mg, 3.5 tab, Route: PO, Drug form: TAB, Q5PM, Dosing Weight 40.909, kg, Star t date: 07/28/16 17:00:00 CDT, Duration: 30 day, Stop date: 08/26/16 17:00:00 CD T Notes: Nurse to ensure documentation of patient education per anticoagulation po licy.Avoid large intake of vitamin-K containing foods diet.(Same As: Coumadin)WA KAMERON: F/P - P Waste Black; E - P Waste Black Start Date: 07/28/16 Stop Date: 07/28/16 Status: Discontinued zolpidem 5 mg, 1 tab, Route: PO, Drug form: TAB, Bedtime, Dosing Weight 40.909, kg, PRN I nsomnia, Start date: 07/27/16 21:56:00 CDT, Duration: 30 day, Stop date: 7 21:55:00 CDT Notes: (Same As: Jatin) Start Date: 07/27/16 Stop Date: 07/28/16 Status: Discontinued Results ELECTROLYTES 1 2 3 Most recent to oldest [Reference Range]: 140 mEq/L (07/28/16 1:46 AM) 140 mEq/L (07/27/16 2:14 PM) Sodium Lvl [135-145 mEq/L] 4.0 mEq/L (07/28/16 1:46 AM) 3.7 mEq/L (07/27/16 2:14 PM) Potassium Lvl [3.5-5.1 mEq/L] 103 mEq/L (07/28/16 1:46 AM) 105 mEq/L (07/27/16 2:14 PM) Chloride Lvl [95-109 mEq/L] 31 mEq/L (07/28/16 1:46 AM) 31 mEq/L (07/27/16 2:14 PM) CO2 [24-32 mEq/L] 10.0 mEq/L (07/28/16 1:46 AM) 7.7 mEq/L *LOW* (07/27/16 2:14 PM) AGAP [10.0-20.0 mEq/L] CHEM PANEL 1 2 3 Most recent to oldest [Reference Range]: 0.79 mg/dL (07/28/16 1:46 AM) 0.87 mg/dL (07/27/16 2:14 PM) Creatinine Lvl [0.50-1.40 mg/dL] 79 mL/min/1.73m2 1 *NA* (07/28/16 1:46 AM) 70 mL/min/1.73m2 2 *NA* (07/27/16 2:14 PM) eGFR 28 mg/dL *HI* (07/28/16 1:46 AM) 26 mg/dL *HI* (07/27/16 2:14 PM) BUN [7-22 mg/dL] 30 *HI* (07/27/16 2:14 PM) B/C Ratio [6-25] 93 mg/dL (07/28/16 1:46 AM) 90 mg/dL (07/27/16 2:14 PM) Glucose Lvl [70-99 mg/dL] 7.7 g/dL (07/27/16 2:14 PM) Total Protein [6.4-8.4 g/dL] 3.5 g/dL (07/27/16 2:14 PM) Albumin Lvl [3.5-5.0 g/dL] 4.2 g/dL (07/27/16 2:14 PM) Globulin [2.7-4.2 g/dL] 0.8 (07/27/16 2:14 PM) A/G Ratio [0.7-1.6] 8.7 mg/dL (07/28/16 1:46 AM) 8.9 mg/dL (07/27/16 2:14 PM) Calcium Lvl [8.5-10.5 mg/dL] 12 unit/L (07/27/16 2:14 PM) ALT [0-65 unit/L] 16 unit/L (07/27/16 2:14 PM) AST [0-37 unit/L] 111 unit/L (07/27/16 2:14 PM) Alk Phos [39-136 unit/L] 0.3 mg/dL (07/27/16 2:14 PM) Bili Total [0.2-1.3 mg/dL] 1Result Comment: The eGFR is calculated using [...] tiplied by the estimated BMI. CARDIAC ENZYMES 1 2 3 Most recent to oldest [Reference Range]: 36 unit/L (07/28/16 1:46 AM) 42 unit/L (07/27/16 10:22 PM) 52 unit/L (07/27/16 2:14 PM) Total CK [12-191 unit/L] 1.3 ng/mL (07/27/16 2:14 PM) CK MB [0.5-3.6 ng/mL] 2.5 (07/27/16 2:14 PM) CK MB Index [0.0-2.5] <0.02 ng/mL (07/28/16 1:46 AM) <0.02 ng/mL (07/27/16 10:22 PM) <0.02 ng/mL (07/27/16 2:14 PM) Troponin-I [0.00-0.40 ng/mL] 406 pg/mL *HI* (07/27/16 2:14 PM) BNP [<=100 pg/mL] HEMATOLOGY 1 2 3 Most recent to oldest [Reference Range]: 8.0 K/CMM (07/28/16 1:46 AM) 8.4 K/CMM (07/27/16 2:14 PM) WBC [3.7-10.4 K/CMM] 3.56 M/CMM *LOW* (07/28/16 1:46 AM) 3.98 M/CMM *LOW* (07/27/16 2:14 PM) RBC [4.20-5.40 M/CMM] 10.8 g/dL *LOW* (07/28/16 1:46 AM) 12.0 g/dL (07/27/16 2:14 PM) Hgb [12.0-16.0 g/dL] 32.4 % *LOW* (07/28/16 1:46 AM) 36.6 % (07/27/16 2:14 PM) Hct [36.0-48.0 %] 91.1 fL (07/28/16 1:46 AM) 91.9 fL (07/27/16 2:14 PM) MCV [80.0-98.0 fL] 30.2 pg (07/28/16 1:46 AM) 30.2 pg (07/27/16 2:14 PM) MCH [27.0-31.0 pg] 33.2 g/dL (07/28/16 1:46 AM) 32.8 g/dL (07/27/16 2:14 PM) MCHC [32.0-36.0 g/dL] 20.7 % *HI* (07/28/16 1:46 AM) 21.0 % *HI* (07/27/16 2:14 PM) RDW [11.5-14.5 %] 244 K/CMM (07/28/16 1:46 AM) 290 K/CMM (07/27/16 2:14 PM) Platelet [133-450 K/CMM] 7.1 fL *LOW* (07/28/16 1:46 AM) 7.9 fL (07/27/16 2:14 PM) MPV [7.4-10.4 fL] 58.9 % (07/28/16 1:46 AM) 62.1 % (07/27/16 2:14 PM) Segs [45.0-75.0 %] 21.1 % (07/28/16 1:46 AM) 23.6 % (07/27/16 2:14 PM) Lymphocytes [20.0-40.0 %] 15.8 % *HI* (07/28/16 1:46 AM) 9.8 % (07/27/16 2:14 PM) Monocytes [2.0-12.0 %] 3.8 % (07/28/16 1:46 AM) 3.5 % (07/27/16 2:14 PM) Eosinophils [0.0-4.0 %] 0.4 % (07/28/16 1:46 AM) 1.0 % (07/27/16 2:14 PM) Basophils [0.0-1.0 %] 4.7 K/CMM (07/28/16 1:46 AM) 5.2 K/CMM (07/27/16 2:14 PM) Segs-Bands # [1.5-8.1 K/CMM] 1.7 K/CMM (07/28/16 1:46 AM) 2.0 K/CMM (07/27/16 2:14 PM) Lymphocytes # [1.0-5.5 K/CMM] 1.3 K/CMM *HI* (07/28/16 1:46 AM) 0.8 K/CMM (07/27/16 2:14 PM) Monocytes # [0.0-0.8 K/CMM] 0.3 K/CMM (07/28/16 1:46 AM) 0.3 K/CMM (07/27/16 2:14 PM) Eosinophils # [0.0-0.5 K/CMM] 0.1 K/CMM (07/27/16 2:14 PM) Basophils # [0.0-0.2 K/CMM] 31.5 seconds *HI* (07/28/16 2:15 PM) 34.5 seconds *HI* (07/27/16 11:01 PM) PT [12.0-14.7 seconds] 2.99 *HI* (07/28/16 2:15 PM) 3.36 *HI* (07/27/16 11:01 PM) INR [0.85-1.17] Immunizations Given and Recorded Vaccine Date Status [...] smoker; Type: Cigarettes; Tobacco use per day: 10; Started at age: 25.0; Previous treatment: None; Exposure to Tobacco Smoke None; Cigarette Smoking Last 365 Days Yes; Reg Smoking Cessation Counseling Yes Assessment and Plan Extracted from: Title: Clinical Document Author: Meet Lees MD Date: 07/28/16 PATIENT NAME: YULIYA BEAUCHAMP ATTENDING PHYSICIAN: KIT CASTILLO DATE OF ADMISSION: 07/27/2016 * * * CC: "can't catch my breath" REASON FOR ADMISSION: DYSPNEA, HYPERTENSIVE URGENCY, CHEST PAIN HISTORY OF PRESENT ILLNESS: 65yo woma n with PMHx of COPD not on home O2, HTN, DVT and PE in 2014 on warfarin 3.5mg/d, previous E. Coli UTI positive for ESBL, and asthma presents to the ED c/o central CP that began 3 days ago. States the pain has been constant, describes it as a pressure sensation that is nonradiating and localized in the lower central chest with occasional radiation to the left shoulder. States her blood pressure has been elevated over the past few days and asserts medical compliance with exception of forgetting to take 1 dose of lisinopril yesterday. Patient is c/o a mild generalized headache that she has had in the past, however today she also c/o blurred vision which has resolved upon arrival to the ED. Patient denies any fever, chills, increased cough, n/v or abdominal pain. Patient's PCP discontinued clonidine in May and increased dose of metoprolol from bid to tid. Patient was diagnosed with multiple bilateral PEs in February 2016 and started on warfarin. Repeat CT in April 2016, showed resolved PE. Patient has had 1 week of mild diarrhea and claims she had several episodes of black, tarry, loose stools. She denies NSAID use recently or excess EtOH use. She denies hematemesis or BRBPR. She has had no black or grossly bloody stools over the past several days. Denies h/o PUD. Labs in the ED showed negative troponin, BNP 406, INR 3.36, unremarkable CBC or BMP. CXR was unremarkable as well. Her BP was elevated to 194/107 in the ED and responded to IV labetalol 20mg x1. PAST MEDICAL HISTORY: as per HPI PAST SURGICAL HISTORY: hysterectomy FAMILY HISTORY: reviewed and non-contributory ALLERGIES: Allergies (1) ActiveReaction NKDANone documented HOME MEDICATIONS: Please see medical reconciliation form. SOCIAL HISTORY: REVIEW OF SYSTEMS: 12-point review of systems negative except for that detailed in above HPI PHYSICAL EXAMINATION: VitalsTmp(F)[id number] 07/28 00:[id number]--- 07/27 19:[id number]--- 07/27 17:[id number]--- 07/27 15:41----[id number]--- 07/27 15:00----[id number]--- 24 Hr Tmax: 98.7F (37.06c) at 07/27 19:06Vital Signs are the last 5 in the past 48 hours. I&ORecordInOutBal /1124hr Tot 1 0 1 /1024hr Tot 0 0 0 GENERAL: in no apparent distress at this time. HEENT: EOMI, PERRLA. Nasal cannula in place. NECK: supple, no jugular venous distention, no masses, no bruits CARDIOVASCULAR: regular rate and rhythm, s1 and s2 present, no murmurs, rubs or gallops LUNGS: poor air movement bilaterally, no rales or rhonchi. No wheezes audible on my exam GASTROINTESTINAL: soft, non-tender, non-distended positive bowel sounds in all four quadrants, no fluid wave appreciated EXTREMITIES: no clubbing, cyanosis or edema, pulses 2+ bilaterally and symmetric. NEUROLOGICAL: intact, no gross deficits noted SKIN: warm, no erythema, ecchymoses, purpura or petechiae, no jaundice, no diaphoresis LABORATORY DATA: Labs (Last four charted values) WBC 8.4(JUL 27) Hgb 12.0(JUL 27) Hct 36.6(JUL 27) Plt 290(JUL 27) Na 140(JUL 27) K 3.7(JUL 27) CO2 31(JUL 27) Cl 105(JUL 27) Cr 0.87(JUL 27) BUN H 26(JUL 27) Glucose Random 90(JUL 27) Ca 8.9(JUL 27) PT H 34.5(JUL 27) INR H 3.36(JUL 27) Troponin <0.02(JUL 27)<0.02(JUL 27) CK MB 1.3(JUL 27) Total CK 42(JUL 27)52(JUL 27) Radiology: Portable chest: The cardiomediastinal silhouette and pulmonary vasculature are within normal limits. The lungs and pleural spaces are clear. There are no acute osseous abnormalities. There is no significant change compared to 05/02/2016. IMPRESSION: No acute radiographic abnormality in the chest. Electrocardiogram: Time 07/27/2016 13:54, rate 91, Normal sinus rhythm. Normal P waves. Normal BHAKTI. Normal QRS complex. Normal axis. Normal ST and T waves and QT. The study has been interpreted contemporaneously by ED physician. The EKG appears to be a good tracing. Assessment&Plan: 65 yo woman with above PMHx presents with chest pressure, dysnpea and uncontrolled HTN 1. ACCELERATED HTN 2. CHEST PRESSURE 3. COPD 4. RECENT BLACK STOOLS 5. H/O BILATERAL PE 6. H/O ESBL E COLI UTI PLAN: 1. BP meds reconciled, pt responded well to IV labetalol and will continue PRN for SBP >170. creatinine stable. 2. Improved with BP control, enzymes negative thus far. will continue to trend. No EKG evidence of ACS. 3. no current wheezing, will reconcile bronchodilators, continue supplemental O2 and give PRN duonebs. 4. Will send stool for occult blood. Pt does admit she took pepto bismol but only after dark stools began. Hb stable. Will start protonix 40mg IV BID. 5. Nearly completely resolved as of 04/2016, continue warfarin at current dose. 6. no UTI symptoms at this time, afebrile. date/time of encounter: 07/27/2016 20:10
--- OUTSIDE RECORDS SUMMARY | 2018-01-14 16:56 | XMS REPORT | Summary of Care ---
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 03/05/2016 02:02
--- OUTSIDE RECORDS SUMMARY | 2018-01-14 16:57 | XMS REPORT | Summary of Care ---
Author Author [facility] Organization [facility] Address Unknown Phone Unavailable Encounter AMAURI Lovett(LIS) [id number] Date(s): 03/17/17 - 03/25/17 [facility] [address] [place] [address]- Encounter Diagnosis Chronic obstructive pulmonary disease with acute lower respiratory infection (Final) - 03/30/17 Acute posthemorrhagic anemia (Final) - Nicotine dependence, cigarettes, uncomplicated (Final) - Essential (primary) hypertension (Final) - Hyperlipidemia, unspecified (Final) - Chronic obstructive pulmonary disease with (acute) exacerbation (Final) - Abnormal coagulation profile (Final) - Acute bronchitis, unspecified (Final) - Diverticulosis of large intestine without perforation or abscess without bleedin g (Final) - Gastritis, unspecified, without bleeding (Final) - Duodenitis without bleeding (Final) - Diaphragmatic hernia without obstruction or gangrene (Final) - FPC (current) use of anticoagulants (Final) - Discharge Disposition: Home or Self Care Attending Physician: Tricia Power MD Admitting Physician: Tricia Power MD Vital Signs 1 2 3 Most recent to oldest [Reference Range]: 160.02 cm (03/18/17 1:25 PM) 160.02 cm (03/17/17 7:15 PM) Height 98.6 DegF (03/25/17 3:14 PM) 98.5 DegF (03/24/17 3:50 PM) 98.6 DegF (03/24/17 12:23 PM) Temperature Oral [96.4-99.1 DegF] 154/81 mmHg *HI* (03/25/17 3:14 PM) 137/69 mmHg (03/25/17 3:27 AM) 160/82 mmHg *HI* (03/25/17 12:09 AM) Blood Pressure [90-140/60-90 mmHg] 18 BRMIN (03/25/17 8:22 AM) 16 BRMIN (03/25/17 3:27 AM) 16 BRMIN (03/25/17 12:09 AM) Respiratory Rate [14-20 BRMIN] 68 bpm (03/25/17 3:14 PM) 67 bpm (03/25/17 3:27 AM) 68 bpm (03/25/17 12:09 AM) Peripheral Pulse Rate [60-100 bpm] 44.773 kg (03/18/17 1:25 PM) 40.909 kg (03/17/17 7:15 PM) Weight 17.49 m2 (03/18/17 1:25 PM) 15.98 m2 (03/17/17 7:15 PM) Body Mass Index Problem List Condition Effective Dates Status Health Status Informant COPD(Confirmed) Active DVT(Confirmed) Active Escherichia 04/28/16 Active coli(Confirmed)1, 2 HTN - Active Hypertension(Confirm ed) Asthma(Confirmed) Resolved Acute pulmonary Resolved embolism(Confirmed) Current Active smoker(Confirmed) 1urine 04/28/2016 2Problem added by Discern Expert. Allergies, Adverse Reactions, Alerts Substance Reaction Severity Status NKDA Active Medications acetaminophen 650 mg, 20.3 mL, Route: PO, Drug form: LIQ, Q4H, Dosing Weight 40.909, kg, PRN P ain Score 4-6, Start date: 03/18/17 9:32:00 STAYING MACHINE OPERATOR, Duration: 30 day, Stop date: 9:31:00 STAYING MACHINE OPERATOR Notes: Max fwotcqlovbekf=4767gt/day (4 gm/day). (Same as: Tylenol) Start Date: 03/18/17 Stop Date: 03/25/17 Status: Discontinued albuterol 0.083% inhalation solution 2.49 mg, 3 mL, Route: NEB, Drug form: SOLN, RQ2H, Dosing Weight 40.909, kg, PRN Wheezing, Priority: Routine, Start date: 03/18/17 3:36:00 STAYING MACHINE OPERATOR, Duration: 30 day, Stop date: 04/17/17 3:35:00 STAYING MACHINE OPERATOR Notes: SEE RT DOCUMENTATION (Same as: Proventil) Start Date: 03/18/17 Stop Date: 03/18/17 Status: Discontinued albuterol-ipratropium 2.5-0.5 mg inhalation solution 3 mL, Route: NEB, Drug Form: SOLN, Dosing Weight 40.909, kg, ONCE, STAT, Start d ate: 03/18/17 1:18:00 STAYING MACHINE OPERATOR, Stop date: 03/18/17 1:18:00 STAYING MACHINE OPERATOR Start Date: 03/18/17 Stop Date: 03/18/17 Status: Completed albuterol-ipratropium 2.5-0.5 mg inhalation solution 3 mL, Route: NEB, Drug Form: SOLN, Dosing Weight 40.909, kg, RQ6H, Start date: 0 03/18/17 8:00:00 STAYING MACHINE OPERATOR, Duration: 30 day, Stop date: 04/17/17 2:00:00 STAYING MACHINE OPERATOR Notes: (Same as: Duoneb) Start Date: 03/18/17 Stop Date: 03/18/17 Status: Discontinued amLODIPine 5 mg oral tablet 5 mg=1 tab, PO, Daily, # 30 tab, 0 Refill(s) Start Date: 03/18/17 Status: Ordered aspirin 81 mg tablet, enteric coated 81 mg, 1 tab, Route: PO, Drug form: ECTAB, Daily, Dosing Weight 44.773, kg, Star t date: 03/18/17 18:00:00 STAYING MACHINE OPERATOR, Duration: 30 day, Stop date: 04/17/17 9:00:00 STAYING MACHINE OPERATOR Notes: Do not crush or chew.(Same As: Ecotrin) Start Date: 03/18/17 Stop Date: 03/25/17 Status: Discontinued Benadryl 25 mg, 0.5 mL, Route: PO, Drug form: INJ, ONCE, Dosing Weight 44.773, kg, Start date: 03/19/17 6:26:00 STAYING MACHINE OPERATOR, Stop date: 03/19/17 6:26:00 STAYING MACHINE OPERATOR Notes: (Same as: Benadryl) Start Date: 03/19/17 Stop Date: 03/19/17 Status: Completed cloNIDine 0.2 mg oral tablet 0.2 mg, 1 tab, Route: PO, Drug form: TAB, BID, Dosing Weight 44.773, kg, PRN Hyp ertension, Start date: 03/18/17 17:28:00 STAYING MACHINE OPERATOR, Duration: 30 day, Stop date: 04/17 17:27:00 STAYING MACHINE OPERATOR Notes: (Same As: Catapres) Start Date: 03/18/17 Stop Date: 03/25/17 Status: Discontinued cloNIDine 0.2 mg oral tablet 0.2 mg=1 tab, PO, BID, PRN Hypertension, only take as needed for elevated BP, 0 Refill(s) Start Date: 03/18/17 Status: Ordered Coumadin 2.5 mg, 1 tab, Route: PO, Drug form: TAB, ONCE, Start date: 03/23/17 12:22:00 CS T, Stop date: 03/23/17 12:22:00 STAYING MACHINE OPERATOR Notes: Nurse to ensure documentation of patient education per anticoagulation po licy.Avoid large intake of vitamin-K containing foods diet.(Same As: Coumadin)JUVENAL KAMERON: F/P - P Waste Black; E - P Waste Black Start Date: 03/23/17 Stop Date: 03/23/17 Status: Completed Coumadin 7.5 mg, 1 tab, Route: PO, Drug form: TAB, Q5PM, Dosing Weight 44.773, kg, Start date: 03/22/17 9:00:00 STAYING MACHINE OPERATOR, Stop date: 04/20/17 17:00:00 STAYING MACHINE OPERATOR Notes: Nurse to ensure documentation of patient education per anticoagulation po licy.Avoid large intake of vitamin-K containing foods diet.WASTE: F/P - P Waste Black; E - P Waste Black(Same As: Coumadin) Start Date: 03/22/17 Stop Date: 03/25/17 Status: Discontinued Coumadin 2 mg, 1 tab, Route: PO, Drug form: TAB, ONCE, Start date: 03/23/17 12:20:00 STAYING MACHINE OPERATOR, Stop date: 03/23/17 12:20:00 STAYING MACHINE OPERATOR Notes: Nurse to ensure documentation of patient education per anticoagulation po licy.Avoid large intake of vitamin-K containing foods diet.(Same As: Coumadin)JUVENAL KAMERON: F/P - P Waste Black; E - P Waste Black Start Date: 03/23/17 Stop Date: 03/23/17 Status: Completed Coumadin 3 mg oral tablet 3 mg=1 tab, PO, Daily, # 30 tab, 0 Refill(s), Pharmacy: [facility] [id number] Start Date: 03/25/17 Status: Ordered DuoNeb inhalation solution 3 ml, Route: NEB, Drug Form: SOLN, Dosing Weight 40.909, kg, ONCE, PRN Respirato ry Protocol, Start date: 03/18/17 6:12:00 STAYING MACHINE OPERATOR Notes: (Same as: Duoneb) Start Date: 03/18/17 Stop Date: 03/19/17 Status: Completed Ferrlecit + Sodium Chloride 0.9% IV 100 mL 125 mg, 10 mL, Route: IVPB, Drug form: INJ, Daily, Dosing Weight 44.773, kg, Sta rt date: 03/25/17 9:00:00 STAYING MACHINE OPERATOR, Duration: 8 day, Stop date: 04/01/17 9:00:00 STAYING MACHINE OPERATOR Notes: (sodium ferric gluconate complex (elemental iron) 62.5 mg/5 ml INJ)"Limit ed stability. Use immediately after admixture"(Same as: Ferrlecit) MEDICAT ION WASTE Product Size: 62.5 mgProduct Wasted: ___ mg Start Date: 03/25/17 Stop Date: 03/25/17 Status: Discontinued Lasix 20 mg, 2 mL, Route: IV, Drug form: INJ, ONCE, Dosing Weight 44.773, kg, Start da te: 03/19/17 6:26:00 STAYING MACHINE OPERATOR, Stop date: 03/19/17 6:26:00 STAYING MACHINE OPERATOR Notes: (Same as: Lasix) Start Date: 03/19/17 Stop Date: 03/19/17 Status: Completed lisinopril 40 mg, 2 tab, Route: PO, Drug form: TAB, Daily, Dosing Weight 44.773, kg, Start date: 03/18/17 18:00:00 STAYING MACHINE OPERATOR, Duration: 30 day, Stop date: 04/17/17 9:00:00 STAYING MACHINE OPERATOR Notes: (Same as: Prinivil, Zestril) Start Date: 03/18/17 Stop Date: 03/25/17 Status: Discontinued Lovenox 40 mg, 0.4 mL, Route: SUB-Q, Drug form: INJ, [id number], Dosing Weight 44.773, kg, Start date: 03/21/17 13:00:00 STAYING MACHINE OPERATOR, Duration: 30 day, Stop date: 04/19/17 13:00: 00 STAYING MACHINE OPERATOR Notes: (Same as: Lovenox) Start Date: 03/21/17 Stop Date: 03/23/17 Status: Discontinued Lovenox 40 mg, 0.4 mL, Route: SUB-Q, Drug form: INJ, [id number], Dosing Weight 44.773, kg, Start date: 03/23/17 13:00:00 STAYING MACHINE OPERATOR, Duration: 30 day, Stop date: 04/22/17 1:00:00 STAYING MACHINE OPERATOR Notes: (Same as: Lovenox) Start Date: 03/23/17 Stop Date: 03/25/17 Status: Discontinued Lovenox 40 mg/0.4 mL subcutaneous solution 40 mg, SUB-Q, Q12H, X 5 day, # 10 inj, 0 Refill(s), Pharmacy: [facility] [id number] Start Date: 03/25/17 Stop Date: 03/30/17 Status: Completed methylPREDNISolone SODium SUCCinate 125 mg, Route: IVP, ONCE, Dosing Weight 40.909, kg, Priority: STAT, Start date: 03/18/17 1:18:00 STAYING MACHINE OPERATOR, Stop date: 03/18/17 1:18:00 STAYING MACHINE OPERATOR Start Date: 03/18/17 Stop Date: 03/18/17 Status: Completed Norvasc 10 mg, 2 tab, Route: PO, Drug form: TAB, Daily, Dosing Weight 44.773, kg, Start date: 03/22/17 9:00:00 STAYING MACHINE OPERATOR, Stop date: 04/20/17 9:00:00 STAYING MACHINE OPERATOR Notes: (Same as: Norvasc) Start Date: 03/22/17 Stop Date: 03/25/17 Status: Discontinued pantoprazole 40 mg, 1 tab, Route: PO, Drug form: ECTAB, Before Breakfast, Dosing Weight 44.77 3, kg, Start date: 03/22/17 7:30:00 STAYING MACHINE OPERATOR, Duration: 30 day, Stop date: 04/20/17 7 :30:00 STAYING MACHINE OPERATOR Notes: Tablet should not be chewed or crushed.(Same as: Protonix) Start Date: 03/22/17 Stop Date: 03/25/17 Status: Discontinued pantoprazole 40 mg, 1 tab, Route: PO, Drug form: ECTAB, BID-Before Meals, Dosing Weight 44.77 3, kg, Start date: 03/20/17 18:03:00 STAYING MACHINE OPERATOR, Duration: 30 day, Stop date: 04/19/17 16:30:00 STAYING MACHINE OPERATOR Notes: Tablet should not be chewed or crushed.(Same as: Protonix) Start Date: 03/20/17 Stop Date: 03/21/17 Status: Discontinued phytonadione 10 mg, 1 mL, Route: SUB-Q, Drug form: INJ, ONCE, Dosing Weight 44.773, kg, Start date: 03/18/17 17:33:00 STAYING MACHINE OPERATOR, Stop date: 03/18/17 17:33:00 STAYING MACHINE OPERATOR Notes: (Same as: Aqua-Mephyton, Vitamin K) MEDICATION WASTE Product Size : 10 mgProduct Wasted: ___ mg Start Date: 03/18/17 Stop Date: 03/18/17 Status: Completed polyethylene glycol 3350 with electrolytes 4 Liter, Route: PO, Drug Form: PDR/REC, Dosing Weight 44.773, kg, ONCE, Start da te: 03/20/17 17:33:00 STAYING MACHINE OPERATOR, Stop date: 03/20/17 17:33:00 STAYING MACHINE OPERATOR Notes: (polyethylene glycol electrolyte solution 4 Liter bottle) (Same as: Irma hess Colyte) Start Date: 03/20/17 Stop Date: 03/20/17 Status: Completed predniSONE 40 mg, 2 tab, Route: PO, Drug form: TAB, Daily, Dosing Weight 40.909, kg, Start date: 03/18/17 9:00:00 STAYING MACHINE OPERATOR, Stop date: 04/16/17 9:00:00 STAYING MACHINE OPERATOR Notes: Take with food. Start Date: 03/18/17 Stop Date: 03/25/17 Status: Discontinued predniSONE 10 mg oral tablet See Special Instructions, PO, Daily, 4 day regimen: Day 1 - 40 mg Day 2 - 30 mg Day 3 - 20 mg Day 4 - 10 mg, X 4 day, # 10 tab, 0 Refill(s), Pharmacy: [facility] #[id number] Start Date: 03/25/17 Stop Date: 03/29/17 Status: Completed Rocephin + sterile water 10 mL 1 gm, Route: IV, [id number], Dosing Weight 44.773, kg, Start date: 03/19/17 13:00:0 0 STAYING MACHINE OPERATOR, Duration: 30 day, Stop date: 04/17/17 13:00:00 STAYING MACHINE OPERATOR, ABX Indication: Other (specify in Comments) Notes: (Same As: Rocephin).Use with 100 mL NS and infuse over 30 min MEDICA TION WASTE Product Size: 1000 mgProduct Wasted: ___ mg Start Date: 03/19/17 Stop Date: 03/23/17 Status: Discontinued Sodium Chloride 0.9% (titrate) 250 mL 250 mL, Rate: To prime line and flush remaining blood products., Dosing Weight 4 0.909, kg, Route: IV, Total Volume: 250, Priority: Routine, Start Date: 03/18/17 12:52:00 STAYING MACHINE OPERATOR, Duration: 30 day, Stop date: 04/17/17 12:51:00 STAYING MACHINE OPERATOR, Replace Every: 24 hr Start Date: 03/18/17 Stop Date: 03/25/17 Status: Discontinued Sodium Chloride 0.9% (titrate) 250 mL 250 mL, Rate: To prime line and flush remaining blood products., Dosing Weight 4 4.773, kg, Route: IV, Total Volume: 250, Priority: Routine, Start Date: 03/19/17 6:29:00 STAYING MACHINE OPERATOR, Duration: 1 day, Stop date: 03/20/17 6:28:00 STAYING MACHINE OPERATOR, Replace Every: 24 hr Start Date: 03/19/17 Stop Date: 03/20/17 Status: Completed Sodium Chloride 0.9% IV 1,000 mL 1,000 mL, Rate: 25 ml/hr, Infuse over: 40 hr, Route: IV, Dosing Weight 44.773 kg , Total Volume: 1,000, Start date: 03/21/17 11:13:00 STAYING MACHINE OPERATOR, Duration: 1 day, Stop date: 03/22/17 11:12:00 STAYING MACHINE OPERATOR, 1.42, m2 Start Date: 03/21/17 Stop Date: 03/21/17 Status: Discontinued Toprol-XL 100 mg oral tablet, extended release 100 mg, 1 tab, Route: PO, Drug form: ERTAB, TID, Start date: 03/18/17 21:00:[address], Duration: 30 day, Stop date: 04/17/17 15:00:00 STAYING MACHINE OPERATOR Notes: (Same as: Toprol XL) May split tab, but do not crush. Start Date: 03/18/17 Stop Date: 03/25/17 Status: Discontinued tramadol 50 mg oral tablet 50 mg, 1 tab, Route: PO, Drug form: TAB, Q6H, Dosing Weight 44.773, kg, PRN Pain Score 4-6, Start date: 03/18/17 19:03:00 STAYING MACHINE OPERATOR, Duration: 30 day, Stop date: 04/05 19:02:00 STAYING MACHINE OPERATOR Notes: Not to exceed 400mg/day. (Same As: Ultram) Start Date: 03/18/17 Stop Date: 03/25/17 Status: Discontinued Tylenol 650 mg, 20.3 mL, Route: PO, Drug form: LIQ, ONCE, Dosing Weight 44.773, kg, Star t date: 03/19/17 6:26:00 STAYING MACHINE OPERATOR, Stop date: 03/19/17 6:26:00 STAYING MACHINE OPERATOR Notes: Max exiabumksjxak=8050rm/day (4 gm/day). (Same as: Tylenol) Start Date: 03/19/17 Stop Date: 03/19/17 Status: Completed Ultram 50 mg oral tablet 50 mg, 1 tab, Route: PO, Drug form: TAB, ONCE, Dosing Weight 40.909, kg, Priorit y: STAT, Start date: 03/18/17 2:22:00 STAYING MACHINE OPERATOR, Stop date: 03/18/17 2:22:00 STAYING MACHINE OPERATOR Notes: Not to exceed 400mg/day. (Same As: Ultram) Start Date: 03/18/17 Stop Date: 03/18/17 Status: Completed Xopenex 1.25 mg, 3 mL, Route: NEB, Drug form: SOLN, PRN, Dosing Weight 44.773, kg, PRN R espiratory Protocol, Start date: 03/18/17 22:18:00 STAYING MACHINE OPERATOR, Duration: 30 day, Stop d ate: 04/17/17 22:17:00 STAYING MACHINE OPERATOR Notes: SEE RT DOCUMENTATION (Same as:Xopenex)Non-Formulary Start Date: 03/18/17 Stop Date: 03/25/17 Status: Discontinued Results BLOOD BANK RESULTS 1 2 3 Most recent to oldest [Reference Range]: A POS *Unknown* (03/18/17 1:10 PM) ABO/Rh Negative (03/18/17 1:10 PM) Antibody Scrn Product available 1 (03/18/17 12:52 PM) FFP product Product available 2 (03/19/17 6:29 AM) RBC product 1Result Comment: 03/18/2017 14:30 [id number] notified lindsay martin 2Result Comment: 03/19/2017 07:51 [id number] notified ALYSIA MARTIN 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 ELECTROLYTES 1 2 3 Most recent to oldest [Reference Range]: 139 mEq/L (03/25/17 5:41 AM) 139 mEq/L (03/24/17 5:13 AM) 140 mEq/L (03/22/17 3:40 AM) Sodium Lvl [135-145 mEq/L] 3.3 mEq/L *LOW* (03/25/17 5:41 AM) 3.2 mEq/L *LOW* (03/24/17 5:13 AM) 3.7 mEq/L (03/22/17 3:40 AM) Potassium Lvl [3.5-5.1 mEq/L] 101 mEq/L (03/25/17 5:41 AM) 102 mEq/L (03/24/17 5:13 AM) 101 mEq/L (03/22/17 3:40 AM) Chloride Lvl [95-109 mEq/L] 31 mEq/L (03/25/17 5:41 AM) 31 mEq/L (03/24/17 5:13 AM) 30 mEq/L (03/22/17 3:40 AM) CO2 [24-32 mEq/L] 10.3 mEq/L (03/25/17 5:41 AM) 9.2 mEq/L *LOW* (03/24/17 5:13 AM) 12.7 mEq/L (03/22/17 3:40 AM) AGAP [10.0-20.0 mEq/L] CHEM PANEL 1 2 3 Most recent to oldest [Reference Range]: 0.71 mg/dL (03/25/17 5:41 AM) 0.69 mg/dL (03/24/17 5:13 AM) 0.69 mg/dL (03/22/17 3:40 AM) Creatinine Lvl [0.50-1.40 mg/dL] 89 mL/min/1.73m2 1 *NA* (03/25/17 5:41 AM) 91 mL/min/1.73m2 2 *NA* (03/24/17 5:13 AM) 91 mL/min/1.73m2 3 *NA* (03/22/17 3:40 AM) eGFR 12 mg/dL (03/25/17 5:41 AM) 13 mg/dL (03/24/17 5:13 AM) 12 mg/dL (03/22/17 3:40 AM) BUN [7-22 mg/dL] 18 (03/17/17 10:10 PM) B/C Ratio [6-25] 74 mg/dL (03/25/17 5:41 AM) 61 mg/dL *LOW* (03/24/17 5:13 AM) 104 mg/dL *HI* (03/22/17 3:40 AM) Glucose Lvl [70-99 mg/dL] 7.2 g/dL (03/17/17 10:10 PM) Total Protein [6.4-8.4 g/dL] 2.9 g/dL *LOW* (03/17/17 10:10 PM) Albumin Lvl [3.5-5.0 g/dL] 4.3 g/dL *HI* (03/17/17 10:10 PM) Globulin [2.7-4.2 g/dL] 0.7 (03/17/17 10:10 PM) A/G Ratio [0.7-1.6] 8.1 mg/dL *LOW* (03/25/17 5:41 AM) 7.9 mg/dL *LOW* (03/24/17 5:13 AM) 7.5 mg/dL *LOW* (03/22/17 3:40 AM) Calcium Lvl [8.5-10.5 mg/dL] 36 unit/L (03/17/17 10:10 PM) ALT [0-65 unit/L] 87 unit/L *HI* (03/17/17 10:10 PM) AST [0-37 unit/L] 127 unit/L (03/17/17 10:10 PM) Alk Phos [39-136 unit/L] 0.2 mg/dL (03/17/17 10:10 PM) Bili Total [0.2-1.3 mg/dL] 1Result Comment: [...] recent to oldest [Reference Range]: 55 unit/L (03/17/17 10:10 PM) Total CK [12-191 unit/L] <0.5 ng/mL (03/17/17 10:10 PM) CK MB [0.5-3.6 ng/mL] <0.9 (03/17/17 10:10 PM) CK MB Index [0.0-2.5] <0.02 ng/mL (03/17/17 10:10 PM) Troponin-I [0.00-0.40 ng/mL] 283 pg/mL *HI* (03/17/17 10:10 PM) BNP [<=100 pg/mL] ANEMIA STUDY 1 2 3 Most recent to oldest [Reference Range]: 32 ug/dl (03/21/17 5:14 AM) Iron [30-160 ug/dl] 30 ng/mL (03/21/17 5:14 AM) Ferritin Lvl [5-204 ng/mL] 8 % *LOW* (03/21/17 5:14 AM) % Satur Fe [12-57 %] 383 ug/dl *HI* (03/21/17 5:14 AM) UIBC [110-370 ug/dl] 495 pg/mL (03/21/17 5:14 AM) Vitamin B12 Lvl [254-1320 pg/mL] 22.0 ng/mL (03/21/17 5:14 AM) Folate Lvl [>=3.0 ng/mL] 415 ug/dl (03/21/17 5:14 AM) TIBC [228-428 ug/dl] URINE AND STOOL 1 2 3 Most recent to oldest [Reference Range]: Positive *ABN* (03/19/17 3:23 PM) Occult Bld Stl [Negative] HEMATOLOGY 1 2 3 Most recent to oldest [Reference Range]: 10.6 K/CMM *HI* (03/25/17 5:41 AM) 7.6 K/CMM (03/24/17 5:13 AM) 7.5 K/CMM (03/22/17 3:40 AM) WBC [3.7-10.4 K/CMM] 3.69 M/CMM *LOW* (03/25/17 5:41 AM) 3.58 M/CMM *LOW* (2/6/18 5:13 AM) 3.71 M/CMM *LOW* (03/22/17 3:40 AM) RBC [4.20-5.40 M/CMM] 11.5 g/dL *LOW* (03/25/17 5:41 AM) 11.1 g/dL *LOW* (03/24/17 5:13 AM) 11.5 g/dL *LOW* (03/22/17 3:40 AM) Hgb [12.0-16.0 g/dL] 34.2 % *LOW* (03/25/17 5:41 AM) 33.3 % *LOW* (03/24/17 5:13 AM) 34.3 % *LOW* (03/22/17 3:40 AM) Hct [36.0-48.0 %] 92.7 fL (03/25/17 5:41 AM) 93.0 fL (03/24/17 5:13 AM) 92.6 fL (03/22/17 3:40 AM) MCV [80.0-98.0 fL] 31.1 pg *HI* (03/25/17 5:41 AM) 31.0 pg (03/24/17 5:13 AM) 31.0 pg (03/22/17 3:40 AM) MCH [27.0-31.0 pg] 33.6 g/dL (03/25/17 5:41 AM) 33.4 g/dL (03/24/17 5:13 AM) 33.4 g/dL (03/22/17 3:40 AM) MCHC [32.0-36.0 g/dL] 17.2 % *HI* (03/25/17 5:41 AM) 17.7 % *HI* (03/24/17 5:13 AM) 17.1 % *HI* (03/22/17 3:40 AM) RDW [11.5-14.5 %] 9.2 fL (03/25/17 5:41 AM) 9.6 fL (03/24/17 5:13 AM) 9.0 fL (03/22/17 3:40 AM) MPV [7.4-10.4 fL] 238 K/CMM (03/25/17 5:41 AM) 212 K/CMM (03/24/17 5:13 AM) 191 K/CMM (03/22/17 3:40 AM) Platelet [133-450 K/CMM] 72.4 % (03/22/17 3:40 AM) 65.0 % (03/17/17 10:10 PM) Segs [45.0-75.0 %] 14.9 % *LOW* (03/22/17 3:40 AM) 21.7 % (03/17/17 10:10 PM) Lymphocytes [20.0-40.0 %] 12.5 % *HI* (03/22/17 3:40 AM) 10.7 % (03/17/17 10:10 PM) Monocytes [2.0-12.0 %] 0.1 % (03/22/17 3:40 AM) 2.1 % (03/17/17 10:10 PM) Eosinophils [0.0-4.0 %] 0.1 % (03/22/17 3:40 AM) 0.5 % (03/17/17 10:10 PM) Basophils [0.0-1.0 %] 5.4 K/CMM (03/22/17 3:40 AM) 4.1 K/CMM (03/17/17 10:10 PM) Segs-Bands # [1.5-8.1 K/CMM] 1.1 K/CMM (03/22/17 3:40 AM) 1.4 K/CMM (03/17/17 10:10 PM) Lymphocytes # [1.0-5.5 K/CMM] 0.9 K/CMM *HI* (03/22/17 3:40 AM) 0.7 K/CMM (03/17/17 10:10 PM) Monocytes # [0.0-0.8 K/CMM] 0.1 K/CMM (03/17/17 10:10 PM) Eosinophils # [0.0-0.5 K/CMM] 2.7 % *HI* (03/20/17 6:47 AM) Retic Auto [0.5-1.5 %] 15.5 seconds *HI* (03/25/17 5:41 AM) 15.0 seconds *HI* (03/24/17 5:13 AM) 13.4 seconds (03/23/17 6:02 AM) PT [12.0-14.7 seconds] 1.22 *HI* (03/25/17 5:41 AM) 1.17 (03/24/17 5:13 AM) 1.02 (03/23/17 6:02 AM) INR [0.85-1.17] Immunizations Given and Recorded Vaccine Date Status Refusal Reason pneumococcal 23-valent vaccine 07/28/16 Given pneumococcal 13-valent vaccine 02/28/16 Given diphtheria/pertussis, acel/tetanus adult 02/16/16 Given Procedures Procedure Date Related Diagnosis Body Site Status Hysterectomy Completed Tonsillectomy Completed Social History Social History Type Response Substance Abuse Use: None. Alcohol Current, Frequency: 1-2 times per month. Smoking Status Current every day smoker; Type: Cigarettes; Ready to change: No; Exposure to Tobacco Smoke None; Cigarette Smoking Last 365 Days Yes; Reg Smoking Cessation Counseling Yes; Tobacco use per day: 6; Number of years: 40; Total pack years: 0.5; entered on: 03/18/17 Assessment and Plan Extracted from: Title: Clinical Document Author: Tricia Power MD Date: 03/25/17 Name:RM: YULIYA [id number] (: 1950) F Admission Date: 03/19/20172017 Discharge Date: 09/04/2017 Diagnoses: Acute bronchitis Exacerbation of COPD Supratherapeutic INR History of DVT and PE Hypertension Acute anemia secondary to blood loss Diverticulosis Procedures: Hospital course: Patient admitted treated with IV steroids IV antibiotics found to be anemic Hemoccult was positive underwent EGD and colonoscopy showed some diverticulosis but no significant source of bleeding hematology consult was placed recommendation that the patient will need a small bowel follow-through capsule as an outpatient, patient will be started back on warfarin and Lovenox for bridging, will try to get records for patient with some assistance program, patient was advised strongly to watch for any signs of bleeding Discharge condition: Stable Medications See reconciliation form Diet Regular Activity As tolerated Follow up 2 days in my office On date of discharge the patient was seen and examined see progress note for details Total discharge time greeater than 30 min in revieweing chart , examinig patient and reconciling meds, discussing with patient, and answering all questions. Extracted from: Title: HO Progress Note Author: Luis Solano MD Date: 03/25/17 Hematology Oncology Progress Note SUBJECTIVE Patient reports no new issues. Continues to feel well. No new bleeding. ROS: No CP, SOB, N/V OBJECTIVE VitalsTmp(F)[id number] 03/25 08:22 1898--- 03/25 03:[id number]--- 03/25 00:[id number]--- 03/24 22:[id number]--- 03/24 18:44 11574 21% 24 Hr Tmax: 98.6F (37.00c) at 03/24 12:23Vital Signs are the last 5 in the past 48 hours. Gen: NAD, AAOx3 HEENT: PERRL, EOMI, MMM Heart: RRR, S1, s2, no M/R/G Lungs: CTAB, no W/R/R Abd: soft, NT/ND, +BS, no HSM : no suprapubic tenderness Extrem: no pitting edema noted Labs: Hct: 34.2 % Low (03/25/17 06:45:06) Hgb: 11.5 g/dL Low (03/25/17 06:45:06) MCH: 31.1 pg High (03/25/17 06:45:06) MCHC: 33.6 g/dL (03/25/17 06:45:06) MCV: 92.7 fL (03/25/17 06:45:06) MPV: 9.2 fL (03/25/17 06:45:06) Platelet: 238 K/CMM (03/25/17 06:45:06) RBC: 3.69 M/CMM Low (03/25/17 06:45:06) RDW: 17.2 % High (03/25/17 06:45:06) WBC: 10.6 K/CMM High (03/25/17 06:45:06) AGAP: 10.3 mEq/L (03/25/17 06:49:18) Chloride Lvl: 101 mEq/L (03/25/17 06:49:18) CO2: 31 mEq/L (03/25/17 06:49:18) Potassium Lvl: 3.3 mEq/L Low (03/25/17 06:49:18) Sodium Lvl: 139 mEq/L (03/25/17 06:49:18) A/G Ratio: 0.7 (03/17/17 22:41:15) Albumin Lvl: 2.9 g/dL Low (03/17/17 22:41:15) Alk Phos: 127 unit/L (03/17/17 22:41:15) ALT: 36 unit/L (03/17/17 22:41:15) AST: 87 unit/L High (03/17/17 22:41:15) B/C Ratio: 18 (03/17/17 22:41:15) Bili Total: 0.2 mg/dL (03/17/17 22:41:15) BUN: 12 mg/dL (03/25/17 06:49:18) Calcium Lvl: 8.1 mg/dL Low (03/25/17 06:49:18) Creatinine Lvl: 0.71 mg/dL (03/25/17 06:49:18) eGFR: 89 mL/min/1.73m2 (03/25/17 06:49:20) Globulin: 4.3 g/dL High (03/17/17 22:41:15) Glucose Lvl: 74 mg/dL (03/25/17 06:49:18) Total Protein: 7.2 g/dL (03/17/17 22:41:15) Imaging: Imaging Studies (last 36 hours) (none) ASSESSMENT & PLAN Hypercoagulable state -patient was admitted in 2012 with LLE DVT and R PE and then again in 02/2016 with B/L DVT and B/L PEs -recommend maintaining anticoagulation, if possible -on therapeutic anticoagulation with lovenox (bridge) and warfarin -Given high risk for bleeding, ideally needs ppx dose of eliquis (2.5 mg bid), but can not afford. Will look into patient assistance as outpatient 03/25/17 INR is slightly higher today, at 1.22. Please discharge on warfarin 3 mg daily and Lovenox 40 mg q12 for 5 days. I will arrange follow up in my clinic. Anemia, normocytic, iron deficiency Likely secondary to acute bleeding in the setting of supratherapeutic INR Transfuse for hemoglobin less than 7 -GI was consulted, EGD and colonoscopy were done, unremakrable. Bx were taken for possible celiac. Recommended outpatient capsule endoscopy -iron studies show iron deficiency -03/25/17 started iron infusions while inpatient (ferrlecit 125 mg/d). Ok to discharge, will resume as outpatient Supratherapeutic INR Unclear why patient developed such markedly elevated INR, since there is no dietary changes or new medications to cause interruption Received vitamin K 10 mg -03/23/17 resolved Thank you for this consult, will continue to follow with you
--- OUTSIDE RECORDS SUMMARY | 2018-01-14 16:57 | XMS REPORT ---
Author Author [facility] Address Unknown Phone Unavailable Care Team Providers Care Director Non Profit Name Role Phone Abby OLIVARES Unavailable Unavailable Problems This patient has no known problems. Allergies, Adverse Reactions, Alerts This patient has no known allergies or adverse reactions. Medications This patient has no known medications. Results Test Description Test Time Test Comments Text Results Atomic Results Result Comments CHEST SINGLE (PORTABLE) 2018-01-14 16:17:00 [place] [address] Patient Name: YULIYA BEAUCHAMP MR #: [id number] : 1950 Age/Sex: 67/F Req #: [id number] Adm Physician: Ordered by: CATINA VAIL NP Report #: [id number] Location: ER Room/Bed: Procedure: [id number] DX/CHEST SINGLE (PORTABLE) Exam Date: 01/14/18 Exam Time: 1514 REPORT STATUS: Signed A single frontal view of the chest. HISTORY: Chest tightness, no pain COMPARISON: None available. DISCUSSION: Portable technique, limits sensitivity of the exam. Overlying monitoring leads and tubes . Tubes/Lines: None Lungs and pleura: The lungs are hyperinflated. Mild bronchiectasis. No evidence of a consolidative pneumonia or pulmonary alveolar edema. No definite pleural effusion or pneumothorax is identified. Heart and mediastinum: The cardiomediastinal silhouette appears unremarkable. Bones: Diffusely decreased mineralization of the osseous structures limits bone detail. No ac confed[place] sal[place] displaced fracture. IMPRESSION: Findings compatible with obstructive lung disease, consider COPD. Signed by: Dr. Tushar Contreras D.O., M.M.M. on 01/14/2018 4:19 PM Dictated By: TUSHAR CONTRERAS DO 18 Transcribed By: TESSIE on 01/14/181618 COPY TO: CATINA VAIL NP
[2018-01-14] MEDS: CEFEPIME HCL 1 GM VIAL IV SCH (17:22)
--- NOTE | 2018-01-14 17:32 | Diagnostic Imaging Report ---
EXAMINATION: CHEST XRAY LINE PLACEMENT INDICATION: ^CVC PLACEMENT ^20180114 ^1700 COMPARISON: Same day chest x-ray FINDINGS: AP view TUBES and LINES: Right internal jugular central line in place with tip overlying inferior SVC. LUNGS: Lungs are well inflated. Central bronchiectatic changes are again seen. PLEURA: No pleural effusion or pneumothorax. HEART AND MEDIASTINUM: The cardiomediastinal silhouette is unremarkable. BONES AND SOFT TISSUES: No acute osseous lesion. Soft tissues are unremarkable. UPPER ABDOMEN: No free air under the diaphragm. IMPRESSION: Status post right internal jugular central line placement with tip overlying inferior SVC. No visible pneumothorax. Signed by: Dr. New Hickman MD on 01/14/2018 5:28 PM
[2018-01-14 18:08] LABS: HYPOCHROMASIA MODERATE; LYMPHOCYTES % (MANUAL) 4 % (19-48); METAMYELOCYTES % (MANUAL) 1 % (0-0); MONOCYTES % (MANUAL) 11 % (3.4-9.0); NEUTROPHILS % (MANUAL) 84 % (40-74); PLATELET ESTIMATE ADEQUATE; PLATELET MORPHOLOGY COMMENT NORMAL; RBC MORPHOLOGY COMMENT NORMAL
[2018-01-14] MEDS ORDERED: WARFARIN SODIUM1 MG PO (18:59)
[2018-01-14] MEDS ORDERED: LISINOPRIL20 MG PO (18:59)
[2018-01-14] MEDS ORDERED: METOPROLOL SUCC50 MG PO (18:59)
[2018-01-14] MEDS ORDERED: AMLODIPINE BESY10 MG PO (18:59)
[2018-01-14] MEDS ORDERED: ASPIR-LOW81 MG PO (18:59)
[2018-01-14] MEDS ORDERED: PANTOPRAZOLE SO40 MG PO (19:00)
[2018-01-14] MEDS ORDERED: CLONIDINE HCL0.2 MG PO (19:00)
--- NOTE | 2018-01-14 19:45 | NUR ---
GAVE REPORT TO TC MARTIN, INFORMED OF TOTAL DOSAGE OF 80MEQ POTASSIUM IV TO BE GIVEN, INFORMED OF NEED OF MAGNESIUM BLOOD DRAW AND NEED TO REPEAT BLOOD DRAWS OF MAG AND POTASSIUM ONCE 80MEQ OF POTASSIUM ARE DONE.
[2018-01-14 20:00] VITALS: BP 102/57
[2018-01-14 20:30] VITALS: BP 100/57
--- NOTE | 2018-01-14 20:30 | NUR ---
Received patient hemodynamically stable from the ER, on the 2nd bag of potassium chloride, due for two more bags of potassium to make a total of 80meq. Patient alert and oriented, no complaints raised. Settled comfortably in bed. Samples for a stat magnesium collected. awaiting results
[2018-01-14 21:00] VITALS: BP 100/57
--- NOTE | 2018-01-14 21:00 | NUR ---
Received critical results for magnesium, 0.8, results reviewed and magnesium supplementation prescribed. Administered as prescribed
[2018-01-14] MEDS ORDERED: MAGNESIUM SULF 1GRAM/DEXTROSE 100 ML IV ONE ×3 (21:15)
[2018-01-14] MEDS: HYDROCODONE/APAP 5MG-325MG TAB PO PRN (21:15)
[2018-01-14 21:23] LABS: CREATINE KINASE MB 2.8 ng/mL (0-5.0)
--- NOTE | 2018-01-14 21:30 | NUR ---
Patient complaining of back pain , a score of 7 in a scale of 1-10, attending doctor informed, prescribed [place]. Administered as prescribed, patient reassured
[2018-01-14 23:00] VITALS: BP 92/52
--- NOTE | 2018-01-14 23:00 | NUR ---
Patient with systolic blood pressure persistently below 90. MAPs are above 60, attending doctor informed, ordered for normal saline infusion at 100 mls/hr. Infusion started as prescribed
[2018-01-14] MEDS: SODIUM CHLORIDE 0.9% 1000ML 1,000 ML IV SCH (23:30)
[2018-01-15] VITALS (25 sets, daily range): BP systolic 79–104; BP diastolic 53–66
--- NOTE | 2018-01-15 02:30 | NUR ---
Potassium chloride infusion over, stat labs for magnesium and potassium collected. Awaiting results
[2018-01-15 02:43] LABS: MAGNESIUM 2.4 MG/DL (1.3-2.1)
[2018-01-15 02:47] LABS: POTASSIUM 2.7 mmol/L (3.5-5.1)
[2018-01-15] MEDS ORDERED: POTASSIUM CHLORIDE 20MEQ/100ML 100 ML IV ONE ×3 (03:00)
--- NOTE | 2018-01-15 03:00 | NUR ---
Receive critical results for potassium from Svitlana in lab, 2.9. Reported it to ROSALIA Joya, ordered for an additional 60meq of potassium iv.
[2018-01-15] MEDS: CEFEPIME HCL 1 GM VIAL IV SCH (03:15)
[2018-01-15 05:19] LABS: ANION GAP 13.5 mmol/L (8-16); CALCIUM 7.1 mg/dL (8.4-10.2); CHOL/HDL RATIO 5.6 (3.0-3.6); CREATININE, SERUM 0.94 mg/dL (0.57-1.11); POTASSIUM 3.5 mmol/L (3.5-5.1)
--- NOTE | 2018-01-15 07:10 | NUR ---
Handoff report and walking rounds with outgoing powder loader nurse, Jose David. Pt awake at this time, states she feels better but still weak. IVF infusing at 100mL/hr. IV potassium infusing at 50mL/hr. Systolic BP 80s.
--- NOTE | 2018-01-15 07:11 | NUR ---
handed over stable
[2018-01-15] MEDS ORDERED: METOCLOPRAMIDE HCL 10 MG/2ML VIAL IV SCH (07:30)
[2018-01-15] MEDS ORDERED: ONDANSETRON HCL INJ 2 MG/ML VIAL IV PRN (07:45)
[2018-01-15] MEDS ORDERED: HYDRALAZINE HCL 20 MG/ML VIAL IV PRN (07:45)
[2018-01-15] MEDS ORDERED: ACETAMINOPHEN 325 MG TAB PO PRN (07:45)
[2018-01-15 07:54] LABS: BASOPHILS % 0.2 % (0.0-1.0); EOSINOPHILS # (AUTO) 0.2 (0.0-0.4); EOSINOPHILS % 1.2 % (0.0-6.0); HEMOGLOBIN 7.1 g/dL (12.0-16.0); LYMPHOCYTES # (AUTO) 0.8 (1.0-3.2); LYMPHOCYTES % 5.7 % (18.0-39.1); MEAN CORPUSCULAR HEMOGLOBIN 31.1 pg (28-32); MEAN CORPUSCULAR VOLUME 91.7 fL (81-99); MONOCYTES # (AUTO) 1.5 (0.2-0.8); MONOCYTES % 10.3 % (4.4-11.3); NEUTROPHILS # (AUTO) 11.8 (2.1-6.9); NEUTROPHILS % 81.6 % (38.7-80.0); PLATELET COUNT 206 x10e3/uL (140-360); RED BLOOD COUNT 2.28 x10e6/uL (3.6-5.1); RED CELL DISTRIBUTION WIDTH 24.9 % (11.7-14.4)
[2018-01-15 07:58] LABS: HEMATOCRIT 20.9 % (34.2-44.1)
[2018-01-15] MEDS: CEFTRIAXONE SOD 1 GM VIAL IV SCH ×2 (08:20→20:51)
--- NOTE | 2018-01-15 09:14 | Consultation ---
DATE OF CONSULTATION: January 15, 2018 CONSULTING PHYSICIAN: Dr. Vee Portillo nurse practitioner REASON FOR CONSULTATION: Chest pain. HPI: This is a thin and frail 67-year-old female that presented with chest pain and discomfort. She stated she was having a central chest pain on a scale of 5 out of 10 with no radiation, that has been going on for several weeks now. She also complained of generalized weakness, back pain, and diarrhea times 1 week. She stated she was recently admitted and discharged from [facility]. She has been on Coumadin due to PE and left leg DVT. She also stated she had been off Coumadin for almost 1 month because she ran out of it. She has history of high blood pressure, but her blood pressure is low today, and she smokes daily. In the emergency room, she was found with electrolytes imbalance, and she was admitted for further observation. Today, she denied any palpitation, any shortness of breath, any diaphoresis, any headache or nausea. Troponin times 3 was negative. EKG showed T-wave inversion in various leads, and chest x-ray showed findings compatible with obstructive lung disease, possible COPD. PAST MEDICAL HISTORY: Hypertension, DVT on the left leg, tobacco abuse, and pulmonary emboli. PAST SURGICAL HISTORY: Hysterectomy. FAMILY HISTORY: Noncontributory. SOCIAL HISTORY: She lives at home with her , and she smokes daily. MEDICATIONS: She was on amlodipine, aspirin, clonidine, lisinopril, metoprolol, Protonix, and Coumadin. ALLERGIES: SHE IS NOT ALLERGIC TO ANY MEDICATION. REVIEW OF SYSTEMS: Negative except those mentioned above. She is positive for chest pain, electrolyte imbalance. PHYSICAL EXAMINATION: VITAL SIGNS: Temperature 98.8, heart rate 100, blood pressure 94/64, respirations 16, oxygen saturation 97% on 3 liters nasal cannula. GENERAL: She is thin, frail, and pale, but she is able to verbalize needs. HEENT: Mucous membranes moist. NECK: Supple. LUNGS: Bilaterally with decreased breath sounds. CARDIOVASCULAR: S1 and S2 present. ABDOMEN: Soft. NEUROLOGICAL: She is able to move all extremities. EXTREMITIES: Bilateral lower extremities with no edema. LABS: Sodium 132, potassium 3.5, chloride 98, CO2 24, BUN 16, creatinine 0.94, glucose 68. White blood cells 15.1, hemoglobin 9.0, hematocrit 25.4, platelet 251,000. PT 16.3, PTT 29.2, INR 1.20. IMPRESSION: 1. Chest pain. 2. Hypokalemia. 3. Hypomagnesium. 4. Hyponatremia. 5. Anemia. 6. Diarrhea. 7. History of pulmonary embolism and deep venous thrombosis. 8. History of hypertension, but now with low blood pressure. 9. Tobacco abuse. 10. Elevated liver function tests. 11. Acute renal insufficiency. ASSESSMENT AND PLAN: 1. She is pending echo to assess the LV and the valve function. 2. Troponin times 3 was negative. 3. Due to anemia, will go ahead and hold the Coumadin. Potassium, magnesium, and sodium have been replaced. She has been counseled on tobacco cessation. Will go ahead and check her TSH and B12 level. Further cardiac workup pending clinical course. Thank you for this consultation. Dictated by: Tramaine Alexis NP Job#: [id number]
[2018-01-15 09:25] LABS: INR 1.34; PROTHROMBIN TIME 17.7 seconds (11.9-14.5)
--- NOTE | 2018-01-15 09:27 | NUR ---
Xiomara Pineda NP notified of critical lab results; notified of urine consistency; Orders rec'd to change CT abd for contrast; 2 units PRBCs; and obtain urine culture.
[2018-01-15] MEDS ORDERED: SODIUM CHLORIDE 0.9% 250ML 250 ML IV ONE (09:30)
[2018-01-15] MEDS: SODIUM CHLORIDE 0.9% 1000ML 1,000 ML IV SCH ×2 (09:30→20:40)
[2018-01-15] MEDS: OYST-CAL-D 500MG TABLET PO SCH ×2 (09:30→17:18)
[2018-01-15 09:43] LABS: HYPOCHROMASIA MODERATE; LYMPHOCYTES % (MANUAL) 4 % (19-48); MONOCYTES % (MANUAL) 6 % (3.4-9.0); NEUTROPHILS % (MANUAL) 90 % (40-74)
[2018-01-15 09:44] LABS: ANISOCYTOSIS SLIGHT; PLATELET ESTIMATE ADEQUATE; PLATELET MORPHOLOGY COMMENT FEW LARGE; RBC MORPHOLOGY COMMENT ABNORMAL
[2018-01-15] MEDS: NICOTINE 7 MG PATCH TOP SCH (10:20)
--- NOTE | 2018-01-15 12:15 | NUR ---
Patient to CT at this time.
--- NOTE | 2018-01-15 12:55 | NUR ---
Pt back from CT at this time.
--- NOTE | 2018-01-15 13:24 | Diagnostic Imaging Report ---
EXAMINATION: CT of the abdomen with contrast. TECHNIQUE: Spiral CT images of the abdomen were performed from the lung bases to the iliac crests after the intravenous administration of 100 cc of Isovue-370. Coronal and sagittal reformatted images were obtained. COMPARISON: None. CLINICAL HISTORY:Elevated liver function tests DISCUSSION: LOWER THORAX:Trace bilateral pleural effusions with adjacent subsegmental atelectasis of the dependent lower lobes. No pericardial effusion. HEPATOBILIARY: Geographic hypoattenuation of the hepatic parenchyma with subcapsular sparing compatible with steatosis. No focal hepatic lesion or intrahepatic biliary ductal dilatation. The gallbladder is unremarkable. SPLEEN: No splenomegaly. PANCREAS: No focal masses or ductal dilatation. ADRENALS: No adrenal nodules. KIDNEYS/URETERS: Nonobstructing right lower pole renal calculus measures 4 mm seen on series 2 image 37. No focal renal lesion or hydronephrosis. PERITONEUM/RETROPERITONEUM: No ascites or pneumoperitoneum. LYMPH NODES: No retroperitoneal or mesenteric lymphadenopathy. VESSELS: Atherosclerotic calcification of the abdominal aorta and branch vessels without aneurysmal dilatation. The right hepatic artery is replaced to the SMA. The left hepatic artery is replaced to the left gastric artery. Portal vein, splenic vein, and central superior mesenteric vein are patent. GI TRACT: Visualized portions of the large bowel shows no distention or gross wall thickening. The stomach is collapsed with prominent rugal folds. No small bowel dilatation to suggest obstruction. BONES AND SOFT TISSUE: Diffuse muscular atrophy most notably involving the paraspinal musculature. The bones are osteopenic but without acute abnormality. IMPRESSION: Diffuse hepatic steatosis. Nonobstructing right lower pole renal calculus measures 4 mm. Atherosclerotic vascular disease. Signed by: Dr. Asad Baugh M.D. on 01/15/2018 1:21 PM
[2018-01-15] MEDS: ALBUTEROL/IPRATROPIUM 3 ML NEB NEB SCH ×2 (13:35→20:25)
[2018-01-15] MEDS ORDERED: IOPAMIDOL 370 MG/ML 200 ML INFUS..BTL INJ ONE (14:00)
[2018-01-15] MEDS ORDERED: SODIUM CHLORIDE 0.9% 50ML 50 ML ONE (14:00)
--- NOTE | 2018-01-15 14:18 | NUR ---
WOUND CARE NURSE CONSULTATION. 67 YEAR OLD FEMALE ADMITTED TO [facility] WITH DX OF CHEST PAIN AND HYPOKALEMIA. HEAD TO TOE SKIN ASSESSMENT PERFORMED TODAY. PT PRESENTS WITH 8X5CM STAGE I PRESSURE ULCER TO SACRUM AND BILATERAL BUTTOCKS. LEFT SECOND TOE BRUISING. X2 1.5X1.5X0.1 CM DRY AND STABLE ESCHARS TO LEFT ANTERIOR LOWER LEG. PT EDUCATED ON PLAN PF CARE, TREATMENT AND PRESSURE RELIEF TO THE AFFECTED AREA. LABS: WBC: 14.41 ALB: 2.9 URINE AND BLOOD CX PENDING. RECOMMENDATIONS: APPLY VENELEX OINTMENT TO SACRUM AND BILATERAL BUTTOCKS BID AND COVER WITH FOAM DRESSING. MONITOR ESCHARS TO LEFT LOWER LEG DAILY. CONTINUE WITH BILATERAL HEEL PROTECTORS AND PILLOW SUSPENSIONS. CONTINUE WITH ALTERNATING LOW AIR LOSS MATTRESS. THANKS FOR THIS CONSULTATION. Addendum: 01/15/18 at 1426 by Rosamaria Luo RN Amended: Links added.
[2018-01-15] MEDS ORDERED: SODIUM CHLORIDE 0.9% 250ML 250 ML ONE ×2 (14:56→21:39)
[2018-01-15] MEDS: HYDROCODONE/APAP 5MG-325MG TAB PO PRN ×2 (15:23→21:59)
[2018-01-15] MEDS: BALSAM PERU/CASTOR OIL 60 GM OINT...G. TP SCH (16:20)
--- NOTE | 2018-01-15 16:28 | NUR ---
Messina not draining urine; diaper soaked with urine; bladder scanner reveals 65mL residual. Pt c/o pain and discomfort with messina catheter; REMOTE SENSING TECHNOLOGIST notified. Orders rec'd to discontinue messina.
--- NOTE | 2018-01-15 19:38 | NUR ---
Report received from AM nurse Agueda. Patient received alert/oriented x3,wake and lethargic resting on her bed. Denied pain and no SOB. Patient instructed to call for help as needed. Bed in lower position,locked. Will continue to monitor.
--- NOTE | 2018-01-15 21:45 | NUR ---
Transfusing 2units of blood at this time, patient well tolerated. Will continue to monitor.
[2018-01-16] VITALS (9 sets, daily range): BP systolic 96–123; BP diastolic 62–81
[2018-01-16] MEDS: ALBUTEROL/IPRATROPIUM 3 ML NEB NEB SCH ×4 (00:40→20:00)
[2018-01-16 03:27] LABS: BASOPHILS % 0.2 % (0.0-1.0); EOSINOPHILS # (AUTO) 0.1 (0.0-0.4); EOSINOPHILS % 0.5 % (0.0-6.0); HEMOGLOBIN 10.2 g/dL (12.0-16.0); LYMPHOCYTES # (AUTO) 0.9 (1.0-3.2); LYMPHOCYTES % 5.3 % (18.0-39.1); MEAN CORPUSCULAR HGB CONC 35.2 g/dL (31-35); MONOCYTES # (AUTO) 1.7 (0.2-0.8); MONOCYTES % 10.2 % (4.4-11.3); NEUTROPHILS # (AUTO) 13.9 (2.1-6.9); NEUTROPHILS % 82.1 % (38.7-80.0); PLATELET COUNT 163 x10e3/uL (140-360); RED BLOOD COUNT 3.29 x10e6/uL (3.6-5.1)
[2018-01-16 03:45] LABS: MEAN CORPUSCULAR VOLUME 88.1 fL (81-99)
[2018-01-16 03:46] LABS: INR 1.3; PROTHROMBIN TIME 17.3 seconds (11.9-14.5)
[2018-01-16 03:55] LABS: ANION GAP 12.5 mmol/L (8-16); BAND NEUTROPHILS % (MANUAL) 2 %; BLOOD UREA NITROGEN 13 mg/dL (7-26); BUN/CREATININE RATIO 16 (6-25); CALCIUM 7.1 mg/dL (8.4-10.2); CARBON DIOXIDE 22 mmol/L (22-29); CHLORIDE 103 mmol/L (98-107); CREATININE, SERUM 0.81 mg/dL (0.57-1.11); EST GLOMERULAR FILTRATION RATE > 60 ML/MIN (60-); GLUCOSE 98 mg/dL (74-118); LYMPHOCYTES % (MANUAL) 7 % (19-48); MAGNESIUM 1.4 MG/DL (1.3-2.1); MONOCYTES % (MANUAL) 6 % (3.4-9.0); NEUTROPHILS % (MANUAL) 83 % (40-74); NUCLEATED RED BLOOD CELLS 1; SODIUM 135 mmol/L (136-145)
[2018-01-16 03:56] LABS: PLATELET ESTIMATE ADEQUATE; RBC MORPHOLOGY COMMENT NORMAL; TARGET CELLS MODERATE
[2018-01-16 03:58] LABS: ALBUMIN 2.2 g/dL (3.5-5.0); BILIRUBIN,DIRECT 3.6 mg/dL (0.0-0.5); POTASSIUM 2.5 mmol/L (3.5-5.1)
[2018-01-16] MEDS ORDERED: POTASSIUM CHLORIDE 20MEQ/100ML 300 ML IV ONE (04:15)
[2018-01-16 04:23] LABS: FERRITIN 311.57 ng/mL (4.63-204.00)
[2018-01-16 04:40] LABS: FOLATE 1.2 ng/mL (7.0-15.4)
--- NOTE | 2018-01-16 05:27 | NUR ---
Patient Had critical lab value K:2.5, Called ROSALIA Mooren answered notify about lab value. WAREHOUSE CONSULTANT ordered IV potassium 60MEq for low K and WAREHOUSE CONSULTANT stated for further ordered consult with WAREHOUSE CONSULTANT Lindsey in the morning round.
[2018-01-16] MEDS: HYDROCODONE/APAP 5MG-325MG TAB PO PRN ×3 (06:34→21:40)
--- NOTE | 2018-01-16 06:50 | NUR ---
Handoff report and walking rounds with outgoing shift supervisor melting nurseKlaudia.
[2018-01-16] MEDS: SODIUM CHLORIDE 0.9% 1000ML 1,000 ML IV SCH ×2 (06:57→18:36)
--- NOTE | 2018-01-16 06:59 | NUR ---
Bedside report given to AM nurse Agueda.
--- NOTE | 2018-01-16 07:50 | NUR ---
Lindsey Pineda, PULLING UNIT OPERATOR rounding.
[2018-01-16] MEDS: CEFTRIAXONE SOD 1 GM VIAL IV SCH ×2 (08:05→18:35)
--- NOTE | 2018-01-16 08:07 | NUR ---
Per Reji from lab micro, preliminary urine shows gram (-) rods. Xiomara Pineda NP aware.
[2018-01-16] MEDS ORDERED: POTASSIUM CHLORIDE 20MEQ/100ML 200 ML IV ONE (08:15)
[2018-01-16] MEDS ORDERED: BISACODYL 5 MG TAB EC PO PRN (08:15)
--- NOTE | 2018-01-16 08:45 | NUR ---
Dr. Laurie shah.
[2018-01-16] MEDS: NICOTINE 7 MG PATCH TOP SCH (08:51)
[2018-01-16] MEDS: BALSAM PERU/CASTOR OIL 60 GM OINT...G. TP SCH ×2 (08:51→18:11)
[2018-01-16] MEDS: OYST-CAL-D 500MG TABLET PO SCH ×2 (08:51→17:00)
[2018-01-16] MEDS: DOCUSATE SODIUM 100 MG CAP PO SCH ×2 (09:01→17:00)
[2018-01-16] MEDS: POLYETHYLENE GLYCOL 3350 17 GM PACK PO SCH ×2 (09:01→17:00)
[2018-01-16] MEDS: FOLIC ACID 1 MG TAB PO SCH (09:01)
[2018-01-16] MEDS ORDERED: SODIUM CHLORIDE 0.9% 250ML 250 ML ONE (11:13)
[2018-01-16] MEDS: VANCOMYCIN 1GM/NS 250 ML 250 ML IV SCH (12:15)
[2018-01-16] MEDS: MIDODRINE 2.5 MG TAB PO SCH ×2 (12:56→16:50)
[2018-01-16] MEDS: METOCLOPRAMIDE HCL 10 MG TAB PO SCH (16:50)
[2018-01-16] MEDS: FAMOTIDINE 20 MG TAB PO SCH (16:50)
--- NOTE | 2018-01-16 19:00 | NUR ---
Report received from AM nurse Agueda. Patient comfortably resting on her bed. Denied pain and no SOB noted. Respiration even and unlabored,Spo2 maintained 96% with RA. Bed in lower position,locked. Call cleaning within reach. Will continue to monitor.
[2018-01-17] VITALS (11 sets, daily range): BP systolic 95–113; BP diastolic 63–72
[2018-01-17] MEDS: VANCOMYCIN 1GM/NS 250 ML 250 ML IV SCH (00:23)
[2018-01-17] MEDS: ALBUTEROL/IPRATROPIUM 3 ML NEB NEB SCH ×2 (02:50→07:25)
[2018-01-17 03:31] LABS: BASOPHILS # (AUTO) 0.1 (0.0-0.1); BASOPHILS % 0.3 % (0.0-1.0); EOSINOPHILS # (AUTO) 0.1 (0.0-0.4); EOSINOPHILS % 0.3 % (0.0-6.0); HEMATOCRIT 28.2 % (34.2-44.1); HEMOGLOBIN 10.2 g/dL (12.0-16.0); LYMPHOCYTES # (AUTO) 1.3 (1.0-3.2); LYMPHOCYTES % 6.6 % (18.0-39.1); MEAN CORPUSCULAR HEMOGLOBIN 31.8 pg (28-32); MEAN CORPUSCULAR HGB CONC 36.2 g/dL (31-35); MEAN CORPUSCULAR VOLUME 87.9 fL (81-99); MONOCYTES # (AUTO) 1.9 (0.2-0.8); MONOCYTES % 9.7 % (4.4-11.3); NEUTROPHILS # (AUTO) 15.9 (2.1-6.9); NEUTROPHILS % 81.1 % (38.7-80.0); PLATELET COUNT 173 x10e3/uL (140-360); RED BLOOD COUNT 3.21 x10e6/uL (3.6-5.1); RED CELL DISTRIBUTION WIDTH 21.5 % (11.7-14.4)
[2018-01-17 03:39] LABS: INR 1.31; PROTHROMBIN TIME 17.4 seconds (11.9-14.5)
[2018-01-17 03:46] LABS: ANION GAP 11.3 mmol/L (8-16); BLOOD UREA NITROGEN 10 mg/dL (7-26); BUN/CREATININE RATIO 14 (6-25); CALCIUM 7.1 mg/dL (8.4-10.2); CARBON DIOXIDE 19 mmol/L (22-29); CHLORIDE 107 mmol/L (98-107); CREATININE, SERUM 0.74 mg/dL (0.57-1.11); EST GLOMERULAR FILTRATION RATE > 60 ML/MIN (60-); GLUCOSE 79 mg/dL (74-118); LIPASE 239 U/L (8-78); SODIUM 133 mmol/L (136-145)
[2018-01-17 03:58] LABS: POTASSIUM 4.3 mmol/L (3.5-5.1)
--- NOTE | 2018-01-17 04:42 | NUR ---
M.0 at his time. Called , notified lab value to . ordered IV magnesium sulphate 2mg once at this time. Addendum: 01/17/18 at 0445 by Klaudia Dyer RN wrong charting
[2018-01-17] MEDS ORDERED: MAGNESIUM SULFATE 2GM/50ML 50 ML IV ONE ×2 (04:45→04:58)
--- NOTE | 2018-01-17 04:45 | NUR ---
M.0 at this time. Called , notified lab value to . ordered IV magnesium sulphate 2mg once at this time.
[2018-01-17] MEDS: HYDROCODONE/APAP 5MG-325MG TAB PO PRN ×3 (05:06→22:41)
--- NOTE | 2018-01-17 06:45 | NUR ---
Handoff report and walking rounds with outgoing night coordinator nurseKlaudia. Pt rec'd AOx4. Pt denies any c/o at this time. Call light in reach with instructions to call for assistance.
--- NOTE | 2018-01-17 06:56 | NUR ---
Bedside report given to AM nurse Agueda.
[2018-01-17] MEDS: FAMOTIDINE 20 MG TAB PO SCH ×2 (07:15→17:33)
[2018-01-17] MEDS: CEFTRIAXONE SOD 1 GM VIAL IV SCH (07:15)
[2018-01-17] MEDS: METOCLOPRAMIDE HCL 10 MG TAB PO SCH ×2 (07:15→17:33)
--- NOTE | 2018-01-17 07:20 | NUR ---
Lindsey Pineda, MANAGER LEGAL rounding.
--- NOTE | 2018-01-17 07:55 | NUR ---
Lindsey Pineda NP made aware of ESBL urine and HR 140s. Orders rec'd.
[2018-01-17] MEDS: MIDODRINE 2.5 MG TAB PO SCH ×3 (08:02→17:33)
[2018-01-17] MEDS: DOCUSATE SODIUM 100 MG CAP PO SCH ×3 (08:02→17:33)
[2018-01-17] MEDS: BALSAM PERU/CASTOR OIL 60 GM OINT...G. TP SCH ×2 (08:02→17:34)
[2018-01-17] MEDS: NICOTINE 7 MG PATCH TOP SCH (08:02)
[2018-01-17] MEDS: POLYETHYLENE GLYCOL 3350 17 GM PACK PO SCH ×2 (08:02→17:00)
[2018-01-17] MEDS ORDERED: METOPROLOL TARTRATE INJ 1 MG/ML VIAL ONE (08:08)
[2018-01-17] MEDS: METOPROLOL TARTRATE INJ 1 MG/ML VIAL IV PRN ×2 (08:15→15:15)
[2018-01-17] MEDS: OYST-CAL-D 500MG TABLET PO SCH ×2 (08:46→17:00)
[2018-01-17] MEDS: FOLIC ACID 1 MG TAB PO SCH (09:34)
[2018-01-17] MEDS: MAGNESIUM OXIDE 400 MG TAB PO SCH ×2 (09:34→17:33)
--- NOTE | 2018-01-17 09:34 | NUR ---
Dr. Laurie shah.
[2018-01-17] MEDS ORDERED: MEROPENEM 1GRAM 1 GM in SODIUM CHLORIDE 0.9% 100 ML 100 ML IV SCH (14:00)
[2018-01-17] MEDS: LEVALBUTEROL HCL SOLN NEBU 0.63 MG/3 ML NEB INH SCH ×2 (14:05→19:45)
[2018-01-17] MEDS: IPRATROPIUM BROMIDE 0.02% 2.5 ML NEB NEB SCH ×2 (14:05→19:45)
[2018-01-17] MEDS: MEROPENEM 1 GM VIAL IV SCH ×2 (14:10→22:37)
[2018-01-17] MEDS: METOPROLOL TARTRATE 25 MG TAB PO SCH (17:33)
[2018-01-18] MEDS: IPRATROPIUM BROMIDE 0.02% 2.5 ML NEB NEB SCH ×4 (00:30→19:45)
[2018-01-18] MEDS: LEVALBUTEROL HCL SOLN NEBU 0.63 MG/3 ML NEB INH SCH ×4 (00:30→19:45)
--- NOTE | 2018-01-18 02:15 | NUR ---
Patient had moderate semiliquid brown BM, assisted to cleaned and changed diaper/pads. Patient tolerated well. V/S WNL. Will continue to monitor.
[2018-01-18 03:35] LABS: BASOPHILS # (AUTO) 0.1 (0.0-0.1); BASOPHILS % 0.4 % (0.0-1.0); EOSINOPHILS % 0.2 % (0.0-6.0); HEMATOCRIT 31.2 % (34.2-44.1); HEMOGLOBIN 11.1 g/dL (12.0-16.0); LYMPHOCYTES % 3.7 % (18.0-39.1); MEAN CORPUSCULAR HEMOGLOBIN 31.4 pg (28-32); MEAN CORPUSCULAR HGB CONC 35.6 g/dL (31-35); MEAN CORPUSCULAR VOLUME 88.1 fL (81-99); MONOCYTES # (AUTO) 1.7 (0.2-0.8); MONOCYTES % 6.5 % (4.4-11.3); NEUTROPHILS # (AUTO) 21.9 (2.1-6.9); NEUTROPHILS % 85.4 % (38.7-80.0); PLATELET COUNT 175 x10e3/uL (140-360); RED BLOOD COUNT 3.54 x10e6/uL (3.6-5.1); RED CELL DISTRIBUTION WIDTH 22.4 % (11.7-14.4)
[2018-01-18 03:51] LABS: ANION GAP 10.9 mmol/L (8-16); BLOOD UREA NITROGEN 10 mg/dL (7-26); BUN/CREATININE RATIO 15 (6-25); CALCIUM 7.2 mg/dL (8.4-10.2); CARBON DIOXIDE 18 mmol/L (22-29); CHLORIDE 110 mmol/L (98-107); CREATININE, SERUM 0.68 mg/dL (0.57-1.11); EST GLOMERULAR FILTRATION RATE > 60 ML/MIN (60-); GLUCOSE 91 mg/dL (74-118); LIPASE 96 U/L (8-78); MAGNESIUM 1.3 MG/DL (1.3-2.1); POTASSIUM 3.9 mmol/L (3.5-5.1); SODIUM 135 mmol/L (136-145)
[2018-01-18 03:54] LABS: ANISOCYTOSIS MODERATE; LYMPHOCYTES % (MANUAL) 4 % (19-48); MONOCYTES % (MANUAL) 8 % (3.4-9.0); NEUTROPHILS % (MANUAL) 88 % (40-74); PLATELET ESTIMATE ADEQUATE; PLATELET MORPHOLOGY COMMENT NORMAL; RBC MORPHOLOGY COMMENT ABNORMAL
[2018-01-18 03:55] LABS: TARGET CELLS MODERATE
[2018-01-18 04:14] VITALS: BP 111/79
[2018-01-18] MEDS: MEROPENEM 1 GM VIAL IV SCH ×2 (05:06→14:13)
--- NOTE | 2018-01-18 05:12 | NUR ---
Patient had small semiliquid brown BM, assisted to cleaned and changed diaper/pads. Applied Mepilex dressing on stage 2 scrum wound with sterile technique. Patient tolerated well. V/S WNL. Will continue to monitor.
[2018-01-18 06:45] LABS: INR 1.26; PROTHROMBIN TIME 16.9 seconds (11.9-14.5)
--- NOTE | 2018-01-18 07:05 | NUR ---
Report given to AM nurse Avani, walking round done.
[2018-01-18 08:00] VITALS: BP 109/78
[2018-01-18] MEDS: METOCLOPRAMIDE HCL 10 MG TAB PO SCH ×2 (08:00→16:29)
[2018-01-18] MEDS: FAMOTIDINE 20 MG TAB PO SCH ×2 (08:00→16:29)
[2018-01-18] MEDS: MIDODRINE 2.5 MG TAB PO SCH ×3 (08:42→16:29)
[2018-01-18] MEDS: DOCUSATE SODIUM 100 MG CAP PO SCH ×2 (08:42→16:29)
[2018-01-18] MEDS: FOLIC ACID 1 MG TAB PO SCH (08:42)
[2018-01-18] MEDS: OYST-CAL-D 500MG TABLET PO SCH ×2 (08:45→16:30)
[2018-01-18] MEDS: BALSAM PERU/CASTOR OIL 60 GM OINT...G. TP SCH ×2 (08:45→16:30)
[2018-01-18] MEDS: POLYETHYLENE GLYCOL 3350 17 GM PACK PO SCH ×2 (08:45→16:30)
[2018-01-18] MEDS: METOPROLOL TARTRATE 25 MG TAB PO SCH ×2 (08:45→16:29)
[2018-01-18] MEDS: MAGNESIUM OXIDE 400 MG TAB PO SCH ×2 (08:45→16:30)
[2018-01-18] MEDS: NICOTINE 7 MG PATCH TOP SCH (08:45)
--- NOTE | 2018-01-18 10:30 | NUR ---
CENTRAL LINE DRESSING CHANGED
--- NOTE | 2018-01-18 10:37 | Diagnostic Imaging Report ---
PROCEDURE: CHEST SINGLE (PORTABLE) COMPARISON: 01/14/2018. INDICATIONS: PNEUMONIA FINDINGS: New left upper lobe consolidation with additional patchy opacities in the right upper and lower lung zones relative to 01/14/2018. Interval development of small bilateral pleural effusions, left larger than right. No pneumothorax. Stable cardiomediastinal contour including position of a right internal jugular central venous catheter. CONCLUSION: Interval development of multifocal pneumonia with the most dense consolidation in the left upper lobe. Small bilateral pleural effusions, left larger than right. Stable position of right internal jugular central venous catheter. Dictated by: Asad Baugh M.D. on 01/18/2018 at 10:48 Electronically approved by: Asad Baugh M.D. on 01/18/2018 at 10:48
[2018-01-18] MEDS: GUAIFENESIN 600MG/DEXTROMETHORPHAN 30MG TABSR PO SCH ×2 (10:46→20:06)
--- NOTE | 2018-01-18 10:47 | NUR ---
NOTIFIED KATERINE CAMPAIGN MARKETING MANAGER WITH RESULTS OF CXR RECEIVED ORDERS TO CONSULT ID . PAGED TO NOTIFY OF CONSULT
[2018-01-18 12:15] VITALS: BP 103/69
--- NOTE | 2018-01-18 15:45 | Consultation ---
DATE OF CONSULTATION: January 18, 2018 REASON FOR CONSULTATION: Urinary tract infection. HISTORY OF PRESENT ILLNESS: This patient is a very pleasant 67-year-old female who comes into [facility] with a general feeling of not feeling well, doing poorly. The patient was admitted on January 14, 2018. Patient had also been having some chest pain and discomfort. The patient stated the pain was substernal. The patient has history of hypertension, GERD, DVT, PE, COPD. Comes into the hospital. She was noted to have elevated white count. Her urine culture came back positive. Infection disease was consulted today. Patient is currently lying in bed complaining of chest pain. She was seen by cardiology earlier on January 15. She has history of hypertension, DVT on the left lower extremity, tobacco abuse and pulmonary embolism. PAST SURGICAL HISTORY: Cholecystectomy. SOCIAL HISTORY: Currently smoking. No drug abuse or alcohol abuse. FAMILY HISTORY: Hypertension. REVIEW OF SYSTEMS: At present time she just not feeling well. HEENT: Negative. PULMONARY: Negative. Her white count on admission was 15.9 but it is going up to 25.57. Hemoglobin of 9.0. She did receive 2 units of blood, platelet count 251,000. Sodium 135, potassium 3.9, creatinine 0.68. Bilirubin 4.9, direct was 3.6, AST 52. Her urine culture showed gram-negative rods, Pseudomonas aeruginosa, ESBL, E. coli. The patient had CT of the abdomen and pelvis. She had diffuse hepatic steatosis. Nonobstructing right lower lobe calculus. Patient is on meropenem 1 gram q.8. Lopressor. Os-Michael, folic acid, Pepcid, Colace, and Tylenol. At the present time, the patient is lying in bed comfortably as mentioned above. She is complaining of chest pain There is no fever, no chills, but actually there has been no fever since admission. Patient denies any urgency or frequency. Other symptoms of being tired or fatigue, she denies any. Chest x-ray was done and showed multifocal pneumonia. PHYSICAL EXAMINATION: GENERAL: Alert, oriented, does not seem to be in any acute distress. VITAL SIGNS: Stable, currently afebrile. HEENT: Not icteric. NECK: Supple. CHEST: Clear. A few crackles bilaterally. HEART: S1 and S2, no S3, S4 or murmur. ABDOMEN: Soft. Bowel sounds present. No tenderness. EXTREMITIES: No edema. IMPRESSION: 1. Leukocytosis, getting progressively worse. 2. Pneumonia by chest x-ray, but the patient denies any fever or chills or cough. 3. Bacterial Pseudomonas aeruginosa and Escherichia coli, ESBL, asymptomatic again. 4. Liver , concerned about cirrhosis. 5. Chest pain. RECOMMENDATIONS: I agree with meropenem. Will adjust the dose to 500 q.8 h. Obtain lactic acid for calcitonin. Obtain swallow evaluation. Check hepatitis A, B and C and HIV. Will check CBC with . Will follow. Job#: [id number] ROBERT
[2018-01-18 16:30] VITALS: BP 114/78
[2018-01-18 18:00] LABS: AMYLASE 28 U/L (25-125); LIPASE 30 U/L (8-78)
[2018-01-18 18:34] LABS: HIV 1&2 AB SCREEN NON-REACTIVE (NONREACTIVE)
--- NOTE | 2018-01-18 19:11 | NUR ---
Received report from AM nurse. Walking rounds completed.
[2018-01-18] MEDS ORDERED: MEROPENEM 500 MG VIAL ONE (19:21)
[2018-01-18 20:00] VITALS: BP 113/73
[2018-01-18] MEDS ORDERED: SODIUM CHLORIDE 0.9% 50ML 50 ML ONE (20:02)
[2018-01-18] MEDS ORDERED: SODIUM CHLORIDE 0.9% 250ML 250 ML ONE (21:02)
[2018-01-18] MEDS: MEROPENEM 500MG 500 MG in SODIUM CHLORIDE 0.9% 50ML 50 ML IV SCH (21:09)
[2018-01-18] MEDS: HYDROCODONE/APAP 5MG-325MG TAB PO PRN (23:16)
[2018-01-19] VITALS (11 sets, daily range): BP systolic 87–138; BP diastolic 61–96
--- NOTE | 2018-01-19 00:56 | NUR ---
Patient resting quitly at this time. Continue monitor.
[2018-01-19] MEDS: LEVALBUTEROL HCL SOLN NEBU 0.63 MG/3 ML NEB INH SCH ×4 (01:00→19:10)
[2018-01-19] MEDS: IPRATROPIUM BROMIDE 0.02% 2.5 ML NEB NEB SCH ×4 (01:00→19:10)
--- NOTE | 2018-01-19 01:45 | NUR ---
No noted changed in patient condition, Continue monitor for changes in patient condition.
--- NOTE | 2018-01-19 05:18 | NUR ---
Blood drawn from line. Flushed with 10cc saline,
[2018-01-19 05:50] LABS: BASOPHILS # (AUTO) 0.2 (0.0-0.1); BASOPHILS % 0.5 % (0.0-1.0); HEMATOCRIT 33.5 % (34.2-44.1); HEMOGLOBIN 11.4 g/dL (12.0-16.0); LYMPHOCYTES % 3.4 % (18.0-39.1); MEAN CORPUSCULAR HEMOGLOBIN 31.7 pg (28-32); MEAN CORPUSCULAR VOLUME 93.1 fL (81-99); MONOCYTES # (AUTO) 1.7 (0.2-0.8); MONOCYTES % 6.2 % (4.4-11.3); NEUTROPHILS # (AUTO) 23.4 (2.1-6.9); NEUTROPHILS % 85.1 % (38.7-80.0); PLATELET COUNT 199 x10e3/uL (140-360); RED CELL DISTRIBUTION WIDTH 23.8 % (11.7-14.4)
[2018-01-19 06:11] LABS: ANION GAP 14.6 mmol/L (8-16); BLOOD UREA NITROGEN 15 mg/dL (7-26); BUN/CREATININE RATIO 22 (6-25); CALCIUM 7.7 mg/dL (8.4-10.2); CARBON DIOXIDE 17 mmol/L (22-29); CHLORIDE 108 mmol/L (98-107); CREATININE, SERUM 0.69 mg/dL (0.57-1.11); EST GLOMERULAR FILTRATION RATE > 60 ML/MIN (60-); GLUCOSE 85 mg/dL (74-118); LIPASE 25 U/L (8-78); MAGNESIUM 1.4 MG/DL (1.3-2.1); POTASSIUM 4.6 mmol/L (3.5-5.1); SODIUM 135 mmol/L (136-145)
[2018-01-19] MEDS: AZITHROMYCIN 250 MG TAB PO SCH ×2 (06:30→08:31)
[2018-01-19] MEDS: MEROPENEM 500MG 500 MG in SODIUM CHLORIDE 0.9% 50ML 50 ML IV SCH ×3 (06:39→21:00)
[2018-01-19] MEDS ORDERED: MEROPENEM 500 MG VIAL ONE (06:43)
[2018-01-19 08:00] LABS: ANISOCYTOSIS MODERATE; HYPOCHROMASIA SLIGHT; LYMPHOCYTES % (MANUAL) 2 % (19-48); MONOCYTES % (MANUAL) 6 % (3.4-9.0); NEUTROPHILS % (MANUAL) 91 % (40-74); TARGET CELLS FEW
[2018-01-19 08:01] LABS: BURR CELLS SLIGHT; PLATELET ESTIMATE ADEQUATE; PLATELET MORPHOLOGY COMMENT NORMAL; RBC MORPHOLOGY COMMENT ABNORMAL
[2018-01-19] MEDS: FAMOTIDINE 20 MG TAB PO SCH ×2 (08:30→17:06)
[2018-01-19] MEDS: METOCLOPRAMIDE HCL 10 MG TAB PO SCH ×2 (08:30→17:06)
[2018-01-19] MEDS: BALSAM PERU/CASTOR OIL 60 GM OINT...G. TP SCH ×2 (08:31→17:06)
[2018-01-19] MEDS: MAGNESIUM OXIDE 400 MG TAB PO SCH ×2 (08:31→17:06)
[2018-01-19] MEDS: OYST-CAL-D 500MG TABLET PO SCH ×2 (08:31→17:06)
[2018-01-19] MEDS: POLYETHYLENE GLYCOL 3350 17 GM PACK PO SCH ×2 (08:31→17:00)
[2018-01-19] MEDS: DOCUSATE SODIUM 100 MG CAP PO SCH ×2 (08:31→17:00)
[2018-01-19] MEDS: FOLIC ACID 1 MG TAB PO SCH (08:31)
[2018-01-19] MEDS: NICOTINE 7 MG PATCH TOP SCH (08:31)
[2018-01-19] MEDS: MIDODRINE 2.5 MG TAB PO SCH ×3 (08:48→17:15)
[2018-01-19] MEDS: METOPROLOL TARTRATE 25 MG TAB PO SCH ×2 (08:48→17:15)
[2018-01-19] MEDS: GUAIFENESIN 600MG/DEXTROMETHORPHAN 30MG TABSR PO SCH ×2 (10:00→21:00)
[2018-01-19 10:11] LABS: INR 1.23; PROTHROMBIN TIME 16.6 seconds (11.9-14.5)
--- NOTE | 2018-01-19 14:16 | NUR ---
CM SPOKE TO PATIENT AT BEDSIDE REGARDING ORDERS FOR NANOTECHNICIAN ACUTE CARE. PATIENT ALERT & ORIENTED AND GIVEN INFORMATION ABOUT LTAC FACILITY AND SERVICES. PATIENT AGREES TO GO TO LTAC. PATIENT CHOOSES [facility]. CHOICE LETTER SIGNED AND PLACED IN CHART. PORSHA AVILEZ. [facility] LIAISON CALLED AND NOTIFIED. CLINICAL PICKED UP BY LIAISON. MOT INITIATED AND PLACED ON CHART. PENDING AUTH FOR TRANSFER. [facility] Address: [address] [facility], [place] [address]
[2018-01-19] MEDS ORDERED: FUROSEMIDE INJ 10 MG/ML 4 ML VIAL IV NR (18:45)
[2018-01-20] VITALS: BP 116/73
[2018-01-20] MEDS: LEVALBUTEROL HCL SOLN NEBU 0.63 MG/3 ML NEB INH SCH ×3 (01:00→12:01)
[2018-01-20] MEDS: IPRATROPIUM BROMIDE 0.02% 2.5 ML NEB NEB SCH ×3 (01:00→12:01)
[2018-01-20 03:07] LABS: BASOPHILS # (AUTO) 0.1 (0.0-0.1); BASOPHILS % 0.6 % (0.0-1.0); HEMATOCRIT 31.2 % (34.2-44.1); HEMOGLOBIN 10.6 g/dL (12.0-16.0); LYMPHOCYTES # (AUTO) 1.1 (1.0-3.2); LYMPHOCYTES % 5.5 % (18.0-39.1); MEAN CORPUSCULAR HEMOGLOBIN 31.3 pg (28-32); MONOCYTES # (AUTO) 2.1 (0.2-0.8); MONOCYTES % 10.5 % (4.4-11.3); NEUTROPHILS # (AUTO) 15.5 (2.1-6.9); NEUTROPHILS % 78.3 % (38.7-80.0); PLATELET COUNT 195 x10e3/uL (140-360); RED BLOOD COUNT 3.39 x10e6/uL (3.6-5.1)
[2018-01-20 03:27] LABS: ANION GAP 15.9 mmol/L (8-16); BLOOD UREA NITROGEN 19 mg/dL (7-26); BUN/CREATININE RATIO 26 (6-25); CALCIUM 7.8 mg/dL (8.4-10.2); CARBON DIOXIDE 18 mmol/L (22-29); CHLORIDE 107 mmol/L (98-107); CREATININE, SERUM 0.72 mg/dL (0.57-1.11); EST GLOMERULAR FILTRATION RATE > 60 ML/MIN (60-); GLUCOSE 89 mg/dL (74-118); LIPASE 30 U/L (8-78); MAGNESIUM 1.3 MG/DL (1.3-2.1); POTASSIUM 3.9 mmol/L (3.5-5.1); SODIUM 137 mmol/L (136-145)
[2018-01-20 04:00] VITALS: BP 128/76
[2018-01-20] MEDS: METOPROLOL TARTRATE INJ 1 MG/ML VIAL IV PRN (04:36)
[2018-01-20] MEDS: MEROPENEM 500MG 500 MG in SODIUM CHLORIDE 0.9% 50ML 50 ML IV SCH (05:44)
[2018-01-20] MEDS ORDERED: CALCIUM GLUCONATE 10% INJ 9.3 MEQ in SODIUM CHLORIDE 0.9% 100 ML 100 ML IV ONE (05:45)
[2018-01-20] MEDS ORDERED: FUROSEMIDE INJ 10 MG/ML 4 ML VIAL IV ONE (05:45)
[2018-01-20] MEDS: METHYLPREDNISOLONE SOD SUCC 40 MG/ML VIAL IV SCH ×2 (06:26→08:57)
--- NOTE | 2018-01-20 07:29 | NUR ---
pt resting in bed, no c/o pain or s/s distress noted at this time. pt pending jia transfer
[2018-01-20 08:12] VITALS: BP 114/85
[2018-01-20 08:13] VITALS: BP 114/85
[2018-01-20] MEDS: FAMOTIDINE 20 MG TAB PO SCH (08:57)
[2018-01-20] MEDS: DOCUSATE SODIUM 100 MG CAP PO SCH (08:57)
[2018-01-20] MEDS: FOLIC ACID 1 MG TAB PO SCH (08:57)
[2018-01-20] MEDS: METOCLOPRAMIDE HCL 10 MG TAB PO SCH (08:57)
[2018-01-20] MEDS: MAGNESIUM OXIDE 400 MG TAB PO SCH (08:58)
[2018-01-20] MEDS: POLYETHYLENE GLYCOL 3350 17 GM PACK PO SCH (08:58)
[2018-01-20] MEDS: MIDODRINE 2.5 MG TAB PO SCH (08:58)
[2018-01-20] MEDS: OYST-CAL-D 500MG TABLET PO SCH (08:58)
[2018-01-20] MEDS: GUAIFENESIN 600MG/DEXTROMETHORPHAN 30MG TABSR PO SCH (08:58)
[2018-01-20] MEDS: BALSAM PERU/CASTOR OIL 60 GM OINT...G. TP SCH (08:58)
[2018-01-20] MEDS: NICOTINE 7 MG PATCH TOP SCH (08:58)
[2018-01-20] MEDS ORDERED: METOPROLOL TARTRATE 25 MG TAB PO SCH (09:00)
--- NOTE | 2018-01-20 10:48 | NUR ---
REPORT CALLED TO VIVIANE MARTIN AT [place] TO TRANS PT TO ROOM ICU 4.
--- NOTE | 2018-01-20 10:57 | NUR ---
LONG-TERM ACUTE CARE DISCHARGE INFORMATION PATIENT HAS BEEN ACCEPTED TO: [facility] Address: [address], [place] [address] ACCEPTING SKEIN DRIER: KEN VALLE MD: DR. KERRY FIELDS ROOM: ICU 4 NURSE CALL REPORT TO: [phone] THE FOLLOWING DOCUMENTS MUST ACCOMPANY PATIENT FOR TRANSFER: MOT COPIED CHART: OVEN DAUBER COPIED CHART MOT INFO RECEIVED FROM: PORSHA AVILEZ PHYSICIANS ORDER/RECONCILED MED LIST: TBA [id number] DNR: N/A
--- NOTE | 2018-01-20 11:59 | NUR ---
PT TRANSFERRING OUT TO [facility]
[2018-01-20 12:00] VITALS: BP 138/88
--- NOTE | 2018-01-20 12:17 | NUR ---
PT BECAME TACHYCARDIC AFTER CHANGING DIAPER AND UPON TRANS TO EMS STRETCHER, ALSO C/O SOB. RESP BEGAN NEB TX, KATERINE LIFT SLAB OPERATOR NOTIFIED, PER KATERINE OK TO CONTINUE TRANSFER TO LTAC VIA EMS.
--- NOTE | 2018-01-20 17:58 | Discharge Summary ---
ADMISSION DIAGNOSES 1. Chest pain. 2. Urinary tract infection. 3. Hypertension. 4. Hypokalemia. 5. Hypomagnesemia. 6. Hypocalcemia. 7. Hyponatremia. 8. Anemia. 9. Acute kidney injury. 10. Diarrhea. 11. Poor appetite. 12. Leukocytosis. . 13. Pancreatitis. 14. Chronic obstructive pulmonary disease. 15. Discoloration of left 2nd toe. DISCHARGE DIAGNOSES 1. Chest pain. 2. Urinary tract infection. 3. Hypertension. 4. Hypokalemia. 5. Hypomagnesemia. 6. Hypocalcemia. 7. Hyponatremia. 8. Anemia. 9. Acute kidney injury. 10. Diarrhea. 11. Poor appetite. 12. Leukocytosis. . 13. Pancreatitis. 14. Chronic obstructive pulmonary disease. 15. Discoloration of left 2nd toe. 16. Ruled out Clostridium difficile. 17. Ruled gastrointestinal bleed. 18. Extended spectrum beta-lactamase of the urine. HISTORY: Patient has a history of hypertension, GERD, left lower extremity DVT, PE, COPD. SURGICAL HISTORY: Hysterectomy. FAMILY HISTORY: Patient's dad has cancer and patient's sister had a stroke. SOCIAL HISTORY: Patient admits to occasional alcohol use and tobacco use of less than 1 pack per day for 40-45 years. HOSPITAL COURSE: A 67-year-old female complains of chest tightness that began a week ago and worsened the day before admission. Pain is under her bilateral breast and does not radiate. It is associated with shortness of breath, dizziness, nausea, vomiting, diarrhea, poor appetite. She has soft stools about 3-4 times a day. She noticed decreased appetite over the last week. On admission, patient had an EKG that showed sinus rhythm with PACs. An echo showed an EF between 50%-55%, mild mitral regurg, trace tricuspid regurg, bilateral lower extremity arterial Doppler negative. Chest x-ray showed COPD. Patient had a right IJ placed. CT of the abdomen was done, which showed diffuse hepatic steatosis, nonobstructing right lower pole renal calculus measuring 4 mm. For the chest pain, cardiology was consulted. Troponins were negative x3, so there is no plan. They will just manage her tachycardia. A repeat chest x-ray was done on 01/18 that showed interval development of multifocal pneumonia with the most dense consolidation in the left upper lobe, small bilateral pleural effusions, larger left than right. Her urine came back positive for ESBL and pseudomonas. Blood cultures were negative. Patient's antibiotics were changed to Merrem per ID. Patient was given 2 PRBCs due to the anemia. On day of discharge, white count is 19.77, hemoglobin 10.6 and stable, platelet 195,000. Sodium 137, potassium 3.9, GFR of over 60, creatinine of 0.72. C. diff was negative. HIV-1 and 2 negative. HIV antigen negative. Flu negative. Stool for blood negative. Vital signs stable except patient is persistently tachycardic in the 110s-120s. Cardiology, at the moment, does not want to increase the metoprolol due to the low blood pressure. Patient is asymptomatic. Patient will discharge to [facility] for long-term antibiotics and PT/OT. Patient understands discharge instructions and agrees to plan. Dictated by: Lindsey Pineda NP KERRY FIELDS MD Job#: [id number]
== END 2018-01-20 12:08 | DRG 871 ==
LOC: ER 14:40 → ERHOLD 16:39 → IMCU 20:12
PROVIDERS: ADMIT Internal Medicine; ATTEND Internal Medicine
PROC: 02HV33Z Insertion of Infusion Device into Superior Vena Cava, Percutaneous Approach (ICD-10-PCS; principal; 2018-01-14)
PROC: 30233N1 Transfusion of Nonautologous Red Blood Cells into Peripheral Vein, Percutaneous Approach (ICD-10-PCS; 2018-01-15)
DX: A41.51 Sepsis due to Escherichia coli [E. coli] (principal); K85.90 Acute pancreatitis without necrosis or infection, unspecified; J18.9 Pneumonia, unspecified organism; N17.9 Acute kidney failure, unspecified; N39.0 Urinary tract infection, site not specified; E87.1 Hypo-osmolality and hyponatremia; R07.9 Chest pain, unspecified; R65.20 Severe sepsis without septic shock; E87.6 Hypokalemia; I10 Essential (primary) hypertension; E83.42 Hypomagnesemia; E83.51 Hypocalcemia; D64.9 Anemia, unspecified; J44.9 Chronic obstructive pulmonary disease, unspecified; R19.7 Diarrhea, unspecified; L89.152 Pressure ulcer of sacral region, stage 2; Z86.711 Personal history of pulmonary embolism; Z86.718 Personal history of other venous thrombosis and embolism; Z72.0 Tobacco use; R94.5 Abnormal results of liver function studies; Z79.01 Long term (current) use of anticoagulants; B96.5 Pseudomonas (aeruginosa) (mallei) (pseudomallei) as the cause of diseases classified elsewhere; B96.20 Unspecified Escherichia coli [E. coli] as the cause of diseases classified elsewhere; K74.60 Unspecified cirrhosis of liver; K59.00 Constipation, unspecified; K21.9 Gastro-esophageal reflux disease without esophagitis; Z16.12 Extended spectrum beta lactamase (ESBL) resistance; R53.81 Other malaise; Z80.9 Family history of malignant neoplasm, unspecified; Z82.3 Family history of stroke
CPT/HCPCS: 36415; 36600; 51700; 71045; 74160; 80048; 80053; 80061; 80076; 80202; 81001; 82140; 82150; 82270; 82550; 82553; 82607; 82728; 82746; 82805; 83540; 83605; 83690; 83735; 83880; 84132; 84443; 84466; 84484; 85025; 85610; 85730; 86850; 86900; 86920; 87040; 87086; 87186; 87390; 87400; 87493; 93005; 93306; 93925; 94640; 96361; 96366; 97139; 99284; G0433; G0435; J0610; J0692; J0696; J1940; J2185; J2920; J3370; J3475; J3480; J7030; J7040; J7050; P9016; Q9967

== ENCOUNTER 2019-05-04 13:11 | Inpatient (IN) | payer MEDICARE, OTHER ==
[~2019-05-04] VITALS: Ht 157.5 cm; Wt 44.5 kg
[2019-05-04] VITALS (7 sets, daily range): BP systolic 83–105; BP diastolic 57–72
[~2019-05-04 13:11] MED LIST: AMLODIPINE BESY10 MG PO; ASPIR-LOW81 MG PO; CLONIDINE HCL0.2 MG PO; LISINOPRIL20 MG PO; METOPROLOL SUCC50 MG PO; PANTOPRAZOLE SO40 MG PO; WARFARIN SODIUM1 MG PO
--- OUTSIDE RECORDS SUMMARY | 2019-05-04 13:14 | XMS REPORT | Encounter Summary ---
Author Organization Unknown Address [address] [place] [id number] Phone [phone] Care Team Providers Care Quality Nurse Name Role Phone Dr. Chapin Fisher 3 [phone] [facility] 112 [phone] Reason for Visit hypertension; lab follow-up Instructions 1. Malignant essential hypertension 2. Hypokalemia CMP, serum or plasma 3. History of Deep vein thrombosis 4. Long-term current use of anticoagulant 5. INR - international normal ratio abnormal 6. Chronic obstructive lung disease ProAir HFA 90 mcg/actuation aerosol inhaler Discussion Note: None recorded. Patient educational handouts: No information available. Plan of Care Reminders Provider Appointments Est Patient 08/12/2018 11:00AM Chapin Fisher Jr, MD Lab CMP, Serum or Plasma 07/22/2018 [facility] Laboratory Referral None recorded. Procedures None recorded. Surgeries None recorded. Imaging None recorded. Medications Name Start Date amlodipine 10 mg tablet TAKE 1 TABLET BY MOUTH EVERY DAY Ace Low Strength 81 mg tablet,delayed release Take 1 tablet every day by oral route. famotidine 20 mg tablet Take 1 tablet every day by oral route. furosemide 40 mg tablet Take 1 tablet every day by oral route. ipratropium-albuterol 0.5 mg-3 mg(2.5 mg base)/3 mL nebulization soln Inhale 3 mL 3 times a day by nebulization route for 90 days. lisinopril 40 mg tablet Take 1 tablet every day by oral route. metoprolol succinate ER 50 mg tablet,extended release 24 hr Take 1 tablet every day by oral route for 90 days. NEBULIZER W/MOUTHPIECE ADULT use nebulizer TID potassium chloride ER 20 mEq tablet,extended release Take 1 tablet every day by oral route. ProAir HFA 90 mcg/actuation aerosol inhaler Inhale 2 puffs every 4-6 hours by inhalation route. Must keep appt. warfarin 1 mg tablet Take 1 tablet every day by oral route. Must keep appt. Wellbutrin SR 150 mg tablet, 12 hr sustained-release Take 1 tablet twice a day by oral route for 90 days. Medications Administered None recorded. Vitals Height Weight BMI Blood Pressure 5 ft 3 in 88 lbs 15.6 kg/m2 (1) 152/80 mm[Hg] (2) 150/84 mm[Hg] Lab Results Date Name Specimen Result Interpretation Description Value Range Status Address 07/13/2018 INR, Plasma Normal Inr 1.[address] [facility] Laboratory: [address] Cardona [address] High Pt 11.8 sec 9.0-11.[address] [facility]: 55 Sandra Garcia [address] [place] [address] 07/13/2018 CBC W/ Auto Diff Wbc 7.05 x10*3/L 3.98-10.04 x10*3/L Final [facility]: 55 Sandra melissa [address] Rbc 4.15 10*12/L 3.93-5.22 10*12/L Final [facility]: [address] Sandra melissa [address] Hemoglobin 11.30 g/dL 11.20-15.70 g/dL Final [facility]: [address] Sandra melissa [address] Hematocrit 34.9 % 34.1-44.9 % Final [facility]: [address] Sandra Cardona [address] Mcv 84.1 fL 80.0-100.[address] [facility]: [address] Sandra Cardona [address] Mch 27.2 pg 25.6-32.[address] [facility]: [address] Sandra Cardona [address] Mchc 32.4 g/dL 32.2-35.5 g/dL Final [facility]: [address] Sandra Cardona [address] High RDW-SD 66.7 fL 36.4-46.[address] [facility]: [address] Sandra melissa [address] Platelet Count 240.0 k/uL 182.0-369.0 k/uL Final [facility]: [address] Sandra Cardona [address] Mpv 11.1 fL 7.5-11.[address] [facility]: [address] Sandra Cardona [address] Neut% 44.9 % 34.0-71.1 % Final [facility]: 9055 Sandra Lewis [place] Lymph% 36.7 % 19.3-51.7 % Final [facility]: 9[address] Sandra Lewis [place] High Mon% 13.3 % 4.7-12.5 % Final [facility]: 9[address] Sandra Lewis [place] Eos% 4.5 % 0.7-5.8 % Final [facility]: 9[address] Sandra Lewis [place] Baso% 0.6 % 0.1-1.2 % Final [facility]: [address] Sandra Lewis [place] Neut# 3.2 x10*3/L 1.6-6.1 x10*3/L Final [facility]: 9[address] Sandra Lewis [place] Lymph# 2.6 x10*3/L 1.2-3.7 x10*3/L Final [facility]: [facility] Sandra Lewis [facility] Mon# 0.9 x10*3/L 0.2-0.9 x10*3/L Final [facility]: [address] Sandra Lewis [place] Eos# 0.32 x10*3/L 0.04-0.36 x10*3/L Final [facility]: 9055 Sandra Lewis [place] Baso# 0.04 x10*3/L 0.01-0.08 x10*3/L Final [facility]: [facility] 07/13/2018 CMP, Serum or Plasma Alt 12 U/L 0-55 U/L Final [facility]: [facility] [facility] Ast 28 U/L 5-34 U/L Final [facility]: [facility]055 [facility] Bun 11.7 mg/dL 9.8-25.0 mg/dL Final [facility]: [facility]055 [facility] Alk Phos 87 unit/L 40-150 unit/L Final [facility]: [facility]055 [facility] Glucose 82 mg/dL 70-99 mg/dL Final [facility]: [facility]055 [facility] Albumin 3.6 g/dL 3.4-5.1 g/dL Final [facility]: [address] Sandra Cardona [address] Creatinine 0.76 mg/dL 0.57-1.11 mg/dL Final [facility]: 9055 Sandra Cardona [facility] eGFR Non- >60 mL/min/1.73m2 Final [facility]: [address] Sandra Cardona [address] Total Bilirubin 0.5 mg/dL 0.2-1.2 mg/dL Final [facility]: [address] Sandra Cardona [address] eGFR - >60 mL/min/1.73m2 Final [facility]: [address] Sandra Cardona [address] Sodium 141 mEq/L 135-145 mEq/L Final [facility]: [address] Sandra Garcia [address] [place] [address] Low Potassium 3.3 mEq/L 3.5-5.1 mEq/L Final [facility]: [address] Sandra Cardona [address] Chloride 104 mmol/L 98-110 mmol/L Final [facility]: [address] Sandra Cardona [address] Total Protein 6.9 g/dL 6.1-8.2 g/dL Final [facility]: [address] Sandra Cardona [address] Calcium 9.0 mg/dL 8.6-10.4 mg/dL Final [facility]: [address] Sandra Garcia [address] [place] [address] Co2 23.9 mmol/L 20.0-32.0 mmol/L Final [facility]: [address] Sandra Cardona [address] Anion Gap [address] [facility]: [address] Sandra Cardona [address] 07/13/2018 Lipid Panel, Serum Hdl 118 mg/dL >50 mg/dL Final [facility]: [address] Sandramelissa Cardona [address] Triglyceride 59 mg/dL <150 mg/dL Final [facility]: 9[address] [facility] VLDL (Calculated) 12 mg/dL Final [facility]: [address] Stefanymelissa [address] cholesterol/HDL Ratio 1.8 mg/dL Final [facility]: [address] Stefanymelissa [address] non-HDL Cholesterol (Calculated) 99 mg/dL <160 mg/dL Final [facility]: [address] High Cholesterol 217 mg/dL <200 mg/dL Final [facility]: [address] LDL (Calculated) 87 mg/dL <130 mg/dL Final [facility]: [address] 07/13/2018 TSH, Serum or Plasma Tsh 0.900 uIU/mL 0.350-4.940 uIU/mL Final 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 12/18/2016 Long-term Current Use of Anticoagulant Active 12/18/2016 History of Deep Vein Thrombosis Active 12/18/2016 Malnutrition (Calorie) Active 12/25/2016 Senile Purpura Active 06/09/2017 Depressive Disorder Active 06/09/2017 Malignant Essential Hypertension Active 06/09/2017 Peripheral Vascular Disease Active 06/09/2017 Gastro-esophageal Reflux Disease with Esophagitis Active 06/09/2017 History of Gastrointestinal Bleed Active 06/09/2017 Procedures Date Name Performed by 02/16/2017 Colonoscopy Information not available 02/17/1992 Hysterectomy (Partial) Information not available Vaccine List Vaccine Type influenza, high dose seasonal 12/18/20160.5 mL pneumococcal conjugate PCV 13 07/13/20180.5 mL pneumococcal polysaccharide PPV23 12/18/20160.5 mL Social History Smoking Status Heavy Tobacco Smoker (1/2 PPD) Past Encounters 07/22/2018 Malignant Essential Hypertension; Hypokalemia; History of Deep Vein Thrombosis; Long-term Current Use of Anticoagulant; INR - International Normal Ratio Abnormal; Chronic Obstructive Lung Disease Chapin Fisher Jr, MD: [id number], [address], [place] [address], Ph. 07/13/2018 Adult Health Examination; Advance Directive Discussed with Patient; Depression Screening Positive; At Risk for Falls; Body Mass Index Less than 16.5; Screening for Malignant Neoplasm of Breast; Immunization; Nicotine Dependence; Depressive Disorder; Hypertensive Renal Disease; Chronic Kidney Disease Stage 3; Tachycardia; Chronic Obstructive Lung Disease; Screening for Cardiovascular System Disease; Peripheral Vascular Disease; Senile Purpura; Long-term Current Use of Anticoagulant; Malnutrition (Calorie); Postmenopausal State; Dependence on Wheel Chair; Unsteady Gait Chapin Fisher Jr, MD: [id number] [facility], [facility], [place] [address], Ph. History of Present Illness Hypertension Reported By: Patient HPI: Severity: mild. Onset/Timing: gradual onset. Alleviating Factors: relieved with rest, medication. Self Care: not under emotional stress, blood pressure goal: 130/80. Associated Symptoms: no shortness of breath, no fatigue, no decline in exercise capacity Generic HPI Template Reported By: Patient Notes: Patient presents for routine lab follow up. Currently without new complaint. Note:Patient presents for lab follow up. Currently without new complaint. Review of Systems Comprehensive General Adult ROS Reported By: Patient Constitutional: Constitutional: no significant weight gain, no significant weight loss Cardiovascular: Cardiovascular: no chest pain, no shortness of breath when walking Respiratory: Respiratory: no cough, no wheezing, no shortness of breath Endocrine: Endocrine: no fatigue Physical Exam Neurology Exam, Cardiology Exam Reported By: Patient Constitutional: Weight: thin. Ambulation: non-ambulatory Head: Size/Trauma: normocephalic Mental Status: Orientation oriented to person, oriented to place, oriented to time. Mood/Affect: appropriate mood, appropriate affect. Language: has spontaneous speech. Memory: recent memory intact, remote memory intact. Fund of Knowledge: current events, past history
--- OUTSIDE RECORDS SUMMARY | 2019-05-04 13:14 | XMS REPORT | Encounter Summary ---
Author Organization Unknown Address [address] [place] [address] Phone [phone] Care Team Providers Care Circular Tank Cooper Name Role Phone Dr. Chapin Fisher 3 [phone] Reason for Visit AWV Annual Wellness Visit Female (VFP); low back pain; Advance Care Plan; hypertension Instructions 1. Adult health examination 2. Advance directive discussed with patient advance care planning: care instructions 3. Depression screening positive learning about depression learning about mood disorders 4. At risk for falls 5. Body mass index less than 16.5 learning about healthy weight 6. Screening for malignant neoplasm of breast 7. Immunization Prevnar 13 (PF) 0.5 mL intramuscular syringe 8. Nicotine dependence stopping smoking: care instructions advised to quit smoking deciding about using medicines to quit smoking Wellbutrin SR 150 mg tablet, 12 hr sustained-release 9. Depressive disorder 10. Hypertensive renal disease CMP, serum or plasma CBC w/ auto diff TSH, serum or plasma lipid panel, serum lisinopril 40 mg tablet 11. Chronic kidney disease stage 3 12. Tachycardia metoprolol succinate ER 50 mg tablet,extended release 24 hr 13. Chronic obstructive lung disease ipratropium-albuterol 0.5 mg-3 mg(2.5 mg base)/3 mL nebulization soln nebulizer w/mouthpiece adult ProAir HFA 90 mcg/actuation aerosol inhaler 14. Screening for cardiovascular system disease 15. Peripheral vascular disease 16. Senile purpura 17. Long-term current use of anticoagulant INR, plasma 18. Malnutrition (calorie) 19. Postmenopausal state 20. Dependence on wheel chair 21. Unsteady gait handicap placard Discussion Note: None recorded. Plan of Care Patient Instructions It was good to see you in the office today for your Medicare Annual Wellness Visit. You have been provided some information on healthy nutrition, including a diet rich in fruits and vegetables, minimizing simple carbohydrates, salt, and saturated fats. I want to encourage regular cardiovascular exercise such as walking at least 30 minutes daily, 5 times per week. Please remember to schedule any preventive health measures that we talked about today. You have also been provided education on fall prevention and community- based lifestyle interventions to help reduce health risks and promote healthy living in your Annual Wellness folder. Screening Recommendations 1. Vaccines Pneumonia: Recommended today Influenza: This Fall 2. Mammography Screening: No further screening necessary at this time 3. Colorectal Cancer Screening: No further screening necessary at this time 4. Annual Depression Screening 5. Annual Alcohol Screening 6. Annual Fall Risk Screening 7. Annual Health Risk Assessment Patient Instructions on Filing Advance Directives Be sure that you have easy access to your paperwork for your medical power of attorney law clerk and advanced directives. Be sure that the designated person as well as important family members have copies of those forms as well. Please have contact information of your designee readily available. In the event of hospitalization, please bring those important documents with you for reference. Reminders Provider Appointments Est Patient 08/03/2018 10:45AM Chapin Fisher Jr, MD Lab INR, Plasma 07/13/2018 [facility] Laboratory CMP, Serum or Plasma 07/13/2018 [facility] Laboratory CBC W/ Auto Diff 07/13/2018 [facility] Laboratory TSH, Serum or Plasma 07/13/2018 [facility] Lipid Panel, Serum 07/13/2018 [facility] Referral None recorded. Procedures None recorded. [...] 3 in 88 lbs 15.6 kg/m2 (1) 168/96 mm[Hg] (2) 170/90 mm[Hg] Lab Results None recorded. Allergies Code Code System Name Reaction Severity [...] Heavy Tobacco Smoker (1/2 PPD) Past Encounters 07/13/2018 Adult Health Examination; Advance Directive Discussed [...] Dependence on Wheel Chair; Unsteady Gait Chapin Phillip Jr, MD: [id number] [facility], [address], [place] [address], Ph. History of Present Illness Hypertension Reported By: Patient HPI: Severity: mild. Onset/Timing: gradual onset. Alleviating Factors: relieved with rest, medication. Self Care: not under emotional stress, blood pressure goal: 130/80. Associated Symptoms: no shortness of breath, no fatigue, no decline in exercise capacity Mini Cog Reported By: Patient Functional Ability: Personal/Social/ Draw a clock and write in the numbers in the correct place, and set the time to 10 minutes after 11 o'clock was completed correctly? Yes, 3 word recall: Your nurse or doctor will ask you to remember 3 words. In 5 minutes, they will ask you to repeat them. Patient recalled 3 words Note:I'd like to talk about what is ahead with your illness and do some thinking in advance about what is important to you so I can make sure we provide you with the care you want-is that okay? {{Yes*|No}} Review of Systems Comprehensive General Adult ROS, Comprehensive Adult Problem ROS Reported By: Patient Constitutional: Constitutional: no significant weight gain, no significant weight loss Cardiovascular: Cardiovascular: no chest pain, no shortness of breath when walking Respiratory: Respiratory: no cough, no wheezing, no shortness of breath Gastrointestinal: Gastrointestinal: normal appetite Musculoskeletal: Musculoskeletal: no soft tissue swelling, no joint swelling, myalgia Integumentary: Skin: no redness, no skin lesions, no swelling Neurologic: Neurologic: no weakness, no numbness. Neuro: no tingling Endocrine: Endocrine: no fatigue Hematologic/Lymphatic: Hematologic/Lymphatic no bruising Constitutional: Constitutional: no significant weight change Physical Exam Musculoskeletal and Joint Exam, Cardiology Exam, Low Back Pain Reported By: Patient Musculoskeletal System: Musculoskeletal System normal range of motion in all peripheral joints Constitutional: General Appearance: well-developed, appears stated age, thin appearing. Level of Distress: comfortable, chronically ill Lungs: Respiratory Effort: unlabored. Chest Exam: no chest wall tenderness. Auscultation: clear, no wheezing, no rales, no rhonchi Cardiovascular: Rate And Rhythm: regular. Heart Sounds: normal S1, physiologically split S2, no rub, no gallop, no click. Systolic Murmur: not heard. Diastolic Murmur: not heard. Extremities: no cyanosis, no edema, no peripheral signs of emboli Peripheral Pulses: Pulses: full and equal in all extremities except if noted Skin: Inspection and Palpation: warm and dry"
--- OUTSIDE RECORDS SUMMARY | 2019-05-04 13:14 | XMS REPORT | Encounter Summary ---
Author Organization Unknown Address [address] [place] [id number] Phone [phone] Care Team Providers Care Size Roller Operator Name Role Phone Dr. Chapin Fisher 3 [phone] [facility] 112 [phone] Reason for Visit hypertension; lab follow-up Instructions 1. Malignant essential hypertension 2. Hypokalemia CMP, serum or plasma 3. History of Deep vein thrombosis 4. Long-term current use of anticoagulant INR, plasma 5. INR - international normal ratio abnormal 6. Chronic obstructive lung disease ProAir HFA 90 mcg/actuation aerosol inhaler Discussion Note: None recorded. Patient educational handouts: No information available. Plan of Care Reminders Provider Appointments Est Patient 08/12/2018 11:00AM Chapin Fisher Jr, MD Lab CMP, Serum or Plasma 07/22/2018 [facility] INR, Plasma 07/22/2018 [facility] Referral None recorded. Procedures None [...] 07/13/2018 INR, Plasma Normal Inr 1.1 Final [facility]: [address] Cardona [address] Pt 11.8 sec 9.0-11.5 sec Final [facility]: 55 Sandra Garcia [address] [place] [address] 07/13/2018 CBC W/ Auto Diff Wbc 7.05 x10*3/L 3.98-10.04 x10*3/L Final [facility]: 55 Sandra melissa [address] Rbc 4.15 10*12/L 3.93-5.22 10*12/L Final [facility]: 9055 Sandra mel[address] Hemoglobin 11.30 g/dL 11.20-15.70 g/dL Final [facility]: 9055 Sandra [address] Hematocrit 34.9 % 34.1-44.9 % Final [facility]: 9055 Sandra Cardona [address] Mcv 84.1 fL 80.0-100.0 fL Final [facility]: 9[address] Cardona [address] Mch 27.2 pg 25.6-32.2 pg Final [facility]: 9[address] Cardona [address] Mchc 32.4 g/dL 32.2-35.5 g/dL Final [facility]: 9055 Sandra melissa [address] High RDW-SD 66.7 fL 36.4-46.3 fL Final [facility]: 9055 Sandra Cardona [address] Platelet Count 240.0 k/uL 182.0-369.0 k/uL Final [facility]: [address] Mpv 11.1 fL 7.5-11.5 fL Final [facility]: [address] Neut% 44.9 % 34.0-71.1 % Final [facility]: 9055 Sandra Lewis [place] Lymph% 36.7 % 19.3-51.7 % Final [facility]: 9[address] [place] High Mon% 13.3 % 4.7-12.5 % Final [facility]: 9055 Sandra Lewis [place] Eos% 4.5 % 0.7-5.8 % Final [facility]: 9[address] [place] Baso% 0.6 % 0.1-1.2 % Final [facility]: 9055 Sandra Lewis [place] Neut# 3.2 x10*3/L 1.6-6.1 x10*3/L Final [facility]: 9055 Sandra Lewis [place] Lymph# 2.6 x10*3/L 1.2-3.7 x10*3/L Final [facility]: 9055 Sandra Lewis [facility] Mon# 0.9 x10*3/L 0.2-0.9 x10*3/L Final [facility]: 9055 Sandra Lewis [place] Eos# 0.32 x10*3/L 0.04-0.36 x10*3/L Final [facility]: 9055 Sandra Lewis [place] Baso# 0.04 x10*3/L 0.01-0.08 x10*3/L Final [facility] CMP, Serum or Plasma Alt 12 U/L 0-55 U/L Final [facility]: [facility] Ast 28 U/L 5-34 U/L Final [facility]: [facility] Bun 11.7 mg/dL 9.8-25.0 mg/dL Final [facility]: [facility] [facility] Alk Phos 87 unit/L 40-150 unit/L Final [facility]: [facility]055 [facility] Glucose 82 mg/dL 70-99 mg/dL Final [facility]: 9055 Sandra Garcia [address] [place] [address] Albumin 3.6 g/dL 3.4-5.1 g/dL Final [facility]: [address] Sandra Garcia [address] [place] [address] Creatinine 0.76 mg/dL 0.57-1.11 mg/dL Final [facility]: [address] Cardona [address] eGFR Non- >60 mL/min/1.73m2 Final [facility]: [address] Total Bilirubin 0.5 mg/dL 0.2-1.2 mg/dL Final [facility]: [address] Sandra Garcia [address] [place] [address] eGFR - >60 mL/min/1.73m2 Final [facility]: [facility] [facility] Sodium 141 mEq/L 135-145 mEq/L Final [facility]: [address] Sandra Garcia [address] [place] [address] Low Potassium 3.3 mEq/L 3.5-5.1 mEq/L Final [facility]: [address] Chloride 104 mmol/L 98-110 mmol/L Final [facility]: [address] Cardona [address] Total Protein 6.9 g/dL 6.1-8.2 g/dL Final [facility]: [facility] [facility] Calcium 9.0 mg/dL 8.6-10.4 mg/dL Final [facility]: [address]ai [address] [place] [address] Co2 23.9 mmol/L 20.0-32.0 mmol/L Final [facility]: [address] Anion Gap 13 calc Final [facility]: [facility]2018 Lipid Panel, Serum Hdl 118 mg/dL >50 mg/dL Final [facility]: 9055 Sandra Cardona Jose [address] [place] [address] Triglyceride 59 mg/dL <150 mg/dL Final [facility]: [address] VLDL (Calculated) 12 mg/dL Final [facility]: [address] cholesterol/HDL Ratio 1.8 mg/dL Final [facility]: [address] non-HDL Cholesterol (Calculated) 99 mg/dL <160 mg/dL Final [facility]: [address] High Cholesterol 217 mg/dL <200 mg/dL Final [facility]: [address] LDL (Calculated) 87 mg/dL <130 mg/dL Final [facility]: [address] 07/13/2018 TSH, Serum or Plasma Tsh 0.900 uIU/mL 0.350-4.940 uIU/mL Final [facility]: [address] Allergies Code Code System Name Reaction [...] Obstructive Lung Disease Chapin Fisher Jr, MD: [address] [facility], [address], [place] [address], Ph. 07/13/2018 Adult Health Examination; Advance Directive [...] Chair; Unsteady Gait Chapin Fisher Jr, MD: [address] [facility], [address], [place] [address], Ph. History of Present Illness Hypertension Reported [...]
[2019-05-04] MEDS ORDERED: METHYLPREDNISOLONE SOD SUCC 125 MG/2ML VIAL IV STA (13:29)
[2019-05-04] MEDS ORDERED: ONDANSETRON HCL INJ 2MG/ML 2ML 2 MG/ML VIAL IV STA (13:29)
[2019-05-04] MEDS ORDERED: SODIUM CHLORIDE 0.9% 1000ML 1,000 ML IV STA ×2 (13:29→14:36)
[2019-05-04] MEDS ORDERED: PANTOPRAZOLE 40 MG 10ML VIAL IV STA (13:29)
[2019-05-04] MEDS ORDERED: IPRATROPIUM/ALBUTEROL SULFATE 4 GM INH INH SCH (13:30)
[2019-05-04] MEDS ORDERED: PIPER-TAZ 3.375 GM 50 ML IV ONE (13:45)
[2019-05-04] MEDS ORDERED: ALBUTEROL SULF 0.083% NEB SOLN 3 ML NEB NEB STA (13:49)
[2019-05-04 13:55] LABS: BASOPHILS % 0.3 % (0.0-1.0); EOSINOPHILS # (AUTO) 0.1 (0.0-0.4); EOSINOPHILS % 0.8 % (0.0-6.0); LYMPHOCYTES # (AUTO) 1.2 (1.0-3.2); MEAN CORPUSCULAR HEMOGLOBIN 34.5 pg (28-32); MEAN CORPUSCULAR HGB CONC 36.1 g/dL (31-35); MEAN CORPUSCULAR VOLUME 95.5 fL (81-99); MONOCYTES # (AUTO) 0.4 (0.2-0.8); MONOCYTES % 6.3 % (4.4-11.3); NEUTROPHILS # (AUTO) 4.8 (2.1-6.9); NEUTROPHILS % 73.2 % (38.7-80.0); PLATELET COUNT 152 x10e3/uL (140-360); RED BLOOD COUNT 3.77 x10e6/uL (3.6-5.1); RED CELL DISTRIBUTION WIDTH 13.4 % (11.7-14.4)
[2019-05-04] MEDS ORDERED: IPRATROPIUM BROMIDE 0.02% 2.5 ML NEB NEB ONE (14:00)
[2019-05-04 14:08] LABS: CLARITY,URINE CLOUDY (CLEAR); COLOR,URINE YELLOW (YELLOW)
[2019-05-04 14:09] LABS: BILIRUBIN,URINE MODERATE (NEGATIVE); KETONES,URINE NEGATIVE (NEGATIVE); LEUKOCYTE ESTERASE ,URINE 1+ (NEGATIVE); NITRITE,URINE NEGATIVE (NEGATIVE); PROTEIN,URINE DIPSTICK TRACE (NEGATIVE); URINE UROBILINOGEN 1 mg/dL (0.2 - 1)
[2019-05-04] MEDS ORDERED: ASPIRIN 81 MG CHEW TAB PO ONE (14:15)
[2019-05-04] MEDS: AZITHROMYCIN 500MG/NS 250 ML 250 ML IV SCH (14:16)
[2019-05-04 14:25] LABS: BACTERIA,URINE MANY /HPF; MUCUS,URINE MODERATE (RARE); RBC,URINE 0-5 /HPF (0-5)
[2019-05-04 14:36] LABS: B-TYPE NATRIURETIC PEPTIDE2 125.5 pg/mL (0-100)
--- NOTE | 2019-05-04 14:38 | Diagnostic Imaging Report ---
EXAMINATION: CHEST SINGLE (PORTABLE) INDICATION: Shortness of breath COMPARISON: Chest radiograph 01/14/2018 FINDINGS: LINES/TUBES:EKG leads overlie the chest. LUNGS:The lungs are hyperinflated. No focal consolidation or pulmonary edema. Emphysematous changes. PLEURA:No pleural effusion or pneumothorax. MEDIASTINUM:The cardiomediastinal silhouette appears normal in size and shape. Atherosclerotic calcifications of the thoracic aorta. BONES/SOFT TISSUES:No acute osseous injury. ABDOMEN:No free air under the diaphragm. IMPRESSION: Hyperinflated lungs. No focal pneumonia or pulmonary edema. Signed by: Shila Claros MD on 05/04/2019 2:35 PM
[2019-05-04 14:40] LABS: ALANINE AMINOTRANSFERASE 14 IU/L (0-55); ALKALINE PHOSPHATASE 71 IU/L (40-150); ANION GAP 20.6 mmol/L (8-16); BLOOD UREA NITROGEN 32 mg/dL (7-26); BUN/CREATININE RATIO 41 (6-25); CALCIUM 7.8 mg/dL (8.4-10.2); CARBON DIOXIDE 23 mmol/L (22-29); CHLORIDE 82 mmol/L (98-107); CREATINE KINASE 33 IU/L (29-168); CREATININE, SERUM 0.79 mg/dL (0.57-1.11); EST GLOMERULAR FILTRATION RATE > 60 ML/MIN (60-); GLUCOSE 112 mg/dL (74-118); POTASSIUM 3.6 mmol/L (3.5-5.1); SODIUM 122 mmol/L (136-145)
[2019-05-04 14:41] LABS: MAGNESIUM 0.9 MG/DL (1.3-2.1)
[2019-05-04 14:48] LABS: INR 0.97; PROTHROMBIN TIME 13.5 seconds (11.9-14.5)
[2019-05-04 14:49] LABS: PARTIAL THROMBOPLASTIN TIME 26.9 seconds (23.8-35.5)
[2019-05-04] MEDS: ALBUTEROL SULF 0.083% NEB SOLN 3 ML NEB NEB SCH ×2 (15:00→20:00)
[2019-05-04] MEDS: IPRATROPIUM BROMIDE 0.02% 2.5 ML NEB NEB SCH ×2 (15:00→20:00)
[2019-05-04] MEDS ORDERED: SODIUM CHLORIDE 0.9% 1000ML 1,000 ML IV SCH (15:00)
[2019-05-04] MEDS ORDERED: MAGNESIUM SULFATE 2GM/50ML 50 ML IV ONE (15:00)
--- NOTE | 2019-05-04 18:45 | Consultation ---
DATE OF CONSULTATION: 05/04/2019 REASON FOR CONSULTATION: Abnormal EKG. CHIEF COMPLAINT: Weakness, shortness of breath. HISTORY OF PRESENT ILLNESS: This is a 68-year-old female with history of COPD/smoker, hypertension, reflux disease, emphysema, and history of PE/DVT in 2018. The patient presents to [facility] after her bring her given to progressive weakness, shortness of breath for the past week, and also unable to get out of bed. Cardiology was consulted given abnormal EKG. The patient is seen in the ER. No family at bedside. Information obtained from chart review. The patient is a very poor historian and is not quite sure why she is here, however, does report has been short of breath for a couple days, lying in bed. She is not quite sure if she is taking her medications. Currently, the patient denies any chest pains. Laboratories noted; sodium 122, chloride 82, and magnesium 0.9. BNP 125. Chest x-ray showing hyperinflated lungs. Troponin 0.051. PAST MEDICAL HISTORY: PE/DVT in 2018, hypertension, tobacco use, COPD, emphysema, and reflux. PAST SURGICAL HISTORY: Hysterectomy. SOCIAL HISTORY: She is . Positive for alcohol use. Positive for tobacco use, one-pack per day. FAMILY HISTORY: Positive history of CAD/stroke/cancer. HOME MEDICATIONS: Include aspirin, Norvasc 10 mg, clonidine 0.2 mg per day, lisinopril 20 mg daily, metoprolol 100 mg daily, Protonix 40 mg daily, and warfarin 1 mg daily. ALLERGIES: NO KNOWN ALLERGIES. REVIEW OF SYSTEMS: The patient is a very poor historian, however, positive for shortness of breath, weakness, and fatigue. Denies any chest pains. PHYSICAL EXAMINATION: VITAL SIGNS: Height 63 inches, weight 123 pounds, temperature 97.8, pulse 131, respiratory rate 18, blood pressure 83/64, and pulse ox 100% on nasal count. GENERAL: This is a petit, chronically ill-appearing female, poor historian. SKIN: No rashes. Positive bruising. HEENT: Normocephalic. Pupils are equal and reactive. Extraocular movement intact. Trachea midline. Oral mucosa is pink. No JVD. No carotid bruit. HEART: Tachycardic. No murmurs or clicks noted. PMI about 4th and 5th intercostal space. LUNGS: Clear to auscultation, however, diminished airway entry and exit. ABDOMEN: Soft, nontender, and nondistended. No organomegaly noted. MUSCULOSKELETAL: Generalized weakness throughout. VASCULAR: +2 radial pulses, +1 DP/PT pulses bilaterally. NEUROLOGIC: Cranial nerves 2 through 12 seem intact. LABORATORY DATA: Sodium 122, potassium 3.6, chloride 82, bicarb 23, BUN 32, creatinine 0.7, glucose 112, and magnesium 0.9. Troponin 0.051. BNP 125. White count 6, hemoglobin 13, hematocrit 36, and platelets 152. UA showing +1 leukocyte esterase, 6-10,000 white count, many urinary bacteria, moderate urinary mucus. INR 0.9. Chest x-ray showing hyperinflated lungs. No consolidation or pulmonary edema. Positive for emphysematous changes. EKG showed sinus tach 128, with inverted T-waves and inferior lateral leads. ASSESSMENT: 1. Chronic obstructive pulmonary disease exacerbation. 2. Dehydration. 3. Electrolyte imbalance. 4. Debility. 5. Abnormal EKG. 6. Tobacco use. PLAN: The patient presents to [facility] with apparent complaints of shortness of breath, fatigue, and weakness for the past week. Apparently, family has not been able to get the patient out of bed. Therefore, she was brought to the ER for further evaluation. EKG was sinus tach, heart rate 128 with inverted T-waves and inferior lateral leads. The patient denies any chest pains. Currently with IV fluid and electrolytes being repleted. We will do echo to evaluate heart function and structure. We will continue to monitor and adjust cardiac therapy as course progresses. Thank you very much for this consult. Dictated by Asad Fernandes NP Seen and examined. Agree with findings/exam/plan as outline per ROSALIA, Asad Fernandes. 68YF with PMH of COPD/tobacco dependence presents with failure to thrive symptoms and sinus tachycadia with nonspecific ST-T changes. Suspect she is septic and has severe protein/calorie malnutrition. Supportive from a CV standpoint. Will check Echo to evaluate LV function and adjust therapy as clinical course dictates. Follow up on cultures. Nicole Bearden MD DC/MODL /[id number] MARYELLEN
--- NOTE | 2019-05-04 19:00 | NUR ---
Bedside report received from Ken Kendall RN.
[2019-05-04 19:34] LABS: MAGNESIUM 1.7 MG/DL (1.3-2.1)
[2019-05-04 19:54] LABS: CREATINE KINASE MB 1.7 ng/mL (0-5.0)
--- NOTE | 2019-05-04 20:30 | NUR ---
Sodium, mag, and cardiac enzyme results called and given to per his request. He stated that he is currently on the computer looking at them. No new orders received at this time.
[2019-05-04] MEDS: PIPER-TAZ 3.375 GM 50 ML IV SCH (21:03)
[2019-05-04] MEDS ORDERED: GUAIFENESIN/CODEINE 10 ML CUP PO PRN (21:15)
[2019-05-04] MEDS ORDERED: HYDRALAZINE HCL 20 MG/ML VIAL IV ONE (21:15)
[2019-05-04] MEDS ORDERED: HYDRALAZINE HCL 20 MG/ML VIAL IV PRN (21:15)
[2019-05-04] MEDS ORDERED: BENZONATATE 100 MG CAP PO PRN (21:15)
--- NOTE | 2019-05-04 21:46 | History and Physical ---
CHIEF COMPLAINT: Cough, congestion, fever. HISTORY OF PRESENT ILLNESS: This is a 68-year-old female, very poor historian. Of note, has a history of hypertension, presents to the ED with underlying cough, congestion, subjective fever, and worsening diarrhea ongoing for the last one week now. Apparently, the patient lives with her and 2 elderly sons, in which she was found in feces according to the EMS reports. Apparently, the patient has had significant amount of diarrhea, but the family has not changed any of her diapers. The patient was found to be soaked in feces and urine. I evaluated the patient at bedside. There was no reports of any chest pain or any palpitations. She did endorse to me that she does have underlying diarrhea ongoing for the last one week. The patient denies any sickness or sick contacts at home. She denies any fever at home. Does report cough and congestion. The patient was found to be hypotensive on admission and tachycardic. The patient is seen and evaluated at bedside on the medical floor. She is currently stable in the ICU with no other issues at this time. REVIEW OF SYSTEMS: Cough, congestion, diarrhea, and decreased oral intake. The rest of 14-point review of systems are reviewed with the patient and are negative. ALLERGIES: NO KNOWN DRUG ALLERGIES. HOME MEDICATIONS: Amlodipine, clonidine, lisinopril, metoprolol, warfarin, aspirin, and Protonix. PAST MEDICAL HISTORY: Hypertension, generalized weakness at baseline, takes anticoagulation unknown reason, history of acid reflux. PAST SURGICAL HISTORY: Reports none. FAMILY HISTORY: Hypertension and diabetes. SOCIAL HISTORY: No drugs. No alcohol. Does not smoke. Good social support. PHYSICAL EXAMINATION: VITAL SIGNS: Temperature is 97.5, pulse is 111, respiratory rate is 13, blood pressure is 100/66, and pulse ox is 100%. She is on 4 L nasal cannula. GENERAL: Not in acute distress. Alert and oriented x3. Cooperative on examination. HEENT: Head; normocephalic, atraumatic. Eyes; pupils are equal, round, and reactive to light bilaterally. Extraocular movements intact bilaterally. Throat; no evidence of erythema or exudates in the posterior pharynx. Has poor dentition. The patient has oral dry oral mucosa. NECK: Supple. Good range of motion. PULMONARY: Clear to auscultation bilaterally. No wheezing, no rales, no rhonchi, no crackles appreciated. CARDIOVASCULAR: Positive S1 and S2. No murmurs, rubs, or gallops appreciated. ABDOMEN: Soft, nondistended, and nontender to palpation. Bowel sounds present. MUSCULOSKELETAL: Strength is 5/5 throughout. No evidence of any muscle deficits on examination. No weakness appreciated. NEUROLOGIC: Cranial nerves 2 through 12 grossly intact. No evidence of any neurological deficits on exam. SKIN: Intact. Warm to touch. Good cap refill. PSYCHIATRIC: Normal affect and mood. EXTREMITIES: No edema. Good range of motion throughout. LABORATORY DATA: Show white count was found to be 6.4, hemoglobin 13, hematocrit is 36, and platelets of 152. Coagulation; PT 39, INR 0.97, and PTT 26. Chemistry; sodium was 122 on admission, now 125, potassium 3.6, chloride 82, bicarbonate 23, anion gap of 20, BUN is 32, creatinine is 0.79, and glucose is 112. Lactic acid is 1.9. Magnesium is 0.9 and calcium 7.8. LFTs within normal range. Troponins were all negative. BNP 125. Total protein 6. Urinalysis concerning for UTI. MICROBIOLOGY: Blood and urine cultures are pending. IMAGING STUDIES: Chest x-ray shows hyperinflated lungs. No focal pneumonia or pulmonary edema. IMPRESSION: 1. Sepsis with underlying cough and congestion, possible underlying acute bronchitis. 2. Abnormal EKG with ST depressions. 3. Diarrhea. 4. Electrolyte abnormalities with hypomagnesemia and hyponatremia. 5. Urinary tract infection. PLAN: At this time, as for her sepsis and diarrhea, I did go ahead and order C. difficile toxin as well as stool cultures. She will be started on IV antibiotics with Zosyn as well as azithromycin for possible acute bronchitis. Her white count is normal and she is currently afebrile. The patient also had abnormal EKG. We will go ahead and trend troponins and have Cardiology consultation. Sodium level is 122, was given a normal saline bolus, now 125. The patient does look clinically dehydrated, but I am concerned of rapidly correcting the sodium level. At this time, we will hold off IV fluids for now until the sodium autocorrects. Once that autocorrects, we will put the patient on IV fluids. We are going to monitor blood and urine cultures and continue with IV antibiotic therapy for now. Pulmonary has been consulted, as the patient is currently in ICU due to underlying hypotension. Cardiology consulted for underlying ST depressions. We are going to resume same home medications, but hold all antihypertensive medications. Get PT and OT evaluation. Lovenox for DVT prophylaxis. We will have case management involved to see if the patient needs APS involvement, as the patient was found in feces and urine for more than one week with no assistance by the family. The patient's magnesium was replaced. MD MÓNICA Gamble/MODL /[id number]
[2019-05-04] MEDS ORDERED: METHYLPREDNISOLONE SOD SUCC 125 MG/2ML VIAL IV SCH (22:00)
[2019-05-04] MEDS: MIDODRINE 2.5 MG TAB PO SCH (22:16)
[2019-05-05] VITALS (23 sets, daily range): BP systolic 84–111; BP diastolic 55–75
[2019-05-05] MEDS: PIPER-TAZ 3.375 GM 50 ML IV SCH ×4 (02:13→20:25)
[2019-05-05] MEDS: ALBUTEROL SULF 0.083% NEB SOLN 3 ML NEB NEB SCH ×3 (03:30→07:00)
[2019-05-05] MEDS: IPRATROPIUM BROMIDE 0.02% 2.5 ML NEB NEB SCH ×3 (03:30→07:00)
[2019-05-05 06:01] LABS: THYROID STIMULATING HORMONE 0.325 uIU/mL (0.350-4.940)
[2019-05-05 06:57] LABS: HEMATOCRIT 26.6 % (34.2-44.1); HEMOGLOBIN 9.2 g/dL (12.0-16.0); LYMPHOCYTES # (AUTO) 0.3 (1.0-3.2); MEAN CORPUSCULAR HEMOGLOBIN 34.6 pg (28-32); MEAN CORPUSCULAR HGB CONC 34.6 g/dL (31-35); MONOCYTES # (AUTO) 0.1 (0.2-0.8); NEUTROPHILS # (AUTO) 3.5 (2.1-6.9); NEUTROPHILS % 88.5 % (38.7-80.0); PLATELET COUNT 110 x10e3/uL (140-360); RED BLOOD COUNT 2.66 x10e6/uL (3.6-5.1); RED CELL DISTRIBUTION WIDTH 13.8 % (11.7-14.4)
--- NOTE | 2019-05-05 06:58 | Diagnostic Imaging Report ---
EXAMINATION: CHEST SINGLE (PORTABLE) INDICATION: COPD. Shortness of breath. Cough. COMPARISON: Chest radiograph 05/04/2019. FINDINGS: LINES/TUBES:None. LUNGS:The lungs are hyperinflated. No focal consolidation or pulmonary edema. Left basilar subsegmental atelectasis with mild elevation of the left hemidiaphragm again observed. PLEURA:No pleural effusion or pneumothorax. MEDIASTINUM:The cardiomediastinal silhouette appears normal in size and shape. Mild atherosclerotic calcifications of the thoracic aorta. BONES/SOFT TISSUES:No acute osseous injury. ABDOMEN:No free air under the diaphragm. IMPRESSION: No significant interval change. COPD. Signed by: Dr. Katy Jalloh M.D. on 05/05/2019 6:54 AM
--- NOTE | 2019-05-05 07:00 | NUR ---
Bedside report given to Ken Kendall RN.
[2019-05-05 08:27] LABS: ALANINE AMINOTRANSFERASE 13 IU/L (0-55); ALBUMIN 2.1 g/dL (3.5-5.0); ALKALINE PHOSPHATASE 50 IU/L (40-150); ANION GAP 21.6 mmol/L (8-16); BLOOD UREA NITROGEN 28 mg/dL (7-26); BUN/CREATININE RATIO 38 (6-25); CARBON DIOXIDE 15 mmol/L (22-29); CHLORIDE 96 mmol/L (98-107); CREATININE, SERUM 0.74 mg/dL (0.57-1.11); EST GLOMERULAR FILTRATION RATE > 60 ML/MIN (60-); GLUCOSE 121 mg/dL (74-118); POTASSIUM 3.6 mmol/L (3.5-5.1); SODIUM 129 mmol/L (136-145)
[2019-05-05 08:31] LABS: CALCIUM 6.4 mg/dL (8.4-10.2)
[2019-05-05] MEDS ORDERED: METHYLPREDNISOLONE SOD SUCC 40 MG/ML VIAL 1ML IV SCH (09:00)
[2019-05-05] MEDS ORDERED: ASPIRIN 325 MG TAB EC PO SCH (09:00)
[2019-05-05] MEDS ORDERED: ASPIRIN 81 MG CHEW TAB PO SCH (09:00)
[2019-05-05] MEDS: MIDODRINE 2.5 MG TAB PO SCH ×2 (09:00→17:00)
[2019-05-05] MEDS ORDERED: ALBUTEROL/IPRATROPIUM 3 ML NEB NEB PRN (09:15)
--- NOTE | 2019-05-05 09:16 | NUR ---
UNABLE TO DO HOME EVALUATION TO DETERMINE LIVING SITUATION. EDUCATED NURSE THAT I AM UNABLE TO REPORT 3RD DEMOCRAT INFORMATION AND EDUCATED AGENT PRODUCER. LET THEM KNOW IF THEY WANT AN EVAL FOR HOME UPON DISCHARGE THEY CAN CALL AND REPORT TO APS AND DISCUSS THEIR CONCERNS.
[2019-05-05] MEDS: ALBUTEROL/IPRATROPIUM 3 ML NEB NEB SCH ×3 (10:00→19:45)
[2019-05-05] MEDS: PANTOPRAZOLE SOD 40 MG TABEC PO SCH (10:30)
--- NOTE | 2019-05-05 11:44 | Diagnostic Imaging Report ---
EXAM: CT Chest WITHOUT contrast INDICATION: ^fever/sob ^[id number] ^1015 COMPARISON: None TECHNIQUE: Chest was scanned utilizing a multidetector helical scanner from the lung apex through the level of the adrenal glands without administration of IV contrast. Absence of intravenous contrast decreases sensitivity for detection of lymphadenopathy and vascular pathology. Coronal and sagittal reformations were obtained. Routine protocol was performed. IV CONTRAST: None COMPLICATIONS: None RADIATION DOSE: Total DLP: 190 mGy*cm Estimated effective dose: (DLP x 0.014 x size factor) mSv CTDIvol has been reviewed. It is below the limits set by the Radiation Protocol Committee (RPC). Dose modulation, iterative reconstruction, and/or weight based adjustment of the mA/kV was utilized to reduce the radiation dose to as low as reasonably achievable. FINDINGS: LINES/ TUBES: None. LUNGS AND AIRWAYS: Lung hyperexpansion with mild emphysematous change. No concerning pulmonary, nodule, or consolidation. Mild lower lobe bronchiectasis. PLEURA: Small bilateral pleural effusions, left slightly larger than right. HEART AND MEDIASTINUM: The thyroid gland is normal. No mediastinal, hilar or axillary lymphadenopathy. The heart is normal in size. There is no pericardial effusion. Advanced vascular calcifications. UPPER ABDOMEN: Unremarkable. BONES: Mild compression deformity of the T8 vertebral body superior endplate, likely chronic. SOFT TISSUES: Unremarkable. IMPRESSION: 1. Lung hyperexpansion consistent with chronic obstructive pulmonary disease. No acute lung consolidation. 2. Small bilateral pleural effusions, left slightly larger than right. 3. Advanced thoracic atherosclerosis. Signed by: Casa Trejo MD on 05/05/2019 11:41 AM
[2019-05-05] MEDS ORDERED: NICOTINE 21 MG/EA PATCH TOP PRN (15:00)
--- NOTE | 2019-05-05 16:51 | NUR ---
Nutrition Intervention Note RD Recommendation(s) for Physician: -Continue Regular diet -Ensure Enlive BID for added nutrition The patient meets criteria for unspecified SEVERE protein-calorie malnutrition. Plan of Care: RD following, monitoring for tolerance and adequacy Nutrition reason for involvement: Nutrition Risk Trigger (MST 2) RD Assessment: (05/04) Pt is a 68 year old female admitted with abnormal EKG, acute bronchitis, COPD with acute exacerbation, hypomagnesemia, UTI, and weakness. Pt reports she has been eating <50% of her meals for the past couple of weeks but less than a month. Pt thinks she has lost weight but is unsure of the amount or her usual weight. Pt reports some nausea and diarrhea. Recommend Ensure Enlive for added nutrition and will continue to monitor. Principal Problems/Diagnoses: abnormal EKG, acute bronchitis, COPD with acute exacerbation hypomagnesemia, UTI, and weakness. PMH: HTN, generalized weakness at baseline, acid reflux GI: soft, non-tender round abdomen, last BM not recorded Skin: stage 2 pressure ulcer to heel per chart Labs: (05/04) Na 129, BUN 28, Glu 121, Ca 6.4 Meds: antibiotics, hydralazine, lovenox, methlyprednisolone, protonix Ht: 62 inches Wt: 97.5 lbs BMI: 17.8 k/m2 IBW: 110 lbs Malnutrition Evaluation (05/04) The patient meets criteria for unspecified SEVERE protein-calorie malnutrition. Energy intake: <50% of estimated energy requirements for >5 days Weight loss: Unknown Fat loss: moderate tricep and orbital regions Muscle loss: Moderate temporal region and lower extremities Supporting Evidence: Fluid accumulation: no accumulation identified per MD note Functional Status: unable to evaluate Nutrition Prescription (Diet Order): Regular Estimated Nutritional Needs: 0423-1843 calories/day (30-35 kcal/kg CBW) 66-88 g protein/day (1.5-2 g pro/kg CBW) Diet Adequacy: Not meeting calorie needs, Not meeting protein needs Tolerance: Tolerating PO Diet Education Needs Assessment: Diet education not indicated; patient on regular diet. Nutrition Care Level: moderate Nutrition Diagnosis: Severe protein kcal malnutrition related to h/o inadequate energy intake as evidenced by pt meeting <50% of estimated energy needs for > 5 days and moderate muscle and fat depletion. Goal: Patient will meet 75-100% of estimated needs by follow up Progress: N/A Interventions: -General healthful diet, Commercial beverage Monitoring/Evaluation: -Total energy intake, Total protein intake, Liquid supplement, Weight change Signed: Kristi Matthews RD, LD
[2019-05-05] MEDS: ENOXAPARIN SOD INJ 40 MG/0.4 ML SYR SC SCH (17:51)
[2019-05-05] MEDS: THIAMINE HCL 100 MG TAB PO SCH (17:56)
[2019-05-05] MEDS: AZITHROMYCIN 500MG/NS 250 ML 250 ML IV SCH (17:56)
--- NOTE | 2019-05-05 19:00 | NUR ---
Bedside report received from Ken Kendall RN.
--- NOTE | 2019-05-05 19:50 | Consultation ---
DATE OF CONSULTATION: 05/05/2019 Pulmonary Consultation The patient of Dr. Mccormick and Dr. Nicole Bearden. Unknown primary care physician. HISTORY OF PRESENT ILLNESS: The patient is a poor historian and since she lives with her elderly . According to record, she has history of hypertension. She was admitted with congestion in chest, cough, and diarrhea. Apparently, she was hypoxic when found by EMS with a saturation of 88% and she was lying in stool according to record, been ill for one week prior to her admission. History of PE in 2018. History of COPD, continues to smoke, it is unclear how much. She also drinks alcohol, it is also unclear how much. No alcohol for the last one week. According to record, she is chronically short of breath. She was found to have a urinary tract infection. Those cultures are pending. ALLERGIES: NO KNOWN ALLERGIES. She cannot recall her medications, cannot recall her family doctor. MEDICATIONS: According to record, her medications included amlodipine, clonidine, lisinopril, metoprolol, and warfarin as well as aspirin and Protonix. Apparently, she was hypotensive, felt to be dehydrated on admission. Blood pressure on admission was recorded as 82/70, apparently improved with fluid bolus. FAMILY HISTORY: Positive for cancer, coronary artery disease. SOCIAL HISTORY: She lives with her . She was born in [place], [place]. 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 PHYSICAL EXAMINATION: VITAL SIGNS: Currently her blood pressure is 110/80, temperature 97.8, pulse is 110, regular, respirations 20. GENERAL: Frail white female in no acute distress. HEAD: Normocephalic, atraumatic. Some temporal wasting. LUNGS: Diminished breath sounds. HEART: Regular rhythm. ABDOMEN: Nontender. EXTREMITIES: Nonedematous. She is cachectic. LABORATORY DATA: Serum albumin is low, borderline low TSH, apparent urinary tract infection, but cultures are pending. CT of the chest revealed tiny pleural effusions. Compression fracture T8, chronic. Hyperinflated lung lezama, atherosclerosis. 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 PLAN: Speech therapy evaluation, therapy for urinary tract infection, mobilization, prophylactic anticoagulation, Protonix. Monitor blood pressure. Monitor serum sodium, which was low on admission 125. The patient may require Home Health or even APS evaluation. Gram-negative is growing from the urine. She is currently on gram-negative cover with Zosyn. Await sensitivities. Thank you for this kind referral. MD PATSY [place]/JONATHAN /[id number]
[2019-05-05] MEDS: METHYLPREDNISOLONE SOD SUCC 40 MG/ML VIAL 1ML IV SCH (20:26)
--- NOTE | 2019-05-05 20:30 | NUR ---
Dukedom heel protectors in place, Allevyn Life sacral patch, black turning wedges and glide sheet in use.
[2019-05-06] VITALS (16 sets, daily range): BP systolic 88–111; BP diastolic 55–73
[2019-05-06] MEDS: ALBUTEROL/IPRATROPIUM 3 ML NEB NEB SCH ×4 (01:00→21:00)
[2019-05-06] MEDS: PIPER-TAZ 3.375 GM 50 ML IV SCH (02:21)
[2019-05-06 05:57] LABS: BASOPHILS % 0.2 % (0.0-1.0); HEMATOCRIT 28.3 % (34.2-44.1); HEMOGLOBIN 9.6 g/dL (12.0-16.0); LYMPHOCYTES # (AUTO) 0.4 (1.0-3.2); LYMPHOCYTES % 6.4 % (18.0-39.1); MEAN CORPUSCULAR HEMOGLOBIN 33.7 pg (28-32); MEAN CORPUSCULAR HGB CONC 33.9 g/dL (31-35); MEAN CORPUSCULAR VOLUME 99.3 fL (81-99); MONOCYTES # (AUTO) 0.2 (0.2-0.8); MONOCYTES % 3.4 % (4.4-11.3); NEUTROPHILS % 88.8 % (38.7-80.0); PLATELET COUNT 126 x10e3/uL (140-360); RED BLOOD COUNT 2.85 x10e6/uL (3.6-5.1); RED CELL DISTRIBUTION WIDTH 14.2 % (11.7-14.4)
[2019-05-06 06:18] LABS: ALANINE AMINOTRANSFERASE 11 IU/L (0-55); ALBUMIN 2.4 g/dL (3.5-5.0); ALBUMIN/GLOBULIN RATIO 0.9 (0.8-2.0); ALKALINE PHOSPHATASE 46 IU/L (40-150); ANION GAP 18.3 mmol/L (8-16); BLOOD UREA NITROGEN 22 mg/dL (7-26); BUN/CREATININE RATIO 26 (6-25); CALCIUM 7.1 mg/dL (8.4-10.2); CARBON DIOXIDE 21 mmol/L (22-29); CHLORIDE 98 mmol/L (98-107); CREATININE, SERUM 0.85 mg/dL (0.57-1.11); EST GLOMERULAR FILTRATION RATE > 60 ML/MIN (60-); GLUCOSE 137 mg/dL (74-118); POTASSIUM 3.3 mmol/L (3.5-5.1); SODIUM 134 mmol/L (136-145)
[2019-05-06 06:54] LABS: % IRON SATURATION 58 % (15-50); IRON 94 ug/dL (50-170); TOTAL IRON BINDING CAPACITY 161 ug/dL (261-478); TRANSFERRIN 115 mg/dL (180-382)
[2019-05-06] MEDS ORDERED: POTASSIUM CHLORIDE 10MEQ EA PO ONE (09:00)
[2019-05-06] MEDS ORDERED: SODIUM CHLORIDE 0.9% 250ML 250 ML ONE (09:44)
[2019-05-06] MEDS: METHYLPREDNISOLONE SOD SUCC 40 MG/ML VIAL 1ML IV SCH ×2 (09:51→21:00)
[2019-05-06] MEDS: CEFTRIAXONE SOD 1 GM/NS 50 ML 50 ML IV SCH (09:51)
[2019-05-06] MEDS: PANTOPRAZOLE SOD 40 MG TABEC PO SCH (09:52)
[2019-05-06] MEDS: ASPIRIN 81 MG ENTERIC COATED PO SCH (09:52)
[2019-05-06] MEDS: MIDODRINE 2.5 MG TAB PO SCH ×2 (09:53→15:41)
[2019-05-06] MEDS: THIAMINE HCL 100 MG TAB PO SCH (09:53)
--- NOTE | 2019-05-06 10:13 | NUR ---
patient sinus tach. hr 80-120's. dr. schulz aware. okay to transfer to floor without telemetry. taking midodrine po as well.
--- NOTE | 2019-05-06 10:21 | NUR ---
nsg report given to Tierra MARTIN for transfer to room 203 med surg. confirmed med surg no tele with cardiology and attending.
--- NOTE | 2019-05-06 10:55 | NUR ---
RCD PT FROM ICU BY BED PT IS ALERT AND ORIENTED VITALS CHECKED RESTING ON BED BED LOW AND LOCKED CALL LIGHT IN REACH
--- NOTE | 2019-05-06 14:45 | NUR ---
WENT TO SPEAK WITH PT, SHE STATES SHE LIVES IN UPSTAIRS APARTMENT WITH YURI AND 2 SMALL CHILDREN. STATES HER SONS NAME IS NEHA. SHE CAN'T REMEMBER HOW SHE GOT HERE OR WHERE SHE IS. SHE THINKS HER PCP IS [facility]. SHE DOESN'T KNOW IF A NURSE COMES TO SEE HER AT HOME OR IF SHE HAS BEEN USING A WALKER OR WHEELCHAIR. SHE WILL STARE OFF INTO SPACE AND THINK BUT THEN LOOK BACK AND NOT REMEMBER THE QUESTION.
[2019-05-06] MEDS: ENOXAPARIN SOD INJ 40 MG/0.4 ML SYR SC SCH (15:41)
--- NOTE | 2019-05-06 18:41 | NUR ---
PT RESTING ON BED BED SIDE REPORT GIVEN TO ONCOMING NURSE
--- NOTE | 2019-05-06 18:55 | NUR ---
BS ROUNDS COMPLETED WITH MORNING NURSE. PT ALERT AND ORIENTED TO NAME, LYING IN BED HOB 30 DEGREES. DENIES PAIN AT THIS TIME. O2 @3L VIA NC. CALL LIGHT WITHIN REACH. WILL CONTINUE TO MONITOR.
[2019-05-07] VITALS (9 sets, daily range): BP systolic 91–119; BP diastolic 53–82
--- NOTE | 2019-05-07 00:20 | NUR ---
Report given to night nurse. Pt alert to name, lying in bed. No acute distress noted.
--- NOTE | 2019-05-07 01:33 | NUR ---
Patient received asleep in bed. Arousable to tactile stimuli. Patient had no complaints of pain. Respirations even and non-labored. Safety measures in place. Call light within reach.
[2019-05-07] MEDS: ALBUTEROL/IPRATROPIUM 3 ML NEB NEB SCH ×4 (02:30→19:30)
[2019-05-07 06:04] LABS: ANION GAP 12.7 mmol/L (8-16); BLOOD UREA NITROGEN 23 mg/dL (7-26); BUN/CREATININE RATIO 34 (6-25); CALCIUM 7.6 mg/dL (8.4-10.2); CARBON DIOXIDE 25 mmol/L (22-29); CHLORIDE 105 mmol/L (98-107); CREATININE, SERUM 0.67 mg/dL (0.57-1.11); EST GLOMERULAR FILTRATION RATE > 60 ML/MIN (60-); GLUCOSE 113 mg/dL (74-118); POTASSIUM 4.7 mmol/L (3.5-5.1); SODIUM 138 mmol/L (136-145)
--- NOTE | 2019-05-07 07:00 | NUR ---
Walking rounds done. Patient resting comfortably. BSSR given to oncoming nurse regarding patient's health status.
--- NOTE | 2019-05-07 07:05 | NUR ---
RCD PT AT BED PT IS ALERT AND ORIENTED PT RESTING ON BED IV PATENT BY SALINE FLUSH GETTING O2 3L BY NC BED LOW AND LOCKED CALL LIGHT IN REACH
[2019-05-07] MEDS: PANTOPRAZOLE SOD 40 MG TABEC PO SCH (07:30)
[2019-05-07] MEDS: MIDODRINE 2.5 MG TAB PO SCH ×2 (09:00→17:00)
[2019-05-07] MEDS: THIAMINE HCL 100 MG TAB PO SCH (09:00)
[2019-05-07] MEDS: CEFTRIAXONE SOD 1 GM/NS 50 ML 50 ML IV SCH (09:00)
[2019-05-07] MEDS: ASPIRIN 81 MG ENTERIC COATED PO SCH (09:00)
[2019-05-07] MEDS ORDERED: SODIUM CHLORIDE 0.9% 250ML 250 ML ONE (09:58)
[2019-05-07] MEDS: CHOLESTYRAMINE 4 GM PACKET PO SCH ×4 (10:30→21:16)
[2019-05-07] MEDS: VANCOMYCIN 250MG/5ML ORAL SOLN PO SCH ×3 (10:30→21:16)
--- NOTE | 2019-05-07 11:25 | NUR ---
AC TO [employer] HR IS 150 /MT , PT IS WORKING WITH PT , PLACED THE PT IN BED AND CHECKED THE VITALS BP 121/82 MM/HG ,HR 126 /MT ,PAGED DR NAVAS AND LEFT THE MESSAGE REGARDING THE CONDITION OF THE PT
--- NOTE | 2019-05-07 12:06 | NUR ---
TALKED DR YOSEF JOHNSON TALKED THE PTS CONDITION HE ASKED PTS BLOOD PRESSURE AND HEART RATE ( PRESENT ) HE SAID NOTHING TO DO THAT PATIENT
--- NOTE | 2019-05-07 15:00 | NUR ---
ATTEMPTED TO SPEAK WITH YURI CALLED [phone] VOICE MAIL NOT SET UP. CANNOT GET BACKGROUND OF PATIENT FAMILY
[2019-05-07] MEDS: ENOXAPARIN SOD INJ 40 MG/0.4 ML SYR SC SCH (17:00)
--- NOTE | 2019-05-07 18:47 | NUR ---
PT RESTING ON BED BED SIDE REPORT GIVEN TO ONCOMING NURSE
[2019-05-08] VITALS (8 sets, daily range): BP systolic 103–129; BP diastolic 59–76
[2019-05-08] MEDS: ALBUTEROL/IPRATROPIUM 3 ML NEB NEB SCH ×4 (00:20→19:00)
[2019-05-08] MEDS: VANCOMYCIN 250MG/5ML ORAL SOLN PO SCH ×3 (06:25→21:00)
[2019-05-08] MEDS: PANTOPRAZOLE SOD 40 MG TABEC PO SCH (07:30)
[2019-05-08] MEDS: THIAMINE HCL 100 MG TAB PO SCH (09:00)
[2019-05-08] MEDS: MIDODRINE 2.5 MG TAB PO SCH ×2 (09:00→16:50)
[2019-05-08] MEDS: CEFTRIAXONE SOD 1 GM/NS 50 ML 50 ML IV SCH (09:00)
[2019-05-08] MEDS: CHOLESTYRAMINE 4 GM PACKET PO SCH ×4 (09:00→21:00)
[2019-05-08] MEDS: ASPIRIN 81 MG ENTERIC COATED PO SCH (09:00)
[2019-05-08] MEDS: FOLIC ACID 1 MG TAB PO SCH (10:30)
--- NOTE | 2019-05-08 15:36 | NUR ---
AC TO [employer] TECH HR 140 /MT PAGED AND NOTIFIED DR NAVAS HE SAID NOTHING TO DO FOR THE PT GOT THE ORDER TO DC TE[facility]
--- NOTE | 2019-05-08 15:45 | NUR ---
DC TE[facility] BY ORDER
[2019-05-08] MEDS: ENOXAPARIN SOD INJ 40 MG/0.4 ML SYR SC SCH (16:51)
--- NOTE | 2019-05-08 18:20 | NUR ---
2 TIMES DIARRHOEA 2 TIMES DURING DAY SHIFT
--- NOTE | 2019-05-08 18:46 | NUR ---
PT RESTING ON BED BED SIDE REPORT GIVEN TO ONCOMING NURSE
[2019-05-09] VITALS (9 sets, daily range): BP systolic 105–142; BP diastolic 60–86
[2019-05-09] MEDS: ALBUTEROL/IPRATROPIUM 3 ML NEB NEB SCH ×4 (01:00→19:00)
[2019-05-09] MEDS: VANCOMYCIN 250MG/5ML ORAL SOLN PO SCH ×3 (06:21→21:32)
[2019-05-09] MEDS ORDERED: CHOLESTYRAMINE 4 GM PACKET PO PRN (09:15)
[2019-05-09] MEDS: PANTOPRAZOLE SOD 40 MG TABEC PO SCH (09:28)
[2019-05-09] MEDS: FOLIC ACID 1 MG TAB PO SCH (09:28)
[2019-05-09] MEDS: ASPIRIN 81 MG ENTERIC COATED PO SCH (09:28)
[2019-05-09] MEDS: CEFTRIAXONE SOD 1 GM/NS 50 ML 50 ML IV SCH (09:28)
[2019-05-09] MEDS: MIDODRINE 2.5 MG TAB PO SCH ×2 (09:28→17:31)
[2019-05-09] MEDS: THIAMINE HCL 100 MG TAB PO SCH (09:28)
[2019-05-09 09:33] LABS: BASOPHILS % 0.3 % (0.0-1.0); EOSINOPHILS # (AUTO) 0.1 (0.0-0.4); EOSINOPHILS % 0.6 % (0.0-6.0); HEMATOCRIT 28.2 % (34.2-44.1); HEMOGLOBIN 8.9 g/dL (12.0-16.0); LYMPHOCYTES # (AUTO) 1.6 (1.0-3.2); LYMPHOCYTES % 16.5 % (18.0-39.1); MEAN CORPUSCULAR HEMOGLOBIN 33.2 pg (28-32); MEAN CORPUSCULAR HGB CONC 31.6 g/dL (31-35); MEAN CORPUSCULAR VOLUME 105.2 fL (81-99); MONOCYTES % 10.3 % (4.4-11.3); NEUTROPHILS # (AUTO) 6.9 (2.1-6.9); NEUTROPHILS % 70.3 % (38.7-80.0); PLATELET COUNT 104 x10e3/uL (140-360); RED BLOOD COUNT 2.68 x10e6/uL (3.6-5.1)
[2019-05-09] MEDS: METOPROLOL SUCCINATE 25 MG TAB XL PO SCH (10:10)
--- NOTE | 2019-05-09 10:14 | NUR ---
Received order for SNF eval. Pt is confused. CM placed call to Yaniv Olmos at [phone], listed on facesheet. No answer and voicemail box is not set up to leave message. Will attempt to call again at a later time.
[2019-05-09 10:18] LABS: BLOOD UREA NITROGEN 17 mg/dL (7-26); BUN/CREATININE RATIO 29 (6-25); CALCIUM 9.3 mg/dL (8.4-10.2); CARBON DIOXIDE 29 mmol/L (22-29); CHLORIDE 104 mmol/L (98-107); CREATININE, SERUM 0.58 mg/dL (0.57-1.11); EST GLOMERULAR FILTRATION RATE > 60 ML/MIN (60-); GLUCOSE 82 mg/dL (74-118); SODIUM 139 mmol/L (136-145)
--- NOTE | 2019-05-09 14:19 | NUR ---
Spoke to pt's Yaniv at bedside. Informed him of SNF order. He states he thinks pt would need alf care. Would like for pt to go to a SNF that has alf beds so she can transition over within the same building. He states pt was previously at [facility], but unsure if he wants her to go back. He would like a list of facilities so that he can call around and ask questions. CM provided him a list of facilities in the area that currently has technician terminal and repeater beds available. Informed him that a member of case management team will follow up with him tomorrow. RAYMOND verified his cell number [phone]. Also gave pt's CM and SW's business cards for any questions/concerns.
[2019-05-09] MEDS: ENOXAPARIN SOD INJ 40 MG/0.4 ML SYR SC SCH (17:31)
[2019-05-09] MEDS: ACETAMINOPHEN 325 MG TAB PO PRN (21:32)
[2019-05-10] VITALS (8 sets, daily range): BP systolic 106–137; BP diastolic 64–85
[2019-05-10] MEDS: ALBUTEROL/IPRATROPIUM 3 ML NEB NEB SCH ×4 (01:00→19:00)
[2019-05-10] MEDS: VANCOMYCIN 250MG/5ML ORAL SOLN PO SCH ×2 (06:36→15:49)
[2019-05-10] MEDS: METOPROLOL SUCCINATE 25 MG TAB XL PO SCH (09:27)
[2019-05-10] MEDS: MIDODRINE 2.5 MG TAB PO SCH ×2 (09:27→16:43)
[2019-05-10] MEDS: PANTOPRAZOLE SOD 40 MG TABEC PO SCH (09:27)
[2019-05-10] MEDS: CEFTRIAXONE SOD 1 GM/NS 50 ML 50 ML IV SCH (09:27)
[2019-05-10] MEDS: THIAMINE HCL 100 MG TAB PO SCH (09:27)
[2019-05-10] MEDS: FOLIC ACID 1 MG TAB PO SCH (09:27)
[2019-05-10] MEDS: ASPIRIN 81 MG ENTERIC COATED PO SCH (09:27)
--- NOTE | 2019-05-10 14:44 | NUR ---
SPOKE WITH YURI VIA PHONE COMPLETED CHOICE FOR [facility] AND EDUCATED ABOUT IMM. COMPLETED RTF AND PASRR, WILL FAX PACKET TO [phone]
--- NOTE | 2019-05-10 15:12 | NUR ---
PUT COVID ASSESSMENT ON CHART FOR MD SIGNATURE.
--- NOTE | 2019-05-10 16:36 | NUR ---
Nutrition Intervention Note RD Recommendation(s) for Physician: -Continue Regular diet -Continue Ensure Enlive BID The patient meets criteria for unspecified SEVERE protein-calorie malnutrition. Plan of Care: RD following, monitoring for tolerance and adequacy. ONS ordered. Nutrition reason for involvement: follow up RD Assessment: 05/09: Follow up. Pt sleeping at time of visit, no family present at bedside. Pt continues with poor intake- recently approximately 25% of meals, tolerating diet and currently on Ensure Enlive. Pt discussed during am MDR, pt with diarrhea yesterday and discharge planning ongoing. Chart reviewed. Will continue to monitor. (05/04) Pt is a 68 year old female admitted with abnormal EKG, acute bronchitis, COPD with acute exacerbation, hypomagnesemia, UTI, and weakness. Pt reports she has been eating <50% of her meals for the past couple of weeks but less than a month. Pt thinks she has lost weight but is unsure of the amount or her usual weight. Pt reports some nausea and diarrhea. Recommend Ensure Enlive for added nutrition and will continue to monitor. Principal Problems/Diagnoses: abnormal EKG, acute bronchitis, COPD with acute exacerbation hypomagnesemia, UTI, and weakness. PMH: HTN, generalized weakness at baseline, acid reflux GI: soft, non-tender round abdomen, LBM 05/08 Skin: stage 2 pressure ulcer to heel per chart Labs: 05/08: Na 139, K 5, BUN 17, Cr 0.58, Gluc 82, POC Gluc 217 Meds: abx, thiamine, protonix, questran Ht: 62 inches Wt: 97.5 lbs BMI: 17.8 k/m2 IBW: 110 lbs Malnutrition Evaluation (05/04) The patient meets criteria for unspecified SEVERE protein-calorie malnutrition. Energy intake: <50% of estimated energy requirements for >5 days Weight loss: Unknown Fat loss: moderate tricep and orbital regions Muscle loss: Moderate temporal region and lower extremities Supporting Evidence: Fluid accumulation: no accumulation identified per MD note Functional Status: unable to evaluate Nutrition Prescription (Diet Order): Regular, pureed Estimated Nutritional Needs: 8917-3688 calories/day (30-35 kcal/kg CBW) 66-88 g protein/day (1.5-2 g pro/kg CBW) Diet Adequacy: Not meeting calorie needs, Not meeting protein needs Tolerance: Tolerating PO Diet Education Needs Assessment: Diet education not indicated; patient on regular diet. Nutrition Care Level: moderate Nutrition Diagnosis: Severe protein kcal malnutrition related to h/o inadequate energy intake as evidenced by pt meeting <50% of estimated energy needs for > 5 days and moderate muscle and fat depletion. Goal: Patient will meet 75-100% of estimated needs by follow up Progress: Not progressing Interventions: -General healthful diet, Commercial beverage Monitoring/Evaluation: -Total energy intake, Total protein intake, Liquid supplement, Weight change Signed: Svitlana Benavides RD, LD, [facility]
[2019-05-10] MEDS: ENOXAPARIN SOD INJ 40 MG/0.4 ML SYR SC SCH (16:43)
[2019-05-11] VITALS (8 sets, daily range): BP systolic 117–134; BP diastolic 68–82
[2019-05-11] MEDS: ALBUTEROL/IPRATROPIUM 3 ML NEB NEB SCH ×4 (02:40→20:00)
[2019-05-11] MEDS: VANCOMYCIN 250MG/5ML ORAL SOLN PO SCH ×3 (05:56→22:44)
--- NOTE | 2019-05-11 07:00 | NUR ---
BEDSIDE SHIFT REPORT RECEIVED FROM OVERHAULER NURSE. PT DENIES NEEDS AT THIS TIME.
[2019-05-11] MEDS: THIAMINE HCL 100 MG TAB PO SCH (08:47)
[2019-05-11] MEDS: ASPIRIN 81 MG ENTERIC COATED PO SCH (08:47)
[2019-05-11] MEDS: FOLIC ACID 1 MG TAB PO SCH (08:47)
[2019-05-11] MEDS: CEFTRIAXONE SOD 1 GM/NS 50 ML 50 ML IV SCH (08:47)
[2019-05-11] MEDS: MIDODRINE 2.5 MG TAB PO SCH ×2 (08:47→16:39)
[2019-05-11] MEDS: PANTOPRAZOLE SOD 40 MG TABEC PO SCH (08:48)
[2019-05-11] MEDS: METOPROLOL SUCCINATE 25 MG TAB XL PO SCH (08:48)
--- NOTE | 2019-05-11 09:13 | NUR ---
FAXED COVID ASSESSMENT TO FACILITY
--- NOTE | 2019-05-11 14:29 | NUR ---
CUSTODIAL FACILITY DISCHARGE INFORMATION PATIENT HAS BEEN ACCEPTED TO: NAME: [facility] ADDRESS:[id number] [facility] ACCEPTING PHYSICAL METEOROLOGIST: DORYS WEISS ACCEPTING MD:TRESSA ROOM: 21B NURSE CALL REPORT TO: [phone] IMM SIGNED AND OBTAINED (if applicable): IMM THE FOLLOWING DOCUMENTS MUST ACCOMPANY PATIENT FOR TRANSFER: COPIED CHART: PACKET
--- NOTE | 2019-05-11 14:48 | NUR ---
WOUND CARE NURSE INITIAL EVALUATION. 68 YEAR OLD FEMALE ADMITTED TO [facility] WITH DX OF LOW, EKG AND ACUTE BRONCHITIS. UPON ASSESSMENT PT PRESENTS A 5X5CM BLISTER TO LEFT HEEL. 1X1CM STAGE I PRESSURE ULCER, RIGHT LATERAL HEEL AND DENUDED PERINEUM AND BILATERAL BUTTOCKS. NO S/S OF INFECTION. RECOMMENDATIONS: APPLY VENELEX OINTMENT TO PERINEUM AND BILATERAL BUTTOCKS BID. KEEP AREA DRY AND CLEAN. APPLY ALLEVYN FOAM TO LEFT HEEL AND RIGHT LATERAL ANKLE. CONTINUE WITH BILATERAL HEEL PROTECTORS AND PILLOW SUSPENSIONS. CONTINUE WITH ALTERNATING LOW AIR LOSS MATTRESS. Addendum: 05/11/19 at 1454 by Rosamaria Luo RN Amended: Links added.
[2019-05-11] MEDS: BALSAM PERU/CASTOR OIL 60 GM OINT...G. TP SCH (16:51)
[2019-05-11] MEDS: ENOXAPARIN SOD INJ 40 MG/0.4 ML SYR SC SCH (16:51)
[2019-05-11] MEDS ORDERED: IPRATROPIUM/ALBUTEROL SULFATE 4 GM INH INH PRN (21:45)
[2019-05-12] MEDS: IPRATROPIUM/ALBUTEROL SULFATE 4 GM INH INH SCH ×4 (01:20→20:50)
[2019-05-12 03:00] VITALS: BP 102/60
[2019-05-12] MEDS: VANCOMYCIN 250MG/5ML ORAL SOLN PO SCH (05:42)
--- NOTE | 2019-05-12 07:31 | NUR ---
Pt resting in bed with eyes closed. Acyanotic. No distress noted. Call light in reach. Siderails up x2. Bed low.
[2019-05-12] MEDS: CEFTRIAXONE SOD 1 GM/NS 50 ML 50 ML IV SCH (08:00)
[2019-05-12] MEDS: THIAMINE HCL 100 MG TAB PO SCH (08:00)
[2019-05-12] MEDS: PANTOPRAZOLE SOD 40 MG TABEC PO SCH (08:00)
[2019-05-12] MEDS: BALSAM PERU/CASTOR OIL 60 GM OINT...G. TP SCH ×2 (08:00→16:35)
[2019-05-12] MEDS: ASPIRIN 81 MG ENTERIC COATED PO SCH (08:00)
[2019-05-12] MEDS: FOLIC ACID 1 MG TAB PO SCH (08:00)
[2019-05-12] MEDS: MIDODRINE HCL 5 MG TABLET PO SCH ×2 (08:00→16:35)
[2019-05-12 08:25] VITALS: BP 111/58
[2019-05-12] MEDS: METOPROLOL SUCCINATE 25 MG TAB XL PO SCH (08:47)
[2019-05-12 08:51] VITALS: BP 111/58
[2019-05-12] MEDS: AZITHROMYCIN 250 MG TAB PO SCH (10:32)
--- NOTE | 2019-05-12 11:18 | NUR ---
Nutrition Intervention Note RD Recommendation(s) for Physician: -Continue Regular diet -Continue Ensure Enlive BID -Encouraged intake as tolerated. -Consider appetite stimulant per MD. The patient meets criteria for unspecified SEVERE protein-calorie malnutrition. Plan of Care: RD following, monitoring for tolerance and adequacy. ONS ordered. Nutrition reason for involvement: follow up RD Assessment: 05/11: Follow up: Pt has been moved to isolation, per ID protocol unable to visit and see the pt physically. Spoke with nurse who reported the pt has been eating and she ate 100% of her breakfast this morning. Per FS, the pt has been consuming 25% of her meals recently. Recommend appetite stimulant if medically feasible. Encourage intake of ONS as tolerated. Will continue to monitor. 05/09: Follow up. Pt sleeping at time of visit, no family present at bedside. Pt continues with poor intake- recently approximately 25% of meals, tolerating diet and currently on Ensure Enlive. Pt discussed during am MDR, pt with diarrhea yesterday and discharge planning ongoing. Chart reviewed. Will continue to monitor. (05/04) Pt is a 68 year old female admitted with abnormal EKG, acute bronchitis, COPD with acute exacerbation, hypomagnesemia, UTI, and weakness. Pt reports she has been eating <50% of her meals for the past couple of weeks but less than a month. Pt thinks she has lost weight but is unsure of the amount or her usual weight. Pt reports some nausea and diarrhea. Recommend Ensure Enlive for added nutrition and will continue to monitor. Principal Problems/Diagnoses: abnormal EKG, acute bronchitis, COPD with acute exacerbation hypomagnesemia, UTI, and weakness. PMH: HTN, generalized weakness at baseline, acid reflux GI: soft, non-tender round abdomen, LBM 05/11 Skin: stage 2 pressure ulcer to heel per chart Labs: 05/11: POC GM: 217 05/08: Na 139, K 5, BUN 17, Cr 0.58, Gluc 82, POC Gluc 217 Meds: abx, thiamine, protonix, questran, folic acid Ht: 62 inches Wt: 97.5 lbs 05/11: 98 lbs BMI: 17.8 k/m2 IBW: 110 lbs Malnutrition Evaluation (05/04) The patient meets criteria for unspecified SEVERE protein-calorie malnutrition. Energy intake: <50% of estimated energy requirements for >5 days Weight loss: Unknown Fat loss: moderate tricep and orbital regions Muscle loss: Moderate temporal region and lower extremities Supporting Evidence: Fluid accumulation: no accumulation identified per MD note Functional Status: unable to evaluate Nutrition Prescription (Diet Order): Regular, pureed Estimated Nutritional Needs: 1346-0585 calories/day (30-35 kcal/kg CBW) 66-88 g protein/day (1.5-2 g pro/kg CBW) Diet Adequacy: Not meeting calorie needs, Not meeting protein needs Tolerance: Tolerating PO Diet Education Needs Assessment: Diet education not indicated; patient on regular diet. Nutrition Care Level: moderate Nutrition Diagnosis: Severe protein kcal malnutrition related to h/o inadequate energy intake as evidenced by pt meeting <50% of estimated energy needs for > 5 days and moderate muscle and fat depletion. Goal: Patient will meet 75-100% of estimated needs by follow up Progress: progressing Interventions: -General healthful diet, Commercial beverage, prescription medication Monitoring/Evaluation: -Total energy intake, Total protein intake, Liquid supplement, Weight change Signed: Tracy Sharp RD, [facility] Addendum: 05/12/19 at 1123 by Tracy Sharp DIET Continue regular diet, texture per speech.
[2019-05-12 11:50] VITALS: BP 93/60
[2019-05-12 15:51] VITALS: BP 103/52
--- NOTE | 2019-05-12 16:36 | NUR ---
BLANCHABLE REDNESS NOTED TO PATIENT'S SACRAL AREA. SKIN INTACT. ALLEVYN APPLIED TO SACRAL AREA. NO VENELEX OINTMENT NEEDED AT THIS TIME.
[2019-05-12] MEDS ORDERED: ENOXAPARIN SOD INJ 40 MG/0.4 ML SYR SC SCH (17:00)
[2019-05-12 20:00] VITALS: BP 108/63
[2019-05-13] VITALS (8 sets, daily range): BP systolic 106–129; BP diastolic 54–72
[2019-05-13] MEDS: IPRATROPIUM/ALBUTEROL SULFATE 4 GM INH INH SCH ×4 (01:03→19:00)
[2019-05-13 06:00] LABS: BASOPHILS % 0.3 % (0.0-1.0); EOSINOPHILS # (AUTO) 0.1 (0.0-0.4); EOSINOPHILS % 1.3 % (0.0-6.0); HEMOGLOBIN 8.4 g/dL (12.0-16.0); LYMPHOCYTES # (AUTO) 1.1 (1.0-3.2); LYMPHOCYTES % 16.9 % (18.0-39.1); MEAN CORPUSCULAR HGB CONC 32.3 g/dL (31-35); MEAN CORPUSCULAR VOLUME 105.3 fL (81-99); MONOCYTES % 15.6 % (4.4-11.3); NEUTROPHILS # (AUTO) 4.1 (2.1-6.9); PLATELET COUNT 194 x10e3/uL (140-360); RED BLOOD COUNT 2.47 x10e6/uL (3.6-5.1); RED CELL DISTRIBUTION WIDTH 15.8 % (11.7-14.4)
[2019-05-13 06:20] LABS: ANION GAP 11.2 mmol/L (8-16); BLOOD UREA NITROGEN 14 mg/dL (7-26); BUN/CREATININE RATIO 21 (6-25); CALCIUM 8.4 mg/dL (8.4-10.2); CARBON DIOXIDE 32 mmol/L (22-29); CHLORIDE 94 mmol/L (98-107); CREATININE, SERUM 0.66 mg/dL (0.57-1.11); EST GLOMERULAR FILTRATION RATE > 60 ML/MIN (60-); GLUCOSE 124 mg/dL (74-118); POTASSIUM 4.2 mmol/L (3.5-5.1); SODIUM 133 mmol/L (136-145)
--- NOTE | 2019-05-13 07:10 | NUR ---
change of shift report received from PM RN; pt sleeping, easily aroused, no s/s of distress.
--- NOTE | 2019-05-13 08:09 | NUR ---
PENDING RESULTS PRIOR TO TRANSFER, WILL NEED NEW COVID ASSESSMENT FROM MD, PRIOR TO DISCHARGE TO BE FAXED TO FACILITY.
[2019-05-13] MEDS: METOPROLOL SUCCINATE 25 MG TAB XL PO SCH (08:10)
[2019-05-13] MEDS: THIAMINE HCL 100 MG TAB PO SCH (08:10)
[2019-05-13] MEDS: AZITHROMYCIN 250 MG TAB PO SCH (08:10)
[2019-05-13] MEDS: PANTOPRAZOLE SOD 40 MG TABEC PO SCH (08:10)
[2019-05-13] MEDS: ASPIRIN 81 MG ENTERIC COATED PO SCH (08:10)
[2019-05-13] MEDS: MIDODRINE HCL 5 MG TABLET PO SCH ×2 (08:10→17:56)
[2019-05-13] MEDS: CEFTRIAXONE SOD 1 GM/NS 50 ML 50 ML IV SCH (08:10)
[2019-05-13] MEDS: FOLIC ACID 1 MG TAB PO SCH (08:10)
[2019-05-13] MEDS: BALSAM PERU/CASTOR OIL 60 GM OINT...G. TP SCH ×2 (09:25→17:57)
--- NOTE | 2019-05-13 16:18 | NUR ---
RESULTS IN AND ARE NEGATIVE, CALLED FACILITY ALL ADMINISTRATION AND ADMISSION DEPARTMENT LEFT AT [facility], FAXED NEGATIVE RESULTS TO FACILITY WILL NOT BE ABLE TO TRANSFER UNTIL THURSDAY.
[2019-05-13] MEDS: METOPROLOL TARTRATE 50 MG TAB PO SCH (17:56)
[2019-05-13] MEDS: APIXAB 2.5 MG TABLET PO SCH (17:56)
--- NOTE | 2019-05-13 18:10 | NUR ---
spoke with Dr. Malagon re: results, ok to remove isolation order and transfer to different unit
--- NOTE | 2019-05-13 18:57 | NUR ---
WALKING ROUNDS PERFORMED, RCEIVED PT LAYING SMEI FOWLERS IN BED, AAOX2, RR EVEN AND NON-LABORED, O2 BY NC AT 2L. NO S/SX OF DISTRESS NOTED. BILATERAL HEEL PROTECTORS IN PLACE. PT HAS ALTERNATING PRESSURE PUMP ON MATTRESS. LEFT PT LAYING SMEI FOWLERS IN BED, BED IN LOW LOCKED POSITION, SIDE RAILS UP X2, CALL LIGHT AND PHONE WITHIN REACH. BED ALARM ACTIVATED ZONE 1.
--- NOTE | 2019-05-13 21:40 | NUR ---
REPORT CALLED TO AMADEO Reynolds RN FOR TRANSFER TO ROOM 208.
--- NOTE | 2019-05-13 21:44 | NUR ---
ATTEMPT TO CALL PATIENTS YURI AT [phone] TO INFORM ABOUT PATIENTS TRANSFER BUT NO ANSWER AND VOICE MAILBOX IS FULL. WAS NOT ABLE TO LEAVE MESSAGE.
--- NOTE | 2019-05-13 22:00 | NUR ---
PT TRANSFERRED TO ROOM 208 BY HOSPITAL BED. PT IN STABLE CONDITION. NO S/SX OF DISTRESS NOTED.
--- NOTE | 2019-05-13 22:10 | NUR ---
Patient transferred from OBS via bed to Room 208. Patient had no complaints of pain. Respirations even and non-labored. on 2L NC. Patient oriented to room, call light and plan of care. Fall precautions implemented. Patient instructed to call for assistance when needed. Call light within reach.
[2019-05-13] MEDS: MELATONIN 5 MG TABLET PO PRN (23:39)
[2019-05-13] MEDS: NICOTINE 7 MG PATCH TOP PRN (23:39)
[2019-05-14] VITALS (8 sets, daily range): BP systolic 107–128; BP diastolic 56–68
[2019-05-14] MEDS: METOPROLOL TARTRATE 50 MG TAB PO SCH ×2 (09:00→17:43)
[2019-05-14] MEDS: AZITHROMYCIN 250 MG TAB PO SCH (09:09)
[2019-05-14] MEDS: THIAMINE HCL 100 MG TAB PO SCH (09:09)
[2019-05-14] MEDS: CEFTRIAXONE SOD 1 GM/NS 50 ML 50 ML IV SCH (09:09)
[2019-05-14] MEDS: BALSAM PERU/CASTOR OIL 60 GM OINT...G. TP SCH ×2 (09:09→17:43)
[2019-05-14] MEDS: MIDODRINE HCL 5 MG TABLET PO SCH ×2 (09:09→17:43)
[2019-05-14] MEDS: ASPIRIN 81 MG ENTERIC COATED PO SCH (09:09)
[2019-05-14] MEDS: FOLIC ACID 1 MG TAB PO SCH (09:09)
[2019-05-14] MEDS: PANTOPRAZOLE SOD 40 MG TABEC PO SCH (09:09)
[2019-05-14] MEDS: IPRATROPIUM/ALBUTEROL SULFATE 4 GM INH INH SCH ×4 (10:02→21:30)
[2019-05-14] MEDS: APIXAB 2.5 MG TABLET PO SCH (17:43)
--- NOTE | 2019-05-14 19:15 | NUR ---
Patient received lying in bed. AAO x 3. Patient had no complaints of pain. Respirations even and non-labored on 2L NC. Safety measures in place. Call light within reach.
--- NOTE | 2019-05-14 19:48 | NUR ---
walking rounds complete, pt report handed to on coming nurse.,
[2019-05-14] MEDS: MELATONIN 5 MG TABLET PO PRN (23:27)
[2019-05-14] MEDS: NICOTINE 7 MG PATCH TOP PRN (23:39)
[2019-05-15] VITALS (7 sets, daily range): BP systolic 113–147; BP diastolic 57–78
[2019-05-15] MEDS: IPRATROPIUM/ALBUTEROL SULFATE 4 GM INH INH SCH ×4 (01:50→19:35)
--- NOTE | 2019-05-15 07:00 | NUR ---
Walking rounds done. Shift report given to oncoming nurse.
[2019-05-15] MEDS: PANTOPRAZOLE SOD 40 MG TABEC PO SCH (08:18)
[2019-05-15] MEDS: AZITHROMYCIN 250 MG TAB PO SCH (08:23)
[2019-05-15] MEDS: MIDODRINE HCL 5 MG TABLET PO SCH ×2 (08:24→17:45)
[2019-05-15] MEDS: ASPIRIN 81 MG ENTERIC COATED PO SCH (08:24)
[2019-05-15] MEDS: THIAMINE HCL 100 MG TAB PO SCH (08:24)
[2019-05-15] MEDS: METOPROLOL TARTRATE 50 MG TAB PO SCH ×2 (08:25→17:46)
[2019-05-15] MEDS: FOLIC ACID 1 MG TAB PO SCH (08:25)
[2019-05-15] MEDS ORDERED: SODIUM CHLORIDE 0.9% 250ML 250 ML ONE (08:32)
[2019-05-15] MEDS: CEFTRIAXONE SOD 1 GM/NS 50 ML 50 ML IV SCH (08:43)
[2019-05-15] MEDS: BALSAM PERU/CASTOR OIL 60 GM OINT...G. TP SCH ×2 (09:00→17:45)
[2019-05-15] MEDS: APIXAB 2.5 MG TABLET PO SCH (17:47)
--- NOTE | 2019-05-15 19:12 | NUR ---
Report given to oncoming nurse. AAOx2. Bed alarm on, bed in locked and low position. Non skid socks on, possessions and call light within reach. Resting in bed.
--- NOTE | 2019-05-15 19:14 | NUR ---
Patient received sitting up in bed. No acute distress noted. Bed locked and in lowest position. Bed rails up x 2. Patient instructed to call for assistance when needed. Call light within reach.
[2019-05-15] MEDS: ACETAMINOPHEN 325 MG TAB PO PRN (21:25)
[2019-05-16 00:05] VITALS: BP 111/58
[2019-05-16] MEDS: IPRATROPIUM/ALBUTEROL SULFATE 4 GM INH INH SCH ×2 (01:10→08:00)
[2019-05-16 04:05] VITALS: BP 147/65
[2019-05-16 05:08] LABS: BASOPHILS % 0.3 % (0.0-1.0); EOSINOPHILS # (AUTO) 0.2 (0.0-0.4); EOSINOPHILS % 1.8 % (0.0-6.0); HEMOGLOBIN 8.2 g/dL (12.0-16.0); LYMPHOCYTES # (AUTO) 1.3 (1.0-3.2); LYMPHOCYTES % 14.9 % (18.0-39.1); MEAN CORPUSCULAR HEMOGLOBIN 33.3 pg (28-32); MEAN CORPUSCULAR HGB CONC 31.5 g/dL (31-35); MEAN CORPUSCULAR VOLUME 105.7 fL (81-99); MONOCYTES # (AUTO) 1.3 (0.2-0.8); MONOCYTES % 15.3 % (4.4-11.3); NEUTROPHILS # (AUTO) 5.9 (2.1-6.9); NEUTROPHILS % 66.9 % (38.7-80.0); PLATELET COUNT 278 x10e3/uL (140-360); RED BLOOD COUNT 2.46 x10e6/uL (3.6-5.1); RED CELL DISTRIBUTION WIDTH 15.5 % (11.7-14.4)
[2019-05-16] MEDS: NICOTINE 7 MG PATCH TOP PRN (05:08)
[2019-05-16 05:33] LABS: ANION GAP 10.2 mmol/L (8-16); BLOOD UREA NITROGEN 16 mg/dL (7-26); BUN/CREATININE RATIO 22 (6-25); CALCIUM 8.6 mg/dL (8.4-10.2); CARBON DIOXIDE 30 mmol/L (22-29); CHLORIDE 99 mmol/L (98-107); CREATININE, SERUM 0.72 mg/dL (0.57-1.11); EST GLOMERULAR FILTRATION RATE > 60 ML/MIN (60-); GLUCOSE 84 mg/dL (74-118); POTASSIUM 4.2 mmol/L (3.5-5.1); SODIUM 135 mmol/L (136-145)
--- NOTE | 2019-05-16 07:00 | NUR ---
Patient resting comfortably. No acute distress noted. Shift report given to oncoming nurse.
--- NOTE | 2019-05-16 07:10 | NUR ---
RCD PT AT BED PT IS ALERT AND confused IV PATENT BED LOW AND LOCKED CALL LIGHT IN REACH
[2019-05-16] MEDS: PANTOPRAZOLE SOD 40 MG TABEC PO SCH (07:30)
--- NOTE | 2019-05-16 08:21 | NUR ---
TEXTED FACILITY, WAITING ON RESPONSE.
[2019-05-16 08:51] VITALS: BP 115/57
[2019-05-16] MEDS: FOLIC ACID 1 MG TAB PO SCH (09:00)
[2019-05-16] MEDS: METOPROLOL TARTRATE 50 MG TAB PO SCH ×2 (09:00→16:24)
[2019-05-16] MEDS: AZITHROMYCIN 250 MG TAB PO SCH (09:00)
[2019-05-16] MEDS: ASPIRIN 81 MG ENTERIC COATED PO SCH (09:00)
[2019-05-16] MEDS: BALSAM PERU/CASTOR OIL 60 GM OINT...G. TP SCH ×2 (09:00→16:25)
[2019-05-16] MEDS: MIDODRINE HCL 5 MG TABLET PO SCH ×2 (09:00→16:25)
[2019-05-16] MEDS: THIAMINE HCL 100 MG TAB PO SCH (09:00)
[2019-05-16 09:11] VITALS: BP 115/57
[2019-05-16 12:19] VITALS: BP 142/65
--- NOTE | 2019-05-16 14:05 | NUR ---
PT GOING TO [facility] ROOM [address] BUSTILLOS, CALL REPORT TO [phone], IMM GIVEN VERBALLY OVER PHONE. NURSE NOTIFIED SHE CAN CALL REPORT.
--- NOTE | 2019-05-16 14:56 | NUR ---
PAGED AND NOTIFIED DR STANFORD PT APPROVED BY [facility] GOT THE DISCHARGE ORDER
--- NOTE | 2019-05-16 15:12 | NUR ---
REPORT GIVEN TO DIONI BAKER
[2019-05-16 16:11] VITALS: BP 113/58
[2019-05-16] MEDS: APIXAB 2.5 MG TABLET PO SCH (16:24)
--- NOTE | 2019-05-16 16:57 | NUR ---
PT DISCHARGED [facility] IN SAFE CONDITION
== END 2019-05-16 16:57 | DRG 871 ==
LOC: ER 13:11 → ERHOLD 14:47 → ICU 16:38 → MED/SURG2 05-06 11:00 → IMCU 05-11 21:15 → MED/SURG2 05-13 22:18
PROVIDERS: ADMIT Internal Medicine; ATTEND Internal Medicine
DX: A41.9 Sepsis, unspecified organism (principal); E43 Unspecified severe protein-calorie malnutrition; E87.1 Hypo-osmolality and hyponatremia; J44.1 Chronic obstructive pulmonary disease with (acute) exacerbation; J44.0 Chronic obstructive pulmonary disease with (acute) lower respiratory infection; N30.00 Acute cystitis without hematuria; Z68.1 Body mass index [BMI] 19.9 or less, adult; F10.230 Alcohol dependence with withdrawal, uncomplicated; J20.9 Acute bronchitis, unspecified; R19.7 Diarrhea, unspecified; E83.42 Hypomagnesemia; E86.0 Dehydration; Z72.0 Tobacco use; I10 Essential (primary) hypertension; Z82.49 Family history of ischemic heart disease and other diseases of the circulatory system; R94.31 Abnormal electrocardiogram [ECG] [EKG]; I16.0 Hypertensive urgency; K21.9 Gastro-esophageal reflux disease without esophagitis; Z09 Encounter for follow-up examination after completed treatment for conditions other than malignant neoplasm; Z86.718 Personal history of other venous thrombosis and embolism; Z86.711 Personal history of pulmonary embolism; Z72.89 Other problems related to lifestyle; Z82.3 Family history of stroke; Z80.9 Family history of malignant neoplasm, unspecified; R62.7 Adult failure to thrive; F03.90 Unspecified dementia, unspecified severity, without behavioral disturbance, psychotic disturbance, mood disturbance, and anxiety; I95.9 Hypotension, unspecified; R53.81 Other malaise; D64.9 Anemia, unspecified; Z03.818 Encounter for observation for suspected exposure to other biological agents ruled out; Z20.828 Contact with and (suspected) exposure to other viral communicable diseases
CPT/HCPCS: 36415; 71045; 71250; 80048; 80053; 80061; 81001; 82550; 82553; 82607; 82746; 82948; 83090; 83540; 83605; 83735; 83880; 84295; 84443; 84466; 84484; 85025; 85610; 85730; 87040; 87045; 87086; 87186; 87493; 87635; 93005; 93306; 93970; 94640; 97139; 99251; 99285; J0360; J0456; J0696; J1650; J2405; J2543; J2920; J2930; J3411; J3475; J7030; J7050